=== PATIENT | female | born 1975 | race Caucasian/White ===

== ENCOUNTER 2017-02-16 07:24 | Inpatient (IN) | payer OTHER ==
[2017-02-16] VITALS (21 sets, daily range): BP systolic 93–116; BP diastolic 53–78; PULSE 59–96; RESP 12–21; Ht 157.5 cm; Wt 51.1 kg
[~2017-02-16] VITALS: Ht 157.5 cm; Wt 51.1 kg
[2017-02-16] MEDS ORDERED: SOD CHLORIDE 0.9% 1,000 ML IV SCH (07:30)
[2017-02-16] MEDS ORDERED: AMPICILLIN/SULB 3 GM/NS (PMX) 100 ML IVPB ONE (07:30)
[2017-02-16 08:50] LABS: BASOPHILS % 0.7 % (0.0-2.0); EOSINOPHILS # 0.2 10^3/ul (0.0-0.5); EOSINOPHILS % 4.5 % (0.0-7.0); HEMATOCRIT 35.5 % (37.0-47.0); HEMOGLOBIN 11.9 g/dl (12.0-16.0); LYMPHOCYTES # 0.9 10^3/ul (0.8-2.9); LYMPHOCYTES % 21.1 % (15.0-51.0); MEAN CORPUSCULAR HGB CONC 33.5 g/dl (32.0-37.0); MEAN CORPUSCULAR VOLUME 98.3 fl (82.0-101.0); MEAN PLATELET VOLUME 9.8 fl (7.4-10.4); MONOCYTE # 0.4 10^3/ul (0.3-0.9); MONOCYTES % 8.3 % (0.0-11.0); NEUTROPHIL # 2.9 10^3/ul (1.6-7.5); NEUTROPHILS % 65.2 % (39.0-77.0); PLATELET COUNT 247 10^3/UL (140-415); RED BLOOD COUNT 3.61 10^6/ul (4.20-5.40); RED CELL DISTRIBUTION WIDTH 12.5 % (11.5-14.5); WHITE BLOOD COUNT 4.5 10^3/ul (4.8-10.8)
[2017-02-16 09:08] LABS: INR 0.97; PROTIME 12.9 Sec (12.2-14.2)
[2017-02-16 09:09] LABS: PARTIAL THROMBOPLASTIN TIME 25.5 Sec (25.0-35.0)
[2017-02-16 09:12] LABS: ALBUMIN 4.4 g/dl (3.3-4.9); ALBUMIN/GLOBULIN RATIO 1.57; BILIRUBIN,INDIRECT 0.3 mg/dl (0-1.1); BILIRUBIN,TOTAL 0.3 mg/dl (0.2-1.3); TOTAL PROTEIN 7.2 g/dl (6.1-8.1)
[2017-02-16 09:14] LABS: CALCIUM 9.4 mg/dl (8.4-10.2); CREATININE 0.6 mg/dl (0.44-1.00)
[2017-02-16] MEDS: D5W-0.45 NACL + KCL 20 MEQ 1,000 ML IV SCH ×2 (09:32→16:12)
[2017-02-16] MEDS ORDERED: ROCURONIUM 50 MG INJ ONE (09:39)
[2017-02-16] MEDS ORDERED: PROPOFOL 20 ML ONE (09:39)
[2017-02-16] MEDS ORDERED: MIDAZOLAM 1 MG/ML 2 ML INJ ONE (09:39)
[2017-02-16] MEDS ORDERED: LIDOCAINE 1% (MDV) 20 ML INJ ONE (09:40)
[2017-02-16] MEDS ORDERED: ACETAMINOPHEN 1000MG/100ML IV 100 ML IVPB PRN (10:00)
[2017-02-16] MEDS ORDERED: PHENYLephrine (100 MCG/ML) 5ML SYG ONE (10:22)
[2017-02-16] MEDS ORDERED: FAMOTIDINE 20 MG INJ ONE (11:09)
[2017-02-16] MEDS ORDERED: DEXAMETHASONE 4 MG/ML 1 ML INJ ONE (11:09)
[2017-02-16] MEDS ORDERED: ONDANSETRON 4 MG INJ ONE (11:09)
[2017-02-16] MEDS ORDERED: ROPIVACAINE 0.2% 20 ML VIAL ONE ×2 (11:34→11:55)
[2017-02-16] MEDS ORDERED: SUGAMMADEX SODIUM 200 MG/2 ML VIAL IV ONE (11:45)
--- NOTE | 2017-02-16 12:05 | OPR ---
Date/Time of Note Date/Time of Note DATE: 02/16/17 TIME: 12:00 Operative Report Preoperative Diagnosis Low rectal cancer Postoperative Diagnosis Same Operation/Procedure Performed Low anterior resection with splenic flexure mobilization mobilization of omental patch and rigid sigmoidoscopy Surgeon: DION WOODS MD anesthetic assistant: IDA RUIZ MD Second assist: LETICIA SANTANA MD Anesthesia Type: general Estimated Blood Loss: 50 - 100 ml's Transfusion Required: no Specimens rectosigmoid colon,proximal and distal donuts Complications: no DION WOODS MD Feb 16, 2017 12:05
[2017-02-16] MEDS ORDERED: FENTAnyl 50 MCG/ML VIAL ONE (12:07)
[2017-02-16] MEDS ORDERED: MEPERIDINE 25 MG INJ IV PRN (12:30)
[2017-02-16] MEDS ORDERED: DIPHENHYDRAMINE 50 MG INJ IV PRN (12:30)
[2017-02-16] MEDS ORDERED: ONDANSETRON 4 MG INJ IV PRN (12:30)
[2017-02-16] MEDS ORDERED: HYDROmorphONE (0.2 MG/ML) 10ML SYG IV PRN ×2 (12:30)
[2017-02-16] MEDS ORDERED: PROCHLORPERAZINE 10 MG INJ IV PRN (12:30)
[2017-02-16] MEDS ORDERED: KETOROLAC 30 MG INJ IV PRN (12:30)
[2017-02-16] MEDS: morphine 1 MG/ML 30 ML (PCA) IV SCH ×2 (12:56→20:47)
--- NOTE | 2017-02-16 13:06 | OPR ---
DATE OF OPERATION: 02/16/2017 PREOPERATIVE DIAGNOSIS: Low rectal cancer. POSTOPERATIVE DIAGNOSIS: Low rectal cancer. PROCEDURES: Abdominal exploration, mobilization of left colon with mobilization of splenic flexure and low anterior resection with primary stapled anastomosis. Mobilization of omental and placement of omental flap patch over the anastomosis. ANESTHESIA: General. ANESTHESIOLOGIST: Dr. Pendleton. SURGEONS: Dr. Dhiraj Santos and Dr. Miles. DYE WORKER: Dr. Fischer. INDICATIONS FOR PROCEDURE: Patient is a 41-year-old female presented with rectal bleeding. General colonoscopy was found to have an adenocarcinoma at approximately 5-7 cm, it was relatively large. She was referred for neoadjuvant chemotherapy, which she successfully completed. She was counseled as need for definitive surgical resection. She consented and was scheduled for surgery. OPERATIVE PROCEDURE: Patient was brought to the operating theater, placed under general endotracheal tube anesthesia. She was then placed in the lithotomy position. The abdomen and pubic regions were shaved, prepped and draped in usual sterile fashion. A lower midline incision was made from a point below the umbilicus down to the symphysis pubis. Subcutaneous tissue was dissected with cautery down to the anterior rectus sheath. The linea alba was incised, as was the perineum and the abdomen was entered without difficulty. The patient was then put in Trendelenburg position. The Bookwalter retractor was placed and excellent exposure was obtained. The left colon was then mobilized by incising the left white line of Toldt all the way up to the splenic flexure with the left colon fully mobilized, a suitable points for transection was identified and the rectosigmoid area was then cleared of its mesentery and transected with the ALEX stapler with meticulous dissection, the mesentery of the distal sigmoid and mesocolon rectal mesentery was transected with a combination of cautery or the LigaSure device. Dissection proceeded very deep into the pelvis. The peritoneal reflection was incised and further dissection took place. The adherent posterior vaginal wall was gently dissected off of the anterior rectal wall. At this point, Dr. Santos went above performed rigid sigmoidoscopy. He identified the small scar from the residual tumor and it was noted that the dissection was adequately below the location of the tumor. Therefore Dr. Santos re-scrubbed, gowned and gloved and went back to the abdomen in preparation for resection was made. The distal bowel was transected with a contour TA device. Specimen was removed. The intraoperative analysis performed by attending pathologist, Dr. Fischer took place. He indicated that the distal margin was adequate at least 2 cm. Preparation for reanastomosis was made. The staple line of the sigmoid colon was transected and the sizers were used and indicated the number 29 EEA would be suitable. The anvil from the EEA was removed from the EEA device and using a 2-0 Prolene a pursestring suture was created. The anvil was placed into the distal sigmoid colon, the pursestring suture was tied down. Dr. Santos then went below and using the EEA device with Dr. Miles and Dr. Fischer on the abdominal side the anastomosis was created. Upon withdrawal and opening of the EEA device they were fully intact proximal and distal donuts of tissue both of which were sent for pathologic analysis. Along with the rectosigmoid specimen. The pelvis was then filled with warm saline and rigid sigmoidoscopy was performed again. The bowel was distended by clamping it proximal to the anastomosis. There was no evidence of leak. The sigmoid colon was then removed, the omentum was then mobilized and an omental patch was then placed down over the anastomosis and secured in place with a 4-0 Vicryl suture. Final irrigation and inspection took place. Lap, sponge, and instrument counts were correct. The Bookwalter retractor was removed and the incision was then closed with 0 looped PDS sutures in running fashion. The subcutaneous tissue was irrigated with Betadine and the final skin approximation took place with skin michi. ESTIMATED BLOOD LOSS: Was approximately 100 mL. COMPLICATIONS: There were no complications. DISPOSITION: The patient was transported in stable condition to the recovery room. Dictated By: Dhiraj Santos MD /danny/rosemarie /Document#: [id number]
[2017-02-16] MEDS: ONDANSETRON 4 MG INJ IV PRN (16:11)
[2017-02-16] MEDS: METOCLOPRAMIDE 10 MG INJ IV SCH (18:43)
[2017-02-17] VITALS (8 sets, daily range): BP systolic 94–103; BP diastolic 50–62; PULSE 60–80; RESP 18–20
[2017-02-17] MEDS: METOCLOPRAMIDE 10 MG INJ IV SCH ×5 (00:11→23:36)
[2017-02-17] MEDS: D5W-0.45 NACL + KCL 20 MEQ 1,000 ML IV SCH ×5 (00:23→21:39)
[2017-02-17] MEDS: morphine 1 MG/ML 30 ML (PCA) IV SCH ×2 (08:44→20:09)
[2017-02-17 11:16] LABS: CALCIUM 8.7 mg/dl (8.4-10.2); CREATININE 0.68 mg/dl (0.44-1.00); MAGNESIUM 1.8 mg/dl (1.7-2.5)
--- NOTE | 2017-02-17 12:56 | HP ---
Date/Time of Note Date/Time of Note DATE: 02/17/17 TIME: 12:46 Assessment/Plan VTE Prophylaxis VTE Prophylaxis Intervention: SCD's Lines/Catheters IV Catheter Type (from Nrsg): Peripheral IV Urinary Cath still in place: Yes Reason Cath still needed: urinary retention Assessment/Plan Assessment/Plan Low rectal cancer sp Low anterior resection with splenic flexure mobilization mobilization of omental patch and rigid sigmoidoscopy - admit to [facility] - per surgery - IVF -Morphine for pain - Zofran for nausea - SCD - IS - am labs - monitor for s/s of bleeding/infectio Plan of care dw Dr Gage/staff HPI/ROS Admit Date/Time Admit Date/Time Feb 16, 2017 at 07:24 ROS Late enrty fo 02/16/2017 This is a 41 years old female patient with Rectal cancer ia admitted sp rectal surgery by Dr Santos today. Patient denies any chest pain/shortness of breath, nausea/ vomiting. c/o rectal pain. dw staff. it admitted under Dr Gage. Respiratory: no complaints Cardiovascular: no complaints Gastrointestinal: other Genitourinary: other Musculoskeletal: no complaints PMH/Family/Social Past Surgical History Csections x3 Tubal Ligation Family History Significant Family History: no pertinent family hx Social History Smoking Status: Never smoker Exam/Review of Systems Vital Signs Vitals Vital Signs Date Time Temp Pulse Resp B/P Pulse Ox O2 Delivery O2 Flow Rate FiO2 02/17/17 07:58 98.5 78 20 101/59 96 02/17/17 04:40 Room Air Intake and Output 02/16/17 02/16/17 02/17/17 14:59 22:59 06:59 Intake Total 2000 ml 1700 ml Output Total 600 ml 1200 ml Balance 1400 ml 500 ml Exam Constitutional: alert, well developed Respiratory: diminished breath sounds Cardiovascular: nl pulses, regular rate and rhythm Gastrointestinal: other (sp rectal sx), soft Musculoskeletal: nl extremities to inspection 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: nl speech Labs Result Diagram: 02/16/17 0832 02/17/17 1014 Medications Medications Current Medications Ondansetron HCl (Zofran Inj) 4 mg Q6H PRN IV NAUSEA AND/OR VOMITING Last administered on 02/16/17t 16:11; Admin Dose 4 MG; Start 02/16/17 at 10:00 Morphine Sulfate 2 MG/HR CONTINUOUS RATE 2... Q4PCA IV Last administered on 08:44; Admin Dose 30 MG; Start 02/16/17 at 10:00 Potassium Chloride/Dextrose/ Sod Cl 1,000 ml @ 125 mls/hr Q8H IV Last administered on 02/17/17 12:39; Admin Dose 125 MLS/HR; Start 02/16/17 at 09:32 Acetaminophen (Ofirmev 1000mg/ 100ml Iv) 100 ml @ 400 mls/hr Q6H PRN IVPB PAIN ; Start 02/16/17 at 10:00 Metoclopramide HCl (Reglan) 10 mg Q6 IV Last administered on 02/17/17 12:39; Admin Dose 10 MG; Start 02/16/17 at 18:30 SHERINE MAHMOOD Feb 17, 2017 12:56
--- NOTE | 2017-02-17 15:00 | PN ---
Date/Time of Note Date/Time of Note DATE: 02/17/17 TIME: 14:52 Assessment/Plan VTE Prophylaxis VTE Prophylaxis Intervention: SCD's Lines/Catheters IV Catheter Type (from Nrsg): Peripheral IV Urinary Cath still in place: Yes Reason Cath still needed: other (indicate) (Patient has had a low anterior resection of the sigmoid colon. Due to manipulation of the nervous system over that there is a chance of retention we will keep the Sandoval till patient completely ambulates.) Assessment/Plan Assessment/Plan 41-year-old female is status post low anterior resection of the cancer of the rectum. For the first postop day patient is completely stable. Patient is on LATHE HAND. Today has been out of bed sitting in the chair. We will continue current care. Subjective 24 Hr Interval Summary Free Text/Dictation No specific complaint. Pain is under control. Patient has been out of bed sitting the chair. There has been some nausea which has been controlled by Zofran. No bowel movement or passing gas. Exam/Review of Systems Vital Signs Vitals Vital Signs Date Time Temp Pulse Resp B/P Pulse Ox O2 Delivery O2 Flow Rate FiO2 02/17/17 07:58 98.5 78 20 101/59 96 02/17/17 04:40 Room Air Intake and Output 02/16/17 02/16/17 02/17/17 15:00 23:00 07:00 Intake Total 2000 ml 1700 ml Output Total 600 ml 1200 ml Balance 1400 ml 500 ml Exam Postop day #1. Vital sign is stable no fever. Electrolytes BUN creatinine within normal limits urine adequate. Results Result Diagram: 02/16/17 0832 02/17/17 1014 Results 24 hrs Laboratory Tests Test 02/17/17 05:40 02/17/17 10:14 Lab Scanned Report LAB Sodium Level 141 Potassium Level 4.0 Chloride Level 106 Carbon Dioxide Level 26 Anion Gap 13 Blood Urea Nitrogen 8 Creatinine 0.68 Glucose Level 89 Calcium Level 8.7 Phosphorus Level 3.0 Magnesium Level 1.8 Medications Medications Current Medications Ondansetron HCl (Zofran Inj) 4 mg Q6H PRN IV NAUSEA AND/OR VOMITING Last administered on 02/16/17 16:11; Admin Dose 4 MG; Start 02/16/17 at 10:00 Morphine Sulfate 2 MG/HR CONTINUOUS RATE 2... Q4PCA IV Last administered on 08:44; Admin Dose 30 MG; Start 02/16/17 at 10:00 Potassium Chloride/Dextrose/ Sod Cl 1,000 ml @ 125 mls/hr Q8H IV Last administered on 02/17/17 12:39; Admin Dose 125 MLS/HR; Start 02/16/17 at 09:32 Acetaminophen (Ofirmev 1000mg/ 100ml Iv) 100 ml @ 400 mls/hr Q6H PRN IVPB PAIN ; Start 02/16/17 at 10:00 Metoclopramide HCl (Reglan) 10 mg Q6 IV Last administered on 02/17/17 12:39; Admin Dose 10 MG; Start 02/16/17 at 18:30 LETICIA SANTANA MD Feb 17, 2017 14:59
--- NOTE | 2017-02-17 16:47 | PN ---
Date/Time of Note Date/Time of Note DATE: 02/17/17 TIME: 16:44 Assessment/Plan VTE Prophylaxis VTE Prophylaxis Intervention: SCD's Lines/Catheters IV Catheter Type (from Nrsg): Peripheral IV Urinary Cath still in place: Yes Reason Cath still needed: urinary retention Assessment/Plan Chief Complaint/Hosp Course Present bowel sounds, negative flatus, pain is well controlled, denies nausea. Problems: Assessment/Plan -Low rectal cancer, status post resection by Dr. Santos. Continue IV fluids. Continue morphine for pain and Zofran as needed for nausea. Further recommendations based on clinical course. Plan of care discussed with Dr. Gage. Exam/Review of Systems Vital Signs Vitals Vital Signs Date Time Temp Pulse Resp B/P Pulse Ox O2 Delivery O2 Flow Rate FiO2 02/17/17 07:58 98.5 78 20 101/59 96 02/17/17 04:40 Room Air Intake and Output 02/16/17 02/16/17 02/17/17 15:00 23:00 07:00 Intake Total 2000 ml 1700 ml Output Total 600 ml 1200 ml Balance 1400 ml 500 ml Exam Constitutional: alert Psych: no complaints Eyes: nl conjunctiva Neck: supple Respiratory: normal air movement Cardiovascular: nl pulses Gastrointestinal: non-tender, other (s/p surgery), soft Musculoskeletal: nl extremities to inspection Extremities: normal pulses 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: nl mental status Skin: nl turgor Results Result Diagram: 02/16/17 0832 02/17/17 1014 Results 24 hrs Laboratory Tests Test 02/17/17 05:40 02/17/17 10:14 Lab Scanned Report LAB Sodium Level 141 Potassium Level 4.0 Chloride Level 106 Carbon Dioxide Level 26 Anion Gap 13 Blood Urea Nitrogen 8 Creatinine 0.68 Glucose Level 89 Calcium Level 8.7 Phosphorus Level 3.0 Magnesium Level 1.8 Medications Medications Current Medications Ondansetron HCl (Zofran Inj) 4 mg Q6H PRN IV NAUSEA AND/OR VOMITING Last administered on 02/16/17 16:11; Admin Dose 4 MG; Start 02/16/17 at 10:00 Morphine Sulfate 2 MG/HR CONTINUOUS RATE 2... Q4PCA IV Last administered on 08:44; Admin Dose 30 MG; Start 02/16/17 at 10:00 Potassium Chloride/Dextrose/ Sod Cl 1,000 ml @ 125 mls/hr Q8H IV Last administered on 02/17/17 12:39; Admin Dose 125 MLS/HR; Start 02/16/17 at 09:32 Acetaminophen (Ofirmev 1000mg/ 100ml Iv) 100 ml @ 400 mls/hr Q6H PRN IVPB PAIN ; Start 02/16/17 at 10:00 Metoclopramide HCl (Reglan) 10 mg Q6 IV Last administered on 02/17/17 12:39; Admin Dose 10 MG; Start 02/16/17 at 18:30 MAMADOU CHUA Feb 17, 2017 16:47
[2017-02-18] MEDS: D5W-0.45 NACL + KCL 20 MEQ 1,000 ML IV SCH ×5 (00:35→20:45)
[2017-02-18 02:02] VITALS: BP 107/62; RESP 20
[2017-02-18] MEDS: METOCLOPRAMIDE 10 MG INJ IV SCH ×3 (05:53→18:00)
[2017-02-18 07:42] VITALS: BP 103/55; RESP 18
[2017-02-18] MEDS: morphine 1 MG/ML 30 ML (PCA) IV SCH (08:57)
[2017-02-18 10:00] VITALS: BP 110/62; PULSE 87; RESP 18
[2017-02-18 10:04] LABS: CALCIUM 8.6 mg/dl (8.4-10.2); CREATININE 0.61 mg/dl (0.44-1.00); MAGNESIUM 1.8 mg/dl (1.7-2.5); PHOSPHORUS 2.8 mg/dl (2.5-4.9)
[2017-02-18 10:59] VITALS: BP 103/56; RESP 18
[2017-02-18 11:27] LABS: BASOPHILS % 0.3 % (0.0-2.0); EOSINOPHILS # 0.1 10^3/ul (0.0-0.5); EOSINOPHILS % 1.6 % (0.0-7.0); HEMATOCRIT 29.6 % (37.0-47.0); HEMOGLOBIN 10.1 g/dl (12.0-16.0); LYMPHOCYTES # 0.8 10^3/ul (0.8-2.9); LYMPHOCYTES % 10.9 % (15.0-51.0); MEAN CORPUSCULAR HGB CONC 34.1 g/dl (32.0-37.0); MEAN CORPUSCULAR VOLUME 99.7 fl (82.0-101.0); MEAN PLATELET VOLUME 8.9 fl (7.4-10.4); MONOCYTE # 0.5 10^3/ul (0.3-0.9); MONOCYTES % 7.5 % (0.0-11.0); NEUTROPHIL # 5.6 10^3/ul (1.6-7.5); NEUTROPHILS % 79.4 % (39.0-77.0); PLATELET COUNT 206 10^3/UL (140-415); RED BLOOD COUNT 2.97 10^6/ul (4.20-5.40); RED CELL DISTRIBUTION WIDTH 12.6 % (11.5-14.5); WHITE BLOOD COUNT 7.1 10^3/ul (4.8-10.8)
--- NOTE | 2017-02-18 12:07 | PN ---
Date/Time of Note Date/Time of Note DATE: 02/18/17 TIME: 12:04 Assessment/Plan VTE Prophylaxis VTE Prophylaxis Intervention: SCD's Lines/Catheters IV Catheter Type (from Nrsg): Peripheral IV Urinary Cath still in place: Yes Reason Cath still needed: urinary retention Assessment/Plan Assessment/Plan - Low rectal cancer, - Status Post resection by Dr. Santos. Postop day #2. - per surgery - Continue IV fluids. - Continue morphine for pain and Zofran as needed for nausea. - monitor labs Further recommendations based on clinical course. Plan of care discussed with Dr. Gage. 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 Patient ambulated but felt dizzy.has not passed gas yet, family at bed side,will follow surgery recommendations, no rectal bleeding reported, staff. Constitutional: other (generelized weakness), requiring IVF Respiratory: no complaints Cardiovascular: no complaints Gastrointestinal: pain (surgical pain) Genitourinary: no complaints Exam/Review of Systems Vital Signs Vitals Vital Signs Date Time Temp Pulse Resp B/P Pulse Ox O2 Delivery O2 Flow Rate FiO2 02/18/17 10:59 97.9 83 18 103/56 92 02/17/17 04:40 Room Air Intake and Output 02/17/17 02/17/17 02/18/17 15:00 23:00 07:00 Intake Total 375 ml 1000 ml 1000 ml Output Total 1625 ml Balance 375 ml 1000 ml -625 ml Exam Constitutional: alert, oriented, well developed Respiratory: diminished breath sounds (at bases, uses incentive spirometer as ordered) Cardiovascular: nl pulses, regular rate and rhythm Gastrointestinal: distended, soft Genitourinary - Female: other (moreira cath intact.) Musculoskeletal: nl extremities to inspection Extremities: normal pulses 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: nl mental status, nl speech Results Result Diagram: 02/18/17 1119 02/18/17 0913 Results 24 hrs Laboratory Tests Test 02/18/17 09:13 02/18/17 11:19 Sodium Level 138 Potassium Level 4.0 Chloride Level 98 Carbon Dioxide Level 30 Anion Gap 14 Blood Urea Nitrogen 5 L Creatinine 0.61 Glucose Level 104 Calcium Level 8.6 Phosphorus Level 2.8 Magnesium Level 1.8 White Blood Count 7.1 # Red Blood Count 2.97 L Hemoglobin 10.1 L Hematocrit 29.6 L Mean Corpuscular Volume 99.7 Mean Corpuscular Hemoglobin 34.0 H Mean Corpuscular Hemoglobin Concent 34.1 Red Cell Distribution Width 12.6 Platelet Count 206 Mean Platelet Volume 8.9 Neutrophils % 79.4 H Lymphocytes % 10.9 L Monocytes % 7.5 Eosinophils % 1.6 Basophils % 0.3 Nucleated Red Blood Cells % 0.0 Neutrophils # 5.6 Lymphocytes # 0.8 Monocytes # 0.5 Eosinophils # 0.1 Basophils # 0.0 Nucleated Red Blood Cells # 0.0 Medications Medications Current Medications Ondansetron HCl (Zofran Inj) 4 mg Q6H PRN IV NAUSEA AND/OR VOMITING Last administered on 02/16/17 16:11; Admin Dose 4 MG; Start 02/16/17 at 10:00 Morphine Sulfate 2 MG/HR CONTINUOUS RATE 2... Q4PCA IV Last administered on 08:57; Admin Dose 30 MG; Start 02/16/17 at 10:00 Potassium Chloride/Dextrose/ Sod Cl 1,000 ml @ 125 mls/hr Q8H IV Last administered on 02/18/17 05:53; Admin Dose 125 MLS/HR; Start 02/16/17 at 09:32 Acetaminophen (Ofirmev 1000mg/ 100ml Iv) 100 ml @ 400 mls/hr Q6H PRN IVPB PAIN ; Start 02/16/17 at 10:00 Metoclopramide HCl (Reglan) 10 mg Q6 IV Last administered on 02/18/17 05:53; Admin Dose 10 MG; Start 02/16/17 at 18:30 SHERINE MAHMOOD Feb 18, 2017 12:07
[2017-02-18 14:09] VITALS: BP 99/55; RESP 18
--- NOTE | 2017-02-18 15:08 | PN ---
Date/Time of Note Date/Time of Note DATE: 02/18/17 TIME: 15:01 Assessment/Plan VTE Prophylaxis VTE Prophylaxis Intervention: ambulation Lines/Catheters IV Catheter Type (from Nrs): Peripheral IV Urinary Cath still in place: Yes Reason Cath still needed: other (indicate) (PO2 low anterior resection on the lateral dissection of the pelvic area he prefers to keep the Sandoval catheter in place for a few more days.) Assessment/Plan Assessment/Plan Postop day #2. Status post laparotomy low anterior resection of the cancer of rectum. Status post neoadjuvant chemotherapy and radiation. For the second day postop patient is doing fine patient is a stable slight distention of the abdomen with gases. Plan: Encourage ambulation. Encourage incentive spirometry. Will DC the continuous base TELEHEALTH DIRECTOR 2 mg of morphine and continue on demand. Keep the patient n.p.o. Subjective 24 Hr Interval Summary Free Text/Dictation Postop day #2. Status post low anterior resection of the cancer of the rectum. Has been out of bed walk around. No vomiting. Patient states that has passed a little bit of gas. Sandoval catheter in place. Pain is controlled with TELEHEALTH DIRECTOR. Exam/Review of Systems Vital Signs Vitals Vital Signs Date Time Temp Pulse Resp B/P Pulse Ox O2 Delivery O2 Flow Rate FiO2 02/18/17 14:09 98.9 88 18 99/55 93 02/17/17 04:40 Room Air Intake and Output 02/17/17 02/17/17 02/18/17 15:00 23:00 07:00 Intake Total 375 ml 1000 ml 1000 ml Output Total 1625 ml Balance 375 ml 1000 ml -625 ml Exam Vital signs stable. Afebrile. Pulse oximetry 93%. Alert awake oriented 3 laying down in the bed comfortable. Heart regular. Lungs decreased breathing sound bases. Abdomen appears slightly distended with gas. Bowel sounds 2+/4+. Lower extremity no pitting edema. No calf tenderness. Dressing of the wound changed. Wound appears clean. Results Result Diagram: 02/18/17 1119 02/18/17 0913 Results 24 hrs Laboratory Tests Test 02/18/17 09:13 02/18/17 11:19 Sodium Level 138 Potassium Level 4.0 Chloride Level 98 Carbon Dioxide Level 30 Anion Gap 14 Blood Urea Nitrogen 5 L Creatinine 0.61 Glucose Level 104 Calcium Level 8.6 Phosphorus Level 2.8 Magnesium Level 1.8 White Blood Count 7.1 # Red Blood Count 2.97 L Hemoglobin 10.1 L Hematocrit 29.6 L Mean Corpuscular Volume 99.7 Mean Corpuscular Hemoglobin 34.0 H Mean Corpuscular Hemoglobin Concent 34.1 Red Cell Distribution Width 12.6 Platelet Count 206 Mean Platelet Volume 8.9 Neutrophils % 79.4 H Lymphocytes % 10.9 L Monocytes % 7.5 Eosinophils % 1.6 Basophils % 0.3 Nucleated Red Blood Cells % 0.0 Neutrophils # 5.6 Lymphocytes # 0.8 Monocytes # 0.5 Eosinophils # 0.1 Basophils # 0.0 Nucleated Red Blood Cells # 0.0 Medications Medications Current Medications Ondansetron HCl (Zofran Inj) 4 mg Q6H PRN IV NAUSEA AND/OR VOMITING Last administered on 02/16/17 16:11; Admin Dose 4 MG; Start 02/16/17 at 10:00 Morphine Sulfate 2 MG/HR CONTINUOUS RATE 2... Q4PCA IV Last administered on 08:57; Admin Dose 30 MG; Start 02/16/17 at 10:00 Potassium Chloride/Dextrose/ Sod Cl 1,000 ml @ 125 mls/hr Q8H IV Last administered on 02/18/17 13:04; Admin Dose 125 MLS/HR; Start 02/16/17 at 09:32 Acetaminophen (Ofirmev 1000mg/ 100ml Iv) 100 ml @ 400 mls/hr Q6H PRN IVPB PAIN ; Start 02/16/17 at 10:00 Metoclopramide HCl (Reglan) 10 mg Q6 IV Last administered on 02/18/17 05:53; Admin Dose 10 MG; Start 02/16/17 at 18:30 LETICIA SANTANA MD Feb 18, 2017 15:08
[2017-02-18 21:00] VITALS: BP 101/60; PULSE 83; RESP 18
[2017-02-19 01:00] VITALS: BP 105/58; PULSE 91; RESP 16
[2017-02-19] MEDS: D5W-0.45 NACL + KCL 20 MEQ 1,000 ML IV SCH ×4 (01:32→22:06)
[2017-02-19 05:37] VITALS: BP 102/59; PULSE 89; RESP 16
[2017-02-19 06:00] LABS: BASOPHILS % 0.2 % (0.0-2.0); EOSINOPHILS # 0.3 10^3/ul (0.0-0.5); EOSINOPHILS % 5.4 % (0.0-7.0); HEMATOCRIT 29.5 % (37.0-47.0); HEMOGLOBIN 9.8 g/dl (12.0-16.0); LYMPHOCYTES # 0.7 10^3/ul (0.8-2.9); LYMPHOCYTES % 12.5 % (15.0-51.0); MEAN CORPUSCULAR HGB CONC 33.2 g/dl (32.0-37.0); MEAN CORPUSCULAR VOLUME 99.3 fl (82.0-101.0); MEAN PLATELET VOLUME 9.8 fl (7.4-10.4); MONOCYTE # 0.5 10^3/ul (0.3-0.9); MONOCYTES % 8.7 % (0.0-11.0); NEUTROPHIL # 3.8 10^3/ul (1.6-7.5); PLATELET COUNT 213 10^3/UL (140-415); RED BLOOD COUNT 2.97 10^6/ul (4.20-5.40); RED CELL DISTRIBUTION WIDTH 12.2 % (11.5-14.5); WHITE BLOOD COUNT 5.2 10^3/ul (4.8-10.8)
[2017-02-19] MEDS: METOCLOPRAMIDE 10 MG INJ IV SCH ×4 (06:00→18:00)
[2017-02-19 06:25] LABS: CALCIUM 8.9 mg/dl (8.4-10.2); CREATININE 0.6 mg/dl (0.44-1.00); POTASSIUM 4.3 mmol/L (3.5-5.1)
[2017-02-19 07:37] VITALS: BP 95/55; RESP 18
[2017-02-19] MEDS: morphine 1 MG/ML 30 ML (PCA) IV SCH (08:07)
[2017-02-19 11:57] LABS: CREATININE 0.58 mg/dl (0.44-1.00); PHOSPHORUS 3.8 mg/dl (2.5-4.9)
[2017-02-19 13:28] VITALS: BP 105/56; PULSE 78; RESP 18
[2017-02-19 14:20] VITALS: BP 123/58; RESP 18
--- NOTE | 2017-02-19 14:29 | PN ---
Date/Time of Note Date/Time of Note DATE: 02/19/17 TIME: 14:23 Assessment/Plan VTE Prophylaxis VTE Prophylaxis Intervention: ambulation Lines/Catheters IV Catheter Type (from Nrsg): Peripheral IV Urinary Cath still in place: Yes Reason Cath still needed: other (indicate) (Due to massive manipulation in the pelvic area and manipulation of the nervous system to the bladder prefer to keep a few more) Assessment/Plan Assessment/Plan 41-year-old female status post laparotomy no pelvic resection of the cancer of the rectum. Postop day #3. . So far is very stable. We will try to DC Sandoval catheter in the morning tomorrow. Subjective 24 Hr Interval Summary Free Text/Dictation Postop day #3. No complaint. Has been out of bed walking around. No nausea no vomiting minimal pain medication has been used by the patient. Exam/Review of Systems Vital Signs Vitals Vital Signs Date Time Temp Pulse Resp B/P Pulse Ox O2 Delivery O2 Flow Rate FiO2 02/19/17 14:20 98.2 77 18 123/58 99 02/19/17 13:28 Room Air Intake and Output 02/18/17 02/18/17 02/19/17 15:00 23:00 07:00 Intake Total 1000 ml 1000 ml 1000 ml Output Total 2800 ml 2150 ml Balance 1000 ml -1800 ml -1150 ml Exam Alert awake oriented 3. No fever Abdomen is soft. Mildly distended bowel sounds 2-3+/4+. Has past few flatus. Legs no calf tenderness no pitting edema. Results Result Diagram: 02/19/17 0500 02/19/17 1032 Results 24 hrs Laboratory Tests Test 02/19/17 05:00 02/19/17 05:20 02/19/17 10:32 White Blood Count 5.2 # Red Blood Count 2.97 L Hemoglobin 9.8 L Hematocrit 29.5 L Mean Corpuscular Volume 99.3 Mean Corpuscular Hemoglobin 33.0 Mean Corpuscular Hemoglobin Concent 33.2 Red Cell Distribution Width 12.2 Platelet Count 213 Mean Platelet Volume 9.8 Neutrophils % 73.0 Lymphocytes % 12.5 L Monocytes % 8.7 Eosinophils % 5.4 Basophils % 0.2 Nucleated Red Blood Cells % 0.0 Neutrophils # 3.8 Lymphocytes # 0.7 L Monocytes # 0.5 Eosinophils # 0.3 Basophils # 0.0 Nucleated Red Blood Cells # 0.0 Sodium Level 141 141 Potassium Level 4.3 4.0 Chloride Level 101 99 Carbon Dioxide Level 31 31 Anion Gap 13 15 Blood Urea Nitrogen 4 L 5 L Creatinine 0.60 0.58 Glucose Level 96 107 Calcium Level 8.9 9.0 Phosphorus Level 3.8 Magnesium Level 2.0 Medications Medications Current Medications Ondansetron HCl (Zofran Inj) 4 mg Q6H PRN IV NAUSEA AND/OR VOMITING Last administered on 02/16/17 16:11; Admin Dose 4 MG; Start 02/16/17 at 10:00 Morphine Sulfate 0 MG/HR CONTINUOUS RATE 2... Q4PCA IV Last administered on 08:07; Admin Dose 30 MG; Start 02/16/17 at 10:00 Potassium Chloride/Dextrose/ Sod Cl 1,000 ml @ 125 mls/hr Q8H IV Last administered on 02/19/17 13:34; Admin Dose 125 MLS/HR; Start 02/16/17 at 09:32 Acetaminophen (Ofirmev 1000mg/ 100ml Iv) 100 ml @ 400 mls/hr Q6H PRN IVPB PAIN ; Start 02/16/17 at 10:00 Metoclopramide HCl (Reglan) 10 mg Q6 IV Last administered on 02/18/17 05:53; Admin Dose 10 MG; Start 02/16/17 at 18:30 LETICIA SANTANA MD Feb 19, 2017 14:29
--- NOTE | 2017-02-19 15:59 | PN ---
Date/Time of Note Date/Time of Note DATE: 02/19/17 TIME: 15:55 Assessment/Plan VTE Prophylaxis VTE Prophylaxis Intervention: SCD's VTE Contraindication Reason: peptic ulcer disease Lines/Catheters IV Catheter Type (from Nrsg): Peripheral IV Urinary Cath still in place: Yes Reason Cath still needed: urinary retention Assessment/Plan Assessment/Plan - Low rectal cancer, - Status Post resection by Dr. Santos. Postop day #3. - per surgery - Continue IV fluids. - Continue morphine for pain and Zofran as needed for nausea. - monitor labs Further recommendations based on clinical course. Plan of care discussed with Dr. Gage. Subjective 24 Hr Interval Summary Free Text/Dictation resting, c/o rectal pain, surgery follows, afebrile. dw staff Constitutional: requiring IVF Respiratory: no complaints Cardiovascular: no complaints Gastrointestinal: other (rectal pain) Genitourinary: no complaints Musculoskeletal: no complaints Skin: no complaints Exam/Review of Systems Vital Signs Vitals Vital Signs Date Time Temp Pulse Resp B/P Pulse Ox O2 Delivery O2 Flow Rate FiO2 02/19/17 14:20 98.2 77 18 123/58 99 02/19/17 13:28 Room Air Intake and Output 02/18/17 02/18/17 02/19/17 15:00 23:00 07:00 Intake Total 1000 ml 1000 ml 1000 ml Output Total 2800 ml 2150 ml Balance 1000 ml -1800 ml -1150 ml Exam Constitutional: alert, oriented, well developed Respiratory: clear to auscultation, normal air movement Cardiovascular: nl pulses, regular rate and rhythm Gastrointestinal: non-tender, soft Musculoskeletal: nl extremities to inspection Extremities: normal pulses 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: nl mental status, nl speech Skin: nl turgor Results Result Diagram: 02/19/17 0500 02/19/17 1032 Results 24 hrs Laboratory Tests Test 02/19/17 05:00 02/19/17 05:20 02/19/17 10:32 White Blood Count 5.2 # Red Blood Count 2.97 L Hemoglobin 9.8 L Hematocrit 29.5 L Mean Corpuscular Volume 99.3 Mean Corpuscular Hemoglobin 33.0 Mean Corpuscular Hemoglobin Concent 33.2 Red Cell Distribution Width 12.2 Platelet Count 213 Mean Platelet Volume 9.8 Neutrophils % 73.0 Lymphocytes % 12.5 L Monocytes % 8.7 Eosinophils % 5.4 Basophils % 0.2 Nucleated Red Blood Cells % 0.0 Neutrophils # 3.8 Lymphocytes # 0.7 L Monocytes # 0.5 Eosinophils # 0.3 Basophils # 0.0 Nucleated Red Blood Cells # 0.0 Sodium Level 141 141 Potassium Level 4.3 4.0 Chloride Level 101 99 Carbon Dioxide Level 31 31 Anion Gap 13 15 Blood Urea Nitrogen 4 L 5 L Creatinine 0.60 0.58 Glucose Level 96 107 Calcium Level 8.9 9.0 Phosphorus Level 3.8 Magnesium Level 2.0 Medications Medications Current Medications Ondansetron HCl (Zofran Inj) 4 mg Q6H PRN IV NAUSEA AND/OR VOMITING Last administered on 02/16/17 16:11; Admin Dose 4 MG; Start 02/16/17 at 10:00 Morphine Sulfate 0 MG/HR CONTINUOUS RATE 2... Q4PCA IV Last administered on 08:07; Admin Dose 30 MG; Start 02/16/17 at 10:00 Potassium Chloride/Dextrose/ Sod Cl 1,000 ml @ 125 mls/hr Q8H IV Last administered on 02/19/17 13:34; Admin Dose 125 MLS/HR; Start 02/16/17 at 09:32 Acetaminophen (Ofirmev 1000mg/ 100ml Iv) 100 ml @ 400 mls/hr Q6H PRN IVPB PAIN ; Start 02/16/17 at 10:00 Metoclopramide HCl (Reglan) 10 mg Q6 IV Last administered on 02/18/17 05:53; Admin Dose 10 MG; Start 02/16/17 at 18:30 SHERINE MAHMOOD Feb 19, 2017 15:59
[2017-02-19 20:00] VITALS: BP 118/66; PULSE 81; RESP 16
[2017-02-20] VITALS (7 sets, daily range): BP systolic 97–105; BP diastolic 53–62; PULSE 75–80; RESP 16–18
[2017-02-20] MEDS: D5W-0.45 NACL + KCL 20 MEQ 1,000 ML IV SCH ×4 (01:32→17:32)
[2017-02-20] MEDS: METOCLOPRAMIDE 10 MG INJ IV SCH ×4 (06:00→18:47)
[2017-02-20 06:31] LABS: ABNORMAL IP MESSAGE 1; BASOPHILS % 0.4 % (0.0-2.0); EOSINOPHILS # 0.4 10^3/ul (0.0-0.5); EOSINOPHILS % 8.2 % (0.0-7.0); HEMATOCRIT 31.6 % (37.0-47.0); HEMOGLOBIN 10.6 g/dl (12.0-16.0); LYMPHOCYTES # 0.5 10^3/ul (0.8-2.9); LYMPHOCYTES % 10.8 % (15.0-51.0); MEAN CORPUSCULAR HEMOGLOBIN 32.5 pg (29.0-33.0); MEAN CORPUSCULAR HGB CONC 33.5 g/dl (32.0-37.0); MEAN CORPUSCULAR VOLUME 96.9 fl (82.0-101.0); MEAN PLATELET VOLUME 9.9 fl (7.4-10.4); MONOCYTE # 0.3 10^3/ul (0.3-0.9); MONOCYTES % 6.6 % (0.0-11.0); NEUTROPHIL # 3.7 10^3/ul (1.6-7.5); NEUTROPHILS % 73.8 % (39.0-77.0); PLATELET COUNT 251 10^3/UL (140-415); RED BLOOD COUNT 3.26 10^6/ul (4.20-5.40); RED CELL DISTRIBUTION WIDTH 12.2 % (11.5-14.5)
[2017-02-20 06:39] LABS: POSITIVE DIFF @See below
[2017-02-20 07:06] LABS: CALCIUM 9.1 mg/dl (8.4-10.2); CREATININE 0.61 mg/dl (0.44-1.00)
--- NOTE | 2017-02-20 13:54 | PN ---
Date/Time of Note Date/Time of Note DATE: 02/20/17 TIME: 13:51 Assessment/Plan VTE Prophylaxis VTE Prophylaxis Intervention: SCD's Lines/Catheters IV Catheter Type (from Nrs): Peripheral IV Urinary Cath still in place: Yes Reason Cath still needed: urinary retention Assessment/Plan Chief Complaint/Hosp Course Patient reports positive flatus, bowel sounds present, pain is well controlled. Patient's complains of mild nausea however denies any emesis. Assessment/Plan -Low rectal cancer, status post resection by Dr. Santos. Continue IV fluids. Continue morphine for pain and Zofran as needed for nausea. Advance diet per surgery. Further recommendations based on clinical course. Plan of care discussed with Dr. Gage. Problems: Exam/Review of Systems Vital Signs Vitals Vital Signs Date Time Temp Pulse Resp B/P Pulse Ox O2 Delivery O2 Flow Rate FiO2 02/20/17 08:05 98.5 69 18 98/61 95 02/20/17 01:00 Room Air Intake and Output 02/19/17 02/19/17 02/20/17 15:00 23:00 07:00 Intake Total 1000 ml 1000 ml 300 ml Output Total 1850 ml 1750 ml Balance 1000 ml -850 ml -1450 ml Exam Constitutional: alert Respiratory: normal air movement Cardiovascular: nl pulses Gastrointestinal: non-tender, other (s/p surgery), soft Extremities: normal pulses Skin: nl turgor Results Result Diagram: 02/20/17 0602 02/20/17 0602 Results 24 hrs Laboratory Tests Test 02/20/17 06:02 White Blood Count 5.0 Red Blood Count 3.26 L Hemoglobin 10.6 L Hematocrit 31.6 L Mean Corpuscular Volume 96.9 Mean Corpuscular Hemoglobin 32.5 Mean Corpuscular Hemoglobin Concent 33.5 Red Cell Distribution Width 12.2 Platelet Count 251 Mean Platelet Volume 9.9 Neutrophils % 73.8 Lymphocytes % 10.8 L Monocytes % 6.6 Eosinophils % 8.2 H Basophils % 0.4 Nucleated Red Blood Cells % 0.0 Neutrophils # 3.7 Lymphocytes # 0.5 L Monocytes # 0.3 Eosinophils # 0.4 Basophils # 0.0 Nucleated Red Blood Cells # 0.0 Sodium Level 137 Potassium Level 4.0 Chloride Level 102 Carbon Dioxide Level 28 Anion Gap 11 Blood Urea Nitrogen 5 L Creatinine 0.61 Glucose Level 116 Calcium Level 9.1 Medications Medications Current Medications Ondansetron HCl (Zofran Inj) 4 mg Q6H PRN IV NAUSEA AND/OR VOMITING Last administered on 02/16/17 16:11; Admin Dose 4 MG; Start 02/16/17 at 10:00 Morphine Sulfate 0 MG/HR CONTINUOUS RATE 2... Q4PCA IV Last administered on 08:07; Admin Dose 30 MG; Start 02/16/17 at 10:00 Potassium Chloride/Dextrose/ Sod Cl 1,000 ml @ 125 mls/hr Q8H IV Last administered on 02/20/17 07:39; Admin Dose 125 MLS/HR; Start 02/16/17 at 09:32 Acetaminophen (Ofirmev 1000mg/ 100ml Iv) 100 ml @ 400 mls/hr Q6H PRN IVPB PAIN ; Start 02/16/17 at 10:00 Metoclopramide HCl (Reglan) 10 mg Q6 IV Last administered on 02/18/17 05:53; Admin Dose 10 MG; Start 02/16/17 at 18:30 MAMADOU HCUA Feb 20, 2017 13:54
[2017-02-20] MEDS: morphine 1 MG/ML 30 ML (PCA) IV SCH (16:15)
--- NOTE | 2017-02-20 17:06 | PN ---
Date/Time of Note Date/Time of Note DATE: 02/20/17 TIME: 17:01 Assessment/Plan VTE Prophylaxis VTE Prophylaxis Intervention: ambulation Lines/Catheters IV Catheter Type (from [facility]): Peripheral IV Urinary Cath still in place: No Assessment/Plan Assessment/Plan Postop day #4. Status post laparotomy low anterior resection of the cancer of rectum and primary end-to-end anastomosis. Also is a status post neoadjuvant chemotherapy and radiation. So far patient is doing very fine. No nausea no vomiting no fever. Plan: Continue current care. We will try to keep the patient n.p.o. more than usual because of the chemotherapy and radiation the patient has had. Subjective 24 Hr Interval Summary Free Text/Dictation Postop day #4 No complain. No nausea no vomiting. Today morning Sandoval catheter was DC'd and the patient has urinated without difficulty Slight amount of flatus. No bowel movement. Exam/Review of Systems Vital Signs Vitals Vital Signs Date Time Temp Pulse Resp B/P Pulse Ox O2 Delivery O2 Flow Rate FiO2 02/20/17 14:40 97.4 64 18 97/53 99 02/20/17 01:00 Room Air Intake and Output 02/19/17 02/19/17 02/20/17 15:00 23:00 07:00 Intake Total 1000 ml 1000 ml 300 ml Output Total 1850 ml 1750 ml Balance 1000 ml -850 ml -1450 ml Exam Alert awake oriented 3. Vital signs stable. Abdomen is soft bowel sound is present legs no calf tenderness. Sandoval catheter has been DC'd Results Result Diagram: 02/20/17 0602 02/20/17 0602 Results 24 hrs Laboratory Tests Test 02/20/17 06:02 White Blood Count 5.0 Red Blood Count 3.26 L Hemoglobin 10.6 L Hematocrit 31.6 L Mean Corpuscular Volume 96.9 Mean Corpuscular Hemoglobin 32.5 Mean Corpuscular Hemoglobin Concent 33.5 Red Cell Distribution Width 12.2 Platelet Count 251 Mean Platelet Volume 9.9 Neutrophils % 73.8 Lymphocytes % 10.8 L Monocytes % 6.6 Eosinophils % 8.2 H Basophils % 0.4 Nucleated Red Blood Cells % 0.0 Neutrophils # 3.7 Lymphocytes # 0.5 L Monocytes # 0.3 Eosinophils # 0.4 Basophils # 0.0 Nucleated Red Blood Cells # 0.0 Sodium Level 137 Potassium Level 4.0 Chloride Level 102 Carbon Dioxide Level 28 Anion Gap 11 Blood Urea Nitrogen 5 L Creatinine 0.61 Glucose Level 116 Calcium Level 9.1 Medications Medications Current Medications Ondansetron HCl (Zofran Inj) 4 mg Q6H PRN IV NAUSEA AND/OR VOMITING Last administered on 02/16/17 16:11; Admin Dose 4 MG; Start 02/16/17 at 10:00 Morphine Sulfate 0 MG/HR CONTINUOUS RATE 2... Q4PCA IV Last administered on 16:15; Admin Dose 30 MG; Start 02/16/17 at 10:00 Potassium Chloride/Dextrose/ Sod Cl 1,000 ml @ 125 mls/hr Q8H IV Last administered on 02/20/17 16:26; Admin Dose 125 MLS/HR; Start 02/16/17 at 09:32 Acetaminophen (Ofirmev 1000mg/ 100ml Iv) 100 ml @ 400 mls/hr Q6H PRN IVPB PAIN ; Start 02/16/17 at 10:00 Metoclopramide HCl (Reglan) 10 mg Q6 IV Last administered on 02/20/17 16:25; Admin Dose 10 MG; Start 02/16/17 at 18:30 LETICIA SANTANA MD Feb 20, 2017 17:06
[2017-02-21] MEDS: D5W-0.45 NACL + KCL 20 MEQ 1,000 ML IV SCH ×3 (01:06→15:09)
[2017-02-21 02:41] VITALS: BP 97/55; RESP 18
[2017-02-21] MEDS: METOCLOPRAMIDE 10 MG INJ IV SCH ×4 (06:00→17:52)
[2017-02-21 06:25] LABS: CALCIUM 8.9 mg/dl (8.4-10.2); CREATININE 0.63 mg/dl (0.44-1.00); POTASSIUM 4.2 mmol/L (3.5-5.1)
[2017-02-21 08:10] VITALS: BP 97/54; RESP 18
[2017-02-21 11:53] VITALS: BP 104/57; RESP 16
--- NOTE | 2017-02-21 14:12 | PN ---
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 Santos. Continue IV fluids. Continue morphine for pain and Zofran as needed for nausea. Advance diet per surgery. Further recommendations based on clinical course. Plan of care discussed with Dr. Gage. Problems: Exam/Review of Systems Vital Signs Vitals Vital Signs Date Time Temp Pulse Resp B/P Pulse Ox O2 Delivery O2 Flow Rate FiO2 02/21/17 12:00 16 02/21/17 11:53 98.4 71 104/57 100 02/20/17 17:00 Room Air Intake and Output 02/20/17 02/20/17 02/21/17 15:00 23:00 07:00 Intake Total 1000 ml 1250 ml 750 ml Balance 1000 ml 1250 ml 750 ml Exam Constitutional: alert Respiratory: normal air movement Cardiovascular: nl pulses Gastrointestinal: non-tender, other (s/p surgery), soft Extremities: normal pulses Skin: nl turgor Results Result Diagram: 02/20/17 0602 02/21/17 0542 Results 24 hrs Laboratory Tests Test 02/21/17 05:42 Sodium Level 137 Potassium Level 4.2 Chloride Level 102 Carbon Dioxide Level 28 Anion Gap 11 Blood Urea Nitrogen 6 L Creatinine 0.63 Glucose Level 118 Calcium Level 8.9 Medications Medications Current Medications Ondansetron HCl (Zofran Inj) 4 mg Q6H PRN IV NAUSEA AND/OR VOMITING Last administered on 02/16/17 16:11; Admin Dose 4 MG; Start 02/16/17 at 10:00 Morphine Sulfate 0 MG/HR CONTINUOUS RATE 2... Q4PCA IV Last administered on 16:15; Admin Dose 30 MG; Start 02/16/17 at 10:00 Potassium Chloride/Dextrose/ Sod Cl 1,000 ml @ 125 mls/hr Q8H IV Last administered on 02/21/17 01:06; Admin Dose 125 MLS/HR; Start 02/16/17 at 09:32 Acetaminophen (Ofirmev 1000mg/ 100ml Iv) 100 ml @ 400 mls/hr Q6H PRN IVPB PAIN ; Start 02/16/17 at 10:00 Metoclopramide HCl (Reglan) 10 mg Q6 IV Last administered on 02/20/17t 18:47; Admin Dose 10 MG; Start 02/16/17 at 18:30 MAMADOU CHUA Feb 21, 2017 14:12
--- NOTE | 2017-02-21 14:22 | PN ---
Date/Time of Note Date/Time of Note DATE: 02/21/17 TIME: 14:13 Assessment/Plan VTE Prophylaxis VTE Prophylaxis Intervention: ambulation, SCD's Lines/Catheters IV Catheter Type (from Nrs): Peripheral IV Urinary Cath still in place: No Assessment/Plan Assessment/Plan Postop day #5 laparotomy status post low anterior resection of the cancer of the rectum status post neoadjuvant chemotherapy and radiation therapy. Today patient has developed more pain. And on physical examination abdomen is more distended and the bowel sounds is very hyperactive. Course this sounds like a postop ileus but a little bit late for that. Though she was advancing much better the past few days. I am going to get a stat KUB. If the condition of ileus is very bad we may have to put NG tube. Patient has been on ice chips I am going to stop it and make patient completely n.p.o. Subjective 24 Hr Interval Summary Free Text/Dictation Complains of moderate to severe right flank and right lower quadrant pain mainly started today morning. No nausea no vomiting no fever. Has not passed any flatus today and neither any bowel movements. States it has been up and around walking on the floor today morning she thinks she has walked too much and that is why she has got the pain Exam/Review of Systems Vital Signs Vitals Vital Signs Date Time Temp Pulse Resp B/P Pulse Ox O2 Delivery O2 Flow Rate FiO2 02/21/17 12:00 16 02/21/17 11:53 98.4 71 104/57 100 02/20/17 17:00 Room Air Intake and Output 02/20/17 02/20/17 02/21/17 15:00 23:00 07:00 Intake Total 1000 ml 1250 ml 750 ml Balance 1000 ml 1250 ml 750 ml Exam Awake alert oriented 3 laying down in the bed almost crying of pain. Heart is not tachycardic. Lungs clear decreased breathing sound bases. Abdomen appears moderately to severely distended bowel sounds is very hyperactive and and sounds like ilies. 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 Today potassium is 4.2. Results Result Diagram: 02/20/17 0602 02/21/17 0542 Results 24 hrs Laboratory Tests Test 02/21/17 05:42 Sodium Level 137 Potassium Level 4.2 Chloride Level 102 Carbon Dioxide Level 28 Anion Gap 11 Blood Urea Nitrogen 6 L Creatinine 0.63 Glucose Level 118 Calcium Level 8.9 Medications Medications Current Medications Ondansetron HCl (Zofran Inj) 4 mg Q6H PRN IV NAUSEA AND/OR VOMITING Last administered on 02/16/17 16:11; Admin Dose 4 MG; Start 02/16/17 at 10:00 Morphine Sulfate 0 MG/HR CONTINUOUS RATE 2... Q4PCA IV Last administered on 16:15; Admin Dose 30 MG; Start 02/16/17 at 10:00 Potassium Chloride/Dextrose/ Sod Cl 1,000 ml @ 125 mls/hr Q8H IV Last administered on 02/21/17 01:06; Admin Dose 125 MLS/HR; Start 02/16/17 at 09:32 Acetaminophen (Ofirmev 1000mg/ 100ml Iv) 100 ml @ 400 mls/hr Q6H PRN IVPB PAIN ; Start 02/16/17 at 10:00 Metoclopramide HCl (Reglan) 10 mg Q6 IV Last administered on 02/20/17 18:47; Admin Dose 10 MG; Start 02/16/17 at 18:30 LETICIA SANTANA MD Feb 21, 2017 14:22
[2017-02-21 14:31] VITALS: BP 110/59; RESP 18
[2017-02-21] MEDS: morphine 1 MG/ML 30 ML (PCA) IV SCH (14:47)
[2017-02-21] MEDS ORDERED: ACETAMINOPHEN 1000MG/100ML IV 100 ML IVPB PRN (15:00)
--- NOTE | 2017-02-21 15:52 | RADRPT ---
PROCEDURE: XR Abdomen CLINICAL INDICATION: Postop ileus TECHNIQUE: An AP supine radiograph of the abdomen was submitted. COMPARISON: None FINDINGS: Surgical michi are seen to extend vertically through the midline pelvis. Mildly air distended segments of large and small bowel are seen diffusely compatible with ileus. No organomegaly or discrete mass is identified. No pathological calcification is identified. The osseous elements appear unremarkable. IMPRESSION: 1. Lower abdominal/pelvic surgery. 2. The bowel gas pattern reflects a moderate ileus. Physician Fede Date Time Electronically viewed and signed by Vee Montague Physician on 02/21/2017 15:51 /
--- NOTE | 2017-02-21 15:53 | RADRPT ---
PROCEDURE: XR Chest AP portable CLINICAL INDICATION: Postop ileus, rule out pneumonia TECHNIQUE: An AP portable radiograph of the chest was submitted. COMPARISON: None. FINDINGS: Support Hardware: None Cardiovascular: The cardiovascular silhouette appears unremarkable. Lung Terrazas: The lung terrazas appear clear with no nodule, alveolar infiltrate, or interstitial promi nence evident. Pleural Spaces: No pneumothorax or pleural effusion is identified. Osseous Structures: The osseous structures appear intact. Soft Tissues: Air distended bowel is seen inferior to the diaphragms compatible with ileus. IMPRESSION: 1. The bowel gas pattern reflects an ileus. 2. Otherwise, unremarkable portable chest. Physician Fede Date Time Electronically viewed and signed by Physician Fede on 02/21/2017 15:52 /
[2017-02-21 16:00] VITALS: BP 108/62; PULSE 103; RESP 18
--- NOTE | 2017-02-21 17:49 | PN ---
Date/Time of Note Date/Time of Note DATE: 02/21/17 TIME: 17:43 Assessment/Plan VTE Prophylaxis VTE Prophylaxis Intervention: ambulation Lines/Catheters IV Catheter Type (from Nrs): Peripheral IV Urinary Cath still in place: No Assessment/Plan Assessment/Plan Today is postop day #5. This morning patient has a started developing more pain and abdominal distention. KUB showed severe to moderate ileus formation. 7. 16 NG tube was inserted through the right nostril into the stomach and fixed to the nose area. It was connected to intermittent suction with suction pressure 75 mmHg. Patient expressed that the abdominal pain is better now. We will keep NG tube to the patient patient feels much better. Preferably Till the patient has a bowel movement. Subjective 24 Hr Interval Summary Free Text/Dictation Today afternoon patient started running temperatures 101.7. No passing gas no bowel movement The KUB showed moderate to severe ileus Discussed with the patient and her advantage of an NG tube suck out the air and prevent further accumulation till the bowel function comes back patient expressed understanding and agreed with NG tube. Exam/Review of Systems Vital Signs Vitals Vital Signs Date Time Temp Pulse Resp B/P Pulse Ox O2 Delivery O2 Flow Rate FiO2 02/21/17 16:00 99.7 103 18 108/62 95 Room Air Intake and Output 02/20/17 02/20/17 02/21/17 15:00 23:00 07:00 Intake Total 1000 ml 1250 ml 750 ml Balance 1000 ml 1250 ml 750 ml Results Result Diagram: 02/20/17 0602 02/21/17 0542 Results 24 hrs Laboratory Tests Test 02/21/17 05:42 Sodium Level 137 Potassium Level 4.2 Chloride Level 102 Carbon Dioxide Level 28 Anion Gap 11 Blood Urea Nitrogen 6 L Creatinine 0.63 Glucose Level 118 Calcium Level 8.9 Medications Medications Current Medications Ondansetron HCl (Zofran Inj) 4 mg Q6H PRN IV NAUSEA AND/OR VOMITING Last administered on 02/16/17 16:11; Admin Dose 4 MG; Start 02/16/17 at 10:00 Morphine Sulfate 0 MG/HR CONTINUOUS RATE 2... Q4PCA IV Last administered on 14:47; Admin Dose 30 MG; Start 02/16/17 at 10:00 Potassium Chloride/Dextrose/ Sod Cl 1,000 ml @ 80 mls/hr [id number] IV Last administered on 02/21/17 15:09; Admin Dose 80 MLS/HR; Start 02/16/17 at 09:32 Acetaminophen (Ofirmev 1000mg/ 100ml Iv) 100 ml @ 400 mls/hr Q6H PRN IVPB PAIN Last administered on 02/21/17 15:49; Admin Dose 400 MLS/HR; Start at 10:00 Metoclopramide HCl 10 mg 10 mg Q6 IV Last administered on 02/20/17 18:47; Admin Dose 10 MG; Start 02/16/17 at 18:30 Acetaminophen (Ofirmev 1000mg/ 100ml Iv) 100 ml @ 400 mls/hr Q6H PRN IVPB FEVER; Start 02/21/17 at 15:00 LETICIA SANTANA MD Feb 21, 2017 17:49
[2017-02-21 20:28] LABS: ADD UMIC YES; UR ASCORBIC ACID NEGATIVE (NEGATIVE); UR BILIRUBIN (Dip) NEGATIVE (NEGATIVE); UR BLOOD (Dip) 1+ mg/dL (NEGATIVE); UR CLARITY CLEAR (CLEAR); UR COLOR AMBER (YELLOW); UR GLUCOSE (Dip) NEGATIVE (NEGATIVE); UR KETONES (Dip) NEGATIVE (NEGATIVE); UR LEUKOCYTE ESTERASE (Dip) NEGATIVE Leu/ul (NEGATIVE); UR MUCUS FEW /HPF (NONE SEEN); UR NITRITE (Dip) NEGATIVE (NEGATIVE); UR RBC 4 /HPF (0-5); UR SPECIFIC GRAVITY (Dip) 1.027 (1.003-1.030); UR SQUAMOUS EPITHELIAL CELL FEW /HPF (FEW); UR TOTAL PROTEIN (Dip) NEGATIVE (NEGATIVE); UR UROBILINOGEN (Dip) 2+ mg/dL (NEGATIVE)
[2017-02-21 20:57] VITALS: BP 108/66; RESP 18
[2017-02-22] MEDS: METOCLOPRAMIDE 10 MG INJ IV SCH ×4 (00:03→23:12)
[2017-02-22 00:32] VITALS: BP 110/63; RESP 18
[2017-02-22 04:00] VITALS: BP 109/66; RESP 18
[2017-02-22] MEDS: D5W-0.45 NACL + KCL 20 MEQ 1,000 ML IV SCH ×2 (05:08→21:29)
[2017-02-22 06:28] LABS: ABNORMAL IP MESSAGE 1; BASOPHILS % 0.2 % (0.0-2.0); EOSINOPHILS % 0.3 % (0.0-7.0); HEMATOCRIT 30.6 % (37.0-47.0); HEMOGLOBIN 10.6 g/dl (12.0-16.0); LYMPHOCYTES # 0.6 10^3/ul (0.8-2.9); LYMPHOCYTES % 4.6 % (15.0-51.0); MEAN CORPUSCULAR HEMOGLOBIN 33.3 pg (29.0-33.0); MEAN CORPUSCULAR HGB CONC 34.6 g/dl (32.0-37.0); MEAN CORPUSCULAR VOLUME 96.2 fl (82.0-101.0); MEAN PLATELET VOLUME 9.5 fl (7.4-10.4); MONOCYTE # 0.5 10^3/ul (0.3-0.9); MONOCYTES % 3.7 % (0.0-11.0); NEUTROPHILS % 90.9 % (39.0-77.0); PLATELET COUNT 273 10^3/UL (140-415); RED BLOOD COUNT 3.18 10^6/ul (4.20-5.40); RED CELL DISTRIBUTION WIDTH 11.9 % (11.5-14.5); WHITE BLOOD COUNT 12.1 10^3/ul (4.8-10.8)
[2017-02-22 06:48] LABS: CALCIUM 9.1 mg/dl (8.4-10.2); CREATININE 0.7 mg/dl (0.44-1.00); POTASSIUM 4.1 mmol/L (3.5-5.1)
[2017-02-22 07:02] LABS: POSITIVE DIFF @See below
[2017-02-22 07:53] VITALS: BP 106/61; RESP 16
[2017-02-22] MEDS: morphine 1 MG/ML 30 ML (PCA) IV SCH (09:09)
[2017-02-22 12:58] VITALS: BP 107/69; RESP 16
--- NOTE | 2017-02-22 13:21 | PN ---
Date/Time of Note Date/Time of Note DATE: 02/22/17 TIME: 13:12 Assessment/Plan VTE Prophylaxis VTE Prophylaxis Intervention: ambulation Lines/Catheters IV [facility] (from [facility]): Peripheral IV Urinary Cath still in place: No Assessment/Plan Assessment/Plan Postop day #6. Status post low anterior resection of the cancer of the rectum. Patient developed severe ileus yesterday so much that she was suffering a lot of pain and had to put an NG tube for the patient. Today feels better as the abdomen is less distended softer bowel sound is better. Plan: Continue current care with NG tube. Encourage more ambulation. Subjective 24 Hr Interval Summary Free Text/Dictation Feels better. Has passed minimal gas. No nausea no vomiting no more fever. Exam/Review of Systems Vital Signs Vitals Vital Signs Date Time Temp Pulse Resp B/P Pulse Ox O2 Delivery O2 Flow Rate FiO2 02/22/17 12:58 98.6 96 16 107/69 98 02/21/17 16:00 Room Air Intake and Output 02/21/17 02/21/17 02/22/17 15:00 23:00 07:00 Intake Total 1500 ml 260 ml 840 ml Output Total 200 ml Balance 1500 ml 260 ml 640 ml Exam Alert awake oriented 3 laying down in the bed. Vital signs stable. NG tube has drained 500 cc since I inserted last night. WBC today 12,500 with 90% segmented. Sodium 135 potassium 4.1. Abdomen is still is distended but less than last night. Abdomen is softer. Bowel sounds 2 +/4+. Tenderness much decreased. Results Result Diagram: 02/22/17 0557 02/22/17 0557 Results 24 hrs Laboratory Tests Test 02/21/17 14:30 02/22/17 05:57 Urine Color RUBY Urine Clarity CLEAR Urine pH 5.0 Urine Specific [place] 1.027 Urine Ketones NEGATIVE Urine Nitrite NEGATIVE Urine Bilirubin NEGATIVE Urine Urobilinogen 2+ H Urine Leukocyte Esterase NEGATIVE Urine Microscopic RBC 4 Urine Microscopic WBC 10 H Urine Squamous Epithelial Cells FEW Urine Mucus FEW A Urine Hemoglobin 1+ H Urine Glucose NEGATIVE Urine Total Protein NEGATIVE White Blood Count 12.1 #H Red Blood Count 3.18 L Hemoglobin 10.6 L Hematocrit 30.6 L Mean Corpuscular Volume 96.2 Mean Corpuscular Hemoglobin 33.3 H Mean Corpuscular Hemoglobin Concent 34.6 Red Cell Distribution Width 11.9 Platelet Count 273 Mean Platelet Volume 9.5 Neutrophils % 90.9 H Lymphocytes % 4.6 L Monocytes % 3.7 Eosinophils % 0.3 Basophils % 0.2 Nucleated Red Blood Cells % 0.0 Neutrophils # (Manual) 11.0 H Lymphocytes # 0.6 L Monocytes # 0.5 Eosinophils # 0.0 Basophils # 0.0 Nucleated Red Blood Cells # 0.0 Sodium Level 134 L Potassium Level 4.1 Chloride Level 99 Carbon Dioxide Level 28 Anion Gap 11 Blood Urea Nitrogen 9 Creatinine 0.70 Glucose Level 118 Calcium Level 9.1 Medications Medications Current Medications Ondansetron HCl 4 mg 4 mg Q6H PRN IV NAUSEA AND/OR VOMITING Last administered on 02/16/17 16:11; Admin Dose 4 MG; Start 02/16/17 at 10:00 Potassium Chloride/Dextrose/ Sod Cl 1,000 ml @ 80 mls/hr [id number] IV Last administered on 02/22/17 05:08; Admin Dose 80 MLS/HR; Start 02/16/17 at 09:32 Acetaminophen (Ofirmev 1000mg/ 100ml Iv) 100 ml @ 400 mls/hr Q6H PRN IVPB PAIN Last administered on 02/21/17 15:49; Admin Dose 400 MLS/HR; Start at 10:00 Metoclopramide HCl 10 mg 10 mg Q6 IV Last administered on 02/22/17 05:07; Admin Dose 10 MG; Start 02/16/17 at 18:30 Acetaminophen (Ofirmev 1000mg/ 100ml Iv) 100 ml @ 400 mls/hr Q6H PRN IVPB FEVER; Start 02/21/17 at 15:00 Morphine Sulfate (morphine) 2 mg Q2H PRN IV PAIN; Start 02/22/17 at 10:00 LETICIA SANTANA MD Feb 22, 2017 13:21
--- NOTE | 2017-02-22 13:49 | PN ---
Date/Time of Note Date/Time of Note DATE: 02/22/17 TIME: 13:44 Assessment/Plan VTE Prophylaxis VTE Prophylaxis Intervention: SCD's Lines/Catheters IV C[facility]ter Type (from [facility]): Peripheral IV Urinary Cath still in place: No Assessment/Plan Chief Complaint/Hosp Course Patient developed fever and abdominal distention after starting on ice chips, KUB showed moderate ileus, NG tube placed, patient's complaints of right shoulder gas pain, continue morphine as needed for pain may apply warm compress to the shoulder. Assessment/Plan -Low rectal cancer, status post resection by Dr. Santos. Continue IV fluids. Continue morphine for pain and Zofran as needed for nausea. Surgical recommendations. -Moderate ileus, continue NG tube to low intermittent suctioning. Further recommendations based on clinical course. Plan of care discussed with Dr. Gage. Problems: Exam/Review of Systems Vital Signs Vitals Vital Signs Date Time Temp Pulse Resp B/P Pulse Ox O2 Delivery O2 Flow Rate FiO2 02/22/17 12:58 98.6 96 16 107/69 98 02/21/17 16:00 Room Air Intake and Output 02/21/17 02/21/17 02/22/17 15:00 23:00 07:00 Intake Total 1500 ml 260 ml 840 ml Output Total 200 ml Balance 1500 ml 260 ml 640 ml Exam Constitutional: alert Respiratory: normal air movement Cardiovascular: nl pulses Gastrointestinal: non-tender, other (s/p surgery), soft Extremities: normal pulses Skin: nl turgor Results Result Diagram: 02/22/17 0557 02/22/17 0557 Results 24 hrs Laboratory Tests Test 02/21/17 14:30 02/22/17 05:57 Urine Color RUBY Urine Clarity CLEAR Urine pH 5.0 Urine Specific [place] 1.027 Urine Ketones NEGATIVE Urine Nitrite NEGATIVE Urine Bilirubin NEGATIVE Urine Urobilinogen 2+ H Urine Leukocyte Esterase NEGATIVE Urine Microscopic RBC 4 Urine Microscopic WBC 10 H Urine Squamous Epithelial Cells FEW Urine Mucus FEW A Urine Hemoglobin 1+ H Urine Glucose NEGATIVE Urine Total Protein NEGATIVE White Blood Count 12.1 #H Red Blood Count 3.18 L Hemoglobin 10.6 L Hematocrit 30.6 L Mean Corpuscular Volume 96.2 Mean Corpuscular Hemoglobin 33.3 H Mean Corpuscular Hemoglobin Concent 34.6 Red Cell Distribution Width 11.9 Platelet Count 273 Mean Platelet Volume 9.5 Neutrophils % 90.9 H Lymphocytes % 4.6 L Monocytes % 3.7 Eosinophils % 0.3 Basophils % 0.2 Nucleated Red Blood Cells % 0.0 Neutrophils # (Manual) 11.0 H Lymphocytes # 0.6 L Monocytes # 0.5 Eosinophils # 0.0 Basophils # 0.0 Nucleated Red Blood Cells # 0.0 Sodium Level 134 L Potassium Level 4.1 Chloride Level 99 Carbon Dioxide Level 28 Anion Gap 11 Blood Urea Nitrogen 9 Creatinine 0.70 Glucose Level 118 Calcium Level 9.1 Medications Medications Current Medications Ondansetron HCl 4 mg 4 mg Q6H PRN IV NAUSEA AND/OR VOMITING Last administered on 02/16/17 16:11; Admin Dose 4 MG; Start 02/16/17 at 10:00 Potassium Chloride/Dextrose/ Sod Cl 1,000 ml @ 80 mls/hr [id number] IV Last administered on 02/22/17 05:08; Admin Dose 80 MLS/HR; Start 02/16/17 at 09:32 Acetaminophen (Ofirmev 1000mg/ 100ml Iv) 100 ml @ 400 mls/hr Q6H PRN IVPB PAIN Last administered on 02/21/17 15:49; Admin Dose 400 MLS/HR; Start at 10:00 Metoclopramide HCl 10 mg 10 mg Q6 IV Last administered on 02/22/17 05:07; Admin Dose 10 MG; Start 02/16/17 at 18:30 Acetaminophen (Ofirmev 1000mg/ 100ml Iv) 100 ml @ 400 mls/hr Q6H PRN IVPB FEVER; Start 02/21/17 at 15:00 Morphine Sulfate (morphine) 2 mg Q2H PRN IV PAIN; Start 02/22/17 at 10:00 MAMADOU CHUA Feb 22, 2017 13:49
--- NOTE | 2017-02-22 15:01 | CONS ---
Date/Time of Note Date/Time of Note DATE: 02/22/17 TIME: 14:52 Assessment/Plan Assessment/Plan Chief Complaint/Hosp Course - post op fever due to ileus - ileus, improving subjectively, after NGT placement - rectal CA s/p low anterior resection with splenic flexure mobilization, mobilization of omental patch and rigid sigmoidoscopy on 02/16/2017. Pathology of the resected rectum showed residual moderately-differentiated adenocarcinoma , involving muscularis propria, mucosal ulceration, clear margin and no e/o metastasis recommendations - pending results: urine and blood cultures - continue supportive care without systemic antibiotics management d/w Pt, he and RN Problems: Consultation Date/Type/Reason Admit Date/Time Feb 16, 2017 at 07:24 Date of Consultation: Feb 22, 2017 Type of Consultation: ID Reason for Consultation post-op fever Referring Provider: VINCENZO GAGE MD Hx of Present Illness This is a 41 yo female with rectal CA who underwent low anterior resection with splenic flexure mobilization, mobilization of omental patch and rigid sigmoidoscopy on 02/16/2017. Pathology of the resected rectum showed residual moderately-differentiated adenocarcinoma, involving muscularis propria, mucosal ulceration, clear margin and no e/o metastasis. Post-op, Pt was doing well. However, Pt developed severe pain and distention of abdomen yesterday (02/21/2017 ). The pain was rated 10 on the 1-10 scale. Pt denied chills, N/V, respiratory or symptoms. The abdominal XR showed moderate ileus. An NGT was placed. Today, Pt had another episode of low grade temp 100.1. Pt reports less abdominal pain, rated 3 on the 1-10 scale. She walked in the hallway twice. She did not have other complaints. Dr. Gage requested ID consultation on this Pt. Constitutional: requiring IVF Eyes: no complaints ENT: no complaints Respiratory: no complaints Cardiovascular: no complaints Gastrointestinal: other (distention), pain, No diarrhea, No flatus, No nausea, No passing stool, No vomiting Genitourinary: no complaints Musculoskeletal: no complaints Skin: no complaints Neurologic: no complaints Psychological: no complaints Past Medical History Medical History: other (rectal CA) Social History Alcohol Use: none Smoking Status: Never smoker Drug Use: none Exam/Review of Systems Vital Signs Vitals Vital Signs Date Time Temp Pulse Resp B/P Pulse Ox O2 Delivery O2 Flow Rate FiO2 02/22/17 12:58 98.6 96 16 107/69 98 02/21/17 16:00 Room Air Intake and Output 02/21/17 02/21/17 02/22/17 15:00 23:00 07:00 Intake Total 1500 ml 260 ml 840 ml Output Total 200 ml Balance 1500 ml 260 ml 640 ml Exam Constitutional: alert, oriented, well developed Psych: nl mood/affect, no complaints Head: atraumatic, normocephalic Eyes: nl conjunctiva, nl lids ENMT: nl external ears & nose, nl nasal mucosa & septum Neck: supple Respiratory: clear to auscultation, normal air movement Cardiovascular: nl pulses, regular rate and rhythm Gastrointestinal: bowel sounds, distended (slightly), non-tender, soft, surgical scars (with michi, clean and no erythema), No mass Musculoskeletal: nl extremities to inspection Extremities: No edema 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, nl mental status, nl speech, nl strength Skin: nl turgor, No rash or lesions Results Result Diagram: 02/22/17 0557 02/22/17 0557 Results 24 hrs Laboratory Tests Test 02/22/17 05:57 White Blood Count 12.1 #H Red Blood Count 3.18 L Hemoglobin 10.6 L Hematocrit 30.6 L Mean Corpuscular Volume 96.2 Mean Corpuscular Hemoglobin 33.3 H Mean Corpuscular Hemoglobin Concent 34.6 Red Cell Distribution Width 11.9 Platelet Count 273 Mean Platelet Volume 9.5 Neutrophils % 90.9 H Lymphocytes % 4.6 L Monocytes % 3.7 Eosinophils % 0.3 Basophils % 0.2 Nucleated Red Blood Cells % 0.0 Neutrophils # (Manual) 11.0 H Lymphocytes # 0.6 L Monocytes # 0.5 Eosinophils # 0.0 Basophils # 0.0 Nucleated Red Blood Cells # 0.0 Sodium Level 134 L Potassium Level 4.1 Chloride Level 99 Carbon Dioxide Level 28 Anion Gap 11 Blood Urea Nitrogen 9 Creatinine 0.70 Glucose Level 118 Calcium Level 9.1 Medications Medications Current Medications Ondansetron HCl 4 mg 4 mg Q6H PRN IV NAUSEA AND/OR VOMITING Last administered on 02/16/17t 16:11; Admin Dose 4 MG; Start 02/16/17 at 10:00 Potassium Chloride/Dextrose/ Sod Cl 1,000 ml @ 80 mls/hr [id number] IV Last administered on 02/22/17 05:08; Admin Dose 80 MLS/HR; Start 02/16/17 at 09:32 Acetaminophen (Ofirmev 1000mg/ 100ml Iv) 100 ml @ 400 mls/hr Q6H PRN IVPB PAIN Last administered on 02/21/17 15:49; Admin Dose 400 MLS/HR; Start at 10:00 Metoclopramide HCl 10 mg 10 mg Q6 IV Last administered on 02/22/17 05:07; Admin Dose 10 MG; Start 02/16/17 at 18:30 Acetaminophen (Ofirmev 1000mg/ 100ml Iv) 100 ml @ 400 mls/hr Q6H PRN IVPB FEVER; Start 02/21/17 at 15:00 Morphine Sulfate (morphine) 2 mg Q2H PRN IV PAIN; Start 02/22/17 at 10:00 BLANCO OHARA M.D. Feb 22, 2017 15:01
[2017-02-22] MEDS: ONDANSETRON 4 MG INJ IV PRN (19:51)
[2017-02-22] MEDS: morphine 2 MG INJ IV PRN ×2 (19:52→23:12)
[2017-02-22 20:07] VITALS: BP 108/58; RESP 18
[2017-02-23] VITALS: BP 102/55; RESP 18
[2017-02-23] MEDS: morphine 2 MG INJ IV PRN ×4 (02:34→20:03)
[2017-02-23 04:00] VITALS: BP 105/56; RESP 18
[2017-02-23] MEDS: METOCLOPRAMIDE 10 MG INJ IV SCH ×3 (05:43→22:12)
[2017-02-23 06:27] LABS: BASOPHILS % 0.1 % (0.0-2.0); EOSINOPHILS % 0.2 % (0.0-7.0); HEMOGLOBIN 11.3 g/dl (12.0-16.0); LYMPHOCYTES # 0.9 10^3/ul (0.8-2.9); MEAN CORPUSCULAR HEMOGLOBIN 32.9 pg (29.0-33.0); MEAN CORPUSCULAR HGB CONC 34.2 g/dl (32.0-37.0); MEAN CORPUSCULAR VOLUME 96.2 fl (82.0-101.0); MEAN PLATELET VOLUME 9.6 fl (7.4-10.4); MONOCYTE # 0.8 10^3/ul (0.3-0.9); PLATELET COUNT 323 10^3/UL (140-415); RED BLOOD COUNT 3.43 10^6/ul (4.20-5.40); RED CELL DISTRIBUTION WIDTH 12.1 % (11.5-14.5); WHITE BLOOD COUNT 16.9 10^3/ul (4.8-10.8)
[2017-02-23 07:00] LABS: CALCIUM 9.1 mg/dl (8.4-10.2); CREATININE 0.67 mg/dl (0.44-1.00); POTASSIUM 3.9 mmol/L (3.5-5.1)
[2017-02-23 08:03] VITALS: BP 108/57; RESP 16
[2017-02-23] MEDS: D5W-0.45 NACL + KCL 20 MEQ 1,000 ML IV SCH ×3 (08:52→21:22)
[2017-02-23] MEDS: PIPER-TAZO 3.375 GM IV (PMX) 100 ML IVPB SCH ×2 (10:12→22:11)
[2017-02-23 13:43] VITALS: BP 107/64; RESP 18
--- NOTE | 2017-02-23 16:06 | PN ---
Date/Time of Note Date/Time of Note DATE: 02/23/17 TIME: 15:54 Assessment/Plan VTE Prophylaxis VTE Prophylaxis Intervention: ambulation Lines/Catheters IV Catheter Type (from [facility]): Peripheral IV Urinary Cath still in place: No Assessment/Plan Assessment/Plan Postop day #7 status post laparotomy low anterior resection of the cancer of the colon. As of yesterday patient has developed ileus and abdominal pain and tenderness. Yesterday temperature 100.2. Today he also has had temperature up to 100. Since last night has had 6 or 7 small liquid bowel movement. Case was discussed with Dr. Paredes. Considering the fact of temperature abdominal pain distention diarrhea there is a possibility of infection probably a C.diff infection, therefore we are going to start patient on Zosyn 3.750 g IV every 6 8 hours and we will send a C.diff antigen. Subjective 24 Hr Interval Summary Free Text/Dictation States that has had since last night 5 or 6 small greenish yellow bowel movement. Has passed minimal gas. Has been out of bed walking around. Has had temperature up to 100.2 Exam/Review of Systems Vital Signs Vitals Vital Signs Date Time Temp Pulse Resp B/P Pulse Ox O2 Delivery O2 Flow Rate FiO2 02/23/17 13:43 98.2 118 18 107/64 94 02/21/17 16:00 Room Air Intake and Output 02/22/17 02/22/17 02/23/17 15:00 23:00 07:00 Intake Total 560 ml 440 ml 600 ml Output Total 1400 ml Balance 560 ml -960 ml 600 ml Exam Alert awake oriented 3. States her abdominal pain has decreased to some extent. Heart regular 110. Lungs clear. Abdomen is slightly distended, there is no rigidity or guarding. There is some tenderness on deep pressure over right flank. WBC today is 16,900, with 89% segmented. NG tube has drained 500 cc of gastric juice is slightly brownish. No gross bleeding. Results Result Diagram: 02/23/17 0542 02/23/17 0542 Results 24 hrs Laboratory Tests Test 02/23/17 05:42 White Blood Count 16.9 #H Red Blood Count 3.43 L Hemoglobin 11.3 L Hematocrit 33.0 L Mean Corpuscular Volume 96.2 Mean Corpuscular Hemoglobin 32.9 Mean Corpuscular Hemoglobin Concent 34.2 Red Cell Distribution Width 12.1 Platelet Count 323 Mean Platelet Volume 9.6 Neutrophils % 89.0 H Lymphocytes % 5.0 L Monocytes % 5.0 Eosinophils % 0.2 Basophils % 0.1 Nucleated Red Blood Cells % 0.0 Neutrophils # (Manual) 15.0 H Lymphocytes # 0.9 Monocytes # 0.8 Eosinophils # 0.0 Basophils # 0.0 Nucleated Red Blood Cells # 0.0 Sodium Level 139 Potassium Level 3.9 Chloride Level 95 L Carbon Dioxide Level 29 Anion Gap 19 #H Blood Urea Nitrogen 10 Creatinine 0.67 Glucose Level 127 Calcium Level 9.1 Medications Medications Current Medications Ondansetron HCl 4 mg 4 mg Q6H PRN IV NAUSEA AND/OR VOMITING Last administered on 02/22/17 19:51; Admin Dose 4 MG; Start 02/16/17 at 10:00 Potassium Chloride/Dextrose/ Sod Cl (D5-1/2ns + KCl 20 Meq) 1,000 ml @ 80 mls/ hr [id number] IV Last administered on 02/23/17 10:13; Admin Dose 80 MLS/HR; Start 02/16/17 at 09:32 Metoclopramide HCl 10 mg 10 mg Q6 IV Last administered on 02/23/17 12:30; Admin Dose 10 MG; Start 02/16/17 at 18:30 Acetaminophen (Ofirmev 1000mg/ 100ml Iv) 100 ml @ 400 mls/hr Q6H PRN IVPB FEVER Last administered on 02/23/17 11:53; Admin Dose 400 MLS/HR; Start at 15:00 Morphine Sulfate 2 mg 2 mg Q2H PRN IV PAIN Last administered on 02/23/17 10:14 ; Admin Dose 2 MG; Start 02/22/17 at 10:00 Piperacillin Sod/ Tazobactam Sod (Zosyn 3.375gm/ 100 ml (Pmx)) 100 ml @ 200 mls /hr Q8 IVPB Last administered on 02/23/17 10:12; Admin Dose 200 MLS/HR; Start 02/23/17 at 10:00 LETICIA SANTANA MD Feb 23, 2017 16:05
[2017-02-23] MEDS: ONDANSETRON 4 MG INJ IV PRN (20:04)
--- NOTE | 2017-02-23 20:10 | PN ---
Date/Time of Note Date/Time of Note DATE: 02/23/17 TIME: 20:07 Assessment/Plan VTE Prophylaxis VTE Prophylaxis Intervention: SCD's Lines/Catheters IV Catheter Type (from [facility]): Peripheral IV Urinary Cath still in place: No Assessment/Plan Assessment/Plan -Low rectal cancer, status post resection by Dr. Santos. Continue IV fluids. Continue morphine for pain and Zofran as needed for nausea. Surgical recommendations. -Moderate ileus, continue NG tube to low intermittent suctioning. Further recommendations based on clinical course. Plan of care discussed with Dr. Gage. Subjective 24 Hr Interval Summary Free Text/Dictation resting. c/o rectal pain, controlled with pain med, denies any rectal bleeding, afebrile.dw staff. No new issues reported overnight. Constitutional: requiring IVF Cardiovascular: no complaints Gastrointestinal: no complaints Musculoskeletal: no complaints Neurologic: no complaints Exam/Review of Systems Vital Signs Vitals Vital Signs Date Time Temp Pulse Resp B/P Pulse Ox O2 Delivery O2 Flow Rate FiO2 02/23/17 13:43 98.2 118 18 107/64 94 02/21/17 16:00 Room Air Intake and Output 02/22/17 02/22/17 02/23/17 15:00 23:00 07:00 Intake Total 560 ml 440 ml 600 ml Output Total 1400 ml Balance 560 ml -960 ml 600 ml Exam Constitutional: alert, oriented, well developed Respiratory: clear to auscultation, normal air movement Cardiovascular: nl pulses, regular rate and rhythm Gastrointestinal: non-tender, other (ngt to LOW INTERMITTEENT SUCTION), soft Musculoskeletal: nl extremities to inspection 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: nl mental status, nl speech Results Result Diagram: 02/23/17 0542 02/23/17 0542 Results 24 hrs Laboratory Tests Test 02/23/17 05:42 White Blood Count 16.9 #H Red Blood Count 3.43 L Hemoglobin 11.3 L Hematocrit 33.0 L Mean Corpuscular Volume 96.2 Mean Corpuscular Hemoglobin 32.9 Mean Corpuscular Hemoglobin Concent 34.2 Red Cell Distribution Width 12.1 Platelet Count 323 Mean Platelet Volume 9.6 Neutrophils % 89.0 H Lymphocytes % 5.0 L Monocytes % 5.0 Eosinophils % 0.2 Basophils % 0.1 Nucleated Red Blood Cells % 0.0 Neutrophils # (Manual) 15.0 H Lymphocytes # 0.9 Monocytes # 0.8 Eosinophils # 0.0 Basophils # 0.0 Nucleated Red Blood Cells # 0.0 Sodium Level 139 Potassium Level 3.9 Chloride Level 95 L Carbon Dioxide Level 29 Anion Gap 19 #H Blood Urea Nitrogen 10 Creatinine 0.67 Glucose Level 127 Calcium Level 9.1 Medications Medications Current Medications Ondansetron HCl 4 mg 4 mg Q6H PRN IV NAUSEA AND/OR VOMITING Last administered on 02/22/17 19:51; Admin Dose 4 MG; Start 02/16/17 at 10:00 Potassium Chloride/Dextrose/ Sod Cl 1,000 ml @ 80 mls/hr [id number] IV Last administered on 02/23/17 10:13; Admin Dose 80 MLS/HR; Start 02/16/17 at 09:32 Acetaminophen (Ofirmev 1000mg/ 100ml Iv) 100 ml @ 400 mls/hr Q6H PRN IVPB FEVER Last administered on 02/23/17 11:53; Admin Dose 400 MLS/HR; Start at 15:00 Morphine Sulfate 2 mg 2 mg Q2H PRN IV PAIN Last administered on 02/23/17 10:14 ; Admin Dose 2 MG; Start 02/22/17 at 10:00 Piperacillin Sod/ Tazobactam Sod (Zosyn 3.375gm/ 100 ml (Pmx)) 100 ml @ 200 mls /hr Q8 IVPB Last administered on 02/23/17 10:12; Admin Dose 200 MLS/HR; Start 02/23/17 at 10:00 Metoclopramide HCl (Reglan) 10 mg Q8 IV ; Start 02/23/17 at 22:00 SHERINE MAHMOOD Feb 23, 2017 20:10 SHERINE MAHMOOD Feb 23, 2017 20:10
[2017-02-23 20:20] VITALS: BP 106/60; RESP 18
--- NOTE | 2017-02-23 20:22 | CONS ---
Date/Time of Note Date/Time of Note DATE: 02/23/17 TIME: 20:19 Assessment/Plan Assessment/Plan Chief Complaint/Hosp Course - post op fever due to ileus - ileus - possible UTI vs. contamination of the urethra - rectal CA s/p low anterior resection with splenic flexure mobilization, mobilization of omental patch and rigid sigmoidoscopy on 02/16/2017. 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 Problems: Consultation Date/Type/Reason Admit Date/Time Feb 16, 2017 at 07:24 Initial Consult Date 02/22/17 Type of Consultation: ID Referring Provider: VINCENZO CISNEROS MD Detailed Summary Eyes: no complaints ENT: no complaints Respiratory: no complaints Cardiovascular: no complaints Gastrointestinal: nausea, pain (rated 6), No diarrhea Genitourinary: no complaints Musculoskeletal: no complaints Skin: no complaints Neurologic: no complaints Exam/Review of Systems Vital Signs Vitals Vital Signs Date Time Temp Pulse Resp B/P Pulse Ox O2 Delivery O2 Flow Rate FiO2 02/23/17 13:43 98.2 118 18 107/64 94 02/21/17 16:00 Room Air Intake and Output 02/22/17 02/22/17 02/23/17 15:00 23:00 07:00 Intake Total 560 ml 440 ml 600 ml Output Total 1400 ml Balance 560 ml -960 ml 600 ml Exam Constitutional: frail Psych: no complaints Head: normocephalic Eyes: nl conjunctiva, nl lids ENMT: nl external ears & nose, nl nasal mucosa & septum, other (NGT) Respiratory: diminished breath sounds Cardiovascular: nl pulses, regular rate and rhythm Gastrointestinal: soft, surgical scars, tender (diffuse), No distended Musculoskeletal: nl extremities to inspection Extremities: normal pulses, No edema 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: 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 WORKER II-XII 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8 Eosinophils # 0.0 Basophils # 0.0 Nucleated Red Blood Cells # 0.0 Sodium Level 139 Potassium Level 3.9 Chloride Level 95 L Carbon Dioxide Level 29 Anion Gap 19 #H Blood Urea Nitrogen 10 Creatinine 0.67 Glucose Level 127 Calcium Level 9.1 Medications Medications Current Medications Ondansetron HCl 4 mg 4 mg Q6H PRN IV NAUSEA AND/OR VOMITING Last administered on 02/23/17 20:04; Admin Dose 4 MG; Start 02/16/17 at 10:00 Potassium Chloride/Dextrose/ Sod Cl 1,000 ml @ 80 mls/hr [id number] IV Last administered on 02/23/17 10:13; Admin Dose 80 MLS/HR; Start 02/16/17 at 09:32 Acetaminophen (Ofirmev 1000mg/ 100ml Iv) 100 ml @ 400 mls/hr Q6H PRN IVPB FEVER Last administered on 02/23/17 11:53; Admin Dose 400 MLS/HR; Start at 15:00 Morphine Sulfate 2 mg 2 mg Q2H PRN IV PAIN Last administered on 02/23/17 20:03 ; Admin Dose 2 MG; Start 02/22/17 at 10:00 Piperacillin Sod/ Tazobactam Sod (Zosyn 3.375gm/ 100 ml (Pmx)) 100 ml @ 200 mls /hr Q8 IVPB Last administered on 02/23/17 10:12; Admin Dose 200 MLS/HR; Start 02/23/17 at 10:00 Metoclopramide HCl (Reglan) 10 mg Q8 IV ; Start 02/23/17 at 22:00 BLANCO OHARA M.D. Feb 23, 2017 20:22
[2017-02-24] MEDS: D5W-0.45 NACL + KCL 20 MEQ 1,000 ML IV SCH ×3 (01:24→19:44)
[2017-02-24 02:10] VITALS: BP 104/58; RESP 18
[2017-02-24 05:47] LABS: ABNORMAL IP MESSAGE 1; BASOPHILS % 0.2 % (0.0-2.0); HEMATOCRIT 30.9 % (37.0-47.0); HEMOGLOBIN 10.6 g/dl (12.0-16.0); LYMPHOCYTES # 0.5 10^3/ul (0.8-2.9); LYMPHOCYTES % 2.5 % (15.0-51.0); MEAN CORPUSCULAR HEMOGLOBIN 32.9 pg (29.0-33.0); MEAN CORPUSCULAR HGB CONC 34.3 g/dl (32.0-37.0); MEAN PLATELET VOLUME 9.3 fl (7.4-10.4); MONOCYTE # 0.6 10^3/ul (0.3-0.9); MONOCYTES % 3.3 % (0.0-11.0); PLATELET COUNT 296 10^3/UL (140-415); RED BLOOD COUNT 3.22 10^6/ul (4.20-5.40); WHITE BLOOD COUNT 19.2 10^3/ul (4.8-10.8)
[2017-02-24 06:03] LABS: NEUTROPHILS % 92.6 % (39.0-77.0); POSITIVE DIFF @See below
[2017-02-24 06:05] LABS: ALBUMIN 3.2 g/dl (3.3-4.9); ALBUMIN/GLOBULIN RATIO 0.96; BILIRUBIN,INDIRECT 0.6 mg/dl (0-1.1); BILIRUBIN,TOTAL 0.6 mg/dl (0.2-1.3); CALCIUM 8.9 mg/dl (8.4-10.2); CREATININE 0.69 mg/dl (0.44-1.00); POTASSIUM 3.7 mmol/L (3.5-5.1); TOTAL PROTEIN 6.5 g/dl (6.1-8.1)
[2017-02-24] MEDS: PIPER-TAZO 3.375 GM IV (PMX) 100 ML IVPB SCH ×3 (06:15→20:59)
[2017-02-24] MEDS: METOCLOPRAMIDE 10 MG INJ IV SCH ×3 (06:16→20:58)
[2017-02-24 08:16] VITALS: BP 104/62; RESP 20
--- NOTE | 2017-02-24 10:13 | PN ---
Date/Time of Note Date/Time of Note DATE: 02/24/17 TIME: 10:03 Assessment/Plan VTE Prophylaxis VTE Prophylaxis Intervention: ambulation Lines/Catheters [facility] IV Urinary Cath still in place: No Assessment/Plan Assessment/Plan Postop day #8. Status post laparotomy and resection of the cancer of the rectum. Patient apparently was doing well up to 3 days ago and suddenly started distention of the abdomen and tenderness and pain in the right lower quadrant and left lower quadrant. Meanwhile patient developed fever and leukocytosis. So far blood culture is negative. Urine culture has grown bacterial colonies less than 10,000 and #2 is less than 30,000. We have started patient on Zosyn empirically yesterday. Infectious disease consult also agreed with that. No matter what is the cause of this problem appears that GI function is coming back, ileus is decreasing, the cultures so far are negative. Plan: We will continue antibiotics Zosyn, keep NG tube in place. If by tomorrow patient is much better we may DC the NG tube tomorrow. Subjective 24 Hr Interval Summary Free Text/Dictation Today he states that she feels better. Has had more loose bowel movement yellow in color. No nausea no vomiting. States that has passed a lot of gas. Abdominal pain has decreased comparing to the other days. Overall feels much better today. Exam/Review of Systems Vital Signs Vitals Vital Signs Date Time Temp Pulse Resp B/P Pulse Ox O2 Delivery O2 Flow Rate FiO2 02/24/17 08:16 99.8 99 20 104/62 95 02/21/17 16:00 Room Air Intake and Output 02/23/17 02/23/17 02/24/17 15:00 23:00 07:00 Intake Total 600 ml 600 ml 500 ml Output Total 500 ml 700 ml Balance 100 ml 600 ml -200 ml Exam Vital signs relatively stable. Temperature down to 99.8. Heart rate 99. WBC has increased to 19,200 which shift to the left. C. difficile on stool exam was reported to be negative. NG tube in place. There is evidence of coffee-ground material in the NG tube but irrigation today revealed that the aspirate is clear no bleeding. Abdomen is much less distended , tenderness has decreased. Results Result Diagram: 02/24/17 0525 02/24/17 0525 Results 24 hrs Laboratory Tests Test 02/24/17 05:25 White Blood Count 19.2 H Red Blood Count 3.22 L Hemoglobin 10.6 L Hematocrit 30.9 L Mean Corpuscular Volume 96.0 Mean Corpuscular Hemoglobin 32.9 Mean Corpuscular Hemoglobin Concent 34.3 Red Cell Distribution Width 12.0 Platelet Count 296 Mean Platelet Volume 9.3 Neutrophils % 92.6 H Lymphocytes % 2.5 L Monocytes % 3.3 Eosinophils % 0.0 Basophils % 0.2 Nucleated Red Blood Cells % 0.0 Neutrophils # (Manual) 18 H Lymphocytes # 0.5 L Monocytes # 0.6 Eosinophils # 0.0 Basophils # 0.0 Nucleated Red Blood Cells # 0.0 Sodium Level 139 Potassium Level 3.7 Chloride Level 95 L Carbon Dioxide Level 29 Anion Gap 19 H Blood Urea Nitrogen 11 Creatinine 0.69 Glucose Level 129 Calcium Level 8.9 Total Bilirubin 0.6 Direct Bilirubin 0.00 Indirect Bilirubin 0.6 Aspartate Amino Transf (AST/SGOT) 19 Alanine Aminotransferase (ALT/SGPT) 37 Alkaline Phosphatase 71 Total Protein 6.5 Albumin 3.2 L Globulin 3.30 H Albumin/Globulin Ratio 0.96 Medications Medications Current Medications Ondansetron HCl 4 mg 4 mg Q6H PRN IV NAUSEA AND/OR VOMITING Last administered on 02/23/17 20:04; Admin Dose 4 MG; Start 02/16/17 at 10:00 Potassium Chloride/Dextrose/ Sod Cl 1,000 ml @ 80 mls/hr [id number] IV Last administered on 02/24/17 01:24; Admin Dose 80 MLS/HR; Start 02/16/17 at 09:32 Acetaminophen (Ofirmev 1000mg/ 100ml Iv) 100 ml @ 400 mls/hr Q6H PRN IVPB FEVER Last administered on 02/23/17 11:53; Admin Dose 400 MLS/HR; Start at 15:00 Morphine Sulfate 2 mg 2 mg Q2H PRN IV PAIN Last administered on 02/23/17 20:03 ; Admin Dose 2 MG; Start 02/22/17 at 10:00 Piperacillin Sod/ Tazobactam Sod (Zosyn 3.375gm/ 100 ml (Pmx)) 100 ml @ 200 mls /hr Q8 IVPB Last administered on 02/24/17 06:15; Admin Dose 200 MLS/HR; Start 02/23/17 at 10:00 Metoclopramide HCl (Reglan) 10 mg Q8 IV Last administered on 02/24/17t 06:16; Admin Dose 10 MG; Start 02/23/17 at 22:00 LETICIA SANTANA MD Feb 24, 2017 10:13
--- NOTE | 2017-02-24 10:46 | RADRPT ---
PROCEDURE: XR Abdomen CLINICAL INDICATION: Postop ileus TECHNIQUE: An AP supine radiograph of the abdomen was submitted. COMPARISON: 02/21/2017 FINDINGS: Since the previous study, an enteric tube is been placed with the tip in the stomach. Surgical michi are now seen extend vertically through the midline pelvis. There is moderate air distension of segments of large and small bowel compatible with ileus. No organomegaly or discrete mass is identified. No pathological calcification is identified. The osseous elements appear unremarkable. IMPRESSION: 1. There is again evidence of lower abdominal surgery. 2. Interval placement of an enteric tube with the tip in the stomach. 3. The bowel gas pattern again reflects a moderate ileus. Physician Fede Date Time Electronically viewed and signed by Physician Fede on 02/24/2017 10:46 /
--- NOTE | 2017-02-24 12:35 | RADRPT ---
PROCEDURE: Ultrasound of the bilateral lower extremity venous system. CLINICAL INDICATION: Lower extremity pain. Evaluate for deep venous thrombosis. TECHNIQUE: Shipley scale with and without compression, color doppler, spectral doppler of the venous system of the bilateral lower extremities was performed. Venous augmentation maneuvers were utilized . COMPARISON: No prior studies are available for comparison. FINDINGS: RIGHT: Common femoral vein:Patent and compressible. Femoral vein:Patent and compressible. Popliteal vein:Patent and compressible. Visualized calf veins:Patent and compressible. Soft tissues:Normal LEFT: Common femoral vein:Patent and compressible. Femoral vein:Patent and compressible. Popliteal vein:Patent and compressible. Visualized calf veins:Patent and compressible. Soft tissues:Normal IMPRESSION: 1. No evidence of deep vein thrombosis. RPTAT: [facility] Physician Carlee Date Time Electronically viewed and signed by Physician Carlee on 02/24/2017 12:34 /
--- NOTE | 2017-02-24 16:16 | CONS ---
JOSE GARCES PROTECTIVE OFFICER 02/24/17 1616: Date/Time of Note Date/Time of Note DATE: 02/24/17 TIME: 16:10 Assessment/Plan Assessment/Plan Chief Complaint/Hosp Course - post op fever due to ileus - ileus - possible UTI vs. contamination of the urethra (Urine cx grew <10K klebsiella and 30-40K Morganella morganii, likely colonizers) - rectal CA s/p low anterior resection with splenic flexure mobilization, mobilization of omental patch and rigid sigmoidoscopy on 02/16/2017. Pathology of the resected rectum showed residual moderately-differentiated adenocarcinoma , involving muscularis propria, mucosal ulceration, clear margin and no e/o metastasis recommendations: - will order stat CT abd/pelvis with IV contrast to r/o abscess and intra- abdominal fluid collection - continue empiric pip/tazo (02/23/2017-) - supportive care for ileus Management d/w patient, Pt's spouse, RN Phoebe and Dr. Morris Problems: Consultation Date/Type/Reason Admit Date/Time Feb 16, 2017 at 07:24 Initial Consult Date 02/22/17 Type of Consultation: Infectious Disease Referring Provider: VINCENZO CISNEROS MD 24 HR Interval Summary Free Text/Dictation Tmax 100.2 F, venous doppler negative for DVT and stool for c-diff negative. Abdominal pain has improved. NGT with dark output. Having loose stool. No n/v or dysuria. Exam/Review of Systems Vital Signs Vitals Vital Signs Date Time Temp Pulse Resp B/P Pulse Ox O2 Delivery O2 Flow Rate FiO2 02/24/17 08:16 99.8 99 20 104/62 95 02/21/17 16:00 Room Air Intake and Output 02/23/17 02/23/17 02/24/17 15:00 23:00 07:00 Intake Total 600 ml 600 ml 500 ml Output Total 500 ml 700 ml Balance 100 ml 600 ml -200 ml Exam Constitutional: alert, oriented, well developed Psych: no complaints Head: atraumatic, normocephalic ENMT: nl external ears & nose, other (NGT to sxn with dark output) Neck: supple Respiratory: diminished breath sounds Cardiovascular: nl pulses, regular rate and rhythm Gastrointestinal: soft, surgical scars (ML incision with michi ALLEN, c/d/i with expected TTP), No bowel sounds Musculoskeletal: nl extremities to inspection Extremities: normal pulses, No edema 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: JOB COACH/JOB DEVELOPER II-XII intact, nl mental status, nl speech Skin: nl turgor, rash or lesions (faint rash noted near abdominal incision likely d/t skin irritation from dressing vs tape) Results Microbiology: URINE CULTURE Final Organism 1 K.PNEUMONIAE SSP PNEUMONIAE COLONY COUNT <10,000 CFU/ml Organism 2 MORGANELLA MORGANII SSP MORG. COLONY COUNT 30,000 - 40,000 CFU/ml K PNE SPP MORMOSP M.I.C. RX M.I.C. RX --------- --- --------- --- AMPICILLIN >=32 R CEFAZOLIN S CEFOTAXIME S S CIPROFLOXACIN <=0.25 S <=0.25 S GENTAMICIN <=1 S <=1 S LEVOFLOXACIN <=0.12 S <=0.12 S NITROFURANTOIN 64 I 128 R TOBRAMYCIN <=1 S <=1 S TRIMETHOPRIM/SULFAMETHOXAZOLE >=320 R >=320 R Result Diagram: 02/24/1725 02/24/1725 Results 24 hrs Laboratory Tests Test 02/24/17 05:25 White Blood Count 19.2 H Red Blood Count 3.22 L Hemoglobin 10.6 L Hematocrit 30.9 L Mean Corpuscular Volume 96.0 Mean Corpuscular Hemoglobin 32.9 Mean Corpuscular Hemoglobin Concent 34.3 Red Cell Distribution Width 12.0 Platelet Count 296 Mean Platelet Volume 9.3 Neutrophils % 92.6 H Lymphocytes % 2.5 L Monocytes % 3.3 Eosinophils % 0.0 Basophils % 0.2 Nucleated Red Blood Cells % 0.0 Neutrophils # (Manual) 18 H Lymphocytes # 0.5 L Monocytes # 0.6 Eosinophils # 0.0 Basophils # 0.0 Nucleated Red Blood Cells # 0.0 Sodium Level 139 Potassium Level 3.7 Chloride Level 95 L Carbon Dioxide Level 29 Anion Gap 19 H Blood Urea Nitrogen 11 Creatinine 0.69 Glucose Level 129 Calcium Level 8.9 Total Bilirubin 0.6 Direct Bilirubin 0.00 Indirect Bilirubin 0.6 Aspartate Amino Transf (AST/SGOT) 19 Alanine Aminotransferase (ALT/SGPT) 37 Alkaline Phosphatase 71 Total Protein 6.5 Albumin 3.2 L Globulin 3.30 H Albumin/Globulin Ratio 0.96 Medications Medications Current Medications Ondansetron HCl 4 mg 4 mg Q6H PRN IV NAUSEA AND/OR VOMITING Last administered on 02/23/17 20:04; Admin Dose 4 MG; Start 02/16/17 at 10:00 Potassium Chloride/Dextrose/ Sod Cl 1,000 ml @ 80 mls/hr [id number] IV Last administered on 02/24/17 01:24; Admin Dose 80 MLS/HR; Start 02/16/17 at 09:32 Acetaminophen (Ofirmev 1000mg/ 100ml Iv) 100 ml @ 400 mls/hr Q6H PRN IVPB FEVER Last administered on 02/23/17 11:53; Admin Dose 400 MLS/HR; Start at 15:00 Morphine Sulfate 2 mg 2 mg Q2H PRN IV PAIN Last administered on 02/23/17 20:03 ; Admin Dose 2 MG; Start 02/22/17 at 10:00 Piperacillin Sod/ Tazobactam Sod (Zosyn 3.375gm/ 100 ml (Pmx)) 100 ml @ 200 mls /hr Q8 IVPB Last administered on 02/24/17 14:15; Admin Dose 200 MLS/HR; Start 02/23/17 at 10:00 Metoclopramide HCl (Reglan) 10 mg Q8 IV Last administered on 02/24/17 14:15; Admin Dose 10 MG; Start 02/23/17 at 22:00 Procedures Procedures Abdominal x-ray 02/24/2017: 1. There is again evidence of lower abdominal surgery. 2. Interval placement of an enteric tube with the tip in the stomach. 3. The bowel gas pattern again reflects a moderate ileus Venous doppler 02/24/2017: 1. No evidence of deep vein thrombosis. BLANCO MORRIS M.D. 02/26/179: Assessment/Plan Assessment/Plan Additional Assessment/Plan Arturo attestation: I discussed the management with ITZEL Garces and agree with above. Exam/Review of Systems Results Result Diagram: 02/24/17 0525 02/24/17 0525 JOSE GARCES NP Feb 24, 2017 16:16 BLANCO MORRIS M.D. Feb 26, 2017 20:49
--- NOTE | 2017-02-24 17:11 | PN ---
Date/Time of Note Date/Time of Note DATE: 02/24/17 TIME: 17:08 Assessment/Plan VTE Prophylaxis VTE Prophylaxis Intervention: SCD's Lines/Catheters IV [facility] Peripheral IV Urinary Cath still in place: No Assessment/Plan Chief Complaint/Hosp Course Patient's continues to have increased leukocytosis and low-grade fever, diarrhea , stool is negative for C. difficile, continue antibiotics, follow up on final cultures. Assessment/Plan -Low rectal cancer, status post resection by Dr. Santos. Continue IV fluids. Continue morphine for pain and Zofran as needed for nausea. Surgical recommendations. -Moderate ileus, continue NG tube to low intermittent suctioning. Further recommendations based on clinical course. Plan of care discussed with Dr. Gage. Problems: Exam/Review of Systems Vital Signs Vitals Vital Signs Date Time Temp Pulse Resp B/P Pulse Ox O2 Delivery O2 Flow Rate FiO2 02/24/17 08:16 99.8 99 20 104/62 95 02/21/17 16:00 Room Air Intake and Output 02/23/17 02/23/17 02/24/17 15:00 23:00 07:00 Intake Total 600 ml 600 ml 500 ml Output Total 500 ml 700 ml Balance 100 ml 600 ml -200 ml Exam Constitutional: alert Respiratory: normal air movement Cardiovascular: nl pulses Gastrointestinal: non-tender, other (s/p surgery), soft Extremities: normal pulses Skin: nl turgor Results Result Diagram: 02/24/17 0525 02/24/17 0525 Results 24 hrs Laboratory Tests Test 02/24/17 05:25 White Blood Count 19.2 H Red Blood Count 3.22 L Hemoglobin 10.6 L Hematocrit 30.9 L Mean Corpuscular Volume 96.0 Mean Corpuscular Hemoglobin 32.9 Mean Corpuscular Hemoglobin Concent 34.3 Red Cell Distribution Width 12.0 Platelet Count 296 Mean Platelet Volume 9.3 Neutrophils % 92.6 H Lymphocytes % 2.5 L Monocytes % 3.3 Eosinophils % 0.0 Basophils % 0.2 Nucleated Red Blood Cells % 0.0 Neutrophils # (Manual) 18 H Lymphocytes # 0.5 L Monocytes # 0.6 Eosinophils # 0.0 Basophils # 0.0 Nucleated Red Blood Cells # 0.0 Sodium Level 139 Potassium Level 3.7 Chloride Level 95 L Carbon Dioxide Level 29 Anion Gap 19 H Blood Urea Nitrogen 11 Creatinine 0.69 Glucose Level 129 Calcium Level 8.9 Total Bilirubin 0.6 Direct Bilirubin 0.00 Indirect Bilirubin 0.6 Aspartate Amino Transf (AST/SGOT) 19 Alanine Aminotransferase (ALT/SGPT) 37 Alkaline Phosphatase 71 Total Protein 6.5 Albumin 3.2 L Globulin 3.30 H Albumin/Globulin Ratio 0.96 Medications Medications Current Medications Ondansetron HCl 4 mg 4 mg Q6H PRN IV NAUSEA AND/OR VOMITING Last administered on 02/23/17 20:04; Admin Dose 4 MG; Start 02/16/17 at 10:00 Potassium Chloride/Dextrose/ Sod Cl 1,000 ml @ 80 mls/hr [id number] IV Last administered on 02/24/17 01:24; Admin Dose 80 MLS/HR; Start 02/16/17 at 09:32 Acetaminophen (Ofirmev 1000mg/ 100ml Iv) 100 ml @ 400 mls/hr Q6H PRN IVPB FEVER Last administered on 02/23/17 11:53; Admin Dose 400 MLS/HR; Start at 15:00 Morphine Sulfate 2 mg 2 mg Q2H PRN IV PAIN Last administered on 02/23/17 20:03 ; Admin Dose 2 MG; Start 02/22/17 at 10:00 Piperacillin Sod/ Tazobactam Sod (Zosyn 3.375gm/ 100 ml (Pmx)) 100 ml @ 200 mls /hr Q8 IVPB Last administered on 02/24/17 14:15; Admin Dose 200 MLS/HR; Start 02/23/17 at 10:00 Metoclopramide HCl (Reglan) 10 mg Q8 IV Last administered on 02/24/17 14:15; Admin Dose 10 MG; Start 02/23/17 at 22:00 MAMADOU CHUA Feb 24, 2017 17:11
[2017-02-24] MEDS ORDERED: ONDANSETRON 4 MG INJ IV ONE (19:30)
[2017-02-24 19:48] VITALS: BP 94/54; RESP 18
[2017-02-24] MEDS ORDERED: IOHEXOL 300MG/ML 150 ML BTL ONE (20:31)
[2017-02-24] MEDS ORDERED: SOD CHLORIDE 0.9% 100 ML ONE (20:31)
--- NOTE | 2017-02-25 | RADRPT ---
PROCEDURE: CT abdomen and pelvis with contrast. CLINICAL INDICATION: Abdominal pain, possible abscess. TECHNIQUE: CT scan of the abdomen and pelvis with contrast was performed. Coronal and sagittal im ages were also reformatted. 80 cc Omnipaque-300 intravenous contrast was administered. Reportedly, according to the technologist note, the patient experienced nausea and vomiting. The contrast inje ction despite being premedicated before the study. Total exam CTDIvol = 7.32 mGy and DLP = 391.56 m Gy-cm. COMPARISON: X-ray 02/24/2017 FINDINGS: Visualized lower thorax: Mild posterior right lower lobe subsegmental atelectasis is present. The l eft lung base. There is no evidence for pleural effusion. Liver, gallbladder, pancreas and spleen: Normal hepatic contour, attenuation in size. There is no evidence for liver mass or ductal dilatation. The gallbladder is unremarkable. No common bile duct dilatation is evident. The pancreas is normal. The spleen is normal, not enlarged. Adrenal glands and genitourinary system: The adrenal glands are normal bilaterally. In the upper po le of the right kidney is a small 2 mm calculus, a 3 mm calculus in the lower right lower pole is al so suspected. There is no evidence of solid mass, hydronephrosis or pyelonephritis. The left kidne y has probably intrarenal calculi in the lower pole and renal pelvis the largest stone approximately 4 mm. There is no hydronephrosis or pyelonephritis. Renal size and contour are normal. The urete rs are unremarkable. Diffuse urinary bladder wall thickening of 6 mm is present with stranding of t he surrounding fat unable to exclude cystitis. The uterus is unremarkable. Gastrointestinal system: The stomach is normal in caliber and without evidence of wall thickening There is no evidence of obstruction, ileus or inflammation. The appendix is not visualized. There a re changes consistent with partial colectomy anastomosis within the pelvis, the remaining sigmoid co héctor and portion of the distal descending colon shows wall thickening concerning for colitis. Peritoneum, retroperitoneum, vessels and lymph nodes: The abdominal aorta is normal in caliber. Th ere is no evidence for atherosclerotic calcification. Inferior vena cava is normal in caliber. The re is no evidence for adenopathy. There are multiple areas of peripherally enhancing centrally hypo dense fluid within the pelvis consistent with abscess formation. Interposed between the distal colo n in the posterior uterine corpus is a collection containing both fluid and gas and estimated at 8.1 x 8.1 cm, fluid extending into the presacral space (series 3 image 130). Extensive inflammatory st randing of the pelvic fat is present.. No pneumoperitoneum is seen Osseous structures and musculoskeletal system: The osseous structures are unremarkable. Vertically oriented skin michi along the anterior abdominal wall are present. RPTAT:HJJR IMPRESSION: 1. Abnormal pelvic collection containing both gas and fluid with peripheral enhancement and extensiv e inflammatory stranding of the pelvic fat, findings consistent with pelvic abscess formation adjace nt to a distal colonic anastomosis, the suspected abscess estimated at 8 cm in greatest dimension pr edominately interposed between the uterus and anastomosis but extending into the presacral space. An astomotic leakage is a possibility. Follow-up evaluation is recommended. 2. Thickening of the distal colon wall in the region of the anastomosis concerning for colitis. 3. Abnormal thickening of the urinary bladder with stranding of the surrounding fat unable to exclu de associated cystitis, probably reactive. 4. Bilateral nonobstructing intrarenal calculi on this contrast-enhanced exam. Physician Arvin Date Time Electronically viewed and signed by Physician Arvin on 02/25/2017 00:00 /
[2017-02-25 02:43] VITALS: BP 96/57; RESP 18
[2017-02-25] MEDS: METOCLOPRAMIDE 10 MG INJ IV SCH ×3 (05:24→21:38)
[2017-02-25] MEDS: PIPER-TAZO 3.375 GM IV (PMX) 100 ML IVPB SCH ×3 (05:24→21:38)
[2017-02-25 06:39] LABS: ABNORMAL IP MESSAGE 1; HEMATOCRIT 29.1 % (37.0-47.0); MEAN CORPUSCULAR HEMOGLOBIN 33.1 pg (29.0-33.0); MEAN CORPUSCULAR HGB CONC 34.4 g/dl (32.0-37.0); MEAN CORPUSCULAR VOLUME 96.4 fl (82.0-101.0); MEAN PLATELET VOLUME 9.8 fl (7.4-10.4); PLATELET COUNT 340 10^3/UL (140-415); RED BLOOD COUNT 3.02 10^6/ul (4.20-5.40); RED CELL DISTRIBUTION WIDTH 12.1 % (11.5-14.5); WHITE BLOOD COUNT 18.1 10^3/ul (4.8-10.8)
[2017-02-25 06:52] LABS: POSITIVE DIFF @See below
[2017-02-25 07:11] LABS: CALCIUM 8.9 mg/dl (8.4-10.2); CREATININE 0.69 mg/dl (0.44-1.00); POTASSIUM 3.5 mmol/L (3.5-5.1)
[2017-02-25 08:23] VITALS: BP 96/57; RESP 16
--- NOTE | 2017-02-25 08:56 | PN ---
Date/Time of Note Date/Time of Note DATE: 02/25/17 TIME: 08:54 Assessment/Plan VTE Prophylaxis VTE Prophylaxis Intervention: other Lines/Catheters IV Catheter Type (from [facility]): Peripheral IV Urinary Cath still in place: No Assessment/Plan Chief Complaint/Hosp Course -Low rectal cancer, status post resection by Dr. Santos. Continue IV fluids. Continue morphine for pain and Zofran as needed for nausea. Surgical recommendations. -Moderate ileus, continue NG tube to low intermittent suctioning. Further recommendations based on clinical course. Plan of care discussed with Dr. Gage. Problems: Subjective 24 Hr Interval Summary Free Text/Dictation Patient still have no abdominal activity Exam/Review of Systems Vital Signs Vitals Vital Signs Date Time Temp Pulse Resp B/P Pulse Ox O2 Delivery O2 Flow Rate FiO2 02/25/17 08:23 97.8 78 16 96/57 98 02/21/17 16:00 Room Air Intake and Output 02/24/17 02/24/17 02/25/17 15:00 23:00 07:00 Intake Total 1200 ml Output Total 3 ml 3 ml Balance -3 ml 1197 ml Exam Constitutional: well developed Head: atraumatic, normocephalic Neck: supple Respiratory: diminished breath sounds Cardiovascular: regular rate and rhythm Gastrointestinal: non-tender, soft Extremities: normal pulses Results Result Diagram: 02/25/17 0534 02/25/17 0534 Results 24 hrs Laboratory Tests Test 02/25/17 05:34 White Blood Count 18.1 H Red Blood Count 3.02 L Hemoglobin 10.0 L Hematocrit 29.1 L Mean Corpuscular Volume 96.4 Mean Corpuscular Hemoglobin 33.1 H Mean Corpuscular Hemoglobin Concent 34.4 Red Cell Distribution Width 12.1 Platelet Count 340 Mean Platelet Volume 9.8 Neutrophils % Lymphocytes % Monocytes % Eosinophils % Basophils % Nucleated Red Blood Cells % 0.0 Neutrophils # (Manual) 17 H Lymphocytes # Monocytes # Eosinophils # Basophils # Nucleated Red Blood Cells # Sodium Level 138 Potassium Level 3.5 Chloride Level 95 L Carbon Dioxide Level 29 Anion Gap 18 H Blood Urea Nitrogen 14 Creatinine 0.69 Glucose Level 126 Calcium Level 8.9 Medications Medications Current Medications Ondansetron HCl 4 mg 4 mg Q6H PRN IV NAUSEA AND/OR VOMITING Last administered on 02/23/17t 20:04; Admin Dose 4 MG; Start 02/16/17 at 10:00 Potassium Chloride/Dextrose/ Sod Cl 1,000 ml @ 80 mls/hr [id number] IV Last administered on 02/24/17 19:44; Admin Dose 80 MLS/HR; Start 02/16/17 at 09:32 Acetaminophen (Ofirmev 1000mg/ 100ml Iv) 100 ml @ 400 mls/hr Q6H PRN IVPB FEVER Last administered on 02/23/17 11:53; Admin Dose 400 MLS/HR; Start at 15:00 Morphine Sulfate 2 mg 2 mg Q2H PRN IV PAIN Last administered on 02/23/17 20:03 ; Admin Dose 2 MG; Start 02/22/17 at 10:00 Piperacillin Sod/ Tazobactam Sod (Zosyn 3.375gm/ 100 ml (Pmx)) 100 ml @ 200 mls /hr Q8 IVPB Last administered on 02/25/17 05:24; Admin Dose 200 MLS/HR; Start 02/23/17 at 10:00 Metoclopramide HCl (Reglan) 10 mg Q8 IV Last administered on 02/25/17 05:24; Admin Dose 10 MG; Start 02/23/17 at 22:00 TIFFANIE CHRISTOPHER Feb 25, 2017 08:55
[2017-02-25] MEDS: D5W-0.45 NACL + KCL 20 MEQ 1,000 ML IV SCH ×2 (10:52→12:01)
[2017-02-25 11:23] LABS: ANISOCYTOSIS 1+ (0-0); MICROCYTOSIS 1+ (0-0); MONOCYTES % (M) 4 % (0-11); PLATELET ESTIMATE NORMAL; POLYCHROMASIA 3+ (0-0)
[2017-02-25] MEDS ORDERED: LIDOCAINE 1% (MPF) 5 ML VIAL SC ONE ×2 (13:00→17:00)
--- NOTE | 2017-02-25 13:39 | PN ---
Date/Time of Note Date/Time of Note DATE: 02/25/17 TIME: 13:30 Assessment/Plan VTE Prophylaxis VTE Prophylaxis Intervention: ambulation Lines/Catheters IV Catheter Type (from [facility]): Peripheral IV Urinary Cath still in place: No Assessment/Plan Assessment/Plan Postop day #9. Status post laparotomy low anterior resection of the cancer of the rectum with end to end anastomosis with the stapler. Postop day #6 patient is started to having used and also fever and leukocytosis. Blood culture has been negative urine culture has been negative so far. Data CT scan of the abdomen and pelvis has revealed presence of pelvic abscess. I informed Dr. Paredes and discussed the case with Dr. Paredes the decision was made to proceed with the following. Plan: Insert PICC line Start the patient on peripheral TPN considering central TPN Request invasive radiologist to proceed with drainage of the abscess under CT guidance. Continue antibiotics patient has responded to antibiotic. I discussed the results of the CT scan of the abdomen pelvis with patient and patient and I informed him that we are going to start on kind of TPN and request radiology to proceed with drainage of the abscess and further decision will be based on the response of the patient to these modalities of treatment. Subjective 24 Hr Interval Summary Free Text/Dictation States that feels better today. No nausea no vomiting no fever, abdominal pain is much better, has had several small loose yellowish bowel movement. States that feels hungry and she wants to eat. Exam/Review of Systems Vital Signs Vitals Vital Signs Date Time Temp Pulse Resp B/P Pulse Ox O2 Delivery O2 Flow Rate FiO2 02/25/17 08:23 97.8 78 16 96/57 98 02/21/17 16:00 Room Air Intake and Output 02/24/17 02/24/17 02/25/17 15:00 23:00 07:00 Intake Total 850 ml 1200 ml Output Total 3 ml 3 ml Balance 847 ml 1197 ml Exam Postop day #9. Vital signs are stable afebrile. Heart rate dropped to 78 today. Respiratory rate is about 14-16. WBC dropped to 18,000 with 72% segmented on 12% band. Abdomen is minimally distended soft minimal tenderness. CT scan of the abdomen and pelvis was done today revealed presence of abscess in the pelvis size is about 8.1 x 8.1 cm. Results Result Diagram: 02/25/17 0534 02/25/17 0534 Results 24 hrs Laboratory Tests Test 02/25/17 05:34 White Blood Count 18.1 H Red Blood Count 3.02 L Hemoglobin 10.0 L Hematocrit 29.1 L Mean Corpuscular Volume 96.4 Mean Corpuscular Hemoglobin 33.1 H Mean Corpuscular Hemoglobin Concent 34.4 Red Cell Distribution Width 12.1 Platelet Count 340 Mean Platelet Volume 9.8 Neutrophils % Segmented Neutrophils % (Manual) 79 H Band Neutrophils % (Manual) 12 H Lymphocytes % Lymphocytes % (Manual) 5 L Monocytes % Monocytes % (Manual) 4 Eosinophils % Basophils % Nucleated Red Blood Cells % 0.0 Neutrophils # (Manual) 15 H Band Neutrophils # 2.1 H Absolute Lymphocytes (Manual) 0.9 Lymphocytes # Monocytes # Absolute Monocytes (Manual) 0.7 Eosinophils # Basophils # Nucleated Red Blood Cells # Platelet Estimate NORMAL Polychromasia 3+ Anisocytosis 1+ Microcytosis 1+ Sodium Level 138 Potassium Level 3.5 Chloride Level 95 L Carbon Dioxide Level 29 Anion Gap 18 H Blood Urea Nitrogen 14 Creatinine 0.69 Glucose Level 126 Calcium Level 8.9 Medications Medications Current Medications Ondansetron HCl 4 mg 4 mg Q6H PRN IV NAUSEA AND/OR VOMITING Last administered on 02/23/17 20:04; Admin Dose 4 MG; Start 02/16/17 at 10:00 Potassium Chloride/Dextrose/ Sod Cl 1,000 ml @ 80 mls/hr [id number] IV Last administered on 02/25/17 12:01; Admin Dose 80 MLS/HR; Start 02/16/17 at 09:32 Acetaminophen (Ofirmev 1000mg/ 100ml Iv) 100 ml @ 400 mls/hr Q6H PRN IVPB FEVER Last administered on 02/23/17 11:53; Admin Dose 400 MLS/HR; Start at 15:00 Morphine Sulfate 2 mg 2 mg Q2H PRN IV PAIN Last administered on 02/23/17 20:03 ; Admin Dose 2 MG; Start 02/22/17 at 10:00 Piperacillin Sod/ Tazobactam Sod (Zosyn 3.375gm/ 100 ml (Pmx)) 100 ml @ 200 mls /hr Q8 IVPB Last administered on 02/25/17 05:24; Admin Dose 200 MLS/HR; Start 02/23/17 at 10:00 Metoclopramide HCl (Reglan) 10 mg Q8 IV Last administered on 02/25/17t 05:24; Admin Dose 10 MG; Start 02/23/17 at 22:00 LETICIA SANTANA MD Feb 25, 2017 13:39
[2017-02-25 14:00] VITALS: BP 88/54; RESP 18
[2017-02-25] MEDS: FAT EMULSION 20% 250 ML IV SCH (18:17)
[2017-02-25] MEDS: SOD CHLORIDE 0.45% 1,000 ML IV SCH (18:18)
[2017-02-25] MEDS: TPN 1,000 ML IV SCH (18:18)
[2017-02-25] MEDS: morphine 2 MG INJ IV PRN (18:19)
[2017-02-25 20:00] VITALS: BP 89/50; RESP 18
--- NOTE | 2017-02-25 21:05 | CONS ---
JOSE GARCES NP 02/25/17 2104: Date/Time of Note Date/Time of Note DATE: 02/25/17 TIME: 21:04 Assessment/Plan Assessment/Plan Chief Complaint/Hosp Course - post op fever due to ileus and pelvic abscess - ileus - pelvic abscess per CT - possible UTI vs. contamination of the urethra (Urine cx grew <10K klebsiella and 30-40K Morganella morganii, likely colonizers) - rectal CA s/p low anterior resection with splenic flexure mobilization, mobilization of omental patch and rigid sigmoidoscopy on 02/16/2017. Pathology of the resected rectum showed residual moderately-differentiated adenocarcinoma , involving muscularis propria, mucosal ulceration, clear margin and no e/o metastasis recommendations: - continue empiric pip/tazo (02/23/2017-) - CT guided aspiration of pelvic abscess ordered by Surgery for 02/27/2017; will order fungal culture, anaerobic culture and cytology to be done from CT guided drainage - supportive care for ileus Management d/w patient, Pt's spouse, and Dr. Morris Problems: Consultation Date/Type/Reason Admit Date/Time Feb 16, 2017 at 07:24 Initial Consult Date 02/22/17 Type of Consultation: Infectious Disease Referring Provider: VINCENZO CISNEROS MD 24 HR Interval Summary Free Text/Dictation NGT was removed yesterday. CT abd/pelvis revealed pelvic abscess and pt was started on PPN, PICC line ordered, and IR to do CT guided aspiration on Monday morning. C/o lower abdominal pain rating 5/10 with movement/ambulation. Denies n/v, dysuria. Exam/Review of Systems Vital Signs Vitals Vital Signs Date Time Temp Pulse Resp B/P Pulse Ox O2 Delivery O2 Flow Rate FiO2 02/25/17 14:00 99.0 66 18 88/54 96 02/21/17 16:00 Room Air Intake and Output 02/24/17 02/24/17 02/25/17 15:00 23:00 07:00 Intake Total 850 ml 1200 ml Output Total 3 ml 3 ml Balance 847 ml 1197 ml Exam Constitutional: alert, oriented, well developed Psych: no complaints Head: atraumatic, normocephalic ENMT: nl external ears & nose Neck: supple Respiratory: diminished breath sounds Cardiovascular: nl pulses, regular rate and rhythm Gastrointestinal: soft, surgical scars (ML incision 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, c/d/i with expected TTP), No bowel sounds Musculoskeletal: nl extremities to inspection Extremities: normal pulses, No edema 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: DIGITAL ADVERTISING ANALYST II-XII intact, nl mental status, nl speech Skin: nl turgor, rash or lesions (faint rash noted near abdominal incision likely d/t skin irritation from dressing vs tape - improved compared to yesterday) Results Result Diagram: 02/25/17 0534 02/25/17 0534 Results 24 hrs Laboratory Tests Test 02/25/17 05:34 White Blood Count 18.1 H Red Blood Count 3.02 L Hemoglobin 10.0 L Hematocrit 29.1 L Mean Corpuscular Volume 96.4 Mean Corpuscular Hemoglobin 33.1 H Mean Corpuscular Hemoglobin Concent 34.4 Red Cell Distribution Width 12.1 Platelet Count 340 Mean Platelet Volume 9.8 Neutrophils % Segmented Neutrophils % (Manual) 79 H Band Neutrophils % (Manual) 12 H Lymphocytes % Lymphocytes % (Manual) 5 L Monocytes % Monocytes % (Manual) 4 Eosinophils % Basophils % Nucleated Red Blood Cells % 0.0 Neutrophils # (Manual) 15 H Band Neutrophils # 2.1 H Absolute Lymphocytes (Manual) 0.9 Lymphocytes # Monocytes # Absolute Monocytes (Manual) 0.7 Eosinophils # Basophils # Nucleated Red Blood Cells # Platelet Estimate NORMAL Polychromasia 3+ Anisocytosis 1+ Microcytosis 1+ Sodium Level 138 Potassium Level 3.5 Chloride Level 95 L Carbon Dioxide Level 29 Anion Gap 18 H Blood Urea Nitrogen 14 Creatinine 0.69 Glucose Level 126 Calcium Level 8.9 Medications Medications Current Medications Ondansetron HCl 4 mg 4 mg Q6H PRN IV NAUSEA AND/OR VOMITING Last administered on 02/23/17 20:04; Admin Dose 4 MG; Start 02/16/17 at 10:00 Acetaminophen (Ofirmev 1000mg/ 100ml Iv) 100 ml @ 400 mls/hr Q6H PRN IVPB FEVER Last administered on 02/23/17 11:53; Admin Dose 400 MLS/HR; Start at 15:00 Morphine Sulfate 2 mg 2 mg Q2H PRN IV PAIN Last administered on 02/25/17 18:19 ; Admin Dose 2 MG; Start 02/22/17 at 10:00 Piperacillin Sod/ Tazobactam Sod (Zosyn 3.375gm/ 100 ml (Pmx)) 100 ml @ 200 mls /hr Q8 IVPB Last administered on 02/25/17 17:41; Admin Dose 200 MLS/HR; Start 02/23/17 at 10:00 Metoclopramide HCl 10 mg 10 mg Q8 IV Last administered on 02/25/17 17:41; Admin Dose 10 MG; Start 02/23/17 at 22:00 Sodium Chloride 1,000 ml @ 50 mls/hr Q20H IV Last administered on 02/25/17 18 :18; Admin Dose 50 MLS/HR; Start 02/25/17 at 16:00 Total Parenteral Nutrition 1,000 ml @ 75 mls/hr [id number] IV Last administered on 02/25/17 18:18; Admin Dose 75 MLS/HR; Start 02/25/17 at 16:00 Fat Emulsion Intravenous (Liposyn Ii 20%) 250 ml @ 10.417 mls/ hr Q24H IV Last administered on 02/25/17 18:17; Admin Dose 10.417 MLS/HR; Start 02/25/17 at 16:00 BLANCO MORRIS M.D. 02/26/17 2050: Assessment/Plan Assessment/Plan Additional Assessment/Plan Arturo attestation: I discussed the management with ITZEL Garces and agree with above. Exam/Review of Systems Results Result Diagram: 02/25/17 0534 02/25/17 0534 JOSE GARCES NP Feb 25, 2017 21:04 BLANCO MORRIS M.D. Feb 26, 2017 20:50
[2017-02-26] MEDS: morphine 2 MG INJ IV PRN (01:06)
[2017-02-26 02:17] VITALS: BP 86/51; RESP 16
[2017-02-26] MEDS: TPN 1,000 ML IV SCH ×3 (05:20→22:07)
[2017-02-26] MEDS: METOCLOPRAMIDE 10 MG INJ IV SCH ×3 (05:55→22:03)
[2017-02-26] MEDS: PIPER-TAZO 3.375 GM IV (PMX) 100 ML IVPB SCH ×3 (05:55→22:04)
[2017-02-26 07:39] LABS: CALCIUM 8.3 mg/dl (8.4-10.2); CREATININE 0.62 mg/dl (0.44-1.00); MAGNESIUM 2.2 mg/dl (1.7-2.5); PHOSPHORUS 3.8 mg/dl (2.5-4.9); POTASSIUM 3.3 mmol/L (3.5-5.1)
[2017-02-26 09:14] VITALS: BP 99/51; PULSE 81; RESP 18
--- NOTE | 2017-02-26 10:49 | PN ---
Date/Time of Note Date/Time of Note DATE: 02/26/17 TIME: 10:48 Assessment/Plan VTE Prophylaxis VTE Prophylaxis Intervention: other Lines/Catheters IV Catheter Type (from Nrsg): Peripheral IV Urinary Cath still in place: No Assessment/Plan Chief Complaint/Hosp Course -Low rectal cancer, status post resection by Dr. Santos. Continue IV fluids. Continue morphine for pain and Zofran as needed for nausea. Surgical recommendations. -Moderate ileus, continue NG tube to low intermittent suctioning. Further recommendations based on clinical course. Plan of care discussed with Dr. Gage. Problems: Subjective 24 Hr Interval Summary Free Text/Dictation Patient still has some pain Exam/Review of Systems Vital Signs Vitals Vital Signs Date Time Temp Pulse Resp B/P Pulse Ox O2 Delivery O2 Flow Rate FiO2 02/26/17 09:14 99.2 81 18 99/51 99 Room Air Intake and Output 02/25/17 02/25/17 02/26/17 15:00 23:00 07:00 Intake Total 120 ml 500 ml 100 ml Output Total 3 ml Balance 120 ml 497 ml 100 ml Exam Constitutional: well developed Head: atraumatic, normocephalic Neck: supple Respiratory: clear to auscultation Cardiovascular: regular rate and rhythm Gastrointestinal: non-tender, soft Extremities: normal pulses Results Result Diagram: 02/25/17 0534 02/26/17 0524 Results 24 hrs Laboratory Tests Test 02/26/17 05:24 Sodium Level 134 L Potassium Level 3.3 L Chloride Level 98 Carbon Dioxide Level 26 Anion Gap 13 Blood Urea Nitrogen 14 Creatinine 0.62 Glucose Level 119 Calcium Level 8.3 L Phosphorus Level 3.8 Magnesium Level 2.2 Medications Medications Current Medications Ondansetron HCl 4 mg 4 mg Q6H PRN IV NAUSEA AND/OR VOMITING Last administered on 02/23/17 20:04; Admin Dose 4 MG; Start 02/16/17 at 10:00 Acetaminophen (Ofirmev 1000mg/ 100ml Iv) 100 ml @ 400 mls/hr Q6H PRN IVPB FEVER Last administered on 02/23/17 11:53; Admin Dose 400 MLS/HR; Start at 15:00 Morphine Sulfate 2 mg 2 mg Q2H PRN IV PAIN Last administered on 02/26/17 01:06 ; Admin Dose 2 MG; Start 02/22/17 at 10:00 Piperacillin Sod/ Tazobactam Sod (Zosyn 3.375gm/ 100 ml (Pmx)) 100 ml @ 200 mls /hr Q8 IVPB Last administered on 02/26/17 05:55; Admin Dose 200 MLS/HR; Start 02/23/17 at 10:00 Metoclopramide HCl 10 mg 10 mg Q8 IV Last administered on 02/26/17 05:55; Admin Dose 10 MG; Start 02/23/17 at 22:00 Sodium Chloride 1,000 ml @ 50 mls/hr Q20H IV Last administered on 02/25/17 18 :18; Admin Dose 50 MLS/HR; Start 02/25/17 at 16:00 Total Parenteral Nutrition 1,000 ml @ 75 mls/hr [id number] IV Last administered on 02/26/17 09:04; Admin Dose 75 MLS/HR; Start 02/25/17 at 16:00 Fat Emulsion Intravenous (Liposyn Ii 20%) 250 ml @ 10.417 mls/ hr Q24H IV Last administered on 02/25/17 18:17; Admin Dose 10.417 MLS/HR; Start 02/25/17 at 16:00 TIFFANIE CHRISTOPHER Feb 26, 2017 10:49
[2017-02-26] MEDS: SOD CHLORIDE 0.45% 1,000 ML IV SCH (12:00)
[2017-02-26] MEDS ORDERED: POTASSIUM CHLORIDE (SR) 20 MEQ TAB PO STA (13:28)
--- NOTE | 2017-02-26 13:56 | PN ---
Date/Time of Note Date/Time of Note DATE: 02/26/17 TIME: 13:51 Assessment/Plan VTE Prophylaxis VTE Prophylaxis Intervention: ambulation Lines/Catheters IV [facility]ter Type (from [facility]): Peripheral IV Urinary Cath still in place: No Assessment/Plan Assessment/Plan Postop day #10 status post laparotomy low anterior resection of the cancer of the rectum. Also status post neoadjuvant chemotherapy and radiation. As of postop day #6 patient is started to develop ileus later on the CT scan proved that the patient has abscess formation in the pelvis. We have requested radiology to perform CT-guided percutaneous drainage of the abscess could not do it on the weekend so they are going to do it on the morning on Monday. Considering that the patient may require TPN for longer time. Going to get a PICC line for the patient today. Subjective 24 Hr Interval Summary Free Text/Dictation States that feels better and stronger today. Last night peripheral hyperalimentation was started for the patient 75 cc/h. States that since morning has had 5 bowel movement but is not bothered he is a slightly formed. Has been out of bed walking around. Mild abdominal pain still persists. Exam/Review of Systems Vital Signs Vitals Vital Signs Date Time Temp Pulse Resp B/P Pulse Ox O2 Delivery O2 Flow Rate FiO2 02/26/17 09:14 99.2 81 18 99/51 99 Room Air Intake and Output 02/25/17 02/25/17 02/26/17 15:00 23:00 07:00 Intake Total 120 ml 500 ml 100 ml Output Total 3 ml Balance 120 ml 497 ml 100 ml Exam Alert awake vital signs stable temperature maximum today 99.2 heart rate 81. Potassium was dropped to 3.3 with replaced some potassium for the patient. Abdomen is not distended mild tenderness both lower quadrants on deep pressure. Legs no calf tenderness. Peripheral parenteral nutrition is running. Results Result Diagram: 02/25/17 0534 02/26/17 0524 Results 24 hrs Laboratory Tests Test 02/26/17 05:24 Sodium Level 134 L Potassium Level 3.3 L Chloride Level 98 Carbon Dioxide Level 26 Anion Gap 13 Blood Urea Nitrogen 14 Creatinine 0.62 Glucose Level 119 Calcium Level 8.3 L Phosphorus Level 3.8 Magnesium Level 2.2 Medications Medications Current Medications Ondansetron HCl 4 mg 4 mg Q6H PRN IV NAUSEA AND/OR VOMITING Last administered on 02/23/17t 20:04; Admin Dose 4 MG; Start 02/16/17 at 10:00 Acetaminophen (Ofirmev 1000mg/ 100ml Iv) 100 ml @ 400 mls/hr Q6H PRN IVPB FEVER Last administered on 02/23/17 11:53; Admin Dose 400 MLS/HR; Start at 15:00 Morphine Sulfate 2 mg 2 mg Q2H PRN IV PAIN Last administered on 02/26/17 01:06 ; Admin Dose 2 MG; Start 02/22/17 at 10:00 Piperacillin Sod/ Tazobactam Sod (Zosyn 3.375gm/ 100 ml (Pmx)) 100 ml @ 200 mls /hr Q8 IVPB Last administered on 02/26/17 05:55; Admin Dose 200 MLS/HR; Start 02/23/17 at 10:00 Metoclopramide HCl 10 mg 10 mg Q8 IV Last administered on 02/26/17 05:55; Admin Dose 10 MG; Start 02/23/17 at 22:00 Sodium Chloride 1,000 ml @ 50 mls/hr Q20H IV Last administered on 02/25/17 18 :18; Admin Dose 50 MLS/HR; Start 02/25/17 at 16:00 Total Parenteral Nutrition 1,000 ml @ 75 mls/hr [id number] IV Last administered on 02/26/17 09:04; Admin Dose 75 MLS/HR; Start 02/25/17 at 16:00 Fat Emulsion Intravenous (Liposyn Ii 20%) 250 ml @ 10.417 mls/ hr Q24H IV Last administered on 02/25/17 18:17; Admin Dose 10.417 MLS/HR; Start 02/25/17 at 16:00 Diagnostic Test (Pha) (Accu-Chek) 1 ea Q6H XX ; Start 02/26/17 at 14:00; Stop at 08:01 Diagnostic Test (Pha) (Accu-Chek) 1 ea Q12 XX ; Start 02/27/17 at 09:00 Miscellaneous Information (* Miscellaneous Pharmacy Order) HYPOGLYCEMIA PROTOCOL w... ONCE ONCE XX ; Start 02/26/17 at 13:30; Stop 02/26/17 at 13:31; Status LETICIA DUMAS MD Feb 26, 2017 13:56
[2017-02-26 14:00] VITALS: BP 94/58; PULSE 93; RESP 18
[2017-02-26] MEDS ORDERED: DEXTROSE 50% 50 ML SYRINGE IV PRN ×2 (14:00)
[2017-02-26] MEDS: ACCU-CHEK XX SCH ×2 (14:00→20:00)
[2017-02-26] MEDS ORDERED: GLUCOSE GEL 15 GRAM TUBE PO PRN ×2 (14:00)
[2017-02-26] MEDS ORDERED: GLUCAGON 1 MG INJ IM PRN (14:00)
[2017-02-26] MEDS ORDERED: GLUCOSE GEL 15 GRAM TUBE BUCCAL PRN (14:00)
[2017-02-26 14:38] LABS: HEMATOCRIT 28.6 % (37.0-47.0); HEMOGLOBIN 9.5 g/dl (12.0-16.0); MEAN CORPUSCULAR HEMOGLOBIN 32.3 pg (29.0-33.0); MEAN CORPUSCULAR HGB CONC 33.2 g/dl (32.0-37.0); MEAN CORPUSCULAR VOLUME 97.3 fl (82.0-101.0); MEAN PLATELET VOLUME 9.3 fl (7.4-10.4); PLATELET COUNT 392 10^3/UL (140-415); RED BLOOD COUNT 2.94 10^6/ul (4.20-5.40); RED CELL DISTRIBUTION WIDTH 12.3 % (11.5-14.5); WHITE BLOOD COUNT 17.2 10^3/ul (4.8-10.8)
[2017-02-26 14:58] LABS: POSITIVE DIFF @See below
[2017-02-26 15:00] LABS: INR 1.24; PROTIME 15.7 Sec (12.2-14.2); PT RATIO 1.2
[2017-02-26 15:01] LABS: PARTIAL THROMBOPLASTIN TIME 31.1 Sec (25.0-35.0)
[2017-02-26 15:04] LABS: MAGNESIUM 2.3 mg/dl (1.7-2.5); PHOSPHORUS 3.2 mg/dl (2.5-4.9)
[2017-02-26 15:11] LABS: PREALBUMIN 7.3 mg/dl (17.6-36.0)
[2017-02-26] MEDS: FAT EMULSION 20% 250 ML IV SCH (16:17)
[2017-02-26 16:18] LABS: EOSINOPHILS # 0.3 10^3/ul (0.0-0.5); LYMPHOCYTES # 0.7 10^3/ul (0.8-2.9); MONOCYTE # 0.7 10^3/ul (0.3-0.9); MONOCYTES % (M) 4 % (0-11); NEUTROPHIL # 15.1 10^3/ul (1.6-7.5)
[2017-02-26 19:41] VITALS: BP 103/55; RESP 20
--- NOTE | 2017-02-26 21:00 | CONS ---
Date/Time of Note Date/Time of Note DATE: 02/26/17 TIME: 20:58 Assessment/Plan Assessment/Plan Chief Complaint/Hosp Course - post op fever due to ileus, and pelvic abscess - ileus - pelvic abscess formation adjacent to a distal colonic anastomosis, seen on CT on 02/24/2017 - possible UTI vs. contamination of the urethra by klebsiella and morganella - rectal CA s/p low anterior resection with splenic flexure mobilization, mobilization of omental patch and rigid sigmoidoscopy on 02/16/2017. Pathology of the resected rectum showed residual moderately-differentiated adenocarcinoma , involving muscularis propria, mucosal ulceration, clear margin and no e/o metastasis recommendations - ordered: aerobic and anaerobic culture, fungus culture and cytology of fluid from CT-guided drainage on 02/26/2017 - continue empiric pip/tazo (02/23/2017-) - supportive care for ileus management d/w Pt, charge nurse Problems: Consultation Date/Type/Reason Admit Date/Time Feb 16, 2017 at 07:24 Initial Consult Date 02/22/17 Type of Consultation: Infectious Disease Referring Provider: VINCENZO CISNEROS MD 24 HR Interval Summary Constitutional: improved Detailed Summary Eyes: no complaints ENT: no complaints Respiratory: no complaints Cardiovascular: no complaints Gastrointestinal: pain (only with body movement), No diarrhea, No nausea Genitourinary: no complaints Musculoskeletal: no complaints Skin: no complaints Neurologic: no complaints Exam/Review of Systems Vital Signs Vitals Vital Signs Date Time Temp Pulse Resp B/P Pulse Ox O2 Delivery O2 Flow Rate FiO2 02/26/17 19:41 99.7 94 20 103/55 99 02/26/17 14:00 Room Air Intake and Output 02/25/17 02/25/17 02/26/17 15:00 23:00 07:00 Intake Total 120 ml 500 ml 100 ml Output Total 3 ml Balance 120 ml 497 ml 100 ml Exam Constitutional: alert, frail Psych: nl mood/affect, no complaints Head: atraumatic, normocephalic Eyes: nl conjunctiva, nl lids ENMT: nl external ears & nose, nl nasal mucosa & septum Neck: supple Respiratory: clear to auscultation, normal air movement Cardiovascular: nl pulses, regular rate and rhythm Gastrointestinal: soft, surgical scars, No distended Musculoskeletal: nl extremities to inspection Extremities: No edema 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: SAND WORKER II-XII intact, nl mental status, nl speech Skin: nl turgor Results Result Diagram: 02/26/17 1415 02/26/17 0524 Results 24 hrs Laboratory Tests Test 02/26/17 05:24 02/26/17 14:15 02/26/17 14:29 02/26/17 20:13 Sodium Level 134 L Potassium Level 3.3 L Chloride Level 98 Carbon Dioxide Level 26 Anion Gap 13 Blood Urea Nitrogen 14 Creatinine 0.62 Glucose Level 119 Calcium Level 8.3 L Phosphorus Level 3.8 3.2 Magnesium Level 2.2 2.3 White Blood Count 17.2 H Red Blood Count 2.94 L Hemoglobin 9.5 L Hematocrit 28.6 L Mean Corpuscular Volume 97.3 Mean Corpuscular Hemoglobin 32.3 Mean Corpuscular Hemoglobin Concent 33.2 Red Cell Distribution Width 12.3 Platelet Count 392 Mean Platelet Volume 9.3 Neutrophils % Segmented Neutrophils % (Manual) 88 H Band Neutrophils % (Manual) 2 Lymphocytes % Lymphocytes % (Manual) 4 L Monocytes % Monocytes % (Manual) 4 Eosinophils % Eosinophils % (Manual) 2.0 Basophils % Nucleated Red Blood Cells % 0.0 Neutrophils # 15.1 H Neutrophils # (Manual) 15 H Band Neutrophils # 0.3 Absolute Lymphocytes (Manual) 0.6 L Lymphocytes # 0.7 L Monocytes # 0.7 Absolute Monocytes (Manual) 0.6 Eosinophils # 0.3 Basophils # Nucleated Red Blood Cells # Prothrombin Time 15.7 #H Prothrombin Time Ratio 1.2 INR International Normalized Ratio 1.24 Activated Partial Thromboplast Time 31.1 Prealbumin 7.3 L Triglycerides Level 126 Bedside Glucose 113 118 Medications Medications Current Medications Ondansetron HCl 4 mg 4 mg Q6H PRN IV NAUSEA AND/OR VOMITING Last administered on 02/23/17 20:04; Admin Dose 4 MG; Start 02/16/17 at 10:00 Acetaminophen (Ofirmev 1000mg/ 100ml Iv) 100 ml @ 400 mls/hr Q6H PRN IVPB FEVER Last administered on 02/23/17 11:53; Admin Dose 400 MLS/HR; Start at 15:00 Morphine Sulfate 2 mg 2 mg Q2H PRN IV PAIN Last administered on 02/26/17 01:06 ; Admin Dose 2 MG; Start 02/22/17 at 10:00 Piperacillin Sod/ Tazobactam Sod (Zosyn 3.375gm/ 100 ml (Pmx)) 100 ml @ 200 mls /hr Q8 IVPB Last administered on 02/26/17 14:18; Admin Dose 200 MLS/HR; Start 02/23/17 at 10:00 Metoclopramide HCl 10 mg 10 mg Q8 IV Last administered on 02/26/17 14:18; Admin Dose 10 MG; Start 02/23/17 at 22:00 Sodium Chloride 1,000 ml @ 50 mls/hr Q20H IV Last administered on 02/25/17 18 :18; Admin Dose 50 MLS/HR; Start 02/25/17 at 16:00 Total Parenteral Nutrition 1,000 ml @ 75 mls/hr [id number] IV Last administered on 02/26/17 09:04; Admin Dose 75 MLS/HR; Start 02/25/17 at 16:00 Fat Emulsion Intravenous (Liposyn Ii 20%) 250 ml @ 10.417 mls/ hr Q24H IV Last administered on 02/26/17 16:17; Admin Dose 10.417 MLS/HR; Start 02/25/17 at 16:00 Diagnostic Test (Pha) (Accu-Chek) 1 ea Q6H XX ; Start 02/26/17 at 14:00; Stop at 08:01 Diagnostic Test (Pha) (Accu-Chek) 1 ea Q12 XX ; Start 02/27/17 at 09:00 Miscellaneous Information 1 ea NOTE XX ; Start 02/26/17 at 14:00 Glucose (Glutose) 15 gm Q15M PRN PO DECREASED GLUCOSE; Start 02/26/17 at 14:00 Glucose (Glutose) 22.5 gm Q15M PRN PO DECREASED GLUCOSE; Start 02/26/17 at 14: 00 Dextrose (D50w Syringe) 25 ml Q15M PRN IV DECREASED GLUCOSE; Start 02/26/17 at 14:00 Dextrose (D50w Syringe) 50 ml Q15M PRN IV DECREASED GLUCOSE; Start 02/26/17 at 14:00 Glucagon (Glucagen) 1 mg Q15M PRN IM DECREASED GLUCOSE; Start 02/26/17 at 14:00 Glucose (Glutose) 15 gm Q15M PRN BUCCAL DECREASED GLUCOSE; Start 02/26/17 at 14 :00 BLANCO OHARA M.D. Feb 26, 2017 21:00
[2017-02-27 01:48] VITALS: BP 98/54; RESP 20
[2017-02-27] MEDS: ACCU-CHEK XX SCH ×4 (02:00→21:00)
[2017-02-27] MEDS: SOD CHLORIDE 0.45% 1,000 ML IV SCH ×2 (05:19→08:00)
[2017-02-27] MEDS: PIPER-TAZO 3.375 GM IV (PMX) 100 ML IVPB SCH ×3 (05:22→21:35)
[2017-02-27] MEDS: METOCLOPRAMIDE 10 MG INJ IV SCH ×3 (05:22→21:35)
[2017-02-27 05:30] LABS: ABNORMAL IP MESSAGE 1; HEMATOCRIT 28.1 % (37.0-47.0); HEMOGLOBIN 9.3 g/dl (12.0-16.0); MEAN CORPUSCULAR HEMOGLOBIN 31.8 pg (29.0-33.0); MEAN CORPUSCULAR HGB CONC 33.1 g/dl (32.0-37.0); MEAN CORPUSCULAR VOLUME 96.2 fl (82.0-101.0); MEAN PLATELET VOLUME 9.4 fl (7.4-10.4); PLATELET COUNT 410 10^3/UL (140-415); RED BLOOD COUNT 2.92 10^6/ul (4.20-5.40); RED CELL DISTRIBUTION WIDTH 12.4 % (11.5-14.5); WHITE BLOOD COUNT 17.4 10^3/ul (4.8-10.8)
[2017-02-27 06:01] LABS: POSITIVE DIFF @See below
[2017-02-27 06:15] LABS: ALBUMIN 2.6 g/dl (3.3-4.9); ALBUMIN/GLOBULIN RATIO 1.04; CALCIUM 8.4 mg/dl (8.4-10.2); CREATININE 0.49 mg/dl (0.44-1.00); POTASSIUM 4.3 mmol/L (3.5-5.1); TOTAL PROTEIN 5.1 g/dl (6.1-8.1)
[2017-02-27 06:21] LABS: CALCIUM 8.4 mg/dl (8.4-10.2); CREATININE 0.51 mg/dl (0.44-1.00); MAGNESIUM 2.3 mg/dl (1.7-2.5); PHOSPHORUS 3.7 mg/dl (2.5-4.9); POTASSIUM 3.9 mmol/L (3.5-5.1)
[2017-02-27 07:58] VITALS: BP 96/55; RESP 18
[2017-02-27] MEDS: TPN 1,000 ML IV SCH (10:32)
[2017-02-27] MEDS ORDERED: SOD CHLORIDE 0.9% 100 ML ONE (13:10)
[2017-02-27 13:46] VITALS: BP 104/57; RESP 18
--- NOTE | 2017-02-27 14:45 | RADRPT ---
PROCEDURE: US guidance for PICC line CLINICAL INDICATION: PICC line placement TECHNIQUE: Multiple real-time images were acquired of the patient's arm utilizing a high resolutio n transducer. This was performed by the PICC line nurse for venous access. COMPARISON: None FINDINGS: Ultrasound guidance for PICC line placement. IMPRESSION: Ultrasound guidance for PICC line placement. RPTAT: AA .Nagi Saavedra MD, MD Date Time Electronically viewed and signed by .Nagi Saavedra MD, on 02/27/2017 14:45 .S/
--- NOTE | 2017-02-27 15:49 | RADRPT ---
PROCEDURE: XR Chest. CLINICAL INDICATION: Check PICC line position. TECHNIQUE: Single frontal view. COMPARISON: 02/21/2017. FINDINGS: There is a position arm PICC line with the tip in the cavoatrial junction. The lungs are clear. The heart size is normal. There is no pleural effusion. There is no pneumothorax. IMPRESSION: 1. Left arm PICC line tip in satisfactory position. 2. Otherwise normal chest radiograph. RPTAT: QQ .Fransico Cortez MD, MD Date Time Electronically viewed and signed by .Fransico Cortez MD, MD on 02/27/2017 15:49 .R/
--- NOTE | 2017-02-27 16:05 | PN ---
Date/Time of Note Date/Time of Note DATE: 02/27/17 TIME: 16:00 Assessment/Plan VTE Prophylaxis VTE Prophylaxis Intervention: ambulation Lines/Catheters IV [facility]from [facility] [place] Urinary Cath still in place: No Assessment/Plan Assessment/Plan Postop day #11 status post laparotomy right anterior resection of the cancer of the rectum. The patient has developed abscess formation in the pelvic cavity. Patient has developed leukocytosis and also had some temperature up to 100.2. Today they are supposed to do percutaneous drainage of the pelvic abscess CT- guided but unfortunately the Coumadin machine in the hospital has got some damage and they are trying to fix it as soon as he thinks Dr. Multani is going to do it today. If not probably tomorrow There is going to place PICC line. The total parenteral nutrition. Otherwise continue current care. Subjective 24 Hr Interval Summary Free Text/Dictation No new event overnight. States this feels much better. Has had bowel movement but less liquid and more formed Exam/Review of Systems Vital Signs Vitals Vital Signs Date Time Temp Pulse Resp B/P Pulse Ox O2 Delivery O2 Flow Rate FiO2 02/27/17 13:46 98.6 81 18 104/57 100 02/26/17 14:00 Room Air Intake and Output 02/26/17 02/26/17 02/27/17 15:00 23:00 07:00 Intake Total 2035.421 ml 1654.579 ml 1310 ml Output Total 1000 ml 1500 ml Balance 2035.421 ml 654.579 ml -190 ml Exam Awake alert oriented 3 vital signs stable no fever today. WBC dropped to 17,282% segmented no bands. Heart regular lungs clear abdomen not distended soft mild tenderness deep pressure lower quadrants. Results Result Diagram: 02/27/17 0430 02/27/17 0430 Results 24 hrs Laboratory Tests Test 02/26/17 20:13 02/27/17 02:08 02/27/17 04:30 02/27/17 08:04 Bedside Glucose 118 135 130 White Blood Count 17.4 H Red Blood Count 2.92 L Hemoglobin 9.3 L Hematocrit 28.1 L Mean Corpuscular Volume 96.2 Mean Corpuscular Hemoglobin 31.8 Mean Corpuscular Hemoglobin Concent 33.1 Red Cell Distribution Width 12.4 Platelet Count 410 Mean Platelet Volume 9.4 Neutrophils % Lymphocytes % Monocytes % Eosinophils % Basophils % Nucleated Red Blood Cells % 0.0 Neutrophils # (Manual) 14 H Lymphocytes # Monocytes # Eosinophils # Basophils # Nucleated Red Blood Cells # Sodium Level 137 Potassium Level 3.9 Chloride Level 101 Carbon Dioxide Level 24 Anion Gap 16 Blood Urea Nitrogen 10 Creatinine 0.51 Glucose Level 129 Calcium Level 8.4 Phosphorus Level 3.7 Magnesium Level 2.3 Total Bilirubin 0.0 L Direct Bilirubin 0.00 Indirect Bilirubin 0.0 Aspartate Amino Transf (AST/SGOT) 30 Alanine Aminotransferase (ALT/SGPT) 48 Alkaline Phosphatase 94 Total Protein 5.1 L Albumin 2.6 L Globulin 2.50 Albumin/Globulin Ratio 1.04 Medications Medications Current Medications Ondansetron HCl 4 mg 4 mg Q6H PRN IV NAUSEA AND/OR VOMITING Last administered on 02/23/17 20:04; Admin Dose 4 MG; Start 02/16/17 at 10:00 Acetaminophen (Ofirmev 1000mg/ 100ml Iv) 100 ml @ 400 mls/hr Q6H PRN IVPB FEVER Last administered on 02/23/17 11:53; Admin Dose 400 MLS/HR; Start at 15:00 Morphine Sulfate 2 mg 2 mg Q2H PRN IV PAIN Last administered on 02/26/17 01:06 ; Admin Dose 2 MG; Start 02/22/17 at 10:00 Piperacillin Sod/ Tazobactam Sod (Zosyn 3.375gm/ 100 ml (Pmx)) 100 ml @ 200 mls /hr Q8 IVPB Last administered on 02/27/17 14:32; Admin Dose 200 MLS/HR; Start 02/23/17 at 10:00 Metoclopramide HCl 10 mg 10 mg Q8 IV Last administered on 02/27/17 14:32; Admin Dose 10 MG; Start 02/23/17 at 22:00 Sodium Chloride 1,000 ml @ 50 mls/hr Q20H IV Last administered on 02/27/17 05 :19; Admin Dose 50 MLS/HR; Start 02/25/17 at 16:00 Total Parenteral Nutrition 1,000 ml @ 75 mls/hr [id number] IV Last administered on 02/27/17 10:32; Admin Dose 75 MLS/HR; Start 02/25/17 at 16:00 Fat Emulsion Intravenous (Liposyn Ii 20%) 250 ml @ 10.417 mls/ hr Q24H IV Last administered on 02/26/17t 16:17; Admin Dose 10.417 MLS/HR; Start 02/25/17 at 16:00 Diagnostic Test (Pha) (Accu-Chek) 1 ea Q12 XX ; Start 02/27/17 at 09:00 Miscellaneous Information 1 ea NOTE XX ; Start 02/26/17 at 14:00 Glucose (Glutose) 15 gm Q15M PRN PO DECREASED GLUCOSE; Start 02/26/17 at 14:00 Glucose (Glutose) 22.5 gm Q15M PRN PO DECREASED GLUCOSE; Start 02/26/17 at 14: 00 Dextrose (D50w Syringe) 25 ml Q15M PRN IV DECREASED GLUCOSE; Start 02/26/17 at 14:00 Dextrose (D50w Syringe) 50 ml Q15M PRN IV DECREASED GLUCOSE; Start 02/26/17 at 14:00 Glucagon (Glucagen) 1 mg Q15M PRN IM DECREASED GLUCOSE; Start 02/26/17 at 14:00 Glucose (Glutose) 15 gm Q15M PRN BUCCAL DECREASED GLUCOSE; Start 02/26/17 at 14 :00 IV Flush (NS 10 ml) 10 ml PRN PRN IV IV PROTOCOL; Start 02/27/17 at 13:00 LETICIA SANTANA MD Feb 27, 2017 16:05
[2017-02-27 16:32] LABS: EOSINOPHILS % (M) 1 % (0-7); MONOCYTES % (M) 4 % (0-11); PLATELET ESTIMATE NORMAL; POLYCHROMASIA 3+ (0-0); REACTIVE LYMPHOCYTES% (M) 2 % (0-0)
[2017-02-27] MEDS: FAT EMULSION 20% 250 ML IV SCH (17:19)
--- NOTE | 2017-02-27 18:18 | PN ---
Date/Time of Note Date/Time of Note DATE: 02/27/17 TIME: 18:13 Assessment/Plan VTE Prophylaxis VTE Prophylaxis Intervention: SCD's Lines/Catheters IV C[facility]ter Type (from [facility] Saline Lock Urinary Cath still in place: No Assessment/Plan Chief Complaint/Hosp Course Patient is currently on TPN and lipids, abdominal pain is well controlled, pending percutaneous drainage of pelvic abscess, unable to do today due to equipment malfunction. Assessment/Plan -Low rectal cancer, status post resection by Dr. Santos. Continue IV fluids. Continue morphine for pain and Zofran as needed for nausea. Surgical recommendations. -Moderate ileus, continue NG tube to low intermittent suctioning. -Pelvic abscess formation adjacent to a distal colonic anastomosis, seen on CT on 02/24/2017. Dr. Pimentel is following infection disease consultation. Continue antibiotics per ID. Pending percutaneous drainage drainage of the pelvic abscess. Further recommendations based on clinical course. Plan of care discussed with Dr. Gage. Problems: Exam/Review of Systems Vital Signs Vitals Vital Signs Date Time Temp Pulse Resp B/P Pulse Ox O2 Delivery O2 Flow Rate FiO2 02/27/17 13:46 98.6 81 18 104/57 100 02/26/17 14:00 Room Air Intake and Output 02/26/17 02/26/17 02/27/17 15:00 23:00 07:00 Intake Total 2035.421 ml 1654.579 ml 1310 ml Output Total 1000 ml 1500 ml Balance 2035.421 ml 654.579 ml -190 ml Exam Constitutional: alert Respiratory: normal air movement Cardiovascular: nl pulses Gastrointestinal: non-tender, other (s/p surgery), soft Extremities: normal pulses Skin: nl turgor Results Result Diagram: 02/27/17 0430 02/27/17 0430 Results 24 hrs Laboratory Tests Test 02/26/17 20:13 02/27/17 02:08 02/27/17 04:30 02/27/17 08:04 Bedside Glucose 118 135 130 White Blood Count 17.4 H Red Blood Count 2.92 L Hemoglobin 9.3 L Hematocrit 28.1 L Mean Corpuscular Volume 96.2 Mean Corpuscular Hemoglobin 31.8 Mean Corpuscular Hemoglobin Concent 33.1 Red Cell Distribution Width 12.4 Platelet Count 410 Mean Platelet Volume 9.4 Neutrophils % Segmented Neutrophils % (Manual) 88 H Band Neutrophils % (Manual) 3 Lymphocytes % Lymphocytes % (Manual) 2 L Reactive Lymphocytes % (Manual) 2 H Monocytes % Monocytes % (Manual) 4 Eosinophils % Eosinophils % (Manual) 1 Basophils % Nucleated Red Blood Cells % 0.0 Neutrophils # (Manual) 15 H Band Neutrophils # 0.5 Absolute Lymphocytes (Manual) 0.3 L Lymphocytes # Reactive Lymphocytes # 0.3 H Monocytes # Absolute Monocytes (Manual) 0.6 Eosinophils # Basophils # Nucleated Red Blood Cells # Platelet Estimate NORMAL Polychromasia 3+ Sodium Level 137 Potassium Level 3.9 Chloride Level 101 Carbon Dioxide Level 24 Anion Gap 16 Blood Urea Nitrogen 10 Creatinine 0.51 Glucose Level 129 Calcium Level 8.4 Phosphorus Level 3.7 Magnesium Level 2.3 Total Bilirubin 0.0 L Direct Bilirubin 0.00 Indirect Bilirubin 0.0 Aspartate Amino Transf (AST/SGOT) 30 Alanine Aminotransferase (ALT/SGPT) 48 Alkaline Phosphatase 94 Total Protein 5.1 L Albumin 2.6 L Globulin 2.50 Albumin/Globulin Ratio 1.04 Medications Medications Current Medications Ondansetron HCl 4 mg 4 mg Q6H PRN IV NAUSEA AND/OR VOMITING Last administered on 02/23/17 20:04; Admin Dose 4 MG; Start 02/16/17 at 10:00 Acetaminophen (Ofirmev 1000mg/ 100ml Iv) 100 ml @ 400 mls/hr Q6H PRN IVPB FEVER Last administered on 02/23/17 11:53; Admin Dose 400 MLS/HR; Start at 15:00 Morphine Sulfate 2 mg 2 mg Q2H PRN IV PAIN Last administered on 02/26/17 01:06 ; Admin Dose 2 MG; Start 02/22/17 at 10:00 Piperacillin Sod/ Tazobactam Sod (Zosyn 3.375gm/ 100 ml (Pmx)) 100 ml @ 200 mls /hr Q8 IVPB Last administered on 02/27/17 14:32; Admin Dose 200 MLS/HR; Start 02/23/17 at 10:00 Metoclopramide HCl 10 mg 10 mg Q8 IV Last administered on 02/27/17 14:32; Admin Dose 10 MG; Start 02/23/17 at 22:00 Sodium Chloride 1,000 ml @ 50 mls/hr Q20H IV Last administered on 02/27/17 05 :19; Admin Dose 50 MLS/HR; Start 02/25/17 at 16:00 Total Parenteral Nutrition 1,000 ml @ 75 mls/hr [id number] IV Last administered on 02/27/17 10:32; Admin Dose 75 MLS/HR; Start 02/25/17 at 16:00 Fat Emulsion Intravenous (Liposyn Ii 20%) 250 ml @ 10.417 mls/ hr Q24H IV Last administered on 02/27/17 17:19; Admin Dose 10.417 MLS/HR; Start 02/25/17 at 16:00 Diagnostic Test (Pha) (Accu-Chek) 1 ea Q12 XX ; Start 02/27/17 at 09:00 Miscellaneous Information 1 ea NOTE XX ; Start 02/26/17 at 14:00 Glucose (Glutose) 15 gm Q15M PRN PO DECREASED GLUCOSE; Start 02/26/17 at 14:00 Glucose (Glutose) 22.5 gm Q15M PRN PO DECREASED GLUCOSE; Start 02/26/17 at 14: 00 Dextrose (D50w Syringe) 25 ml Q15M PRN IV DECREASED GLUCOSE; Start 02/26/17 at 14:00 Dextrose (D50w Syringe) 50 ml Q15M PRN IV DECREASED GLUCOSE; Start 02/26/17 at 14:00 Glucagon (Glucagen) 1 mg Q15M PRN IM DECREASED GLUCOSE; Start 02/26/17 at 14:00 Glucose (Glutose) 15 gm Q15M PRN BUCCAL DECREASED GLUCOSE; Start 02/26/17 at 14 :00 IV Flush (NS 10 ml) 10 ml PRN PRN IV IV PROTOCOL; Start 02/27/17 at 13:00 MAMADOU CHUA Feb 27, 2017 18:18
--- NOTE | 2017-02-27 19:14 | CONS ---
JOSE GARCES [employer] 02/27/17 1914: Date/Time of Note Date/Time of Note DATE: 02/27/17 TIME: 19:13 Assessment/Plan Assessment/Plan Chief Complaint/Hosp Course - post op fever due to ileus, and pelvic abscess - ileus - pelvic abscess formation adjacent to a distal colonic anastomosis, seen on CT on 02/24/2017 - possible UTI vs. contamination of the urethra by klebsiella and morganella - rectal CA s/p low anterior resection with splenic flexure mobilization, mobilization of omental patch and rigid sigmoidoscopy on 02/16/2017. Pathology of the resected rectum showed residual moderately-differentiated adenocarcinoma , involving muscularis propria, mucosal ulceration, clear margin and no e/o metastasis - moderate protein calorie malnutrition - NPO on TPN recommendations: - ordered: aerobic and anaerobic culture, fungus culture and cytology of fluid from CT-guided drainage on 02/28/2017 - continue empiric pip/tazo (02/23/2017-) - supportive care for ileus Management d/w patient, Pt's spouse and Dr. Morris Problems: Consultation Date/Type/Reason Admit Date/Time Feb 16, 2017 at 07:24 Initial Consult Date 02/22/17 Type of Consultation: Infectious Disease Referring Provider: VINCENZO CISNEROS MD 24 HR Interval Summary Free Text/Dictation L arm PICC line placed. CT machine not working and therefore CT guided aspiration was postponed. Denies pain, n/v/d, dysuria. NPO with TPN. Exam/Review of Systems Vital Signs Vitals Vital Signs Date Time Temp Pulse Resp B/P Pulse Ox O2 Delivery O2 Flow Rate FiO2 02/27/17 13:46 98.6 81 18 104/57 100 02/26/17 14:00 Room Air Intake and Output 02/26/17 02/26/17 02/27/17 15:00 23:00 07:00 Intake Total 2035.421 ml 1654.579 ml 1310 ml Output Total 1000 ml 1500 ml Balance 2035.421 ml 654.579 ml -190 ml Exam Constitutional: alert, oriented, well developed Psych: no complaints Head: atraumatic, normocephalic ENMT: nl external ears & nose Neck: supple Respiratory: CTA bilaterally Cardiovascular: nl pulses, regular rate and rhythm Gastrointestinal: soft, surgical scars (ML incision with mihci ACID REGENERATOR, c/d/i with no TTP), No bowel sounds Musculoskeletal: nl extremities to inspection Extremities: normal pulses, other (L arm PICC with no e/o infection) No edema 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: 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 ADVISOR II-XII 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, nl mental status, nl speech Skin: nl turgor Results Result Diagram: 02/27/17 0430 02/27/17 0430 Results 24 hrs Laboratory Tests Test 02/26/17 20:13 02/27/17 02:08 02/27/17 04:30 02/27/17 08:04 Bedside Glucose 118 135 130 White Blood Count 17.4 H Red Blood Count 2.92 L Hemoglobin 9.3 L Hematocrit 28.1 L Mean Corpuscular Volume 96.2 Mean Corpuscular Hemoglobin 31.8 Mean Corpuscular Hemoglobin Concent 33.1 Red Cell Distribution Width 12.4 Platelet Count 410 Mean Platelet Volume 9.4 Neutrophils % Segmented Neutrophils % (Manual) 88 H Band Neutrophils % (Manual) 3 Lymphocytes % Lymphocytes % (Manual) 2 L Reactive Lymphocytes % (Manual) 2 H Monocytes % Monocytes % (Manual) 4 Eosinophils % Eosinophils % (Manual) 1 Basophils % Nucleated Red Blood Cells % 0.0 Neutrophils # (Manual) 15 H Band Neutrophils # 0.5 Absolute Lymphocytes (Manual) 0.3 L Lymphocytes # Reactive Lymphocytes # 0.3 H Monocytes # Absolute Monocytes (Manual) 0.6 Eosinophils # Basophils # Nucleated Red Blood Cells # Platelet Estimate NORMAL Polychromasia 3+ Sodium Level 137 Potassium Level 3.9 Chloride Level 101 Carbon Dioxide Level 24 Anion Gap 16 Blood Urea Nitrogen 10 Creatinine 0.51 Glucose Level 129 Calcium Level 8.4 Phosphorus Level 3.7 Magnesium Level 2.3 Total Bilirubin 0.0 L Direct Bilirubin 0.00 Indirect Bilirubin 0.0 Aspartate Amino Transf (AST/SGOT) 30 Alanine Aminotransferase (ALT/SGPT) 48 Alkaline Phosphatase 94 Total Protein 5.1 L Albumin 2.6 L Globulin 2.50 Albumin/Globulin Ratio 1.04 Medications Medications Current Medications Ondansetron HCl 4 mg 4 mg Q6H PRN IV NAUSEA AND/OR VOMITING Last administered on 02/23/17 20:04; Admin Dose 4 MG; Start 02/16/17 at 10:00 Acetaminophen (Ofirmev 1000mg/ 100ml Iv) 100 ml @ 400 mls/hr Q6H PRN IVPB FEVER Last administered on 02/23/17 11:53; Admin Dose 400 MLS/HR; Start at 15:00 Morphine Sulfate 2 mg 2 mg Q2H PRN IV PAIN Last administered on 02/26/17 01:06 ; Admin Dose 2 MG; Start 02/22/17 at 10:00 Piperacillin Sod/ Tazobactam Sod (Zosyn 3.375gm/ 100 ml (Pmx)) 100 ml @ 200 mls /hr Q8 IVPB Last administered on 02/27/17 14:32; Admin Dose 200 MLS/HR; Start 02/23/17 at 10:00 Metoclopramide HCl 10 mg 10 mg Q8 IV Last administered on 02/27/17 14:32; Admin Dose 10 MG; Start 02/23/17 at 22:00 Sodium Chloride 1,000 ml @ 50 mls/hr Q20H IV Last administered on 02/27/17 05 :19; Admin Dose 50 MLS/HR; Start 02/25/17 at 16:00 Total Parenteral Nutrition 1,000 ml @ 75 mls/hr [id number] IV Last administered on 02/27/17 10:32; Admin Dose 75 MLS/HR; Start 02/25/17 at 16:00 Fat Emulsion Intravenous (Liposyn Ii 20%) 250 ml @ 10.417 mls/ hr Q24H IV Last administered on 02/27/17 17:19; Admin Dose 10.417 MLS/HR; Start 02/25/17 at 16:00 Diagnostic Test (Pha) (Accu-Chek) 1 ea Q12 XX ; Start 02/27/17 at 09:00 Miscellaneous Information 1 ea NOTE XX ; Start 02/26/17 at 14:00 Glucose (Glutose) 15 gm Q15M PRN PO DECREASED GLUCOSE; Start 02/26/17 at 14:00 Glucose (Glutose) 22.5 gm Q15M PRN PO DECREASED GLUCOSE; Start 02/26/17 at 14: 00 Dextrose (D50w Syringe) 25 ml Q15M PRN IV DECREASED GLUCOSE; Start 02/26/17 at 14:00 Dextrose (D50w Syringe) 50 ml Q15M PRN IV DECREASED GLUCOSE; Start 02/26/17 at 14:00 Glucagon (Glucagen) 1 mg Q15M PRN IM DECREASED GLUCOSE; Start 02/26/17 at 14:00 Glucose (Glutose) 15 gm Q15M PRN BUCCAL DECREASED GLUCOSE; Start 02/26/17 at 14 :00 IV Flush (NS 10 ml) 10 ml PRN PRN IV IV PROTOCOL; Start 02/27/17 at 13:00 Procedures Procedures CXR 02/27/2017: 1. Left arm PICC line tip in satisfactory position. 2. Otherwise normal chest radiograph. BLANCO MORRIS M.D. 02/28/17 1641: Assessment/Plan Assessment/Plan Additional Assessment/Plan Arturo attestation: I discussed the management with ITZEL Garces and agree with above Exam/Review of Systems Results Result Diagram: 02/27/17 0430 02/27/17 0430 JOSE GARCES NP Feb 27, 2017 19:14 BLANCO MORRIS M.D. Feb 28, 2017 16:41
[2017-02-27 20:00] VITALS: BP 102/55; RESP 18
[2017-02-28 02:00] VITALS: BP 98/54; RESP 18
[2017-02-28] MEDS: TPN 1,000 ML IV SCH ×4 (02:00→21:16)
[2017-02-28] MEDS: SOD CHLORIDE 0.45% 1,000 ML IV SCH ×2 (02:02→23:56)
[2017-02-28 04:00] VITALS: BP 102/53; RESP 20
[2017-02-28] MEDS: PIPER-TAZO 3.375 GM IV (PMX) 100 ML IVPB SCH ×3 (05:35→21:59)
[2017-02-28] MEDS: METOCLOPRAMIDE 10 MG INJ IV SCH ×3 (05:35→21:59)
[2017-02-28 05:39] LABS: ABNORMAL IP MESSAGE 1; HEMATOCRIT 26.3 % (37.0-47.0); HEMOGLOBIN 8.9 g/dl (12.0-16.0); MEAN CORPUSCULAR HEMOGLOBIN 32.4 pg (29.0-33.0); MEAN CORPUSCULAR HGB CONC 33.8 g/dl (32.0-37.0); MEAN CORPUSCULAR VOLUME 95.6 fl (82.0-101.0); MEAN PLATELET VOLUME 9.2 fl (7.4-10.4); PLATELET COUNT 432 10^3/UL (140-415); RED BLOOD COUNT 2.75 10^6/ul (4.20-5.40); RED CELL DISTRIBUTION WIDTH 12.2 % (11.5-14.5); WHITE BLOOD COUNT 15.8 10^3/ul (4.8-10.8)
[2017-02-28 05:47] LABS: POSITIVE DIFF @See below
[2017-02-28 06:05] LABS: CALCIUM 8.4 mg/dl (8.4-10.2); CREATININE 0.51 mg/dl (0.44-1.00); MAGNESIUM 2.2 mg/dl (1.7-2.5); PHOSPHORUS 3.4 mg/dl (2.5-4.9); POTASSIUM 3.6 mmol/L (3.5-5.1)
[2017-02-28 07:54] VITALS: BP 99/56; RESP 18
[2017-02-28 08:45] LABS: ANISOCYTOSIS 1+ (0-0); EOSINOPHILS % (M) 2 % (0-7); HYPOCHROMASIA 1+ (0-0); MICROCYTOSIS 1+ (0-0); MONOCYTES % (M) 2 % (0-11); PLATELET ESTIMATE NORMAL; POLYCHROMASIA 1+ (0-0)
[2017-02-28] MEDS: ACCU-CHEK XX SCH ×2 (09:16→21:16)
[2017-02-28] MEDS ORDERED: FENTAnyl 50 MCG/ML VIAL ONE ×2 (11:23→12:11)
[2017-02-28] MEDS ORDERED: LIDOCAINE 1% (MDV) 20 ML INJ ONE (11:24)
[2017-02-28] MEDS ORDERED: MIDAZOLAM 1 MG/ML 2 ML INJ ONE (11:24)
[2017-02-28] MEDS ORDERED: SOD CHLORIDE 0.9% 100 ML ONE (11:24)
--- NOTE | 2017-02-28 13:31 | RADRPT ---
PROCEDURE: CT guided pelvic abscess drainage. CLINICAL INDICATION: Pelvic pain. Postop. TECHNIQUE: Informed consent was obtained. The procedure, risks, benefits, complications and alternatives were explained to the patient. Risks including bleeding and infection were explained. The patient underst ood and was willing to proceed. A procedural pause was performed. The patient's name, date of , and procedure to be performed were verified. One or more of the following dose reduction techniq ues were used: Automated exposure control, adjustment of the mA and/or kV according to patient size, use of iterative reconstruction technique. Using local anesthetic, sterile technique and CT guidance, a 19-gauge Yueh needle was advanced into the fluid collection in the pelvis posteriorly. CT scan was performed confirming position. Purulen t fluid was also aspirated confirming position. The needle from the Yueh catheter was removed, leav ing the Yueh catheter in place within the fluid collection. A 0.035-inch Amplatz guidewire was adva nced through the Yueh catheter into the fluid collection. The Yueh catheter was removed. The tract was dilated to 8-Jamaican. An 8.5 Jamaican multipurpose drainage catheter was advanced over the guidew julio into the fluid collection. The guidewire was removed. Additional scanning was performed confir soledad position. The catheter was then sutured to the patient's skin with 2-0 silk. Approximately 15 ml of purulent fluid was aspirated. The catheter was connected to a drainage bag. A dressing was applied. The patient tolerated procedure well. COMPARISON: None. FINDINGS: Final images demonstrate the drainage catheter in satisfactory position within the pelvic abscess. IMPRESSION: 1. Successful CT guided pelvic abscess drainage. RPTAT: QQ .Fransico Cortez MD, Date Time Electronically viewed and signed by .Fransico Cortez MD, MD on 02/28/2017 13:31 .R/
[2017-02-28 13:35] VITALS: BP 97/55; RESP 18
[2017-02-28] MEDS: morphine 2 MG INJ IV PRN ×2 (13:44→22:01)
--- NOTE | 2017-02-28 15:26 | PN ---
Date/Time of Note Date/Time of Note DATE: 02/28/17 TIME: 15:23 Assessment/Plan VTE Prophylaxis VTE Prophylaxis Intervention: SCD's Lines/Catheters IV Catheter Type (from Nrsg): PICC Line Central line still needed: Yes Urinary Cath still in place: No Assessment/Plan Assessment/Plan 41 yo F diagnosed with rectal Ca in September of 2016 sp XRT admitted for planned low anterior resection which she underwent 8.11. Post op course notable for development of abscess/fluid collection adjacent to anastomosis site for which pt underwent IR drainage placement earlier today. PLAN bowel rest as per gen surg RD cs for help with TPN cont abx, ID on consult Subjective 24 Hr Interval Summary Free Text/Dictation Pt underwent IR guided pelvic abscess drainage earlier today. Pt and wondering if fluid collection was abscess or leak from anastomosis site Exam/Review of Systems Vital Signs Vitals Vital Signs Date Time Temp Pulse Resp B/P Pulse Ox O2 Delivery O2 Flow Rate FiO2 02/28/17 13:35 98.4 95 18 97/55 99 02/26/17 14:00 Room Air Intake and Output 02/27/17 02/27/17 02/28/17 15:00 23:00 07:00 Intake Total 1110.44 ml 579.56 ml 1835 ml Output Total 550 ml Balance 1110.44 ml 29.56 ml 1835 ml Exam nad, laying in bed no mrg lungs clear abd soft RLQ drain with yellow contents no rashes WBCs noted Results Result Diagram: 02/28/17 0508 02/28/17 0508 Results 24 hrs Laboratory Tests Test 02/27/17 21:34 02/28/17 05:08 02/28/17 08:46 Bedside Glucose 119 129 White Blood Count 15.8 H Red Blood Count 2.75 L Hemoglobin 8.9 L Hematocrit 26.3 L Mean Corpuscular Volume 95.6 Mean Corpuscular Hemoglobin 32.4 Mean Corpuscular Hemoglobin Concent 33.8 Red Cell Distribution Width 12.2 Platelet Count 432 H Mean Platelet Volume 9.2 Neutrophils % Segmented Neutrophils % (Manual) 71 Band Neutrophils % (Manual) 17 H Lymphocytes % Lymphocytes % (Manual) 8 L Monocytes % Monocytes % (Manual) 2 Eosinophils % Eosinophils % (Manual) 2 Basophils % Nucleated Red Blood Cells % 0.0 Neutrophils # (Manual) 12 H Band Neutrophils # 2.6 H Absolute Lymphocytes (Manual) 1.2 Lymphocytes # Monocytes # Absolute Monocytes (Manual) 0.3 Eosinophils # Basophils # Nucleated Red Blood Cells # Platelet Estimate NORMAL Polychromasia 1+ Hypochromasia 1+ Anisocytosis 1+ Microcytosis 1+ Sodium Level 135 Potassium Level 3.6 Chloride Level 103 Carbon Dioxide Level 23 Anion Gap 13 Blood Urea Nitrogen 9 Creatinine 0.51 Glucose Level 132 Calcium Level 8.4 Phosphorus Level 3.4 Magnesium Level 2.2 Medications Medications Current Medications Ondansetron HCl 4 mg 4 mg Q6H PRN IV NAUSEA AND/OR VOMITING Last administered on 02/23/17 20:04; Admin Dose 4 MG; Start 02/16/17 at 10:00 Acetaminophen (Ofirmev 1000mg/ 100ml Iv) 100 ml @ 400 mls/hr Q6H PRN IVPB FEVER Last administered on 02/23/17 11:53; Admin Dose 400 MLS/HR; Start at 15:00 Morphine Sulfate 2 mg 2 mg Q2H PRN IV PAIN Last administered on 02/28/17 13:44 ; Admin Dose 2 MG; Start 02/22/17 at 10:00 Piperacillin Sod/ Tazobactam Sod (Zosyn 3.375gm/ 100 ml (Pmx)) 100 ml @ 200 mls /hr Q8 IVPB Last administered on 02/28/17 13:44; Admin Dose 200 MLS/HR; Start 02/23/17 at 10:00 Metoclopramide HCl 10 mg 10 mg Q8 IV Last administered on 02/28/17 13:44; Admin Dose 10 MG; Start 02/23/17 at 22:00 Sodium Chloride 1,000 ml @ 50 mls/hr Q20H IV Last administered on 02/28/17 02 :02; Admin Dose 50 MLS/HR; Start 02/25/17 at 16:00 Total Parenteral Nutrition 1,000 ml @ 100 mls/hr Q10H IV Last administered on 02/28/17 02:00; Admin Dose 75 MLS/HR; Start 02/25/17 at 16:00 Fat Emulsion Intravenous (Liposyn Ii 20%) 250 ml @ 10.417 mls/ hr Q24H IV Last administered on 02/27/17 17:19; Admin Dose 10.417 MLS/HR; Start 02/25/17 at 16:00 Diagnostic Test (Pha) (Accu-Chek) 1 ea Q12 XX Last administered on 02/28/17t 09 :16; Admin Dose 1 EA; Start 02/27/17 at 09:00 Miscellaneous Information 1 ea NOTE XX ; Start 02/26/17 at 14:00 Glucose (Glutose) 15 gm Q15M PRN PO DECREASED GLUCOSE; Start 02/26/17 at 14:00 Glucose (Glutose) 22.5 gm Q15M PRN PO DECREASED GLUCOSE; Start 02/26/17 at 14: 00 Dextrose (D50w Syringe) 25 ml Q15M PRN IV DECREASED GLUCOSE; Start 02/26/17 at 14:00 Dextrose (D50w Syringe) 50 ml Q15M PRN IV DECREASED GLUCOSE; Start 02/26/17 at 14:00 Glucagon (Glucagen) 1 mg Q15M PRN IM DECREASED GLUCOSE; Start 02/26/17 at 14:00 Glucose (Glutose) 15 gm Q15M PRN BUCCAL DECREASED GLUCOSE; Start 02/26/17 at 14 :00 IV Flush (NS 10 ml) 10 ml PRN PRN IV IV PROTOCOL; Start 02/27/17 at 13:00 NAVEED AREVALO MD Feb 28, 2017 15:25
[2017-02-28] MEDS: FAT EMULSION 20% 250 ML IV SCH (16:00)
--- NOTE | 2017-02-28 17:16 | CONS ---
Date/Time of Note Date/Time of Note DATE: 02/28/17 TIME: 17:13 Assessment/Plan Assessment/Plan Chief Complaint/Hosp Course - post op fever due pelvic abscess and ileus - ileus - pelvic abscess formation adjacent to a distal colonic anastomosis, seen on CT on 02/24/[address]-guided drainage on 02/28/2017 - possible UTI vs. contamination of the urethra by klebsiella and morganella - rectal CA s/p low anterior resection with splenic flexure mobilization, mobilization of omental patch and rigid sigmoidoscopy on 02/16/2017. Pathology of the resected rectum showed residual moderately-differentiated adenocarcinoma , involving muscularis propria, mucosal ulceration, clear margin and no e/o metastasis - NPO, on TPN status recommendations - pending: aerobic and anaerobic culture, fungus culture and cytology of fluid from CT-guided drainage on 02/28/2017 - continue empiric pip/tazo (02/23/2017-), will adjust her antibiotic based on the culture result - supportive care for ileus management d/w Pt, RN Problems: Consultation Date/Type/Reason Admit Date/Time Feb 16, 2017 at 07:24 Initial Consult Date 02/22/17 Type of Consultation: Infectious Disease Referring Provider: VINCENZO CISNEROS MD 24 HR Interval Summary Free Text/Dictation s/p CT-guided drainage Constitutional: no complaints Detailed Summary Eyes: no complaints ENT: no complaints Respiratory: no complaints Cardiovascular: no complaints Gastrointestinal: nausea, pain, No diarrhea Genitourinary: no complaints Musculoskeletal: no complaints Skin: no complaints Exam/Review of Systems Vital Signs Vitals Vital Signs Date Time Temp Pulse Resp B/P Pulse Ox O2 Delivery O2 Flow Rate FiO2 02/28/17 13:35 98.4 95 18 97/55 99 02/26/17 14:00 Room Air Intake and Output 02/27/17 02/27/17 02/28/17 15:00 23:00 07:00 Intake Total 1110.44 ml 579.56 ml 1835 ml Output Total 550 ml Balance 1110.44 ml 29.56 ml 1835 ml Exam Constitutional: alert, oriented, well developed Psych: nl mood/affect, no complaints Head: atraumatic, normocephalic Eyes: nl conjunctiva, nl lids ENMT: nl external ears & nose, nl nasal mucosa & septum Neck: supple Respiratory: diminished breath sounds Cardiovascular: nl pulses, regular rate and rhythm Gastrointestinal: other (exernal draiange catheter in R buttock), soft, surgical scars Musculoskeletal: nl extremities to inspection Extremities: No edema 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: 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-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, nl mental status Skin: nl turgor Results Result Diagram: 02/28/17 0508 02/28/17 0508 Results 24 hrs Laboratory Tests Test 02/27/17 21:34 02/28/17 05:08 02/28/17 08:46 Bedside Glucose 119 129 White Blood Count 15.8 H Red Blood Count 2.75 L Hemoglobin 8.9 L Hematocrit 26.3 L Mean Corpuscular Volume 95.6 Mean Corpuscular Hemoglobin 32.4 Mean Corpuscular Hemoglobin Concent 33.8 Red Cell Distribution Width 12.2 Platelet Count 432 H Mean Platelet Volume 9.2 Neutrophils % Segmented Neutrophils % (Manual) 71 Band Neutrophils % (Manual) 17 H Lymphocytes % Lymphocytes % (Manual) 8 L Monocytes % Monocytes % (Manual) 2 Eosinophils % Eosinophils % (Manual) 2 Basophils % Nucleated Red Blood Cells % 0.0 Neutrophils # (Manual) 12 H Band Neutrophils # 2.6 H Absolute Lymphocytes (Manual) 1.2 Lymphocytes # Monocytes # Absolute Monocytes (Manual) 0.3 Eosinophils # Basophils # Nucleated Red Blood Cells # Platelet Estimate NORMAL Polychromasia 1+ Hypochromasia 1+ Anisocytosis 1+ Microcytosis 1+ Sodium Level 135 Potassium Level 3.6 Chloride Level 103 Carbon Dioxide Level 23 Anion Gap 13 Blood Urea Nitrogen 9 Creatinine 0.51 Glucose Level 132 Calcium Level 8.4 Phosphorus Level 3.4 Magnesium Level 2.2 Medications Medications Current Medications Ondansetron HCl 4 mg 4 mg Q6H PRN IV NAUSEA AND/OR VOMITING Last administered on 02/23/17 20:04; Admin Dose 4 MG; Start 02/16/17 at 10:00 Acetaminophen (Ofirmev 1000mg/ 100ml Iv) 100 ml @ 400 mls/hr Q6H PRN IVPB FEVER Last administered on 02/23/17 11:53; Admin Dose 400 MLS/HR; Start at 15:00 Morphine Sulfate 2 mg 2 mg Q2H PRN IV PAIN Last administered on 02/28/17 13:44 ; Admin Dose 2 MG; Start 02/22/17 at 10:00 Piperacillin Sod/ Tazobactam Sod (Zosyn 3.375gm/ 100 ml (Pmx)) 100 ml @ 200 mls /hr Q8 IVPB Last administered on 02/28/17 13:44; Admin Dose 200 MLS/HR; Start 02/23/17 at 10:00 Metoclopramide HCl 10 mg 10 mg Q8 IV Last administered on 02/28/17 13:44; Admin Dose 10 MG; Start 02/23/17 at 22:00 Sodium Chloride 1,000 ml @ 50 mls/hr Q20H IV Last administered on 02/28/17 02 :02; Admin Dose 50 MLS/HR; Start 02/25/17 at 16:00 Total Parenteral Nutrition 1,000 ml @ 100 mls/hr Q10H IV Last administered on 02/28/17 02:00; Admin Dose 75 MLS/HR; Start 02/25/17 at 16:00 Fat Emulsion Intravenous (Liposyn Ii 20%) 250 ml @ 10.417 mls/ hr Q24H IV Last administered on 02/27/17 17:19; Admin Dose 10.417 MLS/HR; Start 02/25/17 at 16:00 Diagnostic Test (Pha) (Accu-Chek) 1 ea Q12 XX Last administered on 02/28/17 09 :16; Admin Dose 1 EA; Start 02/27/17 at 09:00 Miscellaneous Information 1 ea NOTE XX ; Start 02/26/17 at 14:00 Glucose (Glutose) 15 gm Q15M PRN PO DECREASED GLUCOSE; Start 02/26/17 at 14:00 Glucose (Glutose) 22.5 gm Q15M PRN PO DECREASED GLUCOSE; Start 02/26/17 at 14: 00 Dextrose (D50w Syringe) 25 ml Q15M PRN IV DECREASED GLUCOSE; Start 02/26/17 at 14:00 Dextrose (D50w Syringe) 50 ml Q15M PRN IV DECREASED GLUCOSE; Start 02/26/17 at 14:00 Glucagon (Glucagen) 1 mg Q15M PRN IM DECREASED GLUCOSE; Start 02/26/17 at 14:00 Glucose (Glutose) 15 gm Q15M PRN BUCCAL DECREASED GLUCOSE; Start 02/26/17 at 14 :00 IV Flush (NS 10 ml) 10 ml PRN PRN IV IV PROTOCOL; Start 02/27/17 at 13:00 BLANCO OHARA M.D. Feb 28, 2017 17:16
--- NOTE | 2017-02-28 19:54 | PN ---
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 SUBJECTIVE DATA: The patient just came back from Radiology where they put in percutaneous drainage of the catheter for draining the abscess cavity in the pelvis. Complains of some soreness at the site of insertion of the catheter. Otherwise no complaints. No nausea, no vomiting. Has had 2 bowel movements, kind of loose today. The patient is only on ice chips and receiving a kind of TPN. OBJECTIVE: GENERAL: Awake, alert, oriented x3, appears stable. VITAL SIGNS: Temperature 98.4, heart rate 95, respiration 18, blood pressure 97/55, saturation 99 percent. HEART: Regular. LUNGS: Clear. ABDOMEN: Soft. EXTREMITIES: Legs, no calf tenderness. LABORATORY AND DIAGNOSTIC DATA: Sodium, potassium, BUN, creatinine within normal limits today. WBC dropped to 15,800 with 31 percent neutrophils and 17 percent bands. Platelet count has been gradually increasing from 296 to the number of 432 today. ASSESSMENT: A 41-year-old female, postop day number 12 status post low anterior resection of the cancer of rectum patent anastomosis, also status post chemotherapy, radiation therapy as an neoadjuvant therapy that the patient received prior to the operation. Unfortunately, on postop day number 6 or 7, the patient developed severe ileus and gradually developed fever and leukocytosis and eventually referred to find out that the patient has abscess in the pelvis cavity. Whether this is formation of an abscess due to some other disease and/or due to the leakage at the site of anastomosis is not clear at this time. PLAN: 1. Await the results of the aspiration culture and sensitivity which was done today. 2. Continue TPN. 3. It should be mentioned that right now the hospitalist team will be taking over for medical follow-up. So I discussed with doctor involving the team of the medical hospitalist about the patient and the course of the above disease. Further plan will be done according to the course of the disease process while she is in the hospital. Dictated By: Rian Fischer MD /danny/clay /Document#: [id number] TIARA
[2017-02-28 20:26] VITALS: BP 90/51; RESP 18
[2017-03-01] VITALS (7 sets, daily range): BP systolic 87–105; BP diastolic 51–55; PULSE 82; RESP 16–20
[2017-03-01] MEDS: morphine 2 MG INJ IV PRN ×2 (03:14→22:02)
[2017-03-01] MEDS ORDERED: SOD CHLORIDE 0.9% 1,000 ML IV ONE (03:30)
[2017-03-01] MEDS: SOD CHLORIDE 0.45% 1,000 ML IV SCH (04:18)
[2017-03-01] MEDS: METOCLOPRAMIDE 10 MG INJ IV SCH ×3 (05:47→21:43)
[2017-03-01] MEDS: PIPER-TAZO 3.375 GM IV (PMX) 100 ML IVPB SCH ×3 (05:47→21:43)
[2017-03-01] MEDS: TPN 1,000 ML IV SCH ×2 (05:47→19:23)
[2017-03-01] MEDS: ACCU-CHEK XX SCH ×2 (09:00→21:00)
--- NOTE | 2017-03-01 09:19 | RADRPT ---
PROCEDURE: XR Chest AP portable CLINICAL INDICATION: Reassessment condition TECHNIQUE: An AP portable radiograph of the chest was submitted. COMPARISON: 02/27/2017 FINDINGS: Support Hardware: The left upper extremity PICC catheter is stable in positioning. Cardiovascular: The cardiovascular silhouette appears unremarkable. Lung Terrazas: The lung terrazas appear clear with no nodule, alveolar infiltrate, or interstitial promi nence evident. Pleural Spaces: No pneumothorax or pleural effusion is identified. Osseous Structures: The osseous structures appear intact. Soft Tissues: The soft tissues appear unremarkable. IMPRESSION: 1. The left upper extremity PICC catheter stable in positioning. 2. Otherwise, stable unremarkable portable chest. Physician Fede Date Time Electronically viewed and signed by Physician Fede on 03/01/2017 09:19 /
[2017-03-01 09:40] LABS: ABNORMAL IP MESSAGE 1; HEMATOCRIT 27.3 % (37.0-47.0); HEMOGLOBIN 9.1 g/dl (12.0-16.0); MEAN CORPUSCULAR HEMOGLOBIN 32.3 pg (29.0-33.0); MEAN CORPUSCULAR HGB CONC 33.3 g/dl (32.0-37.0); MEAN CORPUSCULAR VOLUME 96.8 fl (82.0-101.0); MEAN PLATELET VOLUME 9.3 fl (7.4-10.4); NUCLEATED RED BLOOD CELLS% 0.2 /100WBC (0.0-0.0); PLATELET COUNT 548 10^3/UL (140-415); RED BLOOD COUNT 2.82 10^6/ul (4.20-5.40); RED CELL DISTRIBUTION WIDTH 12.2 % (11.5-14.5); WHITE BLOOD COUNT 16.7 10^3/ul (4.8-10.8)
[2017-03-01 09:49] LABS: POSITIVE DIFF @See below
[2017-03-01 10:17] LABS: ALBUMIN 2.7 g/dl (3.3-4.9); ALBUMIN/GLOBULIN RATIO 0.87; BILIRUBIN,INDIRECT 0.2 mg/dl (0-1.1); BILIRUBIN,TOTAL 0.2 mg/dl (0.2-1.3); CALCIUM 8.1 mg/dl (8.4-10.2); CREATININE 0.5 mg/dl (0.44-1.00); MAGNESIUM 2.3 mg/dl (1.7-2.5); PHOSPHORUS 2.3 mg/dl (2.5-4.9); POTASSIUM 3.7 mmol/L (3.5-5.1); TOTAL PROTEIN 5.8 g/dl (6.1-8.1)
[2017-03-01 10:45] LABS: ANISOCYTOSIS 1+ (0-0); EOSINOPHILS % (M) 1 % (0-7); ERYTHROBLAST% (NRBC) (M) 1 % (0-0); METAMYELOCYTES %M 4 % (0-0); MONOCYTES % (M) 2 % (0-11); MYELOCYTES % (M) 5 % (0.0-0.0); PLATELET ESTIMATE INCREASED; POLYCHROMASIA 2+ (0-0)
--- NOTE | 2017-03-01 14:49 | PN ---
Date/Time of Note Date/Time of Note DATE: 03/01/17 TIME: 14:47 Assessment/Plan VTE Prophylaxis VTE Prophylaxis Intervention: SCD's Lines/Catheters IV Catheter Type (from Nrsg): PICC Line Central line still needed: Yes Urinary Cath still in place: No Assessment/Plan Assessment/Plan 41 yo F diagnosed with rectal Ca in September of 2016 sp XRT admitted for planned low anterior resection which she underwent 8.11. Post op course notable for development of abscess/fluid collection adjacent to anastomosis site for which pt underwent IR drainage placement 8., given change in drainage contents, concern for drain malposition v anastomotic leak PLAN gen surg aware of change in drainage output and is working on next steps in evaluation bowel rest as per gen surg RD cs for help with TPN cont abx, ID on consult Subjective 24 Hr Interval Summary Free Text/Dictation Purulent drainage from accordian has now turned bilious in appearance Exam/Review of Systems Vital Signs Vitals Vital Signs Date Time Temp Pulse Resp B/P Pulse Ox O2 Delivery O2 Flow Rate FiO2 03/01/17 13:00 82 18 89/55 03/01/17 08:17 97.9 97 03/01/17 07:15 Room Air Intake and Output 02/28/17 02/28/17 03/01/17 15:00 23:00 07:00 Intake Total 250 ml 2848 ml Output Total 500 ml 35 ml 1300 ml Balance -250 ml -35 ml 1548 ml Exam nad no mrg lungs clear abd soft accordian drain with mod amount of dark brown output Results Result Diagram: 03/01/17 0835 03/01/17 0835 Results 24 hrs Laboratory Tests Test 02/28/17 20:56 03/01/17 08:11 03/01/17 08:25 03/01/17 08:35 Bedside Glucose 137 64 L 70 White Blood Count 16.7 H Red Blood Count 2.82 L Hemoglobin 9.1 L Hematocrit 27.3 L Mean Corpuscular Volume 96.8 Mean Corpuscular Hemoglobin 32.3 Mean Corpuscular Hemoglobin Concent 33.3 Red Cell Distribution Width 12.2 Platelet Count 548 #H Mean Platelet Volume 9.3 Neutrophils % Segmented Neutrophils % (Manual) 70 Band Neutrophils % (Manual) 4 Lymphocytes % Lymphocytes % (Manual) 13 L Monocytes % Monocytes % (Manual) 2 Eosinophils % Eosinophils % (Manual) 1 Basophils % Metamyelocytes % (manual) 4 H Myelocytes % (Manual) 5 H Nucleated Red Blood Cells % 1 H Neutrophils # (Manual) 12 H Band Neutrophils # 0.6 Absolute Lymphocytes (Manual) 2.1 Lymphocytes # Monocytes # Absolute Monocytes (Manual) 0.3 Eosinophils # Basophils # Metamyelocytes # 0.6 H Myelocytes # 0.8 H Nucleated Red Blood Cells # Platelet Estimate INCREASED Polychromasia 2+ Anisocytosis 1+ Macrocytosis 1+ Sodium Level 141 Potassium Level 3.7 Chloride Level 105 Carbon Dioxide Level 24 Anion Gap 16 Blood Urea Nitrogen 15 Creatinine 0.50 Glucose Level 76 # Calcium Level 8.1 L Phosphorus Level 2.3 #L Magnesium Level 2.3 Total Bilirubin 0.2 Direct Bilirubin 0.00 Indirect Bilirubin 0.2 Aspartate Amino Transf (AST/SGOT) 55 H Alanine Aminotransferase (ALT/SGPT) 51 Alkaline Phosphatase 132 H Total Protein 5.8 L Albumin 2.7 L Globulin 3.10 Albumin/Globulin Ratio 0.87 Medications Medications Current Medications Ondansetron HCl 4 mg 4 mg Q6H PRN IV NAUSEA AND/OR VOMITING Last administered on 02/23/17 20:04; Admin Dose 4 MG; Start 02/16/17 at 10:00 Acetaminophen (Ofirmev 1000mg/ 100ml Iv) 100 ml @ 400 mls/hr Q6H PRN IVPB FEVER Last administered on 02/23/17 11:53; Admin Dose 400 MLS/HR; Start at 15:00 Morphine Sulfate 2 mg 2 mg Q2H PRN IV PAIN Last administered on 03/01/17 03:14 ; Admin Dose 2 MG; Start 02/22/17 at 10:00 Piperacillin Sod/ Tazobactam Sod (Zosyn 3.375gm/ 100 ml (Pmx)) 100 ml @ 200 mls /hr Q8 IVPB Last administered on 03/01/17 13:53; Admin Dose 200 MLS/HR; Start 02/23/17 at 10:00 Metoclopramide HCl 10 mg 10 mg Q8 IV Last administered on 03/01/17 13:52; Admin Dose 10 MG; Start 02/23/17 at 22:00 Sodium Chloride 1,000 ml @ 50 mls/hr Q20H IV Last administered on 03/01/17 04 :18; Admin Dose 50 MLS/HR; Start 02/25/17 at 16:00 Total Parenteral Nutrition 1,000 ml @ 100 mls/hr Q10H IV Last administered on 03/01/17 05:47; Admin Dose 100 MLS/HR; Start 02/25/17 at 16:00 Fat Emulsion Intravenous (Liposyn Ii 20%) 250 ml @ 10.417 mls/ hr Q24H IV Last administered on 02/27/17 17:19; Admin Dose 10.417 MLS/HR; Start 02/25/17 at 16:00 Diagnostic Test (Pha) (Accu-Chek) 1 ea Q12 XX Last administered on 02/28/17 21 :16; Admin Dose 1 EA; Start 02/27/17 at 09:00 Miscellaneous Information 1 ea NOTE XX ; Start 02/26/17 at 14:00 Glucose (Glutose) 15 gm Q15M PRN PO DECREASED GLUCOSE; Start 02/26/17 at 14:00 Glucose (Glutose) 22.5 gm Q15M PRN PO DECREASED GLUCOSE; Start 02/26/17 at 14: 00 Dextrose (D50w Syringe) 25 ml Q15M PRN IV DECREASED GLUCOSE; Start 02/26/17 at 14:00 Dextrose (D50w Syringe) 50 ml Q15M PRN IV DECREASED GLUCOSE; Start 02/26/17 at 14:00 Glucagon (Glucagen) 1 mg Q15M PRN IM DECREASED GLUCOSE; Start 02/26/17 at 14:00 Glucose (Glutose) 15 gm Q15M PRN BUCCAL DECREASED GLUCOSE; Start 02/26/17 at 14 :00 IV Flush (NS 10 ml) 10 ml PRN PRN IV IV PROTOCOL; Start 02/27/17 at 13:00 NAVEED AREVALO MD Mar 01, 2017 14:49
[2017-03-01] MEDS ORDERED: POTASSIUM PHOSPHATE 15 MM in SOD CHLORIDE 0.9% 250 ML IVPB ONE (15:00)
[2017-03-01] MEDS ORDERED: NEUTRA-PHOS 250 MG PACKET PO ONE (15:00)
--- NOTE | 2017-03-01 15:55 | CONS ---
[facility] HCIS Consult Follow up SOAP Patient Name: Kaylan Gutierrez Unit Number: [id number] Date of : 1975 Patient Status: Admitted Inpatient Attending Doctor: Dhiraj Santos MD Edit: BLANCO MORRIS M.D. on 03/02/17 @ 17:24 Arturo attestation: I discussed the management with ITZEL Herrera and agree with her note. Date/Time of Note Date/Time of Note DATE: 03/01/17 TIME: 15:35 Consult Date/Type/Reason Admit Date/Time Feb 16, 2017 at 07:24 Initial Consult Date 02/22/17 Type of Consultation: Infectious Disease Ordering Provider: VINCENZO CISNEROS MD Subjective "feeling much better, tired and bored being in the hospital" Objective Vital Signs Date Time Temp Pulse Resp B/P Pulse Ox O2 Delivery O2 Flow Rate FiO2 03/01/17 13:00 82 18 89/55 03/01/17 08:17 97.9 97 03/01/17 07:15 Room Air Intake and Output 02/28/17 02/28/17 03/01/17 15:00 23:00 07:00 Intake Total 250 ml 2848 ml Output Total 500 ml 35 ml 1300 ml Balance -250 ml -35 ml 1548 ml Exam Constitutional: alert, oriented, well developed and ambulating around in the room with family member at the side Psych: normal mood/affect Head: atraumatic, normocephalic ENMT: normal external ears & nose Neck: supple Respiratory: clear to auscultation bilaterally Cardiovascular: regular rate and rhythm, normal pulses, no edema Gastrointestinal: soft, non-distended, surgical tenderness, no audible bowel sounds, 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, c/d/i with no TTP Musculoskeletal: normal to inspection Extremities: warm, dry, no clubbing, no edema, normal pulses, L arm PICC with no e/o infection 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: normal mental status and speech Skin: normal turgor and no lesion, external drainage catheter right buttock, draining brownish liquid, surgical dressing intact Results/Medications Result Diagram: 03/01/17 0835 03/01/17 0835 Results 24 hrs Laboratory Tests Test 02/28/17 20:56 03/01/17 08:11 03/01/17 08:25 03/01/17 08:35 Bedside Glucose 137 64 L 70 White Blood Count 16.7 H Red Blood Count 2.82 L Hemoglobin 9.1 L Hematocrit 27.3 L Mean Corpuscular Volume 96.8 Mean Corpuscular Hemoglobin 32.3 Mean Corpuscular Hemoglobin Concent 33.3 Red Cell Distribution Width 12.2 Platelet Count 548 #H Mean Platelet Volume 9.3 Neutrophils % Segmented Neutrophils % (Manual) 70 Band Neutrophils % (Manual) 4 Lymphocytes % Lymphocytes % (Manual) 13 L Monocytes % Monocytes % (Manual) 2 Eosinophils % Eosinophils % (Manual) 1 Basophils % Metamyelocytes % (manual) 4 H Myelocytes % (Manual) 5 H Nucleated Red Blood Cells % 1 H Neutrophils # (Manual) 12 H Band Neutrophils # 0.6 Absolute Lymphocytes (Manual) 2.1 Lymphocytes # Monocytes # Absolute Monocytes (Manual) 0.3 Eosinophils # Basophils # Metamyelocytes # 0.6 H Myelocytes # 0.8 H Nucleated Red Blood Cells # Platelet Estimate INCREASED Polychromasia 2+ Anisocytosis 1+ Macrocytosis 1+ Sodium Level 141 Potassium Level 3.7 Chloride Level 105 Carbon Dioxide Level 24 Anion Gap 16 Blood Urea Nitrogen 15 Creatinine 0.50 Glucose Level 76 # Calcium Level 8.1 L Phosphorus Level 2.3 #L Magnesium Level 2.3 Total Bilirubin 0.2 Direct Bilirubin 0.00 Indirect Bilirubin 0.2 Aspartate Amino Transf (AST/SGOT) 55 H Alanine Aminotransferase (ALT/SGPT) 51 Alkaline Phosphatase 132 H Total Protein 5.8 L Albumin 2.7 L Globulin 3.10 Albumin/Globulin Ratio 0.87 Medications Current Medications Ondansetron HCl 4 mg 4 mg Q6H PRN IV NAUSEA AND/OR VOMITING Last administered on 02/23/17t 20:04; Admin Dose 4 MG; Start 02/16/17 at 10:00 Acetaminophen (Ofirmev 1000mg/ 100ml Iv) 100 ml @ 400 mls/hr Q6H PRN IVPB FEVER Last administered on 02/23/17 11:53; Admin Dose 400 MLS/HR; Start at 15:00 Morphine Sulfate 2 mg 2 mg Q2H PRN IV PAIN Last administered on 03/01/17 03:14 ; Admin Dose 2 MG; Start 02/22/17 at 10:00 Piperacillin Sod/ Tazobactam Sod (Zosyn 3.375gm/ 100 ml (Pmx)) 100 ml @ 200 mls /hr Q8 IVPB Last administered on 03/01/17 13:53; Admin Dose 200 MLS/HR; Start 02/23/17 at 10:00 Metoclopramide HCl 10 mg 10 mg Q8 IV Last administered on 03/01/17 13:52; Admin Dose 10 MG; Start 02/23/17 at 22:00 Sodium Chloride 1,000 ml @ 50 mls/hr Q20H IV Last administered on 03/01/17 04 :18; Admin Dose 50 MLS/HR; Start 02/25/17 at 16:00 Total Parenteral Nutrition 1,000 ml @ 75 mls/hr [id number] IV Last administered on 03/01/17 05:47; Admin Dose 100 MLS/HR; Start 02/25/17 at 16:00 Fat Emulsion Intravenous (Liposyn Ii 20%) 250 ml @ 10.417 mls/ hr Q24H IV Last administered on 02/27/17 17:19; Admin Dose 10.417 MLS/HR; Start 02/25/17 at 16:00 Diagnostic Test (Pha) (Accu-Chek) 1 ea Q12 XX Last administered on 02/28/17 21 :16; Admin Dose 1 EA; Start 02/27/17 at 09:00 Miscellaneous Information 1 ea NOTE XX ; Start 02/26/17 at 14:00 Glucose (Glutose) 15 gm Q15M PRN PO DECREASED GLUCOSE; Start 02/26/17 at 14:00 Glucose (Glutose) 22.5 gm Q15M PRN PO DECREASED GLUCOSE; Start 02/26/17 at 14: 00 Dextrose (D50w Syringe) 25 ml Q15M PRN IV DECREASED GLUCOSE; Start 02/26/17 at 14:00 Dextrose (D50w Syringe) 50 ml Q15M PRN IV DECREASED GLUCOSE; Start 02/26/17 at 14:00 Glucagon (Glucagen) 1 mg Q15M PRN IM DECREASED GLUCOSE; Start 02/26/17 at 14:00 Glucose (Glutose) 15 gm Q15M PRN BUCCAL DECREASED GLUCOSE; Start 02/26/17 at 14 :00 IV Flush 10 ml 10 ml PRN PRN IV IV PROTOCOL; Start 02/27/17 at 13:00 Potassium Phosphate/Sodium Chloride (K Phos (Mm)/NS) 255 ml @ 63.75 mls/ hr ONCE ONCE IVPB ; Start 03/01/17 at 15:00; Stop 03/01/17 at 18:59 Assessment/Plan Chief Complaint/Hosp Course Assessment - post op fever due pelvic abscess and ileus - ileus - pelvic abscess formation adjacent to a distal colonic anastomosis, seen on CT on 02/24/[address] s[address]-guided drainage on 02/28/2017 - possible UTI vs. contamination of the urethra by klebsiella and morganella - rectal CA s/p low anterior resection with splenic flexure mobilization, mobilization of omental patch and rigid sigmoidoscopy on 02/16/2017. Pathology of the resected rectum showed residual moderately-differentiated adenocarcinoma , involving muscularis propria, mucosal ulceration, clear margin and no e/o metastasis - NPO, on TPN status Recommendations - pending: aerobic and anaerobic culture, fungus culture and cytology of fluid from CT-guided drainage on 02/28/2017 - continue empiric pip/tazo (02/23/2017-), will adjust her antibiotic based on the culture result - supportive care for ileus Care and management d/w patient, nurse Austen and DR. Morris Problems: RICHI HERRERA Mar 01, 2017 15:45
[2017-03-01] MEDS ORDERED: IODIXANOL LOCM 50 ML BTL ONE (16:06)
[2017-03-01] MEDS: FAT EMULSION 20% 250 ML IV SCH (17:10)
--- NOTE | 2017-03-01 22:26 | RADRPT ---
PROCEDURE: Pelvic sinogram with fluoroscopic guidance. CLINICAL INDICATION: Pelvic pain. Pelvic fluid collection. TECHNIQUE: 12 images of the pelvis were obtained during injection of 15 ml of Omnipaque-300 into t he existing drainage catheter in the pelvis posteriorly Fluoroscopy time is 0.1 minutes. COMPARISON: Images from CT guided drainage of the pelvic fluid collection dated 02/28/2017. FINDINGS: Images demonstrate the drainage catheter in position within the pelvis midline posteriorly. Contras t fills a cavity at this site measuring approximately 3.0 x 6.5 x 15.5 cm in AP, transverse, cranial caudal dimensions. There is no communication with small bowel or colon. IMPRESSION: 1. Drainage catheter in satisfactory position within a cavity posteriorly pelvis. The cavity as no communication with small bowel or colon. RPTAT: QQ .Fransico Cortez MD, Date Time Electronically viewed and signed by .Fransico Cortez MD, on 03/01/2017 22:26 .R/
[2017-03-02 02:20] VITALS: BP 90/55; RESP 18
[2017-03-02] MEDS: PIPER-TAZO 3.375 GM IV (PMX) 100 ML IVPB SCH ×3 (05:21→21:13)
[2017-03-02] MEDS: METOCLOPRAMIDE 10 MG INJ IV SCH ×3 (05:22→21:13)
[2017-03-02 06:08] LABS: ABNORMAL IP MESSAGE 1; HEMATOCRIT 25.9 % (37.0-47.0); HEMOGLOBIN 8.3 g/dl (12.0-16.0); MEAN CORPUSCULAR HEMOGLOBIN 31.1 pg (29.0-33.0); MEAN PLATELET VOLUME 9.2 fl (7.4-10.4); PLATELET COUNT 548 10^3/UL (140-415); RED BLOOD COUNT 2.67 10^6/ul (4.20-5.40); RED CELL DISTRIBUTION WIDTH 12.6 % (11.5-14.5); WHITE BLOOD COUNT 11.7 10^3/ul (4.8-10.8)
[2017-03-02 06:20] LABS: POSITIVE DIFF @See below
[2017-03-02 06:37] LABS: ALBUMIN 2.7 g/dl (3.3-4.9); ALBUMIN/GLOBULIN RATIO 0.9; CALCIUM 8.3 mg/dl (8.4-10.2); CREATININE 0.53 mg/dl (0.44-1.00); TOTAL PROTEIN 5.7 g/dl (6.1-8.1)
[2017-03-02 06:50] LABS: MAGNESIUM 2.3 mg/dl (1.7-2.5); PHOSPHORUS 3.9 mg/dl (2.5-4.9)
[2017-03-02] MEDS: TPN 1,000 ML IV SCH ×3 (07:30→20:50)
[2017-03-02 07:46] VITALS: BP 105/51; RESP 18
[2017-03-02] MEDS: ACCU-CHEK XX SCH ×2 (09:35→21:28)
[2017-03-02 09:46] LABS: ANISOCYTOSIS 2+ (0-0); EOSINOPHILS % (M) 1 % (0-7); MICROCYTOSIS 2+ (0-0); MONOCYTES % (M) 3 % (0-11); MYELOCYTES % (M) 1 % (0.0-0.0); PLATELET ESTIMATE NORMAL; POIKILOCYTOSIS 1+ (0-0); PROMYELOCYTES #M 0 # (0-0); PROMYELOCYTES % (M) 1 % (0-0)
--- NOTE | 2017-03-02 13:21 | PN ---
Date/Time of Note Date/Time of Note DATE: 03/02/17 TIME: 13:00 Assessment/Plan VTE Prophylaxis VTE Prophylaxis Intervention: ambulation Lines/Catheters IV Catheter Type (from [facility]): PICC Line Central line still needed: Yes Urinary Cath still in place: No Assessment/Plan Assessment/Plan Postop day 14 status post laparotomy low anterior resection of the cancer of the rectum and end-to-end anastomosis. As of day 6 of 7 postop patient developed sudden ileus and fever and leukocytosis and CT CT scan showed presence of fluid accumulation and accommodation as well compatible with possible abscess. Percutaneous drainage of the abscess cavity by the radiologist was performed and the specimen was sent for culture so far is growing E. coli. As of yesterday the drainage from the PICC team has changed color from yellowish and serous color to greenish color and this has raised questions and concerns about the possible leakage from loop of small bowel. Therefore we are going to request Gastrografin barium enema to determine the site of possibility. Discussed the procedure with the patient and patient accepted. Subjective 24 Hr Interval Summary Free Text/Dictation Postop day #14 No new events since last night. Had a small amount of bowel movement last night she believes the color is yellowish dark. The pigtail drain in the pelvis has drained 300 cc since yesterday been 24 hours. The color is greenish. But the patient denies greenish bowel movements. No nausea no vomiting. Exam/Review of Systems Vital Signs Vitals Vital Signs Date Time Temp Pulse Resp B/P Pulse Ox O2 Delivery O2 Flow Rate FiO2 03/02/17 07:46 99.4 95 18 105/51 97 03/01/17 07:15 Room Air Intake and Output 03/01/17 03/01/17 03/02/17 15:00 23:00 07:00 Intake Total 600 ml 1355 ml 1235 ml Output Total 125 ml 2675 ml 1800 ml Balance 475 ml -1320 ml -565 ml Exam Awake alert oriented 3. Today temperature maximum 99.4. Heart rate 95. Respiration 18. Patient is on ice chips only. WBC has dropped to 11,700 with 76% neutrophils and 10% bands. Should be mentioned that yesterday when I saw the patient was about 200 cc greenish fluid in the drainage bag which sounds like a content of the small bowel therefore we discussed with the patient and radiologist Dr. Cortez and we requested a pelvic sinogram with fluoroscopy guidance. The results showed that the tip of the catheter was in the pelvic cavity and no visualization of the bowel either small bowel or large bowel so this means that at least radiologically there was no connection between bowel and the pelvic cavity to demonstrate the site of the leak. Today since 5 AM 12 noon has been about 50 cc of drainage accumulated in the bag of the pigtail drain. We discussed these findings between me and Dr. Paredes and Dr. Cortez. Dr. Paredes suggested to put a Sandoval catheter in the rectum gently and very gently instill Gastrografin so perform a Gastrografin enema to see possible leak site. The reason being that while her stool is not reported to be greenish by the patient about drainage from the pelvis cavity catheter is greenish which suggests the small bowel content. This raises the question if there is any leakage from the small bowel than from the anastomosis in the rectum therefore we are going to request performance of the Gastrografin enema by the radiologist today and Dr. Paredes has talked with Dr. Cortez and he has accepted to perform the procedure. Results Result Diagram: 03/02/1752103/02/17521 Results 24 hrs Laboratory Tests Test 03/01/17 21:41 03/02/17 05:22 03/02/17 09:29 Bedside Glucose 116 116 White Blood Count 11.7 #H Red Blood Count 2.67 L Hemoglobin 8.3 L Hematocrit 25.9 L Mean Corpuscular Volume 97.0 Mean Corpuscular Hemoglobin 31.1 Mean Corpuscular Hemoglobin Concent 32.0 Red Cell Distribution Width 12.6 Platelet Count 548 H Mean Platelet Volume 9.2 Neutrophils % Segmented Neutrophils % (Manual) 76 Band Neutrophils % (Manual) 10 H Lymphocytes % Lymphocytes % (Manual) 8 L Monocytes % Monocytes % (Manual) 3 Eosinophils % Eosinophils % (Manual) 1 Basophils % Myelocytes % (Manual) 1 H Promyelocytes % (Manual) 1 H Nucleated Red Blood Cells % 0.0 Neutrophils # (Manual) 9 H Band Neutrophils # 1.1 H Absolute Lymphocytes (Manual) 0.9 Lymphocytes # Monocytes # Absolute Monocytes (Manual) 0.3 Eosinophils # Basophils # Myelocytes # 0.1 H Promyelocytes # 0 Nucleated Red Blood Cells # Platelet Estimate NORMAL Poikilocytosis 1+ Anisocytosis 2+ Microcytosis 2+ Sodium Level 136 Potassium Level 4.0 Chloride Level 103 Carbon Dioxide Level 26 Anion Gap 11 Blood Urea Nitrogen 10 Creatinine 0.53 Glucose Level 127 # Calcium Level 8.3 L Phosphorus Level 3.9 Magnesium Level 2.3 Total Bilirubin 0.0 L Direct Bilirubin 0.00 Indirect Bilirubin 0.0 Aspartate Amino Transf (AST/SGOT) 21 Alanine Aminotransferase (ALT/SGPT) 48 Alkaline Phosphatase 85 Total Protein 5.7 L Albumin 2.7 L Globulin 3.00 Albumin/Globulin Ratio 0.90 Medications Medications Current Medications Ondansetron HCl 4 mg 4 mg Q6H PRN IV NAUSEA AND/OR VOMITING Last administered on 02/23/17 20:04; Admin Dose 4 MG; Start 02/16/17 at 10:00 Acetaminophen (Ofirmev 1000mg/ 100ml Iv) 100 ml @ 400 mls/hr Q6H PRN IVPB FEVER Last administered on 02/23/17 11:53; Admin Dose 400 MLS/HR; Start at 15:00 Morphine Sulfate 2 mg 2 mg Q2H PRN IV PAIN Last administered on 03/01/17 22:02 ; Admin Dose 2 MG; Start 02/22/17 at 10:00 Piperacillin Sod/ Tazobactam Sod (Zosyn 3.375gm/ 100 ml (Pmx)) 100 ml @ 200 mls /hr Q8 IVPB Last administered on 03/02/17 05:21; Admin Dose 200 MLS/HR; Start 02/23/17 at 10:00 Metoclopramide HCl 10 mg 10 mg Q8 IV Last administered on 03/02/17 05:22; Admin Dose 10 MG; Start 02/23/17 at 22:00 Sodium Chloride 1,000 ml @ 50 mls/hr Q20H IV Last administered on 03/01/17 04 :18; Admin Dose 50 MLS/HR; Start 02/25/17 at 16:00 Total Parenteral Nutrition 1,000 ml @ 75 mls/hr [id number] IV Last administered on 03/02/17 10:18; Admin Dose 75 MLS/HR; Start 02/25/17 at 16:00 Fat Emulsion Intravenous (Liposyn Ii 20%) 250 ml @ 10.417 mls/ hr Q24H IV Last administered on 03/01/17 17:10; Admin Dose 10.417 MLS/HR; Start 02/25/17 at 16:00 Diagnostic Test (Pha) (Accu-Chek) 1 ea Q12 XX Last administered on 03/02/17 09 :35; Admin Dose 1 EA; Start 02/27/17 at 09:00 Miscellaneous Information 1 ea NOTE XX ; Start 02/26/17 at 14:00 Glucose (Glutose) 15 gm Q15M PRN PO DECREASED GLUCOSE; Start 02/26/17 at 14:00 Glucose (Glutose) 22.5 gm Q15M PRN PO DECREASED GLUCOSE; Start 02/26/17 at 14: 00 Dextrose (D50w Syringe) 25 ml Q15M PRN IV DECREASED GLUCOSE; Start 02/26/17 at 14:00 Dextrose (D50w Syringe) 50 ml Q15M PRN IV DECREASED GLUCOSE; Start 02/26/17 at 14:00 Glucagon (Glucagen) 1 mg Q15M PRN IM DECREASED GLUCOSE; Start 02/26/17 at 14:00 Glucose (Glutose) 15 gm Q15M PRN BUCCAL DECREASED GLUCOSE; Start 02/26/17 at 14 :00 IV Flush (NS 10 ml) 10 ml PRN PRN IV IV PROTOCOL; Start 02/27/17 at 13:00 LETICIA SANTANA MD Mar 02, 2017 13:15
[2017-03-02] MEDS: SOD CHLORIDE 0.45% 1,000 ML IV SCH ×2 (13:47→16:00)
[2017-03-02] MEDS ORDERED: IOHEXOL 300MG/ML 150 ML BTL ONE (13:54)
[2017-03-02 14:26] VITALS: BP 116/57; RESP 18
--- NOTE | 2017-03-02 15:07 | PN ---
Date/Time of Note Date/Time of Note DATE: 03/02/17 TIME: 15:05 Assessment/Plan VTE Prophylaxis VTE Prophylaxis Intervention: SCD's Lines/Catheters IV Catheter Type (from Nrs): PICC Line Central line still needed: Yes Urinary Cath still in place: No Assessment/Plan Assessment/Plan 41 yo F diagnosed with rectal Ca in September of 2016 sp XRT admitted for planned low anterior resection which she underwent 02.17. Post op course notable for development of abscess/fluid collection adjacent to anastomosis site for which pt underwent IR drainage placement 02.28, given change in drainage contents, concern for drain malposition v anastomotic leak. No evidence of drain malposition on 03.02 imaging PLAN gen surg involved with drain care ID helping with abx bowel rest as per gen surg RD on cs for help with TPN Subjective 24 Hr Interval Summary Free Text/Dictation Pt at procedure and thus I was not able to personally see her today Exam/Review of Systems Vital Signs Vitals Vital Signs Date Time Temp Pulse Resp B/P Pulse Ox O2 Delivery O2 Flow Rate FiO2 03/02/17 14:26 98.8 92 18 116/57 99 03/01/17 07:15 Room Air Intake and Output 03/01/17 03/01/17 03/02/17 15:00 23:00 07:00 Intake Total 600 ml 1355 ml 1235 ml Output Total 125 ml 2675 ml 1800 ml Balance 475 ml -1320 ml -565 ml Exam Pt at procedure Imaging reviewed, drain correctly positioned Results Result Diagram: 03/02/17 0522 03/02/17 0522 Results 24 hrs Laboratory Tests Test 03/01/17 21:41 03/02/17 05:22 03/02/17 09:29 Bedside Glucose 116 116 White Blood Count 11.7 #H Red Blood Count 2.67 L Hemoglobin 8.3 L Hematocrit 25.9 L Mean Corpuscular Volume 97.0 Mean Corpuscular Hemoglobin 31.1 Mean Corpuscular Hemoglobin Concent 32.0 Red Cell Distribution Width 12.6 Platelet Count 548 H Mean Platelet Volume 9.2 Neutrophils % Segmented Neutrophils % (Manual) 76 Band Neutrophils % (Manual) 10 H Lymphocytes % Lymphocytes % (Manual) 8 L Monocytes % Monocytes % (Manual) 3 Eosinophils % Eosinophils % (Manual) 1 Basophils % Myelocytes % (Manual) 1 H Promyelocytes % (Manual) 1 H Nucleated Red Blood Cells % 0.0 Neutrophils # (Manual) 9 H Band Neutrophils # 1.1 H Absolute Lymphocytes (Manual) 0.9 Lymphocytes # Monocytes # Absolute Monocytes (Manual) 0.3 Eosinophils # Basophils # Myelocytes # 0.1 H Promyelocytes # 0 Nucleated Red Blood Cells # Platelet Estimate NORMAL Poikilocytosis 1+ Anisocytosis 2+ Microcytosis 2+ Sodium Level 136 Potassium Level 4.0 Chloride Level 103 Carbon Dioxide Level 26 Anion Gap 11 Blood Urea Nitrogen 10 Creatinine 0.53 Glucose Level 127 # Calcium Level 8.3 L Phosphorus Level 3.9 Magnesium Level 2.3 Total Bilirubin 0.0 L Direct Bilirubin 0.00 Indirect Bilirubin 0.0 Aspartate Amino Transf (AST/SGOT) 21 Alanine Aminotransferase (ALT/SGPT) 48 Alkaline Phosphatase 85 Total Protein 5.7 L Albumin 2.7 L Globulin 3.00 Albumin/Globulin Ratio 0.90 Medications Medications Current Medications Ondansetron HCl 4 mg 4 mg Q6H PRN IV NAUSEA AND/OR VOMITING Last administered on 02/23/17 20:04; Admin Dose 4 MG; Start 02/16/17 at 10:00 Acetaminophen (Ofirmev 1000mg/ 100ml Iv) 100 ml @ 400 mls/hr Q6H PRN IVPB FEVER Last administered on 02/23/17 11:53; Admin Dose 400 MLS/HR; Start at 15:00 Morphine Sulfate 2 mg 2 mg Q2H PRN IV PAIN Last administered on 03/01/17 22:02 ; Admin Dose 2 MG; Start 02/22/17 at 10:00 Piperacillin Sod/ Tazobactam Sod (Zosyn 3.375gm/ 100 ml (Pmx)) 100 ml @ 200 mls /hr Q8 IVPB Last administered on 03/02/17 05:21; Admin Dose 200 MLS/HR; Start 02/23/17 at 10:00 Metoclopramide HCl 10 mg 10 mg Q8 IV Last administered on 03/02/17 05:22; Admin Dose 10 MG; Start 02/23/17 at 22:00 Sodium Chloride 1,000 ml @ 50 mls/hr Q20H IV Last administered on 03/02/17 13 :47; Admin Dose 50 MLS/HR; Start 02/25/17 at 16:00 Total Parenteral Nutrition 1,000 ml @ 75 mls/hr [id number] IV Last administered on 03/02/17 10:18; Admin Dose 75 MLS/HR; Start 02/25/17 at 16:00 Fat Emulsion Intravenous (Liposyn Ii 20%) 250 ml @ 10.417 mls/ hr Q24H IV Last administered on 03/01/17 17:10; Admin Dose 10.417 MLS/HR; Start 02/25/17 at 16:00 Diagnostic Test (Pha) (Accu-Chek) 1 ea Q12 XX Last administered on 03/02/17 09 :35; Admin Dose 1 EA; Start 02/27/17 at 09:00 Miscellaneous Information 1 ea NOTE XX ; Start 02/26/17 at 14:00 Glucose (Glutose) 15 gm Q15M PRN PO DECREASED GLUCOSE; Start 02/26/17 at 14:00 Glucose (Glutose) 22.5 gm Q15M PRN PO DECREASED GLUCOSE; Start 02/26/17 at 14: 00 Dextrose (D50w Syringe) 25 ml Q15M PRN IV DECREASED GLUCOSE; Start 02/26/17 at 14:00 Dextrose (D50w Syringe) 50 ml Q15M PRN IV DECREASED GLUCOSE; Start 02/26/17 at 14:00 Glucagon (Glucagen) 1 mg Q15M PRN IM DECREASED GLUCOSE; Start 02/26/17 at 14:00 Glucose (Glutose) 15 gm Q15M PRN BUCCAL DECREASED GLUCOSE; Start 02/26/17 at 14 :00 IV Flush (NS 10 ml) 10 ml PRN PRN IV IV PROTOCOL; Start 02/27/17 at 13:00 NAVEED AREVALO MD Mar 02, 2017 15:06
--- NOTE | 2017-03-02 16:29 | RADRPT ---
PROCEDURE: Water soluble contrast enema. CLINICAL INDICATION: Pelvic abscess. Postop rectal surgery. TECHNIQUE: 7 images of the lumbar spine were obtained with the image intensifier during gentle inj ection of 20 ml of Omnipaque 300 into a 14-Chinese Sandoval catheter inserted into the rectum. Fluorosc opy time is 0.1 minutes. COMPARISON: Sinogram dated 03/01/2017. FINDINGS: The preliminary images demonstrate the drainage catheter entering via the right posterior lateral ap proach with the tip coiled in the gas and fluid collection in the presacral space, posterior to the rectosigmoid. With contrast injected into the rectum, there is rapid extravasation of contrast into the cavity in the presacral space, at the anastomotic site. IMPRESSION: 1. Contrast leak at the anastomotic site in the rectum. Call report: A call report of the findings was made to Dr. Fischer on 03/02/2017 at 1600 hours. RPTAT: QQ .Fransico Cortez MD, MD Date Time Electronically viewed and signed by .Fransico Cortez MD, on 03/02/2017 16:29 .R/
[2017-03-02] MEDS: FAT EMULSION 20% 250 ML IV SCH (17:02)
--- NOTE | 2017-03-02 18:29 | CONS ---
Date/Time of Note Date/Time of Note DATE: 03/02/17 TIME: 18:25 Assessment/Plan Assessment/Plan Chief Complaint/Hosp Course - post op fever due pelvic abscess and ileus, culture growing enterococci, E. coli and another Gram negative bacteria - ileus - pelvic abscess formation adjacent to a distal colonic anastomosis, seen on CT on 02/24/[address]-guided drainage on 02/28/2017 - Barium enema showing leak at the anastomotic site 03/02/2017 - possible UTI vs. contamination of the urethra by klebsiella and morganella - rectal CA s/p low anterior resection with splenic flexure mobilization, mobilization of omental patch and rigid sigmoidoscopy on 02/16/2017. Pathology of the resected rectum showed residual moderately-differentiated adenocarcinoma , involving muscularis propria, mucosal ulceration, clear margin and no e/o metastasis - NPO, on TPN status recommendations - monitor abd pain closely - will review the final result of fluid culture from CT-guided drainage on 2016, growing enterococci, E. coli and another Gram negative bacteria so far - continue empiric pip/tazo (02/23/2017-), will adjust her antibiotic based on the final culture result - will defer management of leak to her surgeons management d/w Pt, RN Problems: Consultation Date/Type/Reason Admit Date/Time Feb 16, 2017 at 07:24 Initial Consult Date 02/22/17 Type of Consultation: Infectious Disease Referring Provider: VINCENZO CISNEROS MD 24 HR Interval Summary Free Text/Dictation Pt had Barium enema Constitutional: other (can walk, NPO) Detailed Summary Eyes: no complaints ENT: no complaints Respiratory: no complaints Cardiovascular: no complaints Gastrointestinal: pain (RLQ), No nausea, No vomiting Genitourinary: no complaints Musculoskeletal: no complaints Skin: no complaints Neurologic: no complaints Exam/Review of Systems Vital Signs Vitals Vital Signs Date Time Temp Pulse Resp B/P Pulse Ox O2 Delivery O2 Flow Rate FiO2 03/02/17 14:26 98.8 92 18 116/57 99 03/01/17 07:15 Room Air Intake and Output 03/01/17 03/01/17 03/02/17 15:00 23:00 07:00 Intake Total 600 ml 1355 ml 1235 ml Output Total 125 ml 2675 ml 1800 ml Balance 475 ml -1320 ml -565 ml Exam Constitutional: alert, frail Psych: nl mood/affect, no complaints Head: atraumatic, normocephalic Eyes: nl conjunctiva, nl lids ENMT: nl external ears & nose, nl nasal mucosa & septum Neck: supple Respiratory: clear to auscultation, normal air movement Cardiovascular: nl pulses, regular rate and rhythm Gastrointestinal: other (external drainage catheter is collecting dark brown- green liquid), surgical scars, tender (RLQ), No distended Musculoskeletal: nl extremities to inspection Extremities: normal pulses, No edema 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: INSPECTOR MACHINE CUT GLASS II-XII intact, nl mental status, nl speech Skin: nl turgor Results Result Diagram: 03/02/17 0522 03/02/17 0522 Results 24 hrs Laboratory Tests Test 03/01/17 21:41 03/02/17 05:22 03/02/17 09:29 Bedside Glucose 116 116 White Blood Count 11.7 #H Red Blood Count 2.67 L Hemoglobin 8.3 L Hematocrit 25.9 L Mean Corpuscular Volume 97.0 Mean Corpuscular Hemoglobin 31.1 Mean Corpuscular Hemoglobin Concent 32.0 Red Cell Distribution Width 12.6 Platelet Count 548 H Mean Platelet Volume 9.2 Neutrophils % Segmented Neutrophils % (Manual) 76 Band Neutrophils % (Manual) 10 H Lymphocytes % Lymphocytes % (Manual) 8 L Monocytes % Monocytes % (Manual) 3 Eosinophils % Eosinophils % (Manual) 1 Basophils % Myelocytes % (Manual) 1 H Promyelocytes % (Manual) 1 H Nucleated Red Blood Cells % 0.0 Neutrophils # (Manual) 9 H Band Neutrophils # 1.1 H Absolute Lymphocytes (Manual) 0.9 Lymphocytes # Monocytes # Absolute Monocytes (Manual) 0.3 Eosinophils # Basophils # Myelocytes # 0.1 H Promyelocytes # 0 Nucleated Red Blood Cells # Platelet Estimate NORMAL Poikilocytosis 1+ Anisocytosis 2+ Microcytosis 2+ Sodium Level 136 Potassium Level 4.0 Chloride Level 103 Carbon Dioxide Level 26 Anion Gap 11 Blood Urea Nitrogen 10 Creatinine 0.53 Glucose Level 127 # Calcium Level 8.3 L Phosphorus Level 3.9 Magnesium Level 2.3 Total Bilirubin 0.0 L Direct Bilirubin 0.00 Indirect Bilirubin 0.0 Aspartate Amino Transf (AST/SGOT) 21 Alanine Aminotransferase (ALT/SGPT) 48 Alkaline Phosphatase 85 Total Protein 5.7 L Albumin 2.7 L Globulin 3.00 Albumin/Globulin Ratio 0.90 Medications Medications Current Medications Ondansetron HCl 4 mg 4 mg Q6H PRN IV NAUSEA AND/OR VOMITING Last administered on 02/23/17 20:04; Admin Dose 4 MG; Start 02/16/17 at 10:00 Acetaminophen (Ofirmev 1000mg/ 100ml Iv) 100 ml @ 400 mls/hr Q6H PRN IVPB FEVER Last administered on 02/23/17 11:53; Admin Dose 400 MLS/HR; Start at 15:00 Morphine Sulfate 2 mg 2 mg Q2H PRN IV PAIN Last administered on 03/01/17 22:02 ; Admin Dose 2 MG; Start 02/22/17 at 10:00 Piperacillin Sod/ Tazobactam Sod (Zosyn 3.375gm/ 100 ml (Pmx)) 100 ml @ 200 mls /hr Q8 IVPB Last administered on 03/02/17 05:21; Admin Dose 200 MLS/HR; Start 02/23/17 at 10:00 Metoclopramide HCl 10 mg 10 mg Q8 IV Last administered on 03/02/17 05:22; Admin Dose 10 MG; Start 02/23/17 at 22:00 Sodium Chloride 1,000 ml @ 50 mls/hr Q20H IV Last administered on 03/02/17 13 :47; Admin Dose 50 MLS/HR; Start 02/25/17 at 16:00 Total Parenteral Nutrition 1,000 ml @ 75 mls/hr [id number] IV Last administered on 03/02/17 10:18; Admin Dose 75 MLS/HR; Start 02/25/17 at 16:00 Fat Emulsion Intravenous (Liposyn Ii 20%) 250 ml @ 10.417 mls/ hr Q24H IV Last administered on 03/02/17 17:02; Admin Dose 10.417 MLS/HR; Start 02/25/17 at 16:00 Diagnostic Test (Pha) (Accu-Chek) 1 ea Q12 XX Last administered on 03/02/17 09 :35; Admin Dose 1 EA; Start 02/27/17 at 09:00 Miscellaneous Information 1 ea NOTE XX ; Start 02/26/17 at 14:00 Glucose (Glutose) 15 gm Q15M PRN PO DECREASED GLUCOSE; Start 02/26/17 at 14:00 Glucose (Glutose) 22.5 gm Q15M PRN PO DECREASED GLUCOSE; Start 02/26/17 at 14: 00 Dextrose (D50w Syringe) 25 ml Q15M PRN IV DECREASED GLUCOSE; Start 02/26/17 at 14:00 Dextrose (D50w Syringe) 50 ml Q15M PRN IV DECREASED GLUCOSE; Start 02/26/17 at 14:00 Glucagon (Glucagen) 1 mg Q15M PRN IM DECREASED GLUCOSE; Start 02/26/17 at 14:00 Glucose (Glutose) 15 gm Q15M PRN BUCCAL DECREASED GLUCOSE; Start 02/26/17 at 14 :00 IV Flush (NS 10 ml) 10 ml PRN PRN IV IV PROTOCOL; Start 02/27/17 at 13:00 BLANCO OHARA M.D. Mar 02, 2017 18:29
[2017-03-02 20:00] VITALS: BP 94/55; RESP 18
[2017-03-02] MEDS: morphine 2 MG INJ IV PRN (22:09)
[2017-03-03] MEDS: TPN 1,000 ML IV SCH ×3 (00:59→23:30)
[2017-03-03 02:00] VITALS: BP 90/55; RESP 18
[2017-03-03] MEDS: METOCLOPRAMIDE 10 MG INJ IV SCH ×3 (05:30→21:17)
[2017-03-03] MEDS: PIPER-TAZO 3.375 GM IV (PMX) 100 ML IVPB SCH ×3 (05:30→21:17)
[2017-03-03 06:42] LABS: CALCIUM 8.8 mg/dl (8.4-10.2); CREATININE 0.52 mg/dl (0.44-1.00); MAGNESIUM 2.4 mg/dl (1.7-2.5); PHOSPHORUS 4.1 mg/dl (2.5-4.9); POTASSIUM 4.2 mmol/L (3.5-5.1)
[2017-03-03 08:16] VITALS: BP 91/50; RESP 18
[2017-03-03] MEDS: ACCU-CHEK XX SCH ×2 (09:00→20:34)
--- NOTE | 2017-03-03 11:02 | CONS ---
JOSE GARCES SECRETARY OFFICE CLERK 03/03/17 1102: Date/Time of Note Date/Time of Note DATE: 03/03/17 TIME: 11:00 Assessment/Plan Assessment/Plan Chief Complaint/Hosp Course - post op fever due pelvic abscess and ileus, culture growing enterococci, E. coli, Morganella Morganii, Enterococcus, and another Gram negative bacteria - ileus - pelvic abscess formation adjacent to a distal colonic anastomosis, seen on CT on 02/24/[address]-guided drainage on 02/28/2017 - Barium enema showing leak at the anastomotic site 03/02/2017 - possible UTI vs. contamination of the urethra by klebsiella and morganella - rectal CA s/p low anterior resection with splenic flexure mobilization, mobilization of omental patch and rigid sigmoidoscopy on 02/16/2017. Pathology of the resected rectum showed residual moderately-differentiated adenocarcinoma , involving muscularis propria, mucosal ulceration, clear margin and no e/o metastasis - NPO, on TPN status recommendations: - monitor abd pain closely - will review the final result of fluid culture from CT-guided drainage on 2016, growing enterococci, E. coli, Morganella Morganii, Enterococcus, and another Gram negative bacteria. Per d/w Verónica from Micro, the second gram negative bacteria will likely be identified tomorrow and morganella is sensitive to pip/ tazo - continue empiric pip/tazo (02/23/2017-), will adjust her antibiotic based on the final culture result - will defer management of leak to her surgeons Management d/w patient, Pt's spouse and Dr. Morris Problems: Consultation Date/Type/Reason Admit Date/Time Feb 16, 2017 at 07:24 Initial Consult Date 02/22/17 Type of Consultation: Infectious Disease Referring Provider: VINCENZO CISNEROS MD 24 HR Interval Summary Free Text/Dictation Afebrile with no complaints. Denies abd pain, n/v/d, dysuria. Pt's asking about plan of care from Surgery's standpoint. Exam/Review of Systems Vital Signs Vitals Vital Signs Date Time Temp Pulse Resp B/P Pulse Ox O2 Delivery O2 Flow Rate FiO2 03/03/17 08:16 98.5 77 18 91/50 99 03/01/17 07:15 Room Air Intake and Output 03/02/17 03/02/17 03/03/17 15:00 23:00 07:00 Intake Total 787 ml 940 ml 1920 ml Output Total 1190 ml 640 ml Balance 787 ml -250 ml 1280 ml Exam Constitutional: alert, well developed Psych: nl mood/affect, no complaints Head: atraumatic, normocephalic Eyes: nl conjunctiva, nl lids ENMT: nl external ears & nose, nl nasal mucosa & septum Neck: supple Respiratory: clear to auscultation, normal air movement Cardiovascular: nl pulses, regular rate and rhythm Gastrointestinal: other (external drainage catheter is collecting dark brown- green liquid), surgical scars No distended Musculoskeletal: nl extremities to inspection Extremities: normal pulses, No edema 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: DRIVABILITY TECHNICIAN II-XII intact, nl mental status, nl speech Skin: nl turgor Results Result Diagram: 03/02/1722 03/03/17 0532 Results 24 hrs Laboratory Tests Test 03/02/17 21:10 03/03/17 05:32 03/03/17 09:18 Bedside Glucose 120 138 Sodium Level 138 Potassium Level 4.2 Chloride Level 100 Carbon Dioxide Level 27 Anion Gap 15 Blood Urea Nitrogen 10 Creatinine 0.52 Glucose Level 137 Calcium Level 8.8 Phosphorus Level 4.1 Magnesium Level 2.4 Medications Medications Current Medications Ondansetron HCl 4 mg 4 mg Q6H PRN IV NAUSEA AND/OR VOMITING Last administered on 02/23/17 20:04; Admin Dose 4 MG; Start 02/16/17 at 10:00 Acetaminophen (Ofirmev 1000mg/ 100ml Iv) 100 ml @ 400 mls/hr Q6H PRN IVPB FEVER Last administered on 02/23/17 11:53; Admin Dose 400 MLS/HR; Start at 15:00 Morphine Sulfate 2 mg 2 mg Q2H PRN IV PAIN Last administered on 03/02/17 22:09 ; Admin Dose 2 MG; Start 02/22/17 at 10:00 Piperacillin Sod/ Tazobactam Sod (Zosyn 3.375gm/ 100 ml (Pmx)) 100 ml @ 200 mls /hr Q8 IVPB Last administered on 03/03/17 05:30; Admin Dose 200 MLS/HR; Start 02/23/17 at 10:00 Metoclopramide HCl 10 mg 10 mg Q8 IV Last administered on 03/03/17 05:30; Admin Dose 10 MG; Start 02/23/17 at 22:00 Sodium Chloride 1,000 ml @ 50 mls/hr Q20H IV Last administered on 03/02/17 13 :47; Admin Dose 50 MLS/HR; Start 02/25/17 at 16:00 Total Parenteral Nutrition 1,000 ml @ 75 mls/hr [id number] IV Last administered on 03/03/17 00:59; Admin Dose 75 MLS/HR; Start 02/25/17 at 16:00 Fat Emulsion Intravenous (Liposyn Ii 20%) 250 ml @ 10.417 mls/ hr Q24H IV Last administered on 03/02/17 17:02; Admin Dose 10.417 MLS/HR; Start 02/25/17 at 16:00 Diagnostic Test (Pha) (Accu-Chek) 1 ea Q12 XX Last administered on 03/02/17 21 :28; Admin Dose 1 EA; Start 02/27/17 at 09:00 Miscellaneous Information 1 ea NOTE XX ; Start 02/26/17 at 14:00 Glucose (Glutose) 15 gm Q15M PRN PO DECREASED GLUCOSE; Start 02/26/17 at 14:00 Glucose (Glutose) 22.5 gm Q15M PRN PO DECREASED GLUCOSE; Start 02/26/17 at 14: 00 Dextrose (D50w Syringe) 25 ml Q15M PRN IV DECREASED GLUCOSE; Start 02/26/17 at 14:00 Dextrose (D50w Syringe) 50 ml Q15M PRN IV DECREASED GLUCOSE; Start 02/26/17 at 14:00 Glucagon (Glucagen) 1 mg Q15M PRN IM DECREASED GLUCOSE; Start 02/26/17 at 14:00 Glucose (Glutose) 15 gm Q15M PRN BUCCAL DECREASED GLUCOSE; Start 02/26/17 at 14 :00 IV Flush (NS 10 ml) 10 ml PRN PRN IV IV PROTOCOL; Start 02/27/17 at 13:00 BLANCO MORRIS M.D. 03/04/172058: Assessment/Plan Assessment/Plan Additional Assessment/Plan Arturo attestation: I discussed the management with ITZEL Garces and agree with above Exam/Review of Systems Results Result Diagram: 03/02/1752103/03/17 05 JOSE GARCES NP Mar 03, 2017 11:02 BLANCO MORRIS M.D. Mar 04, 2017 20:59
[2017-03-03 14:00] VITALS: BP 97/54; RESP 16
[2017-03-03] MEDS: SOD CHLORIDE 0.45% 1,000 ML IV SCH (14:19)
[2017-03-03] MEDS: FAT EMULSION 20% 250 ML IV SCH ×2 (14:21→16:19)
[2017-03-03] MEDS ORDERED: PHYTONADIONE 10 MG/ML INJ SC ONE (15:30)
--- NOTE | 2017-03-03 15:32 | PN ---
Date/Time of Note Date/Time of Note DATE: 03/03/17 TIME: 15:23 Assessment/Plan VTE Prophylaxis VTE Prophylaxis Intervention: ambulation Lines/Catheters IV C[facility]ter Type [facility]from [facility]): PICC Line Central line still needed: Yes Urinary Cath still in place: No Assessment/Plan Assessment/Plan Unfortunately the patient has developed leakage at the site of anastomosis low in the pelvis. Percutaneous drainage of the pelvic abscess and fluid collection has been achieved since few days ago. Last saw Dr. Cortez gently performed a Gastrografin enema and he has showed site of leakage posteriorly. Dr. Paredes and he is planning to perform a diverting ileostomy on coming Monday. I explained to the patient and her situation and the procedure is going to be done by Dr. Paredes and they understood it and all questions answered. I will prepare the patient for an operation on Monday. Since PT is a slightly elevated vitamin K subcu. Subjective 24 Hr Interval Summary Free Text/Dictation No new complaints. Has not had any bowel movements past 24 hours. Urination is okay. She had Gastrografin barium enema last night. It has revealed presence of leak at the posterior site of anastomosis. Exam/Review of Systems Vital Signs Vitals Vital Signs Date Time Temp Pulse Resp B/P Pulse Ox O2 Delivery O2 Flow Rate FiO2 03/03/17 08:16 98.5 77 18 91/50 99 03/01/17 07:15 Room Air Intake and Output 03/02/17 03/02/17 03/03/17 15:00 23:00 07:00 Intake Total 787 ml 940 ml 1920 ml Output Total 1190 ml 640 ml Balance 787 ml -250 ml 1280 ml Exam Awake alert oriented 3. Vital signs stable. Abdomen is soft. Pigtail drainage has been 130 cc past 24 hours greenish in color. Patient is out of bed and ambulatory on the floor. Results Result Diagram: 03/02/17 0522 03/03/17 0532 Results 24 hrs Laboratory Tests Test 03/02/17 21:10 03/03/17 05:32 03/03/17 09:18 Bedside Glucose 120 138 Sodium Level 138 Potassium Level 4.2 Chloride Level 100 Carbon Dioxide Level 27 Anion Gap 15 Blood Urea Nitrogen 10 Creatinine 0.52 Glucose Level 137 Calcium Level 8.8 Phosphorus Level 4.1 Magnesium Level 2.4 Medications Medications Current Medications Ondansetron HCl 4 mg 4 mg Q6H PRN IV NAUSEA AND/OR VOMITING Last administered on 02/23/17 20:04; Admin Dose 4 MG; Start 02/16/17 at 10:00 Acetaminophen (Ofirmev 1000mg/ 100ml Iv) 100 ml @ 400 mls/hr Q6H PRN IVPB FEVER Last administered on 02/23/17 11:53; Admin Dose 400 MLS/HR; Start at 15:00 Morphine Sulfate 2 mg 2 mg Q2H PRN IV PAIN Last administered on 03/02/17 22:09 ; Admin Dose 2 MG; Start 02/22/17 at 10:00 Piperacillin Sod/ Tazobactam Sod (Zosyn 3.375gm/ 100 ml (Pmx)) 100 ml @ 200 mls /hr Q8 IVPB Last administered on 03/03/17 14:12; Admin Dose 200 MLS/HR; Start 02/23/17 at 10:00 Metoclopramide HCl 10 mg 10 mg Q8 IV Last administered on 03/03/17 14:12; Admin Dose 10 MG; Start 02/23/17 at 22:00 Sodium Chloride 1,000 ml @ 50 mls/hr Q20H IV Last administered on 03/03/17 14 :19; Admin Dose 50 MLS/HR; Start 02/25/17 at 16:00 Total Parenteral Nutrition 1,000 ml @ 75 mls/hr [id number] IV Last administered on 03/03/17 14:21; Admin Dose 75 MLS/HR; Start 02/25/17 at 16:00 Fat Emulsion Intravenous (Liposyn Ii 20%) 250 ml @ 10.417 mls/ hr Q24H IV Last administered on 03/02/17 17:02; Admin Dose 10.417 MLS/HR; Start 02/25/17 at 16:00 Diagnostic Test (Pha) (Accu-Chek) 1 ea Q12 XX Last administered on 03/02/17 21 :28; Admin Dose 1 EA; Start 02/27/17 at 09:00 Miscellaneous Information 1 ea NOTE XX ; Start 02/26/17 at 14:00 Glucose (Glutose) 15 gm Q15M PRN PO DECREASED GLUCOSE; Start 02/26/17 at 14:00 Glucose (Glutose) 22.5 gm Q15M PRN PO DECREASED GLUCOSE; Start 02/26/17 at 14: 00 Dextrose (D50w Syringe) 25 ml Q15M PRN IV DECREASED GLUCOSE; Start 02/26/17 at 14:00 Dextrose (D50w Syringe) 50 ml Q15M PRN IV DECREASED GLUCOSE; Start 02/26/17 at 14:00 Glucagon (Glucagen) 1 mg Q15M PRN IM DECREASED GLUCOSE; Start 02/26/17 at 14:00 Glucose (Glutose) 15 gm Q15M PRN BUCCAL DECREASED GLUCOSE; Start 02/26/17 at 14 :00 IV Flush (NS 10 ml) 10 ml PRN PRN IV IV PROTOCOL; Start 02/27/17 at 13:00 LETICIA SANTANA MD Mar 03, 2017 15:32
--- NOTE | 2017-03-03 16:50 | PN ---
Date/Time of Note Date/Time of Note DATE: 03/03/17 TIME: 16:48 Assessment/Plan VTE Prophylaxis VTE Prophylaxis Intervention: SCD's Lines/Catheters IV Catheter Type (from Nrsg): PICC Line Central line still needed: No Urinary Cath still in place: No Assessment/Plan Assessment/Plan 41 yo F diagnosed with rectal Ca in September of 2016 sp XRT admitted for planned low anterior resection which she underwent 8.. Post op course notable for development of abscess/fluid collection adjacent to anastomosis site for which pt underwent IR drainage placement 8.. Pt found to have rectal anastomosis site leak on imaging 8. PLAN gen surg involved with drain care and anastomosis leak ID helping with abx bowel rest as per gen surg RD on cs for help with TPN Subjective 24 Hr Interval Summary Free Text/Dictation wondering plan for care for leak Exam/Review of Systems Vital Signs Vitals Vital Signs Date Time Temp Pulse Resp B/P Pulse Ox O2 Delivery O2 Flow Rate FiO2 03/03/17 14:00 98.6 83 16 97/54 99 03/01/17 07:15 Room Air Intake and Output 03/02/17 03/02/17 03/03/17 14:59 22:59 06:59 Intake Total 787 ml 940 ml 1920 ml Output Total 1190 ml 640 ml Balance 787 ml -250 ml 1280 ml Exam nad no mrg lungs clear abd soft no rashes Results Result Diagram: 03/02/17 0522 03/03/17 0532 Results 24 hrs Laboratory Tests Test 03/02/17 21:10 03/03/17 05:32 03/03/17 09:18 Bedside Glucose 120 138 Sodium Level 138 Potassium Level 4.2 Chloride Level 100 Carbon Dioxide Level 27 Anion Gap 15 Blood Urea Nitrogen 10 Creatinine 0.52 Glucose Level 137 Calcium Level 8.8 Phosphorus Level 4.1 Magnesium Level 2.4 Medications Medications Current Medications Ondansetron HCl 4 mg 4 mg Q6H PRN IV NAUSEA AND/OR VOMITING Last administered on 02/23/17 20:04; Admin Dose 4 MG; Start 02/16/17 at 10:00 Acetaminophen (Ofirmev 1000mg/ 100ml Iv) 100 ml @ 400 mls/hr Q6H PRN IVPB FEVER Last administered on 02/23/17 11:53; Admin Dose 400 MLS/HR; Start at 15:00 Morphine Sulfate 2 mg 2 mg Q2H PRN IV PAIN Last administered on 03/02/17 22:09 ; Admin Dose 2 MG; Start 02/22/17 at 10:00 Piperacillin Sod/ Tazobactam Sod (Zosyn 3.375gm/ 100 ml (Pmx)) 100 ml @ 200 mls /hr Q8 IVPB Last administered on 03/03/17 14:12; Admin Dose 200 MLS/HR; Start 02/23/17 at 10:00 Metoclopramide HCl 10 mg 10 mg Q8 IV Last administered on 03/03/17 14:12; Admin Dose 10 MG; Start 02/23/17 at 22:00 Sodium Chloride 1,000 ml @ 50 mls/hr Q20H IV Last administered on 03/03/17 14 :19; Admin Dose 50 MLS/HR; Start 02/25/17 at 16:00 Total Parenteral Nutrition 1,000 ml @ 75 mls/hr [id number] IV Last administered on 03/03/17 14:21; Admin Dose 75 MLS/HR; Start 02/25/17 at 16:00 Fat Emulsion Intravenous (Liposyn Ii 20%) 250 ml @ 10.417 mls/ hr Q24H IV Last administered on 03/03/17 16:19; Admin Dose 10.417 MLS/HR; Start 02/25/17 at 16:00 Diagnostic Test (Pha) (Accu-Chek) 1 ea Q12 XX Last administered on 03/02/17 21 :28; Admin Dose 1 EA; Start 02/27/17 at 09:00 Miscellaneous Information 1 ea NOTE XX ; Start 02/26/17 at 14:00 Glucose (Glutose) 15 gm Q15M PRN PO DECREASED GLUCOSE; Start 02/26/17 at 14:00 Glucose (Glutose) 22.5 gm Q15M PRN PO DECREASED GLUCOSE; Start 02/26/17 at 14: 00 Dextrose (D50w Syringe) 25 ml Q15M PRN IV DECREASED GLUCOSE; Start 02/26/17 at 14:00 Dextrose (D50w Syringe) 50 ml Q15M PRN IV DECREASED GLUCOSE; Start 02/26/17 at 14:00 Glucagon (Glucagen) 1 mg Q15M PRN IM DECREASED GLUCOSE; Start 02/26/17 at 14:00 Glucose (Glutose) 15 gm Q15M PRN BUCCAL DECREASED GLUCOSE; Start 02/26/17 at 14 :00 IV Flush (NS 10 ml) 10 ml PRN PRN IV IV PROTOCOL; Start 02/27/17 at 13:00 NAVEED AREVALO MD Mar 03, 2017 16:49
--- NOTE | 2017-03-03 17:09 | RADRPT ---
Vent Rate: 104 bpm RR Interval: 0 msec AR Interval: 122 msec QRS Duration: 76 msec QT Interval: 350 msec QTC Interval: 460 msec P-R-T [place]: 76 - 98 - 69 degrees Sinus tachycardia Rightward axis Septal infarct , age undetermined Abnormal ECG Electronically Signed By: Jacob Blackwood [id number]
--- NOTE | 2017-03-03 17:10 | RADRPT ---
Vent Rate: 85 bpm RR Interval: 0 msec RI Interval: 128 msec QRS Duration: 82 msec QT Interval: 374 msec QTC Interval: 445 msec P-R-T [place]: 78 - 94 - 73 degrees Normal sinus rhythm Rightward axis Borderline ECG Electronically Signed By: Jacob Blackwood [id number]
[2017-03-03 20:17] VITALS: BP 106/55; RESP 19
[2017-03-03] MEDS: morphine 2 MG INJ IV PRN (21:27)
[2017-03-04 05:33] LABS: ABNORMAL IP MESSAGE 1; HEMATOCRIT 25.2 % (37.0-47.0); HEMOGLOBIN 8.5 g/dl (12.0-16.0); MEAN CORPUSCULAR HEMOGLOBIN 32.7 pg (29.0-33.0); MEAN CORPUSCULAR HGB CONC 33.7 g/dl (32.0-37.0); MEAN CORPUSCULAR VOLUME 96.9 fl (82.0-101.0); MEAN PLATELET VOLUME 8.9 fl (7.4-10.4); NUCLEATED RED BLOOD CELLS% 0.1 /100WBC (0.0-0.0); PLATELET COUNT 577 10^3/UL (140-415); RED CELL DISTRIBUTION WIDTH 12.4 % (11.5-14.5)
[2017-03-04 05:53] LABS: CALCIUM 8.7 mg/dl (8.4-10.2); CREATININE 0.52 mg/dl (0.44-1.00); POTASSIUM 3.9 mmol/L (3.5-5.1)
[2017-03-04 06:22] VITALS: BP 98/41; RESP 20
[2017-03-04] MEDS: PIPER-TAZO 3.375 GM IV (PMX) 100 ML IVPB SCH ×3 (06:33→21:09)
[2017-03-04] MEDS: METOCLOPRAMIDE 10 MG INJ IV SCH ×3 (06:33→21:10)
[2017-03-04 07:03] LABS: POSITIVE DIFF @See below
[2017-03-04] MEDS: SOD CHLORIDE 0.45% 1,000 ML IV SCH ×2 (08:00→13:34)
[2017-03-04 08:12] VITALS: BP 106/60; RESP 16
[2017-03-04] MEDS: ACCU-CHEK XX SCH ×2 (08:48→21:00)
[2017-03-04 11:01] LABS: LYMPHOCYTES # 1.1 10^3/ul (0.8-2.9); METAMYELOCYTES %M 1 % (0-0); MONOCYTE # 0.8 10^3/ul (0.3-0.9); MONOCYTES % (M) 5 % (0-11); MYELOCYTES % (M) 1 % (0-0)
[2017-03-04 11:04] LABS: BURR CELLS OCCASIONAL; POLYCHROMASIA 1+ (0-0)
[2017-03-04 11:05] LABS: PLATELET ESTIMATE INCREASED
--- NOTE | 2017-03-04 13:26 | PN ---
Date/Time of Note Date/Time of Note DATE: 03/04/17 TIME: 13:19 Assessment/Plan VTE Prophylaxis VTE Prophylaxis Intervention: ambulation Lines/Catheters IV Catheter Type (from [facility] PICC Line Central line still needed: Yes Urinary Cath still in place: No Assessment/Plan Assessment/Plan Postop day #16 status post laparotomy very low anterior resection of the cancer of the rectum. Also patient has been status post chemotherapy and radiation. 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 Plan is to proceed and place diverting ileostomy. Subjective 24 Hr Interval Summary Free Text/Dictation No new complaints. Had a couple of bowel movements states it is liquid to slightly formed. She states the color is yellowish. Nausea no vomiting no fever. TPN is running. Exam/Review of Systems Vital Signs Vitals Vital Signs Date Time Temp Pulse Resp B/P Pulse Ox O2 Delivery O2 Flow Rate FiO2 03/04/17 08:12 98.4 92 16 106/60 97 03/01/17 07:15 Room Air Intake and Output 03/03/17 03/03/17 03/04/17 15:00 23:00 07:00 Intake Total 1230 ml 1210 ml Output Total 60 ml 750 ml Balance 1230 ml 1150 ml -750 ml Exam Alert awake oriented 3 are stable in no acute distress. WBC has increased to 15,000 today with 4% bands. Pigtail drainage has been total to 60 cc past 24 hours and the color is greenish. Abdomen is soft. Hemoglobin has been low like 8.5 Results Result Diagram: 03/04/17 0450 03/04/17 0500 Results 24 hrs Laboratory Tests Test 03/03/17 20:33 03/04/17 04:50 03/04/17 05:00 Bedside Glucose 113 White Blood Count 15.0 #H Red Blood Count 2.60 L Hemoglobin 8.5 L Hematocrit 25.2 L Mean Corpuscular Volume 96.9 Mean Corpuscular Hemoglobin 32.7 Mean Corpuscular Hemoglobin Concent 33.7 Red Cell Distribution Width 12.4 Platelet Count 577 H Mean Platelet Volume 8.9 Neutrophils % Segmented Neutrophils % (Manual) 82 H Band Neutrophils % (Manual) 4 Lymphocytes % Lymphocytes % (Manual) 7 L Monocytes % Monocytes % (Manual) 5 Eosinophils % Basophils % Metamyelocytes % (manual) 1 H Myelocytes % (Manual) 1 H Nucleated Red Blood Cells % 0.1 H Neutrophils # (Manual) 12.4 H Band Neutrophils # 0.6 Absolute Lymphocytes (Manual) 1.0 Lymphocytes # 1.1 Monocytes # 0.8 Absolute Monocytes (Manual) 0.7 Eosinophils # Basophils # Metamyelocytes # 0.1 H Myelocytes # 0.1 H Nucleated Red Blood Cells # Platelet Estimate INCREASED Polychromasia 1+ Sodium Level 136 Potassium Level 3.9 Chloride Level 100 Carbon Dioxide Level 26 Anion Gap 14 Blood Urea Nitrogen 11 Creatinine 0.52 Glucose Level 125 Calcium Level 8.7 Medications Medications Current Medications Ondansetron HCl 4 mg 4 mg Q6H PRN IV NAUSEA AND/OR VOMITING Last administered on 02/23/17 20:04; Admin Dose 4 MG; Start 02/16/17 at 10:00 Acetaminophen (Ofirmev 1000mg/ 100ml Iv) 100 ml @ 400 mls/hr Q6H PRN IVPB FEVER Last administered on 02/23/17 11:53; Admin Dose 400 MLS/HR; Start at 15:00 Morphine Sulfate 2 mg 2 mg Q2H PRN IV PAIN Last administered on 03/03/17 21:27 ; Admin Dose 2 MG; Start 02/22/17 at 10:00 Piperacillin Sod/ Tazobactam Sod (Zosyn 3.375gm/ 100 ml (Pmx)) 100 ml @ 200 mls /hr Q8 IVPB Last administered on 03/04/17 06:33; Admin Dose 200 MLS/HR; Start 02/23/17 at 10:00 Metoclopramide HCl 10 mg 10 mg Q8 IV Last administered on 03/04/17 06:33; Admin Dose 10 MG; Start 02/23/17 at 22:00 Sodium Chloride 1,000 ml @ 50 mls/hr Q20H IV Last administered on 03/03/17 14 :19; Admin Dose 50 MLS/HR; Start 02/25/17 at 16:00 Total Parenteral Nutrition 1,000 ml @ 75 mls/hr [id number] IV Last administered on 03/03/17 23:30; Admin Dose 75 MLS/HR; Start 02/25/17 at 16:00 Fat Emulsion Intravenous (Liposyn Ii 20%) 250 ml @ 10.417 mls/ hr Q24H IV Last administered on 03/03/17 16:19; Admin Dose 10.417 MLS/HR; Start 02/25/17 at 16:00 Diagnostic Test (Pha) (Accu-Chek) 1 ea Q12 XX Last administered on 03/04/17 08 :48; Admin Dose 1 EA; Start 02/27/17 at 09:00 Miscellaneous Information 1 ea NOTE XX ; Start 02/26/17 at 14:00 Glucose (Glutose) 15 gm Q15M PRN PO DECREASED GLUCOSE; Start 02/26/17 at 14:00 Glucose (Glutose) 22.5 gm Q15M PRN PO DECREASED GLUCOSE; Start 02/26/17 at 14: 00 Dextrose (D50w Syringe) 25 ml Q15M PRN IV DECREASED GLUCOSE; Start 02/26/17 at 14:00 Dextrose (D50w Syringe) 50 ml Q15M PRN IV DECREASED GLUCOSE; Start 02/26/17 at 14:00 Glucagon (Glucagen) 1 mg Q15M PRN IM DECREASED GLUCOSE; Start 02/26/17 at 14:00 Glucose (Glutose) 15 gm Q15M PRN BUCCAL DECREASED GLUCOSE; Start 02/26/17 at 14 :00 IV Flush (NS 10 ml) 10 ml PRN PRN IV IV PROTOCOL; Start 02/27/17 at 13:00 LETICIA SANTANA MD Mar 04, 2017 13:26
[2017-03-04] MEDS ORDERED: PHYTONADIONE 10 MG/ML INJ SC ONE (13:30)
--- NOTE | 2017-03-04 13:47 | PN ---
Date/Time of Note Date/Time of Note DATE: 03/04/17 TIME: 13:45 Assessment/Plan VTE Prophylaxis VTE Prophylaxis Intervention: SCD's Lines/Catheters IV Catheter Type (from Nrsg): PICC Line Central line still needed: Yes Urinary Cath still in place: No Assessment/Plan Assessment/Plan 41 yo F diagnosed with rectal Ca in September of 2016 sp XRT admitted for planned low anterior resection which she underwent 8.. Post op course notable for development of abscess/fluid collection adjacent to anastomosis site for which pt underwent IR drainage placement 8.. Pt found to have rectal anastomosis site leak on imaging 8. PLAN gen surg involved with drain care and anastomosis leak-->advised to discuss repair/intervention plan with general surgery ID helping with abx bowel rest as per gen surg RD on cs for help with TPN Subjective 24 Hr Interval Summary Free Text/Dictation wondering why ileostomy being perused over anastomotic leak Exam/Review of Systems Vital Signs Vitals Vital Signs Date Time Temp Pulse Resp B/P Pulse Ox O2 Delivery O2 Flow Rate FiO2 03/04/17 08:12 98.4 92 16 106/60 97 03/01/17 07:15 Room Air Intake and Output 03/03/17 03/03/17 03/04/17 15:00 23:00 07:00 Intake Total 1230 ml 1210 ml Output Total 60 ml 750 ml Balance 1230 ml 1150 ml -750 ml Exam nad, sleeping no mrg lungs clear no rashes no edema Results Result Diagram: 03/04/17 0450 03/04/17 0500 Results 24 hrs Laboratory Tests Test 03/03/17 20:33 03/04/17 04:50 03/04/17 05:00 Bedside Glucose 113 White Blood Count 15.0 #H Red Blood Count 2.60 L Hemoglobin 8.5 L Hematocrit 25.2 L Mean Corpuscular Volume 96.9 Mean Corpuscular Hemoglobin 32.7 Mean Corpuscular Hemoglobin Concent 33.7 Red Cell Distribution Width 12.4 Platelet Count 577 H Mean Platelet Volume 8.9 Neutrophils % Segmented Neutrophils % (Manual) 82 H Band Neutrophils % (Manual) 4 Lymphocytes % Lymphocytes % (Manual) 7 L Monocytes % Monocytes % (Manual) 5 Eosinophils % Basophils % Metamyelocytes % (manual) 1 H Myelocytes % (Manual) 1 H Nucleated Red Blood Cells % 0.1 H Neutrophils # (Manual) 12.4 H Band Neutrophils # 0.6 Absolute Lymphocytes (Manual) 1.0 Lymphocytes # 1.1 Monocytes # 0.8 Absolute Monocytes (Manual) 0.7 Eosinophils # Basophils # Metamyelocytes # 0.1 H Myelocytes # 0.1 H Nucleated Red Blood Cells # Platelet Estimate INCREASED Polychromasia 1+ Sodium Level 136 Potassium Level 3.9 Chloride Level 100 Carbon Dioxide Level 26 Anion Gap 14 Blood Urea Nitrogen 11 Creatinine 0.52 Glucose Level 125 Calcium Level 8.7 Medications Medications Current Medications Ondansetron HCl 4 mg 4 mg Q6H PRN IV NAUSEA AND/OR VOMITING Last administered on 02/23/17 20:04; Admin Dose 4 MG; Start 02/16/17 at 10:00 Acetaminophen (Ofirmev 1000mg/ 100ml Iv) 100 ml @ 400 mls/hr Q6H PRN IVPB FEVER Last administered on 02/23/17 11:53; Admin Dose 400 MLS/HR; Start at 15:00 Morphine Sulfate 2 mg 2 mg Q2H PRN IV PAIN Last administered on 03/03/17 21:27 ; Admin Dose 2 MG; Start 02/22/17 at 10:00 Piperacillin Sod/ Tazobactam Sod (Zosyn 3.375gm/ 100 ml (Pmx)) 100 ml @ 200 mls /hr Q8 IVPB Last administered on 03/04/17 06:33; Admin Dose 200 MLS/HR; Start 02/23/17 at 10:00 Metoclopramide HCl 10 mg 10 mg Q8 IV Last administered on 03/04/17 06:33; Admin Dose 10 MG; Start 02/23/17 at 22:00 Sodium Chloride 1,000 ml @ 50 mls/hr Q20H IV Last administered on 03/04/17 13 :34; Admin Dose 50 MLS/HR; Start 02/25/17 at 16:00 Total Parenteral Nutrition 1,000 ml @ 75 mls/hr [id number] IV Last administered on 03/03/17 23:30; Admin Dose 75 MLS/HR; Start 02/25/17 at 16:00 Fat Emulsion Intravenous (Liposyn Ii 20%) 250 ml @ 10.417 mls/ hr Q24H IV Last administered on 03/03/17 16:19; Admin Dose 10.417 MLS/HR; Start 02/25/17 at 16:00 Diagnostic Test (Pha) (Accu-Chek) 1 ea Q12 XX Last administered on 03/04/17 08 :48; Admin Dose 1 EA; Start 02/27/17 at 09:00 Miscellaneous Information 1 ea NOTE XX ; Start 02/26/17 at 14:00 Glucose (Glutose) 15 gm Q15M PRN PO DECREASED GLUCOSE; Start 02/26/17 at 14:00 Glucose (Glutose) 22.5 gm Q15M PRN PO DECREASED GLUCOSE; Start 02/26/17 at 14: 00 Dextrose (D50w Syringe) 25 ml Q15M PRN IV DECREASED GLUCOSE; Start 02/26/17 at 14:00 Dextrose (D50w Syringe) 50 ml Q15M PRN IV DECREASED GLUCOSE; Start 02/26/17 at 14:00 Glucagon (Glucagen) 1 mg Q15M PRN IM DECREASED GLUCOSE; Start 02/26/17 at 14:00 Glucose (Glutose) 15 gm Q15M PRN BUCCAL DECREASED GLUCOSE; Start 02/26/17 at 14 :00 IV Flush (NS 10 ml) 10 ml PRN PRN IV IV PROTOCOL; Start 02/27/17 at 13:00 NAVEED AREVALO MD Mar 04, 2017 13:47
[2017-03-04 14:00] VITALS: BP 109/61; RESP 16
[2017-03-04] MEDS: FAT EMULSION 20% 250 ML IV SCH (16:59)
[2017-03-04] MEDS: TPN 1,000 ML IV SCH (17:00)
[2017-03-04 19:50] VITALS: BP 90/52; RESP 18
--- NOTE | 2017-03-04 21:41 | CONS ---
Date/Time of Note Date/Time of Note DATE: 03/04/17 TIME: 21:37 Assessment/Plan Assessment/Plan Chief Complaint/Hosp Course - post op fever due to pelvic abscess - pelvic abscess formation adjacent to a distal colonic anastomosis, seen on CT on 02/24/[address] s/[address]-guided drainage on 02/28/2017. Culture grew klebsiella, E. coli, enterococci, morganella, bacteroides - anastomotic leak, identified on barium study on 03/02/2017 - possible UTI vs. contamination of the urethra by klebsiella and morganella - rectal CA s/p low anterior resection with splenic flexure mobilization, mobilization of omental patch and rigid sigmoidoscopy on 02/16/2017. Pathology of the resected rectum showed residual moderately-differentiated adenocarcinoma , involving muscularis propria, mucosal ulceration, clear margin and no e/o metastasis - NPO, on TPN status recommendations - Pt's scheduled to get diverting colostomy; continue pip/tazo (02/23/2017-) management d/w Pt, her sister and RN Problems: Consultation Date/Type/Reason Admit Date/Time Feb 16, 2017 at 07:24 Initial Consult Date 02/22/17 Type of Consultation: Infectious Disease Referring Provider: VINCENZO CISNEROS MD 24 HR Interval Summary Constitutional: no complaints Detailed Summary Eyes: no complaints ENT: no complaints Respiratory: no complaints Cardiovascular: no complaints Gastrointestinal: No diarrhea, No nausea, No pain Genitourinary: no complaints Musculoskeletal: no complaints Skin: no complaints Exam/Review of Systems Vital Signs Vitals Vital Signs Date Time Temp Pulse Resp B/P Pulse Ox O2 Delivery O2 Flow Rate FiO2 03/04/17 19:50 98.3 97 18 90/52 98 03/01/17 07:15 Room Air Intake and Output 03/03/17 03/03/17 03/04/17 15:00 23:00 07:00 Intake Total 1230 ml 1210 ml Output Total 60 ml 750 ml Balance 1230 ml 1150 ml -750 ml Exam Constitutional: alert, oriented, well developed Psych: nl mood/affect, no complaints Head: atraumatic, normocephalic Eyes: nl conjunctiva, nl lids ENMT: nl external ears & nose, nl nasal mucosa & septum Neck: supple Respiratory: clear to auscultation, normal air movement Cardiovascular: nl pulses, regular rate and rhythm Gastrointestinal: non-tender, other (external drainage catheter collecting purulence), soft, surgical scars (well approximated), No distended Musculoskeletal: nl extremities to inspection Extremities: No edema 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: [employer] PROF[employer] II-XII intact, nl mental status, nl speech, nl strength Skin: nl turgor Results Result Diagram: 03/04/17 0450 03/04/17 0500 Results 24 hrs Laboratory Tests Test 03/04/17 04:50 03/04/17 05:00 03/04/17 08:46 03/04/17 21:08 White Blood Count 15.0 #H Red Blood Count 2.60 L Hemoglobin 8.5 L Hematocrit 25.2 L Mean Corpuscular Volume 96.9 Mean Corpuscular Hemoglobin 32.7 Mean Corpuscular Hemoglobin Concent 33.7 Red Cell Distribution Width 12.4 Platelet Count 577 H Mean Platelet Volume 8.9 Neutrophils % Segmented Neutrophils % (Manual) 82 H Band Neutrophils % (Manual) 4 Lymphocytes % Lymphocytes % (Manual) 7 L Monocytes % Monocytes % (Manual) 5 Eosinophils % Basophils % Metamyelocytes % (manual) 1 H Myelocytes % (Manual) 1 H Nucleated Red Blood Cells % 0.1 H Neutrophils # (Manual) 12.4 H Band Neutrophils # 0.6 Absolute Lymphocytes (Manual) 1.0 Lymphocytes # 1.1 Monocytes # 0.8 Absolute Monocytes (Manual) 0.7 Eosinophils # Basophils # Metamyelocytes # 0.1 H Myelocytes # 0.1 H Nucleated Red Blood Cells # Platelet Estimate INCREASED Polychromasia 1+ Sodium Level 136 Potassium Level 3.9 Chloride Level 100 Carbon Dioxide Level 26 Anion Gap 14 Blood Urea Nitrogen 11 Creatinine 0.52 Glucose Level 125 Calcium Level 8.7 Bedside Glucose 125 112 Medications Medications Current Medications Ondansetron HCl 4 mg 4 mg Q6H PRN IV NAUSEA AND/OR VOMITING Last administered on 02/23/17 20:04; Admin Dose 4 MG; Start 02/16/17 at 10:00 Acetaminophen (Ofirmev 1000mg/ 100ml Iv) 100 ml @ 400 mls/hr Q6H PRN IVPB FEVER Last administered on 02/23/17 11:53; Admin Dose 400 MLS/HR; Start at 15:00 Morphine Sulfate 2 mg 2 mg Q2H PRN IV PAIN Last administered on 03/03/17 21:27 ; Admin Dose 2 MG; Start 02/22/17 at 10:00 Piperacillin Sod/ Tazobactam Sod (Zosyn 3.375gm/ 100 ml (Pmx)) 100 ml @ 200 mls /hr Q8 IVPB Last administered on 03/04/17 21:09; Admin Dose 200 MLS/HR; Start 02/23/17 at 10:00 Metoclopramide HCl 10 mg 10 mg Q8 IV Last administered on 03/04/17 21:10; Admin Dose 10 MG; Start 02/23/17 at 22:00 Sodium Chloride 1,000 ml @ 50 mls/hr Q20H IV Last administered on 03/04/17 13 :34; Admin Dose 50 MLS/HR; Start 02/25/17 at 16:00 Total Parenteral Nutrition 1,000 ml @ 75 mls/hr [id number] IV Last administered on 03/04/17 17:00; Admin Dose 75 MLS/HR; Start 02/25/17 at 16:00 Fat Emulsion Intravenous (Liposyn Ii 20%) 250 ml @ 10.417 mls/ hr Q24H IV Last administered on 03/04/17 16:59; Admin Dose 10.417 MLS/HR; Start 02/25/17 at 16:00 Diagnostic Test (Pha) (Accu-Chek) 1 ea Q12 XX Last administered on 03/04/17 08 :48; Admin Dose 1 EA; Start 02/27/17 at 09:00 Miscellaneous Information 1 ea NOTE XX ; Start 02/26/17 at 14:00 Glucose (Glutose) 15 gm Q15M PRN PO DECREASED GLUCOSE; Start 02/26/17 at 14:00 Glucose (Glutose) 22.5 gm Q15M PRN PO DECREASED GLUCOSE; Start 02/26/17 at 14: 00 Dextrose (D50w Syringe) 25 ml Q15M PRN IV DECREASED GLUCOSE; Start 02/26/17 at 14:00 Dextrose (D50w Syringe) 50 ml Q15M PRN IV DECREASED GLUCOSE; Start 02/26/17 at 14:00 Glucagon (Glucagen) 1 mg Q15M PRN IM DECREASED GLUCOSE; Start 02/26/17 at 14:00 Glucose (Glutose) 15 gm Q15M PRN BUCCAL DECREASED GLUCOSE; Start 02/26/17 at 14 :00 IV Flush (NS 10 ml) 10 ml PRN PRN IV IV PROTOCOL; Start 02/27/17 at 13:00 BLANCO OHARA M.D. Mar 04, 2017 21:41
[2017-03-05 02:00] VITALS: BP 97/53; RESP 18
[2017-03-05] MEDS: METOCLOPRAMIDE 10 MG INJ IV SCH ×3 (05:02→21:16)
[2017-03-05] MEDS: PIPER-TAZO 3.375 GM IV (PMX) 100 ML IVPB SCH ×3 (05:02→21:16)
[2017-03-05 05:29] LABS: BASOPHIL # 0.1 10^3/ul (0.0-0.1); BASOPHILS % 0.3 % (0.0-2.0); EOSINOPHILS # 0.2 10^3/ul (0.0-0.5); EOSINOPHILS % 1.2 % (0.0-7.0); HEMATOCRIT 26.2 % (37.0-47.0); HEMOGLOBIN 8.5 g/dl (12.0-16.0); LYMPHOCYTES # 0.9 10^3/ul (0.8-2.9); LYMPHOCYTES % 5.8 % (15.0-51.0); MEAN CORPUSCULAR HEMOGLOBIN 31.7 pg (29.0-33.0); MEAN CORPUSCULAR HGB CONC 32.4 g/dl (32.0-37.0); MEAN CORPUSCULAR VOLUME 97.8 fl (82.0-101.0); MEAN PLATELET VOLUME 8.8 fl (7.4-10.4); MONOCYTE # 0.6 10^3/ul (0.3-0.9); MONOCYTES % 4.1 % (0.0-11.0); NEUTROPHILS % 85.3 % (39.0-77.0); PLATELET COUNT 596 10^3/UL (140-415); RED BLOOD COUNT 2.68 10^6/ul (4.20-5.40); RED CELL DISTRIBUTION WIDTH 12.5 % (11.5-14.5); WHITE BLOOD COUNT 15.3 10^3/ul (4.8-10.8)
[2017-03-05 06:00] LABS: MAGNESIUM 2.3 mg/dl (1.7-2.5)
[2017-03-05 06:03] LABS: CALCIUM 8.9 mg/dl (8.4-10.2); CREATININE 0.54 mg/dl (0.44-1.00); POTASSIUM 4.1 mmol/L (3.5-5.1)
[2017-03-05] MEDS: TPN 1,000 ML IV SCH ×2 (06:25→15:21)
[2017-03-05 07:53] VITALS: BP 98/56; RESP 16
[2017-03-05] MEDS: ACCU-CHEK XX SCH ×2 (08:24→21:00)
[2017-03-05 08:41] LABS: INR 1.1; PROTIME 14.2 Sec (12.2-14.2); PT RATIO 1.1
[2017-03-05 08:42] LABS: PARTIAL THROMBOPLASTIN TIME 24.2 Sec (25.0-35.0)
--- NOTE | 2017-03-05 10:47 | CONS ---
[facility] HCIS Consult Follow up SOAP Patient Name: Kaylan Gutierrez Unit Number: [id number] Date of : 1975 Patient Status: Admitted Inpatient Attending Doctor: Karla Jacinto MD Edit: BLANCO MORRIS M.D. on 03/05/17 @ 15:31 Arturo attestation: I discussed the management with ITZEL Herrera and agree with her note. Date/Time of Note Date/Time of Note DATE: 03/05/17 TIME: 10:38 Consult Date/Type/Reason Admit Date/Time Feb 16, 2017 at 07:24 Initial Consult Date 02/22/17 Type of Consultation: Infectious Disease Ordering Provider: VINCENZO CISNEROS MD Objective Vital Signs Date Time Temp Pulse Resp B/P Pulse Ox O2 Delivery O2 Flow Rate FiO2 03/05/17 07:53 98.2 90 16 98/56 98 03/05/17 02:00 Room Air Intake and Output 03/04/17 03/04/17 03/05/17 15:00 23:00 07:00 Intake Total 700 ml 1565 ml 1885.42 ml Output Total 1250 ml 10 ml Balance 700 ml 315 ml 1875.42 ml Exam Constitutional: alert, oriented, well developed Psych: no complaints, normal mood and affect Head: atraumatic, normocephalic Eyes: normal conjunctiva and lids ENMT: normal external ears & nose, moist mucosa Neck: supple Respiratory: clear to auscultation, normal air movement Cardiovascular: palpable pulses, regular rate and rhythm Gastrointestinal: soft, flat, non-tender, non-distended, midline incision clean, dry, intact and well approximated, purulent drainage from right buttock external drainage catheter Musculoskeletal: normal extremities to inspection Extremities: No edema, warm and dry, Piccline LUE, no e/o infection 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: normal mental status and clear speech Skin: warm, dry, normal turgor Results/Medications Result Diagram: 03/05/17 0500 03/05/17 0500 Results 24 hrs Laboratory Tests Test 03/04/17 21:08 03/05/17 05:00 03/05/17 08:24 Bedside Glucose 112 123 White Blood Count 15.3 H Red Blood Count 2.68 L Hemoglobin 8.5 L Hematocrit 26.2 L Mean Corpuscular Volume 97.8 Mean Corpuscular Hemoglobin 31.7 Mean Corpuscular Hemoglobin Concent 32.4 Red Cell Distribution Width 12.5 Platelet Count 596 H Mean Platelet Volume 8.8 Neutrophils % 85.3 H Lymphocytes % 5.8 L Monocytes % 4.1 Eosinophils % 1.2 Basophils % 0.3 Nucleated Red Blood Cells % 0.0 Neutrophils # (Manual) 13.0 H Lymphocytes # 0.9 Monocytes # 0.6 Eosinophils # 0.2 Basophils # 0.1 Nucleated Red Blood Cells # 0.0 Prothrombin Time 14.2 Prothrombin Time Ratio 1.1 INR International Normalized Ratio 1.10 Activated Partial Thromboplast Time 24.2 L Sodium Level 138 Potassium Level 4.1 Chloride Level 100 Carbon Dioxide Level 27 Anion Gap 15 Blood Urea Nitrogen 11 Creatinine 0.54 Glucose Level 120 Calcium Level 8.9 Phosphorus Level 4.0 Magnesium Level 2.3 Prealbumin 15.2 L Medications Current Medications Ondansetron HCl 4 mg 4 mg Q6H PRN IV NAUSEA AND/OR VOMITING Last administered on 02/23/17 20:04; Admin Dose 4 MG; Start 02/16/17 at 10:00 Acetaminophen (Ofirmev 1000mg/ 100ml Iv) 100 ml @ 400 mls/hr Q6H PRN IVPB FEVER Last administered on 02/23/17 11:53; Admin Dose 400 MLS/HR; Start at 15:00 Morphine Sulfate 2 mg 2 mg Q2H PRN IV PAIN Last administered on 03/03/17 21:27 ; Admin Dose 2 MG; Start 02/22/17 at 10:00 Piperacillin Sod/ Tazobactam Sod (Zosyn 3.375gm/ 100 ml (Pmx)) 100 ml @ 200 mls /hr Q8 IVPB Last administered on 03/05/17 05:02; Admin Dose 200 MLS/HR; Start 02/23/17 at 10:00 Metoclopramide HCl 10 mg 10 mg Q8 IV Last administered on 03/05/17 05:02; Admin Dose 10 MG; Start 02/23/17 at 22:00 Sodium Chloride 1,000 ml @ 50 mls/hr Q20H IV Last administered on 03/04/17 13 :34; Admin Dose 50 MLS/HR; Start 02/25/17 at 16:00 Total Parenteral Nutrition 1,000 ml @ 75 mls/hr [id number] IV Last administered on 03/05/17 06:25; Admin Dose 75 MLS/HR; Start 02/25/17 at 16:00 Fat Emulsion Intravenous (Liposyn Ii 20%) 250 ml @ 10.417 mls/ hr Q24H IV Last administered on 03/04/17 16:59; Admin Dose 10.417 MLS/HR; Start 02/25/17 at 16:00 Diagnostic Test (Pha) (Accu-Chek) 1 ea Q12 XX Last administered on 03/04/17 08 :48; Admin Dose 1 EA; Start 02/27/17 at 09:00 Miscellaneous Information 1 ea NOTE XX ; Start 02/26/17 at 14:00 Glucose (Glutose) 15 gm Q15M PRN PO DECREASED GLUCOSE; Start 02/26/17 at 14:00 Glucose (Glutose) 22.5 gm Q15M PRN PO DECREASED GLUCOSE; Start 02/26/17 at 14: 00 Dextrose (D50w Syringe) 25 ml Q15M PRN IV DECREASED GLUCOSE; Start 02/26/17 at 14:00 Dextrose (D50w Syringe) 50 ml Q15M PRN IV DECREASED GLUCOSE; Start 02/26/17 at 14:00 Glucagon (Glucagen) 1 mg Q15M PRN IM DECREASED GLUCOSE; Start 02/26/17 at 14:00 Glucose (Glutose) 15 gm Q15M PRN BUCCAL DECREASED GLUCOSE; Start 02/26/17 at 14 :00 IV Flush (NS 10 ml) 10 ml PRN PRN IV IV PROTOCOL; Start 02/27/17 at 13:00 Assessment/Plan Chief Complaint/Hosp Course Assessment - post op fever due to pelvic abscess - pelvic abscess formation adjacent to a distal colonic anastomosis, seen on CT on 02/24/[address] s[address]-guided drainage on 02/28/2017. Culture grew klebsiella, E. coli, enterococci, morganella, bacteroides - anastomotic leak, identified on barium study on 03/02/2017 - possible UTI vs. contamination of the urethra by klebsiella and morganella - rectal CA s/p low anterior resection with splenic flexure mobilization, mobilization of omental patch and rigid sigmoidoscopy on 02/16/2017. Pathology of the resected rectum showed residual moderately-differentiated adenocarcinoma , involving muscularis propria, mucosal ulceration, clear margin and no e/o metastasis - NPO, on TPN status Recommendations - Continue pip/tazo (02/23/2017-) Care and management discussed with patient, nurse Ayon, and DR. Morris Problems: Additional Assessment/Plan - NPO, on TPN & lipids - planning diverting ilieostomy tomorrow RICHI HERRERA Mar 05, 2017 10:47
--- NOTE | 2017-03-05 11:58 | PN ---
Date/Time of Note Date/Time of Note DATE: 03/05/17 TIME: 11:57 Assessment/Plan VTE Prophylaxis VTE Prophylaxis Intervention: SCD's Lines/Catheters IV Catheter Type (from Nrsg): PICC Line Central line still needed: Yes Urinary Cath still in place: No Assessment/Plan Assessment/Plan 41 yo F diagnosed with rectal Ca in September of 2016 sp XRT admitted for planned low anterior resection which she underwent 8.. Post op course notable for development of abscess/fluid collection adjacent to anastomosis site for which pt underwent IR drainage placement 8.. Pt found to have rectal anastomosis site leak on imaging 8. PLAN gen surg involved with drain care and anastomosis leak-->advised to discuss repair/intervention plan with general surgery ID helping with abx bowel rest as per gen surg RD on cs for help with TPN Subjective 24 Hr Interval Summary Free Text/Dictation comfortable Exam/Review of Systems Vital Signs Vitals Vital Signs Date Time Temp Pulse Resp B/P Pulse Ox O2 Delivery O2 Flow Rate FiO2 03/05/17 07:53 98.2 90 16 98/56 98 03/05/17 02:00 Room Air Intake and Output 03/04/17 03/04/17 03/05/17 15:00 23:00 07:00 Intake Total 700 ml 1565 ml 1885.42 ml Output Total 1250 ml 10 ml Balance 700 ml 315 ml 1875.42 ml Exam nad PICC in L arm resp nonlabored no rashes no edema Results Result Diagram: 03/05/17 0500 03/05/17 0500 Results 24 hrs Laboratory Tests Test 03/04/17 21:08 03/05/17 05:00 03/05/17 08:24 Bedside Glucose 112 123 White Blood Count 15.3 H Red Blood Count 2.68 L Hemoglobin 8.5 L Hematocrit 26.2 L Mean Corpuscular Volume 97.8 Mean Corpuscular Hemoglobin 31.7 Mean Corpuscular Hemoglobin Concent 32.4 Red Cell Distribution Width 12.5 Platelet Count 596 H Mean Platelet Volume 8.8 Neutrophils % 85.3 H Lymphocytes % 5.8 L Monocytes % 4.1 Eosinophils % 1.2 Basophils % 0.3 Nucleated Red Blood Cells % 0.0 Neutrophils # (Manual) 13.0 H Lymphocytes # 0.9 Monocytes # 0.6 Eosinophils # 0.2 Basophils # 0.1 Nucleated Red Blood Cells # 0.0 Prothrombin Time 14.2 Prothrombin Time Ratio 1.1 INR International Normalized Ratio 1.10 Activated Partial Thromboplast Time 24.2 L Sodium Level 138 Potassium Level 4.1 Chloride Level 100 Carbon Dioxide Level 27 Anion Gap 15 Blood Urea Nitrogen 11 Creatinine 0.54 Glucose Level 120 Calcium Level 8.9 Phosphorus Level 4.0 Magnesium Level 2.3 Prealbumin 15.2 L Medications Medications Current Medications Ondansetron HCl 4 mg 4 mg Q6H PRN IV NAUSEA AND/OR VOMITING Last administered on 02/23/17 20:04; Admin Dose 4 MG; Start 02/16/17 at 10:00 Acetaminophen (Ofirmev 1000mg/ 100ml Iv) 100 ml @ 400 mls/hr Q6H PRN IVPB FEVER Last administered on 02/23/17 11:53; Admin Dose 400 MLS/HR; Start at 15:00 Morphine Sulfate 2 mg 2 mg Q2H PRN IV PAIN Last administered on 03/03/17 21:27 ; Admin Dose 2 MG; Start 02/22/17 at 10:00 Piperacillin Sod/ Tazobactam Sod (Zosyn 3.375gm/ 100 ml (Pmx)) 100 ml @ 200 mls /hr Q8 IVPB Last administered on 03/05/17 05:02; Admin Dose 200 MLS/HR; Start 02/23/17 at 10:00 Metoclopramide HCl 10 mg 10 mg Q8 IV Last administered on 03/05/17 05:02; Admin Dose 10 MG; Start 02/23/17 at 22:00 Sodium Chloride 1,000 ml @ 50 mls/hr Q20H IV Last administered on 03/04/17 13 :34; Admin Dose 50 MLS/HR; Start 02/25/17 at 16:00 Total Parenteral Nutrition 1,000 ml @ 75 mls/hr [id number] IV Last administered on 03/05/17 06:25; Admin Dose 75 MLS/HR; Start 02/25/17 at 16:00 Fat Emulsion Intravenous (Liposyn Ii 20%) 250 ml @ 10.417 mls/ hr Q24H IV Last administered on 03/04/17 16:59; Admin Dose 10.417 MLS/HR; Start 02/25/17 at 16:00 Diagnostic Test (Pha) (Accu-Chek) 1 ea Q12 XX Last administered on 03/04/17t 08 :48; Admin Dose 1 EA; Start 02/27/17 at 09:00 Miscellaneous Information 1 ea NOTE XX ; Start 02/26/17 at 14:00 Glucose (Glutose) 15 gm Q15M PRN PO DECREASED GLUCOSE; Start 02/26/17 at 14:00 Glucose (Glutose) 22.5 gm Q15M PRN PO DECREASED GLUCOSE; Start 02/26/17 at 14: 00 Dextrose (D50w Syringe) 25 ml Q15M PRN IV DECREASED GLUCOSE; Start 02/26/17 at 14:00 Dextrose (D50w Syringe) 50 ml Q15M PRN IV DECREASED GLUCOSE; Start 02/26/17 at 14:00 Glucagon (Glucagen) 1 mg Q15M PRN IM DECREASED GLUCOSE; Start 02/26/17 at 14:00 Glucose (Glutose) 15 gm Q15M PRN BUCCAL DECREASED GLUCOSE; Start 02/26/17 at 14 :00 IV Flush (NS 10 ml) 10 ml PRN PRN IV IV PROTOCOL; Start 02/27/17 at 13:00 NAVEED AREVALO MD Mar 05, 2017 11:58
[2017-03-05 14:00] VITALS: BP 99/55; RESP 16
--- NOTE | 2017-03-05 14:24 | PN ---
Date/Time of Note Date/Time of Note DATE: 03/05/17 TIME: 14:18 Assessment/Plan VTE Prophylaxis VTE Prophylaxis Intervention: ambulation Lines/Catheters IV [facility] Type ([facility] PICC Line Central line still needed: Yes Urinary Cath still in place: No Assessment/Plan Assessment/Plan Considering evidence of anastomosis leak posterior site of the anastomosis, Dr. Paredes is planning to place a diverting ileostomy tomorrow morning for this patient. I already have explained everything to the patient patient's . Also Dr. Paredes will explaine to them before operation tomorrow. Subjective 24 Hr Interval Summary Free Text/Dictation No new events overnight. No complaints. Has had a couple of bowel movement loose semi-liquid yellowish in color. TPN 75 cc/h. Zosyn continued per infectious disease recommendation. Exam/Review of Systems Vital Signs Vitals Vital Signs Date Time Temp Pulse Resp B/P Pulse Ox O2 Delivery O2 Flow Rate FiO2 03/05/17 07:53 98.2 90 16 98/56 98 03/05/17 02:00 Room Air Intake and Output 03/04/17 03/04/17 03/05/17 15:00 23:00 07:00 Intake Total 700 ml 1565 ml 1885.42 ml Output Total 1250 ml 10 ml Balance 700 ml 315 ml 1875.42 ml Exam Vital sign is stable. Pigtail drain from pelvis 15 cc past 24 hours greenish in color. Heart regular lungs clear. Abdomen soft. Results Result Diagram: 03/05/17 0500 03/05/17 0500 Results 24 hrs Laboratory Tests Test 03/04/17 21:08 03/05/17 05:00 03/05/17 08:24 Bedside Glucose 112 123 White Blood Count 15.3 H Red Blood Count 2.68 L Hemoglobin 8.5 L Hematocrit 26.2 L Mean Corpuscular Volume 97.8 Mean Corpuscular Hemoglobin 31.7 Mean Corpuscular Hemoglobin Concent 32.4 Red Cell Distribution Width 12.5 Platelet Count 596 H Mean Platelet Volume 8.8 Neutrophils % 85.3 H Lymphocytes % 5.8 L Monocytes % 4.1 Eosinophils % 1.2 Basophils % 0.3 Nucleated Red Blood Cells % 0.0 Neutrophils # (Manual) 13.0 H Lymphocytes # 0.9 Monocytes # 0.6 Eosinophils # 0.2 Basophils # 0.1 Nucleated Red Blood Cells # 0.0 Prothrombin Time 14.2 Prothrombin Time Ratio 1.1 INR International Normalized Ratio 1.10 Activated Partial Thromboplast Time 24.2 L Sodium Level 138 Potassium Level 4.1 Chloride Level 100 Carbon Dioxide Level 27 Anion Gap 15 Blood Urea Nitrogen 11 Creatinine 0.54 Glucose Level 120 Calcium Level 8.9 Phosphorus Level 4.0 Magnesium Level 2.3 Prealbumin 15.2 L Medications Medications Current Medications Ondansetron HCl 4 mg 4 mg Q6H PRN IV NAUSEA AND/OR VOMITING Last administered on 02/23/17 20:04; Admin Dose 4 MG; Start 02/16/17 at 10:00 Acetaminophen (Ofirmev 1000mg/ 100ml Iv) 100 ml @ 400 mls/hr Q6H PRN IVPB FEVER Last administered on 02/23/17 11:53; Admin Dose 400 MLS/HR; Start at 15:00 Morphine Sulfate 2 mg 2 mg Q2H PRN IV PAIN Last administered on 03/03/17 21:27 ; Admin Dose 2 MG; Start 02/22/17 at 10:00 Piperacillin Sod/ Tazobactam Sod (Zosyn 3.375gm/ 100 ml (Pmx)) 100 ml @ 200 mls /hr Q8 IVPB Last administered on 03/05/17 13:25; Admin Dose 200 MLS/HR; Start 02/23/17 at 10:00 Metoclopramide HCl 10 mg 10 mg Q8 IV Last administered on 03/05/17 13:25; Admin Dose 10 MG; Start 02/23/17 at 22:00 Sodium Chloride 1,000 ml @ 50 mls/hr Q20H IV Last administered on 03/04/17 13 :34; Admin Dose 50 MLS/HR; Start 02/25/17 at 16:00 Total Parenteral Nutrition 1,000 ml @ 75 mls/hr [id number] IV Last administered on 03/05/17 06:25; Admin Dose 75 MLS/HR; Start 02/25/17 at 16:00 Fat Emulsion Intravenous (Liposyn Ii 20%) 250 ml @ 10.417 mls/ hr Q24H IV Last administered on 03/04/17 16:59; Admin Dose 10.417 MLS/HR; Start 02/25/17 at 16:00 Diagnostic Test (Pha) (Accu-Chek) 1 ea Q12 XX Last administered on 03/04/17t 08 :48; Admin Dose 1 EA; Start 02/27/17 at 09:00 Miscellaneous Information 1 ea NOTE XX ; Start 02/26/17 at 14:00 Glucose (Glutose) 15 gm Q15M PRN PO DECREASED GLUCOSE; Start 02/26/17 at 14:00 Glucose (Glutose) 22.5 gm Q15M PRN PO DECREASED GLUCOSE; Start 02/26/17 at 14: 00 Dextrose (D50w Syringe) 25 ml Q15M PRN IV DECREASED GLUCOSE; Start 02/26/17 at 14:00 Dextrose (D50w Syringe) 50 ml Q15M PRN IV DECREASED GLUCOSE; Start 02/26/17 at 14:00 Glucagon (Glucagen) 1 mg Q15M PRN IM DECREASED GLUCOSE; Start 02/26/17 at 14:00 Glucose (Glutose) 15 gm Q15M PRN BUCCAL DECREASED GLUCOSE; Start 02/26/17 at 14 :00 IV Flush (NS 10 ml) 10 ml PRN PRN IV IV PROTOCOL; Start 02/27/17 at 13:00 LETICIA SANTANA MD Mar 05, 2017 14:24
[2017-03-05] MEDS: FAT EMULSION 20% 250 ML IV SCH (15:21)
[2017-03-05 20:00] VITALS: BP 100/59; RESP 18
[2017-03-05] MEDS: SOD CHLORIDE 0.45% 1,000 ML IV SCH (23:26)
[2017-03-06] VITALS (15 sets, daily range): BP systolic 86–116; BP diastolic 50–68; PULSE 78–94; RESP 14–20
[2017-03-06] MEDS: METOCLOPRAMIDE 10 MG INJ IV SCH ×3 (05:28→21:27)
[2017-03-06] MEDS: TPN 1,000 ML IV SCH ×3 (05:28→22:06)
[2017-03-06] MEDS: PIPER-TAZO 3.375 GM IV (PMX) 100 ML IVPB SCH ×3 (05:28→21:27)
[2017-03-06 06:53] LABS: CALCIUM 8.9 mg/dl (8.4-10.2); CREATININE 0.49 mg/dl (0.44-1.00); MAGNESIUM 2.3 mg/dl (1.7-2.5); PHOSPHORUS 4.2 mg/dl (2.5-4.9); POTASSIUM 4.1 mmol/L (3.5-5.1)
[2017-03-06] MEDS: ACCU-CHEK XX SCH ×2 (07:51→20:38)
[2017-03-06] MEDS ORDERED: ROCURONIUM 50 MG INJ ONE (07:59)
[2017-03-06] MEDS ORDERED: SUCCINYLCHOLINE CHLORIDE 100 MG/5 ML SYG IV ONE (07:59)
[2017-03-06] MEDS ORDERED: NEOSTIGMINE 3 MG/3 ML SYRINGE ONE (07:59)
[2017-03-06] MEDS ORDERED: PROPOFOL 20 ML ONE (07:59)
[2017-03-06] MEDS ORDERED: LIDOCAINE 2% (SDV) 5 ML INJ ONE (07:59)
[2017-03-06] MEDS ORDERED: GLYCOPYRROLATE 0.4 MG INJ ONE ×2 (07:59→08:44)
[2017-03-06] MEDS ORDERED: MEPERIDINE 100 MG INJ ONE (08:00)
[2017-03-06] MEDS ORDERED: CEFAZOLIN 1 GM INJ ONE (08:42)
[2017-03-06] MEDS ORDERED: ONDANSETRON 4 MG INJ ONE (08:42)
[2017-03-06] MEDS ORDERED: METOCLOPRAMIDE 10 MG INJ ONE (08:43)
--- NOTE | 2017-03-06 09:24 | SIPON ---
Date/Time of Note Date/Time of Note DATE: 03/06/17 TIME: 09:21 Operative Report Preoperative Diagnosis Need for diverting ileostomy Postoperative Diagnosis Same Operation/Procedure Performed Exploratory laparotomy and diverting ileostomy Surgeon: DION WOODS MD Second assist: LETICIA SANTANA MD Anesthesia Type: general Estimated Blood Loss: 0 - 10 ml's Transfusion Required: no Complications: no DION WOODS MD Mar 06, 2017 09:24
[2017-03-06] MEDS ORDERED: HYDROmorphONE (0.2 MG/ML) 10ML SYG IV PRN ×3 (09:30)
[2017-03-06] MEDS ORDERED: EPHEDrine SULFATE 50 MG/5 ML SYG IV PRN (09:30)
[2017-03-06] MEDS ORDERED: MIDAZOLAM 1 MG/ML 2 ML INJ IV PRN (09:30)
[2017-03-06] MEDS ORDERED: OXYCODONE/ACETAMINOPHEN (5/325) TAB PO PRN ×2 (09:30)
[2017-03-06] MEDS ORDERED: hydrALAzine 20 MG INJ IV PRN (09:30)
[2017-03-06] MEDS ORDERED: ONDANSETRON 4 MG INJ IV PRN (09:30)
[2017-03-06] MEDS ORDERED: LABETALOL HCL 20MG INJ IV PRN (09:30)
[2017-03-06] MEDS ORDERED: MEPERIDINE 25 MG INJ IV PRN (09:30)
[2017-03-06] MEDS ORDERED: METOCLOPRAMIDE 10 MG INJ IV PRN (09:30)
[2017-03-06] MEDS ORDERED: DIPHENHYDRAMINE 50 MG INJ IV PRN (09:30)
[2017-03-06] MEDS ORDERED: FENTAnyl 50 MCG/ML VIAL IV PRN ×3 (09:30)
--- NOTE | 2017-03-06 10:45 | CONS ---
[facility] [employer] 03/06/17 1045: Date/Time of Note Date/Time of Note DATE: 03/06/17 TIME: 10:36 Assessment/Plan Assessment/Plan Chief Complaint/Hosp Course - post op fever due to pelvic abscess - pelvic abscess formation adjacent to a distal colonic anastomosis, seen on CT on 02/24/[address] s[address]-guided drainage on 02/28/2017. Culture grew klebsiella, E. coli, enterococci, morganella, bacteroides - anastomotic leak, identified on barium study on 03/02/2017 - possible UTI vs. contamination of the urethra by klebsiella and morganella - rectal CA s/p low anterior resection with splenic flexure mobilization, mobilization of omental patch and rigid sigmoidoscopy on 02/16/2017. Pathology of the resected rectum showed residual moderately-differentiated adenocarcinoma , involving muscularis propria, mucosal ulceration, clear margin and no e/o metastasis - NPO, on TPN status - s/p diverting ileostomy 03/06/2017 recommendations: - continue empiric pip/tazo (02/23/2017-) Management d/w patient and Dr. Morris Problems: Consultation Date/Type/Reason Admit Date/Time Feb 16, 2017 at 07:24 Initial Consult Date 02/22/17 Type of Consultation: Infectious Disease Referring Provider: VINCENZO CISNEROS MD 24 HR Interval Summary Free Text/Dictation Just back from OR s/p diverting ileostomy. C/o mild ("poquito") pain, discomfort with NGT, and mild nausea. No vomiting or SOB. Exam/Review of Systems Vital Signs Vitals Vital Signs Date Time Temp Pulse Resp B/P Pulse Ox O2 Delivery O2 Flow Rate FiO2 03/06/17 10:27 98.8 75 20 114/61 98 03/06/17 09:41 Room Air Intake and Output 03/05/17 03/05/17 03/06/17 15:00 23:00 07:00 Intake Total 175 ml 1060.414 ml 2149.8 ml Output Total 1710 ml 850 ml Balance 175 ml -649.586 ml 1299.8 ml Exam Constitutional: alert, well developed Psych: nl mood/affect, no complaints Head: atraumatic, normocephalic Eyes: nl conjunctiva, nl lids ENMT: nl external ears & nose, nl nasal mucosa & septum, mucosa pink and moist , other (NGT in place, clamped) Neck: supple Respiratory: clear to auscultation, normal air movement Cardiovascular: nl pulses, regular rate and rhythm Gastrointestinal: other (external drainage catheter is collecting dark brown- green liquid; RLQ ileostomy with no output, stoma pink), surgical scars (ML scar well approximated) No distended Musculoskeletal: nl extremities to inspection Extremities: normal pulses, other (LUE PICC with no e/o infection and TPN infusing) No edema 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: CASTINGS DRAFTER II-XII intact, nl mental status, nl speech Skin: nl turgor Results Result Diagram: 03/05/17 0500 03/06/17 0525 Results 24 hrs Laboratory Tests Test 03/05/17 21:18 03/06/17 05:25 03/06/17 06:15 Bedside Glucose 103 Sodium Level 138 Potassium Level 4.1 Chloride Level 101 Carbon Dioxide Level 26 Anion Gap 15 Blood Urea Nitrogen 11 Creatinine 0.49 Glucose Level 107 Calcium Level 8.9 Phosphorus Level 4.2 Magnesium Level 2.3 Urine Test NEGATIVE Medications Medications Current Medications Ondansetron HCl 4 mg 4 mg Q6H PRN IV NAUSEA AND/OR VOMITING Last administered on 02/23/17 20:04; Admin Dose 4 MG; Start 02/16/17 at 10:00 Acetaminophen (Ofirmev 1000mg/ 100ml Iv) 100 ml @ 400 mls/hr Q6H PRN IVPB FEVER Last administered on 02/23/17 11:53; Admin Dose 400 MLS/HR; Start at 15:00 Morphine Sulfate 2 mg 2 mg Q2H PRN IV PAIN Last administered on 03/03/17 21:27 ; Admin Dose 2 MG; Start 02/22/17 at 10:00 Piperacillin Sod/ Tazobactam Sod (Zosyn 3.375gm/ 100 ml (Pmx)) 100 ml @ 200 mls /hr Q8 IVPB Last administered on 03/06/17 05:28; Admin Dose 200 MLS/HR; Start 02/23/17 at 10:00 Metoclopramide HCl 10 mg 10 mg Q8 IV Last administered on 03/06/17 05:28; Admin Dose 10 MG; Start 02/23/17 at 22:00 Sodium Chloride 1,000 ml @ 50 mls/hr Q20H IV Last administered on 03/06/17 00 :00; Admin Dose 50 MLS/HR; Start 02/25/17 at 16:00 Total Parenteral Nutrition 1,000 ml @ 75 mls/hr [id number] IV Last administered on 03/06/17 05:28; Admin Dose 75 MLS/HR; Start 02/25/17 at 16:00 Fat Emulsion Intravenous (Liposyn Ii 20%) 250 ml @ 10.417 mls/ hr Q24H IV Last administered on 03/05/17 15:21; Admin Dose 10.417 MLS/HR; Start 02/25/17 at 16:00 Diagnostic Test (Pha) (Accu-Chek) 1 ea Q12 XX Last administered on 03/04/17 08 :48; Admin Dose 1 EA; Start 02/27/17 at 09:00 Miscellaneous Information 1 ea NOTE XX ; Start 02/26/17 at 14:00 Glucose (Glutose) 15 gm Q15M PRN PO DECREASED GLUCOSE; Start 02/26/17 at 14:00 Glucose (Glutose) 22.5 gm Q15M PRN PO DECREASED GLUCOSE; Start 02/26/17 at 14: 00 Dextrose (D50w Syringe) 25 ml Q15M PRN IV DECREASED GLUCOSE; Start 02/26/17 at 14:00 Dextrose (D50w Syringe) 50 ml Q15M PRN IV DECREASED GLUCOSE; Start 02/26/17 at 14:00 Glucagon (Glucagen) 1 mg Q15M PRN IM DECREASED GLUCOSE; Start 02/26/17 at 14:00 Glucose (Glutose) 15 gm Q15M PRN BUCCAL DECREASED GLUCOSE; Start 02/26/17 at 14 :00 IV Flush (NS 10 ml) 10 ml PRN PRN IV IV PROTOCOL; Start 02/27/17 at 13:00 BLANCO MORRIS M.D. 03/07/17 1912: Assessment/Plan Assessment/Plan Additional Assessment/Plan Arturo attestation: I discussed the management with ITZEL Garces and agree with above Exam/Review of Systems Results Result Diagram: 03/05/17 0500 03/06/17 0525 JOSE GARCES NP Mar 06, 2017 10:45 BLANCO MORRIS M.D. Mar 07, 2017 19:12
[2017-03-06] MEDS: morphine 2 MG INJ IV PRN ×4 (10:49→21:33)
--- NOTE | 2017-03-06 11:51 | PN ---
Date/Time of Note Date/Time of Note DATE: 03/06/17 TIME: 11:44 Assessment/Plan VTE Prophylaxis VTE Prophylaxis Intervention: SCD's Lines/Catheters IV Catheter Type (from Nrs): PICC Line Central line still needed: Yes Urinary Cath still in place: No Assessment/Plan Chief Complaint/Hosp Course Assessment/Plan: 41 yo F diagnosed with rectal Ca in September of 2016 sp XRT admitted for planned low anterior resection which she underwent 02/17. Post op course notable for development of abscess/fluid collection adjacent to anastomosis site for which pt underwent IR drainage placement 8. Pt found to have rectal anastomosis site leak on imaging 03.02, and underwent subsequent diverting ileostomy earlier today. 1. Rectal cancer status post low anterior resection and subsequent diverting ileostomy. -Follow-up postop recommendations, NG tube -ID helping with abx - bowel rest as per gen surg - RD on cs for help with TPN Problems: Subjective 24 Hr Interval Summary Free Text/Dictation Patient seen by infectious disease team this morning, also had diverting ileostomy performed earlier this morning. Exam/Review of Systems Vital Signs Vitals Vital Signs Date Time Temp Pulse Resp B/P Pulse Ox O2 Delivery O2 Flow Rate FiO2 03/06/17 10:27 98.8 75 20 114/61 98 03/06/17 09:41 Room Air Intake and Output 03/05/17 03/05/17 03/06/17 14:59 22:59 06:59 Intake Total 175 ml 1060.414 ml 2149.8 ml Output Total 1710 ml 850 ml Balance 175 ml -649.586 ml 1299.8 ml Exam Lying in bed, NG tube in place, Nad PICC in L arm resp nonlabored S1, S2 heard no rashes no edema Results Result Diagram: 03/05/17 0500 03/06/17 0525 Results 24 hrs Laboratory Tests Test 03/05/17 21:18 03/06/17 05:25 03/06/17 06:15 03/06/17 10:46 Bedside Glucose 103 112 Sodium Level 138 Potassium Level 4.1 Chloride Level 101 Carbon Dioxide Level 26 Anion Gap 15 Blood Urea Nitrogen 11 Creatinine 0.49 Glucose Level 107 Calcium Level 8.9 Phosphorus Level 4.2 Magnesium Level 2.3 Urine Test NEGATIVE Medications Medications Current Medications Ondansetron HCl 4 mg 4 mg Q6H PRN IV NAUSEA AND/OR VOMITING Last administered on 02/23/17 20:04; Admin Dose 4 MG; Start 02/16/17 at 10:00 Acetaminophen (Ofirmev 1000mg/ 100ml Iv) 100 ml @ 400 mls/hr Q6H PRN IVPB FEVER Last administered on 02/23/17 11:53; Admin Dose 400 MLS/HR; Start at 15:00 Morphine Sulfate 2 mg 2 mg Q2H PRN IV PAIN Last administered on 03/06/17 10:49 ; Admin Dose 2 MG; Start 02/22/17 at 10:00 Piperacillin Sod/ Tazobactam Sod (Zosyn 3.375gm/ 100 ml (Pmx)) 100 ml @ 200 mls /hr Q8 IVPB Last administered on 03/06/17 05:28; Admin Dose 200 MLS/HR; Start 02/23/17 at 10:00 Metoclopramide HCl 10 mg 10 mg Q8 IV Last administered on 03/06/17 05:28; Admin Dose 10 MG; Start 02/23/17 at 22:00 Sodium Chloride 1,000 ml @ 50 mls/hr Q20H IV Last administered on 03/06/17 00 :00; Admin Dose 50 MLS/HR; Start 02/25/17 at 16:00 Total Parenteral Nutrition 1,000 ml @ 75 mls/hr [id number] IV Last administered on 03/06/17 05:28; Admin Dose 75 MLS/HR; Start 02/25/17 at 16:00 Fat Emulsion Intravenous (Liposyn Ii 20%) 250 ml @ 10.417 mls/ hr Q24H IV Last administered on 03/05/17 15:21; Admin Dose 10.417 MLS/HR; Start 02/25/17 at 16:00 Diagnostic Test (Pha) (Accu-Chek) 1 ea Q12 XX Last administered on 03/04/17 08 :48; Admin Dose 1 EA; Start 02/27/17 at 09:00 Miscellaneous Information 1 ea NOTE XX ; Start 02/26/17 at 14:00 Glucose (Glutose) 15 gm Q15M PRN PO DECREASED GLUCOSE; Start 02/26/17 at 14:00 Glucose (Glutose) 22.5 gm Q15M PRN PO DECREASED GLUCOSE; Start 02/26/17 at 14: 00 Dextrose (D50w Syringe) 25 ml Q15M PRN IV DECREASED GLUCOSE; Start 02/26/17 at 14:00 Dextrose (D50w Syringe) 50 ml Q15M PRN IV DECREASED GLUCOSE; Start 02/26/17 at 14:00 Glucagon (Glucagen) 1 mg Q15M PRN IM DECREASED GLUCOSE; Start 02/26/17 at 14:00 Glucose (Glutose) 15 gm Q15M PRN BUCCAL DECREASED GLUCOSE; Start 02/26/17 at 14 :00 IV Flush (NS 10 ml) 10 ml PRN PRN IV IV PROTOCOL; Start 02/27/17 at 13:00 EMPERATRIZ SILVA Mar 06, 2017 11:51
--- NOTE | 2017-03-06 15:51 | OPR ---
DATE OF OPERATION: 03/06/2017 PREOPERATIVE DIAGNOSIS: Need for diverting ileostomy. POSTOPERATIVE DIAGNOSIS: Need for diverting ileostomy. OPERATIVE PROCEDURE: Exploratory laparotomy and diverting ileostomy. ANESTHESIA: General. ANESTHESIOLOGISTS: Herman Brewer MD SURGEON: Dhiraj Santos MD SHEEP FARM MANAGER: Dr. Livingston. INDICATIONS FOR PROCEDURE: The patient is a 41-year-old female, who presented with a diagnosis of rectal cancer. She was referred for neoadjuvant chemotherapy and radiation. Upon completing her chemotherapy and radiation, after a period of approximately 11 weeks, she underwent an exploratory laparotomy and low anterior resection with primary anastomosis. That surgery was conducted by Dr. Dhiraj Santos and by Dr. Chacho Miles. In the immediate postop course, she did fine. However, at approximately day 7, she began to spike a fever and workup including a CT scan revealed no evidence of anastomotic failure. The patient was then counseled as to the need for drain placement. She underwent CT-guided drain placement performed by attending radiologist, Dr. Fransico Cortez, and subsequently she was counseled as to the need for diverting ileostomy. She consented and was scheduled for surgery. DESCRIPTION OF PROCEDURE: The patient was brought to the operating theater, and placed under general endotracheal tube anesthesia. The abdomen was prepped and draped in the usual sterile fashion. An approximately 3 cm incision was made in the right lower quadrant of the abdomen in a transverse fashion. Subcutaneous tissue was dissected down to the aponeurosis of the external oblique. The aponeurosis was incised in direction of the fibers to allow exposure of the underlying fusion line of the internal oblique and rectus sheath. This fusion line was incised vertically, as was the underlying transversus abdominis muscle and peritoneum. This allowed entry into the abdominal cavity. The terminal ileum was identified. A loop of the terminal ileum was brought up through the ostomy site, and the distal end was demarcated by placement of a silk suture. Transection then took place using a ALEX stapler. The distal end was then gently tacked to the abdominal wall fascia with 4-0 Prolene suture as was the proximal end. The staple line of the proximal end was then transected with cautery and the ostomy was matured. At the location approximately 3 or 4 o'clock location, at the distal end was also tacked to the dermis in anticipation of possible need for future venting. Continuation of maturing of the proximal end of the ileostomy site then continued with 4-0 Vicryl sutures in Lizbeth fashion to allow a functional ileostomy. At this point, the ostomy appliance bag was applied and the procedure was concluded. The patient tolerated the procedure well. The total blood loss was less than 10 mL. There were no complications, and the patient was transported in stable condition to the recovery room. Dictated By: Dhiraj Santos MD /danny/ec /Document#: [id number]
[2017-03-06] MEDS: FAT EMULSION 20% 250 ML IV SCH ×2 (16:00→22:12)
[2017-03-06] MEDS: SOD CHLORIDE 0.45% 1,000 ML IV SCH ×2 (19:54)
[2017-03-06] MEDS ORDERED: HEPARIN 5,000 UNIT/0.5 ML VIAL SC SCH (21:00)
[2017-03-07 01:49] VITALS: BP 106/61; RESP 20
[2017-03-07] MEDS: morphine 2 MG INJ IV PRN ×3 (04:52→21:19)
[2017-03-07] MEDS: METOCLOPRAMIDE 10 MG INJ IV SCH ×3 (05:20→21:11)
[2017-03-07] MEDS: PIPER-TAZO 3.375 GM IV (PMX) 100 ML IVPB SCH ×3 (05:20→21:11)
[2017-03-07 06:19] LABS: ABNORMAL IP MESSAGE 1; BASOPHILS % 0.3 % (0.0-2.0); EOSINOPHILS # 0.1 10^3/ul (0.0-0.5); EOSINOPHILS % 1.2 % (0.0-7.0); HEMOGLOBIN 8.7 g/dl (12.0-16.0); LYMPHOCYTES # 0.6 10^3/ul (0.8-2.9); MEAN CORPUSCULAR HGB CONC 32.2 g/dl (32.0-37.0); MEAN CORPUSCULAR VOLUME 96.1 fl (82.0-101.0); MEAN PLATELET VOLUME 8.9 fl (7.4-10.4); MONOCYTE # 0.6 10^3/ul (0.3-0.9); NEUTROPHILS % 87.2 % (39.0-77.0); PLATELET COUNT 549 10^3/UL (140-415); RED BLOOD COUNT 2.81 10^6/ul (4.20-5.40); RED CELL DISTRIBUTION WIDTH 12.6 % (11.5-14.5); WHITE BLOOD COUNT 11.2 10^3/ul (4.8-10.8)
[2017-03-07 06:30] LABS: POSITIVE DIFF @See below
[2017-03-07 06:52] LABS: CALCIUM 8.5 mg/dl (8.4-10.2); CREATININE 0.58 mg/dl (0.44-1.00); POTASSIUM 4.2 mmol/L (3.5-5.1)
[2017-03-07 07:33] VITALS: BP 107/55; RESP 20
[2017-03-07] MEDS: ACCU-CHEK XX SCH ×2 (08:54→20:23)
--- NOTE | 2017-03-07 11:15 | PN ---
Date/Time of Note Date/Time of Note DATE: 03/07/17 TIME: 11:13 Assessment/Plan VTE Prophylaxis VTE Prophylaxis Intervention: SCD's Lines/Catheters IV Catheter Type (from Nrs): PICC Line Central line still needed: Yes Urinary Cath still in place: Yes Reason Cath still needed: urinary retention Assessment/Plan Chief Complaint/Hosp Course Assessment/Plan: 41 yo F diagnosed with rectal Ca in September of 2016 sp XRT admitted for planned low anterior resection which she underwent 02/17. Post op course notable for development of abscess/fluid collection adjacent to anastomosis site for which pt underwent IR drainage placement 8.. Pt found to have rectal anastomosis site leak on imaging 8., and underwent subsequent diverting ileostomy03/06 (POD # 1) 1. Rectal cancer status post low anterior resection and subsequent diverting ileostomy . -Follow-up postop recommendations, NG tube per surgery recommendation -Continue IV Zosyn for now per infectious disease recommended - bowel rest as per gen surg - RD on cs for help with TPN Problems: Subjective 24 Hr Interval Summary Free Text/Dictation No acute events overnight. Family asking when NG tube could be removed. Exam/Review of Systems Vital Signs Vitals Vital Signs Date Time Temp Pulse Resp B/P Pulse Ox O2 Delivery O2 Flow Rate FiO2 03/07/17 07:33 98.8 91 20 107/55 96 03/06/17 12:30 Room Air Intake and Output 03/06/17 03/06/17 03/07/17 15:00 23:00 07:00 Intake Total 0 ml 1679.366 ml 690 ml Output Total 890 ml 1800 ml Balance 0 ml 789.366 ml -1110 ml Exam Lying in bed, NG tube in place, Nad PICC in L arm resp nonlabored S1, S2 heard no rashes no edema Results Result Diagram: 03/07/17 0525 03/07/17 0525 Results 24 hrs Laboratory Tests Test 03/06/17 20:38 03/07/17 05:25 03/07/17 08:48 Bedside Glucose 121 144 White Blood Count 11.2 #H Red Blood Count 2.81 L Hemoglobin 8.7 L Hematocrit 27.0 L Mean Corpuscular Volume 96.1 Mean Corpuscular Hemoglobin 31.0 Mean Corpuscular Hemoglobin Concent 32.2 Red Cell Distribution Width 12.6 Platelet Count 549 H Mean Platelet Volume 8.9 Neutrophils % 87.2 H Lymphocytes % 5.0 L Monocytes % 5.0 Eosinophils % 1.2 Basophils % 0.3 Nucleated Red Blood Cells % 0.0 Neutrophils # (Manual) 9.7 H Lymphocytes # 0.6 L Monocytes # 0.6 Eosinophils # 0.1 Basophils # 0.0 Nucleated Red Blood Cells # 0.0 Sodium Level 141 Potassium Level 4.2 Chloride Level 102 Carbon Dioxide Level 27 Anion Gap 16 Blood Urea Nitrogen 10 Creatinine 0.58 Glucose Level 117 Calcium Level 8.5 Medications Medications Current Medications Ondansetron HCl 4 mg 4 mg Q6H PRN IV NAUSEA AND/OR VOMITING Last administered on 02/23/17 20:04; Admin Dose 4 MG; Start 02/16/17 at 10:00 Acetaminophen (Ofirmev 1000mg/ 100ml Iv) 100 ml @ 400 mls/hr Q6H PRN IVPB FEVER Last administered on 02/23/17 11:53; Admin Dose 400 MLS/HR; Start at 15:00 Morphine Sulfate 2 mg 2 mg Q2H PRN IV PAIN Last administered on 03/07/17 04:52 ; Admin Dose 2 MG; Start 02/22/17 at 10:00 Piperacillin Sod/ Tazobactam Sod (Zosyn 3.375gm/ 100 ml (Pmx)) 100 ml @ 200 mls /hr Q8 IVPB Last administered on 03/07/17 05:20; Admin Dose 200 MLS/HR; Start 02/23/17 at 10:00 Metoclopramide HCl 10 mg 10 mg Q8 IV Last administered on 03/07/17 05:20; Admin Dose 10 MG; Start 02/23/17 at 22:00 Sodium Chloride 1,000 ml @ 50 mls/hr Q20H IV Last administered on 03/06/17 19 :54; Admin Dose 50 MLS/HR; Start 02/25/17 at 16:00 Total Parenteral Nutrition 1,000 ml @ 75 mls/hr [id number] IV Last administered on 03/06/17 22:06; Admin Dose 75 MLS/HR; Start 02/25/17 at 16:00 Fat Emulsion Intravenous (Liposyn Ii 20%) 250 ml @ 10.417 mls/ hr Q24H IV Last administered on 03/06/17 22:12; Admin Dose 10.417 MLS/HR; Start 02/25/17 at 16:00 Diagnostic Test (Pha) (Accu-Chek) 1 ea Q12 XX Last administered on 03/07/17 08 :54; Admin Dose 1 EA; Start 02/27/17 at 09:00 Miscellaneous Information 1 ea NOTE XX ; Start 02/26/17 at 14:00 Glucose (Glutose) 15 gm Q15M PRN PO DECREASED GLUCOSE; Start 02/26/17 at 14:00 Glucose (Glutose) 22.5 gm Q15M PRN PO DECREASED GLUCOSE; Start 02/26/17 at 14: 00 Dextrose (D50w Syringe) 25 ml Q15M PRN IV DECREASED GLUCOSE; Start 02/26/17 at 14:00 Dextrose (D50w Syringe) 50 ml Q15M PRN IV DECREASED GLUCOSE; Start 02/26/17 at 14:00 Glucagon (Glucagen) 1 mg Q15M PRN IM DECREASED GLUCOSE; Start 02/26/17 at 14:00 Glucose (Glutose) 15 gm Q15M PRN BUCCAL DECREASED GLUCOSE; Start 02/26/17 at 14 :00 IV Flush (NS 10 ml) 10 ml PRN PRN IV IV PROTOCOL; Start 02/27/17 at 13:00 EMPERATRIZ SILVA Mar 07, 2017 11:15
[2017-03-07] MEDS: TPN 1,000 ML IV SCH ×2 (12:50→20:50)
--- NOTE | 2017-03-07 13:31 | PN ---
Date/Time of Note Date/Time of Note DATE: 03/07/17 TIME: 13:23 Assessment/Plan VTE Prophylaxis VTE Prophylaxis Intervention: SCD's Lines/Catheters IV [facility] Type (from [facility] PICC Line Urinary Cath still in place: Yes Reason Cath still needed: other (indicate) (Patient states that she cannot urinate in the bed.) Subjective 24 Hr Interval Summary Free Text/Dictation Postop day #1 status post placement of a diverting loop ileostomy. Patient does not have any complaints. Exam/Review of Systems Vital Signs Vitals Vital Signs Date Time Temp Pulse Resp B/P Pulse Ox O2 Delivery O2 Flow Rate FiO2 03/07/17 07:33 98.8 91 20 107/55 96 03/06/17 12:30 Room Air Intake and Output 03/06/17 03/06/17 03/07/17 15:00 23:00 07:00 Intake Total 0 ml 1679.366 ml 690 ml Output Total 890 ml 1800 ml Balance 0 ml 789.366 ml -1110 ml Exam Temperature maximum 98.8. Otherwise vital signs stable. Patient has not been out of bed yet. Had placement of diverting ileostomy in the right lower quadrant yesterday. Reason being leakage of the anastomosis of the low anterior resection of the colon. Which was done about 17 days ago. Patient feels okay. NG tube in place has drained about 100 cc of what appears to be gastric juice. Sandoval catheter is in place patient does not want it removed because she believes that she cannot urinate in the boot. Pigtail drain has drained about 100 cc fluid which is not greenish anymore. The ostomy has drained about 200 cc of greenish fluid. Abdomen is soft. Plan: Continue current care she may have ice chips 1 cup every 8 hours. Change the NG tube status to intermittent suction. SCD on patient's legs. PT to assist patient get out of bed walk around. Results Result Diagram: 03/07/17 0525 03/07/17 0525 Results 24 hrs Laboratory Tests Test 03/06/17 20:38 03/07/17 05:25 03/07/17 08:48 Bedside Glucose 121 144 White Blood Count 11.2 #H Red Blood Count 2.81 L Hemoglobin 8.7 L Hematocrit 27.0 L Mean Corpuscular Volume 96.1 Mean Corpuscular Hemoglobin 31.0 Mean Corpuscular Hemoglobin Concent 32.2 Red Cell Distribution Width 12.6 Platelet Count 549 H Mean Platelet Volume 8.9 Neutrophils % 87.2 H Lymphocytes % 5.0 L Monocytes % 5.0 Eosinophils % 1.2 Basophils % 0.3 Nucleated Red Blood Cells % 0.0 Neutrophils # (Manual) 9.7 H Lymphocytes # 0.6 L Monocytes # 0.6 Eosinophils # 0.1 Basophils # 0.0 Nucleated Red Blood Cells # 0.0 Sodium Level 141 Potassium Level 4.2 Chloride Level 102 Carbon Dioxide Level 27 Anion Gap 16 Blood Urea Nitrogen 10 Creatinine 0.58 Glucose Level 117 Calcium Level 8.5 Medications Medications Current Medications Ondansetron HCl 4 mg 4 mg Q6H PRN IV NAUSEA AND/OR VOMITING Last administered on 02/23/17 20:04; Admin Dose 4 MG; Start 02/16/17 at 10:00 Acetaminophen (Ofirmev 1000mg/ 100ml Iv) 100 ml @ 400 mls/hr Q6H PRN IVPB FEVER Last administered on 02/23/17 11:53; Admin Dose 400 MLS/HR; Start at 15:00 Morphine Sulfate 2 mg 2 mg Q2H PRN IV PAIN Last administered on 03/07/17 04:52 ; Admin Dose 2 MG; Start 02/22/17 at 10:00 Piperacillin Sod/ Tazobactam Sod (Zosyn 3.375gm/ 100 ml (Pmx)) 100 ml @ 200 mls /hr Q8 IVPB Last administered on 03/07/17 05:20; Admin Dose 200 MLS/HR; Start 02/23/17 at 10:00 Metoclopramide HCl 10 mg 10 mg Q8 IV Last administered on 03/07/17 05:20; Admin Dose 10 MG; Start 02/23/17 at 22:00 Sodium Chloride 1,000 ml @ 50 mls/hr Q20H IV Last administered on 03/06/17 19 :54; Admin Dose 50 MLS/HR; Start 02/25/17 at 16:00 Total Parenteral Nutrition 1,000 ml @ 75 mls/hr [id number] IV Last administered on 03/07/17 12:50; Admin Dose 75 MLS/HR; Start 02/25/17 at 16:00 Fat Emulsion Intravenous (Liposyn Ii 20%) 250 ml @ 10.417 mls/ hr Q24H IV Last administered on 03/06/17 22:12; Admin Dose 10.417 MLS/HR; Start 02/25/17 at 16:00 Diagnostic Test (Pha) (Accu-Chek) 1 ea Q12 XX Last administered on 03/07/17 08 :54; Admin Dose 1 EA; Start 02/27/17 at 09:00 Miscellaneous Information 1 ea NOTE XX ; Start 02/26/17 at 14:00 Glucose (Glutose) 15 gm Q15M PRN PO DECREASED GLUCOSE; Start 02/26/17 at 14:00 Glucose (Glutose) 22.5 gm Q15M PRN PO DECREASED GLUCOSE; Start 02/26/17 at 14: 00 Dextrose (D50w Syringe) 25 ml Q15M PRN IV DECREASED GLUCOSE; Start 02/26/17 at 14:00 Dextrose (D50w Syringe) 50 ml Q15M PRN IV DECREASED GLUCOSE; Start 02/26/17 at 14:00 Glucagon (Glucagen) 1 mg Q15M PRN IM DECREASED GLUCOSE; Start 02/26/17 at 14:00 Glucose (Glutose) 15 gm Q15M PRN BUCCAL DECREASED GLUCOSE; Start 02/26/17 at 14 :00 IV Flush (NS 10 ml) 10 ml PRN PRN IV IV PROTOCOL; Start 02/27/17 at 13:00 LETICIA SANTANA MD Mar 07, 2017 13:31
[2017-03-07 14:01] VITALS: BP 102/59; RESP 20
[2017-03-07] MEDS: SOD CHLORIDE 0.45% 1,000 ML IV SCH ×2 (16:00→19:43)
--- NOTE | 2017-03-07 19:28 | CONS ---
Date/Time of Note Date/Time of Note DATE: 03/07/17 TIME: 19:12 Assessment/Plan Assessment/Plan Chief Complaint/Hosp Course - post op fever due to pelvic abscess - pelvic abscess formation adjacent to a distal colonic anastomosis, seen on CT on 02/24/[address]-guided drainage on 02/28/2017. Culture grew klebsiella, E. coli, enterococci, morganella, bacteroides - anastomotic leak, identified on barium study on 03/02/2017, s/p ex lap and diverting ileostomy placement on 02/14/2017 - possible UTI vs. contamination of the urethra by klebsiella and morganella - rectal CA s/p low anterior resection with splenic flexure mobilization, mobilization of omental patch and rigid sigmoidoscopy on 02/16/2017. Pathology of the resected rectum showed residual moderately-differentiated adenocarcinoma , involving muscularis propria, mucosal ulceration, clear margin and no e/o metastasis - NPO, on TPN status recommendations - continue pip/tazo (02/23/2017-) until the external drainage catheter is removed. Once it gets removed, I recommend ordering repeat abd/pel CT to confirm no more residual intra-pelvic fluid collection. If no more pelvic fluid collection is seen at that point, her antibiotic can be discontinued management d/w Pt and her Problems: Consultation Date/Type/Reason Admit Date/Time Feb 16, 2017 at 07:24 Initial Consult Date 02/22/17 Type of Consultation: Infectious Disease Referring Provider: VINCENZO CISNEROS MD 24 HR Interval Summary Constitutional: no complaints Detailed Summary Eyes: no complaints ENT: no complaints Respiratory: no complaints Cardiovascular: no complaints Gastrointestinal: pain (minor post-surgical pain), passing stool, No nausea, No vomiting Genitourinary: no complaints Musculoskeletal: no complaints Skin: no complaints Neurologic: no complaints Exam/Review of Systems Vital Signs Vitals Vital Signs Date Time Temp Pulse Resp B/P Pulse Ox O2 Delivery O2 Flow Rate FiO2 03/07/17 14:01 98.8 109 20 102/59 97 03/06/17 12:30 Room Air Intake and Output 03/06/17 03/06/17 03/07/17 15:00 23:00 07:00 Intake Total 0 ml 1679.366 ml 690 ml Output Total 890 ml 1800 ml Balance 0 ml 789.366 ml -1110 ml Exam Constitutional: alert, oriented, well developed Psych: nl mood/affect, no complaints Head: atraumatic, normocephalic Eyes: nl conjunctiva, nl lids ENMT: nl external ears & nose, nl nasal mucosa & septum, other (NGT) Neck: supple Respiratory: clear to auscultation, normal air movement Cardiovascular: nl pulses, regular rate and rhythm Gastrointestinal: non-tender, other (+colostomy bag on R side, +external draianage catheter), soft, surgical scars, No distended Musculoskeletal: nl extremities to inspection Extremities: No edema Results Result Diagram: 03/07/1752403/07/17524 Results 24 hrs Laboratory Tests Test 03/06/17 20:38 03/07/17 05:25 03/07/17 08:48 Bedside Glucose 121 144 White Blood Count 11.2 #H Red Blood Count 2.81 L Hemoglobin 8.7 L Hematocrit 27.0 L Mean Corpuscular Volume 96.1 Mean Corpuscular Hemoglobin 31.0 Mean Corpuscular Hemoglobin Concent 32.2 Red Cell Distribution Width 12.6 Platelet Count 549 H Mean Platelet Volume 8.9 Neutrophils % 87.2 H Lymphocytes % 5.0 L Monocytes % 5.0 Eosinophils % 1.2 Basophils % 0.3 Nucleated Red Blood Cells % 0.0 Neutrophils # (Manual) 9.7 H Lymphocytes # 0.6 L Monocytes # 0.6 Eosinophils # 0.1 Basophils # 0.0 Nucleated Red Blood Cells # 0.0 Sodium Level 141 Potassium Level 4.2 Chloride Level 102 Carbon Dioxide Level 27 Anion Gap 16 Blood Urea Nitrogen 10 Creatinine 0.58 Glucose Level 117 Calcium Level 8.5 Medications Medications Current Medications Ondansetron HCl 4 mg 4 mg Q6H PRN IV NAUSEA AND/OR VOMITING Last administered on 02/23/17 20:04; Admin Dose 4 MG; Start 02/16/17 at 10:00 Acetaminophen (Ofirmev 1000mg/ 100ml Iv) 100 ml @ 400 mls/hr Q6H PRN IVPB FEVER Last administered on 02/23/17 11:53; Admin Dose 400 MLS/HR; Start at 15:00 Morphine Sulfate 2 mg 2 mg Q2H PRN IV PAIN Last administered on 03/07/17 13:43 ; Admin Dose 2 MG; Start 02/22/17 at 10:00 Piperacillin Sod/ Tazobactam Sod (Zosyn 3.375gm/ 100 ml (Pmx)) 100 ml @ 200 mls /hr Q8 IVPB Last administered on 03/07/17 14:10; Admin Dose 200 MLS/HR; Start 02/23/17 at 10:00 Metoclopramide HCl 10 mg 10 mg Q8 IV Last administered on 03/07/17 14:10; Admin Dose 10 MG; Start 02/23/17 at 22:00 Sodium Chloride 1,000 ml @ 50 mls/hr Q20H IV Last administered on 03/06/17 19 :54; Admin Dose 50 MLS/HR; Start 02/25/17 at 16:00 Total Parenteral Nutrition 1,000 ml @ 75 mls/hr [id number] IV Last administered on 03/07/17 12:50; Admin Dose 75 MLS/HR; Start 02/25/17 at 16:00 Fat Emulsion Intravenous (Liposyn Ii 20%) 250 ml @ 10.417 mls/ hr Q24H IV Last administered on 03/06/17 22:12; Admin Dose 10.417 MLS/HR; Start 02/25/17 at 16:00 Diagnostic Test (Pha) (Accu-Chek) 1 ea Q12 XX Last administered on 03/07/17 08 :54; Admin Dose 1 EA; Start 02/27/17 at 09:00 Miscellaneous Information 1 ea NOTE XX ; Start 02/26/17 at 14:00 Glucose (Glutose) 15 gm Q15M PRN PO DECREASED GLUCOSE; Start 02/26/17 at 14:00 Glucose (Glutose) 22.5 gm Q15M PRN PO DECREASED GLUCOSE; Start 02/26/17 at 14: 00 Dextrose (D50w Syringe) 25 ml Q15M PRN IV DECREASED GLUCOSE; Start 02/26/17 at 14:00 Dextrose (D50w Syringe) 50 ml Q15M PRN IV DECREASED GLUCOSE; Start 02/26/17 at 14:00 Glucagon (Glucagen) 1 mg Q15M PRN IM DECREASED GLUCOSE; Start 02/26/17 at 14:00 Glucose (Glutose) 15 gm Q15M PRN BUCCAL DECREASED GLUCOSE; Start 02/26/17 at 14 :00 IV Flush (NS 10 ml) 10 ml PRN PRN IV IV PROTOCOL; Start 02/27/17 at 13:00 BLANCO OHARA M.D. Mar 07, 2017 19:22
[2017-03-07 19:54] VITALS: BP 95/51; RESP 20
[2017-03-07] MEDS: FAT EMULSION 20% 250 ML IV SCH (20:22)
[2017-03-08 01:35] VITALS: BP 95/51; RESP 20
[2017-03-08] MEDS: TPN 1,000 ML IV SCH (02:00)
[2017-03-08] MEDS: METOCLOPRAMIDE 10 MG INJ IV SCH ×3 (05:53→21:20)
[2017-03-08] MEDS: PIPER-TAZO 3.375 GM IV (PMX) 100 ML IVPB SCH ×3 (05:53→21:20)
[2017-03-08 06:30] LABS: ABNORMAL IP MESSAGE 1; BASOPHILS % 0.4 % (0.0-2.0); EOSINOPHILS # 0.3 10^3/ul (0.0-0.5); HEMATOCRIT 26.9 % (37.0-47.0); HEMOGLOBIN 8.9 g/dl (12.0-16.0); LYMPHOCYTES # 0.6 10^3/ul (0.8-2.9); LYMPHOCYTES % 5.6 % (15.0-51.0); MEAN CORPUSCULAR HEMOGLOBIN 31.7 pg (29.0-33.0); MEAN CORPUSCULAR HGB CONC 33.1 g/dl (32.0-37.0); MEAN CORPUSCULAR VOLUME 95.7 fl (82.0-101.0); MEAN PLATELET VOLUME 8.8 fl (7.4-10.4); MONOCYTE # 0.5 10^3/ul (0.3-0.9); MONOCYTES % 5.1 % (0.0-11.0); NEUTROPHILS % 84.8 % (39.0-77.0); PLATELET COUNT 560 10^3/UL (140-415); RED BLOOD COUNT 2.81 10^6/ul (4.20-5.40); RED CELL DISTRIBUTION WIDTH 12.4 % (11.5-14.5); WHITE BLOOD COUNT 10.6 10^3/ul (4.8-10.8)
[2017-03-08 06:33] LABS: POSITIVE DIFF @See below
[2017-03-08 07:05] LABS: CREATININE 0.51 mg/dl (0.44-1.00)
[2017-03-08 07:12] LABS: PREALBUMIN 15.6 mg/dl (17.6-36.0)
[2017-03-08 08:04] VITALS: BP 98/54; RESP 16
[2017-03-08] MEDS: ACCU-CHEK XX SCH ×2 (09:00→21:20)
--- NOTE | 2017-03-08 12:46 | PN ---
Date/Time of Note Date/Time of Note DATE: 03/08/17 TIME: 12:42 Assessment/Plan VTE Prophylaxis VTE Prophylaxis Intervention: SCD's Lines/Catheters IV Catheter Type (from Nrs): PICC Line Central line still needed: Yes Urinary Cath still in place: Yes Reason Cath still needed: urinary retention Assessment/Plan Chief Complaint/Hosp Course Assessment/Plan: 41 yo F diagnosed with rectal Ca in September of 2016 sp XRT admitted for planned low anterior resection which she underwent 02/17. Post op course notable for development of abscess/fluid collection adjacent to anastomosis site for which pt underwent IR drainage placement 8.. Pt found to have rectal anastomosis site leak on imaging 8., and underwent subsequent diverting ileostomy03/06 (POD # 2) 1. Rectal cancer status post low anterior resection and subsequent diverting ileostomy . -Follow-up postop recommendations, NG tube per surgery recommendation, per discussion with them today, may remove NG tube later today in the evening -And that culture grew klebsiella, E. coli, enterococci, morganella, bacteroides - Continue IV Zosyn for now per infectious disease recommendations -Given fever today, will also repeat urine test - bowel rest as per gen surg -Continue TPN for now Problems: Subjective 24 Hr Interval Summary Free Text/Dictation Patient working with physical therapy and ambulating in the hallway. Awaiting to be seen by surgery team today. Still has NG tube in place. Had fever 100.6 this morning. Exam/Review of Systems Vital Signs Vitals Vital Signs Date Time Temp Pulse Resp B/P Pulse Ox O2 Delivery O2 Flow Rate FiO2 03/08/17 08:04 100.6 92 16 98/54 100 03/06/17 12:30 Room Air Intake and Output 03/07/17 03/07/17 03/08/17 15:00 23:00 07:00 Intake Total 575 ml 1705 ml 1570 ml Output Total 3430 ml 845 ml Balance 575 ml -1725 ml 725 ml Exam Ambulating in hallway with physical therapy, NG tube in place, Nad PICC in L arm resp nonlabored S1, S2 heard no rashes no edema Results Result Diagram: 03/08/17 0555 03/08/17 0555 Results 24 hrs Laboratory Tests Test 03/07/17 20:22 03/08/17 05:25 03/08/17 05:55 03/08/17 09:20 Bedside Glucose 114 126 Prealbumin 15.6 L Triglycerides Level 109 White Blood Count 10.6 Red Blood Count 2.81 L Hemoglobin 8.9 L Hematocrit 26.9 L Mean Corpuscular Volume 95.7 Mean Corpuscular Hemoglobin 31.7 Mean Corpuscular Hemoglobin Concent 33.1 Red Cell Distribution Width 12.4 Platelet Count 560 H Mean Platelet Volume 8.8 Neutrophils % 84.8 H Lymphocytes % 5.6 L Monocytes % 5.1 Eosinophils % 3.0 Basophils % 0.4 Nucleated Red Blood Cells % 0.0 Neutrophils # (Manual) 9.0 H Lymphocytes # 0.6 L Monocytes # 0.5 Eosinophils # 0.3 Basophils # 0.0 Nucleated Red Blood Cells # 0.0 Sodium Level 141 Potassium Level 4.0 Chloride Level 99 Carbon Dioxide Level 30 Anion Gap 16 Blood Urea Nitrogen 11 Creatinine 0.51 Glucose Level 129 Calcium Level 9.0 Medications Medications Current Medications Ondansetron HCl 4 mg 4 mg Q6H PRN IV NAUSEA AND/OR VOMITING Last administered on 02/23/17 20:04; Admin Dose 4 MG; Start 02/16/17 at 10:00 Acetaminophen (Ofirmev 1000mg/ 100ml Iv) 100 ml @ 400 mls/hr Q6H PRN IVPB FEVER Last administered on 02/23/17 11:53; Admin Dose 400 MLS/HR; Start at 15:00 Morphine Sulfate 2 mg 2 mg Q2H PRN IV PAIN Last administered on 03/07/17 21:19 ; Admin Dose 2 MG; Start 02/22/17 at 10:00 Piperacillin Sod/ Tazobactam Sod (Zosyn 3.375gm/ 100 ml (Pmx)) 100 ml @ 200 mls /hr Q8 IVPB Last administered on 03/08/17 05:53; Admin Dose 200 MLS/HR; Start 02/23/17 at 10:00 Metoclopramide HCl 10 mg 10 mg Q8 IV Last administered on 03/08/17 05:53; Admin Dose 10 MG; Start 02/23/17 at 22:00 Sodium Chloride 1,000 ml @ 50 mls/hr Q20H IV Last administered on 03/07/17 19 :43; Admin Dose 50 MLS/HR; Start 02/25/17 at 16:00 Total Parenteral Nutrition 1,000 ml @ 75 mls/hr [id number] IV Last administered on 03/08/17 02:00; Admin Dose 75 MLS/HR; Start 02/25/17 at 16:00 Fat Emulsion Intravenous (Liposyn Ii 20%) 250 ml @ 10.417 mls/ hr Q24H IV Last administered on 03/07/17 20:22; Admin Dose 10.417 MLS/HR; Start 02/25/17 at 16:00 Diagnostic Test (Pha) (Accu-Chek) 1 ea Q12 XX Last administered on 03/08/17 09 :00; Admin Dose 1 EA; Start 02/27/17 at 09:00 Miscellaneous Information 1 ea NOTE XX ; Start 02/26/17 at 14:00 Glucose (Glutose) 15 gm Q15M PRN PO DECREASED GLUCOSE; Start 02/26/17 at 14:00 Glucose (Glutose) 22.5 gm Q15M PRN PO DECREASED GLUCOSE; Start 02/26/17 at 14: 00 Dextrose (D50w Syringe) 25 ml Q15M PRN IV DECREASED GLUCOSE; Start 02/26/17 at 14:00 Dextrose (D50w Syringe) 50 ml Q15M PRN IV DECREASED GLUCOSE; Start 02/26/17 at 14:00 Glucagon (Glucagen) 1 mg Q15M PRN IM DECREASED GLUCOSE; Start 02/26/17 at 14:00 Glucose (Glutose) 15 gm Q15M PRN BUCCAL DECREASED GLUCOSE; Start 02/26/17 at 14 :00 IV Flush (NS 10 ml) 10 ml PRN PRN IV IV PROTOCOL; Start 02/27/17 at 13:00 EMPERATRIZ SILVA Mar 08, 2017 12:45
--- NOTE | 2017-03-08 12:55 | PN ---
Date/Time of Note Date/Time of Note DATE: 03/08/17 TIME: 12:46 Assessment/Plan VTE Prophylaxis VTE Prophylaxis Intervention: ambulation Lines/Catheters IV [facility] Type (from [facility]): PICC Line Central line still needed: Yes (Patient on TPN.) Urinary Cath still in place: Yes Reason Cath still needed: other (indicate) (We will DC today.) Assessment/Plan Assessment/Plan 41 years old female originally is status post a laparotomy low anterior resection of the cancer of the rectum which was done about 17 days ago, today is postop day 2 after placement of diverting ileostomy. We will send a urine culture and will DC Sandoval catheter today, the NG tube if the patient does not have nausea and vomiting the nurses will remove the NG tube at 8 PM. Subjective 24 Hr Interval Summary Free Text/Dictation No complaint. Has been out of bed walking around. Exam/Review of Systems Vital Signs Vitals Vital Signs Date Time Temp Pulse Resp B/P Pulse Ox O2 Delivery O2 Flow Rate FiO2 03/08/17 08:04 100.6 92 16 98/54 100 03/06/17 12:30 Room Air Intake and Output 03/07/17 03/07/17 03/08/17 15:00 23:00 07:00 Intake Total 575 ml 1705 ml 1570 ml Output Total 3430 ml 845 ml Balance 575 ml -1725 ml 725 ml Exam Postop day #2, status post placement of diverting ileostomy because of leaking anastomosis at colo-rectal junction., NG tube drainage is only gastric juice no bile no blood. Vital signs stable. There has been one recording of temperature 100.6 today but at this time which is 97.5. Abdomen is soft, no guarding no tenderness, ileostomy is pink. Since 7 AM there has been 200 cc of bilious drainage into the ileostomy bag. Results Result Diagram: 03/08/17 0555 03/08/17 0555 Results 24 hrs Laboratory Tests Test 03/07/17 20:22 03/08/17 05:25 03/08/17 05:55 03/08/17 09:20 Bedside Glucose 114 126 Prealbumin 15.6 L Triglycerides Level 109 White Blood Count 10.6 Red Blood Count 2.81 L Hemoglobin 8.9 L Hematocrit 26.9 L Mean Corpuscular Volume 95.7 Mean Corpuscular Hemoglobin 31.7 Mean Corpuscular Hemoglobin Concent 33.1 Red Cell Distribution Width 12.4 Platelet Count 560 H Mean Platelet Volume 8.8 Neutrophils % 84.8 H Lymphocytes % 5.6 L Monocytes % 5.1 Eosinophils % 3.0 Basophils % 0.4 Nucleated Red Blood Cells % 0.0 Neutrophils # (Manual) 9.0 H Lymphocytes # 0.6 L Monocytes # 0.5 Eosinophils # 0.3 Basophils # 0.0 Nucleated Red Blood Cells # 0.0 Sodium Level 141 Potassium Level 4.0 Chloride Level 99 Carbon Dioxide Level 30 Anion Gap 16 Blood Urea Nitrogen 11 Creatinine 0.51 Glucose Level 129 Calcium Level 9.0 Medications Medications Current Medications Ondansetron HCl 4 mg 4 mg Q6H PRN IV NAUSEA AND/OR VOMITING Last administered on 02/23/17 20:04; Admin Dose 4 MG; Start 02/16/17 at 10:00 Acetaminophen (Ofirmev 1000mg/ 100ml Iv) 100 ml @ 400 mls/hr Q6H PRN IVPB FEVER Last administered on 02/23/17 11:53; Admin Dose 400 MLS/HR; Start at 15:00 Morphine Sulfate 2 mg 2 mg Q2H PRN IV PAIN Last administered on 03/07/17 21:19 ; Admin Dose 2 MG; Start 02/22/17 at 10:00 Piperacillin Sod/ Tazobactam Sod (Zosyn 3.375gm/ 100 ml (Pmx)) 100 ml @ 200 mls /hr Q8 IVPB Last administered on 03/08/17 05:53; Admin Dose 200 MLS/HR; Start 02/23/17 at 10:00 Metoclopramide HCl 10 mg 10 mg Q8 IV Last administered on 03/08/17 05:53; Admin Dose 10 MG; Start 02/23/17 at 22:00 Sodium Chloride 1,000 ml @ 50 mls/hr Q20H IV Last administered on 03/07/17 19 :43; Admin Dose 50 MLS/HR; Start 02/25/17 at 16:00 Total Parenteral Nutrition 1,000 ml @ 75 mls/hr [id number] IV Last administered on 03/08/17 02:00; Admin Dose 75 MLS/HR; Start 02/25/17 at 16:00 Fat Emulsion Intravenous (Liposyn Ii 20%) 250 ml @ 10.417 mls/ hr Q24H IV Last administered on 03/07/17 20:22; Admin Dose 10.417 MLS/HR; Start 02/25/17 at 16:00 Diagnostic Test (Pha) (Accu-Chek) 1 ea Q12 XX Last administered on 03/08/17 09 :00; Admin Dose 1 EA; Start 02/27/17 at 09:00 Miscellaneous Information 1 ea NOTE XX ; Start 02/26/17 at 14:00 Glucose (Glutose) 15 gm Q15M PRN PO DECREASED GLUCOSE; Start 02/26/17 at 14:00 Glucose (Glutose) 22.5 gm Q15M PRN PO DECREASED GLUCOSE; Start 02/26/17 at 14: 00 Dextrose (D50w Syringe) 25 ml Q15M PRN IV DECREASED GLUCOSE; Start 02/26/17 at 14:00 Dextrose (D50w Syringe) 50 ml Q15M PRN IV DECREASED GLUCOSE; Start 02/26/17 at 14:00 Glucagon (Glucagen) 1 mg Q15M PRN IM DECREASED GLUCOSE; Start 02/26/17 at 14:00 Glucose (Glutose) 15 gm Q15M PRN BUCCAL DECREASED GLUCOSE; Start 02/26/17 at 14 :00 IV Flush (NS 10 ml) 10 ml PRN PRN IV IV PROTOCOL; Start 02/27/17 at 13:00 LETICIA SANTANA MD Mar 08, 2017 12:55
[2017-03-08 13:19] VITALS: BP 97/58; RESP 16
[2017-03-08 19:40] VITALS: BP 106/64; RESP 20
[2017-03-08] MEDS: FAT EMULSION 20% 250 ML IV SCH (20:50)
--- NOTE | 2017-03-08 21:03 | CONS ---
[facility] HCIS Consult Follow up SOAP Patient Name: Kaylan Gutierrez Unit Number: [id number] Date of : 1975 Patient Status: Admitted Inpatient Attending Doctor: Karla Jacinto MD Edit: BLANCO MORRIS M.D. on 03/09/17 @ 09:59 Arturo attestation: I discussed the management with ITZEL Herrera and agree with her note. Date/Time of Note Date/Time of Note DATE: 03/08/17 TIME: 20:43 Consult Date/Type/Reason Admit Date/Time Feb 16, 2017 at 07:24 Initial Consult Date 02/22/17 Type of Consultation: Infectious Disease Ordering Provider: VINCENZO CISNEROS MD Subjective no pain, up to the bathroom PRN Objective Vital Signs Date Time Temp Pulse Resp B/P Pulse Ox O2 Delivery O2 Flow Rate FiO2 03/08/17 19:40 98.5 98 20 106/64 97 03/06/17 12:30 Room Air Intake and Output 03/07/17 03/07/17 03/08/17 15:00 23:00 07:00 Intake Total 575 ml 1705 ml 1570 ml Output Total 3430 ml 845 ml Balance 575 ml -1725 ml 725 ml Exam Constitutional: alert, oriented, well developed Psych: no complaints, normal mood and affect Head: atraumatic, normocephalic Eyes: normal conjunctiva and lids ENMT: normal external ears & nose, moist mucosa, NGT right nares - clamped Neck: supple Respiratory: clear to auscultation, normal air movement Cardiovascular: palpable pulses, regular rate and rhythm Gastrointestinal: soft, flat, non-tender, non-distended, ileostostomy RLQ, draining green colored liquid, external drainage catheter right buttock Musculoskeletal: normal extremities to inspection Extremities: No edema, warm and dry, Piccline LUE, no e/o infection 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: normal mental status and clear speech Skin: warm, dry, normal turgor Results/Medications Result Diagram: 03/08/17 0555 03/08/17 0555 Results 24 hrs Laboratory Tests Test 03/08/17 05:25 03/08/17 05:55 03/08/17 09:20 Prealbumin 15.6 L Triglycerides Level 109 White Blood Count 10.6 Red Blood Count 2.81 L Hemoglobin 8.9 L Hematocrit 26.9 L Mean Corpuscular Volume 95.7 Mean Corpuscular Hemoglobin 31.7 Mean Corpuscular Hemoglobin Concent 33.1 Red Cell Distribution Width 12.4 Platelet Count 560 H Mean Platelet Volume 8.8 Neutrophils % 84.8 H Lymphocytes % 5.6 L Monocytes % 5.1 Eosinophils % 3.0 Basophils % 0.4 Nucleated Red Blood Cells % 0.0 Neutrophils # (Manual) 9.0 H Lymphocytes # 0.6 L Monocytes # 0.5 Eosinophils # 0.3 Basophils # 0.0 Nucleated Red Blood Cells # 0.0 Sodium Level 141 Potassium Level 4.0 Chloride Level 99 Carbon Dioxide Level 30 Anion Gap 16 Blood Urea Nitrogen 11 Creatinine 0.51 Glucose Level 129 Calcium Level 9.0 Bedside Glucose 126 Medications Current Medications Ondansetron HCl 4 mg 4 mg Q6H PRN IV NAUSEA AND/OR VOMITING Last administered on 02/23/17 20:04; Admin Dose 4 MG; Start 02/16/17 at 10:00 Acetaminophen (Ofirmev 1000mg/ 100ml Iv) 100 ml @ 400 mls/hr Q6H PRN IVPB FEVER Last administered on 02/23/17 11:53; Admin Dose 400 MLS/HR; Start at 15:00 Morphine Sulfate 2 mg 2 mg Q2H PRN IV PAIN Last administered on 03/07/17 21:19 ; Admin Dose 2 MG; Start 02/22/17 at 10:00 Piperacillin Sod/ Tazobactam Sod (Zosyn 3.375gm/ 100 ml (Pmx)) 100 ml @ 200 mls /hr Q8 IVPB Last administered on 03/08/17 14:34; Admin Dose 200 MLS/HR; Start 02/23/17 at 10:00 Metoclopramide HCl 10 mg 10 mg Q8 IV Last administered on 03/08/17 14:34; Admin Dose 10 MG; Start 02/23/17 at 22:00 Sodium Chloride 1,000 ml @ 50 mls/hr Q20H IV Last administered on 03/07/17 19 :43; Admin Dose 50 MLS/HR; Start 02/25/17 at 16:00 Total Parenteral Nutrition 1,000 ml @ 75 mls/hr [id number] IV Last administered on 03/08/17 02:00; Admin Dose 75 MLS/HR; Start 02/25/17 at 16:00 Fat Emulsion Intravenous (Liposyn Ii 20%) 250 ml @ 10.417 mls/ hr Q24H IV Last administered on 03/07/17 20:22; Admin Dose 10.417 MLS/HR; Start 02/25/17 at 16:00 Diagnostic Test (Pha) (Accu-Chek) 1 ea Q12 XX Last administered on 03/08/17 09 :00; Admin Dose 1 EA; Start 02/27/17 at 09:00 Miscellaneous Information 1 ea NOTE XX ; Start 02/26/17 at 14:00 Glucose (Glutose) 15 gm Q15M PRN PO DECREASED GLUCOSE; Start 02/26/17 at 14:00 Glucose (Glutose) 22.5 gm Q15M PRN PO DECREASED GLUCOSE; Start 02/26/17 at 14: 00 Dextrose (D50w Syringe) 25 ml Q15M PRN IV DECREASED GLUCOSE; Start 02/26/17 at 14:00 Dextrose (D50w Syringe) 50 ml Q15M PRN IV DECREASED GLUCOSE; Start 02/26/17 at 14:00 Glucagon (Glucagen) 1 mg Q15M PRN IM DECREASED GLUCOSE; Start 02/26/17 at 14:00 Glucose (Glutose) 15 gm Q15M PRN BUCCAL DECREASED GLUCOSE; Start 02/26/17 at 14 :00 IV Flush (NS 10 ml) 10 ml PRN PRN IV IV PROTOCOL; Start 02/27/17 at 13:00 Assessment/Plan Chief Complaint/Hosp Course - post op fever due to pelvic abscess - pelvic abscess formation adjacent to a distal colonic anastomosis, seen on CT on 02/24/[address]-guided drainage on 02/28/2017. Culture grew klebsiella, E. coli, enterococci, morganella, bacteroides - anastomotic leak, identified on barium study on 03/02/2017, s/p ex lap and diverting ileostomy placement on 03/06/2017 - possible UTI vs. contamination of the urethra by klebsiella and morganella - rectal CA s/p low anterior resection with splenic flexure mobilization, mobilization of omental patch and rigid sigmoidoscopy on 02/16/2017. Pathology of the resected rectum showed residual moderately-differentiated adenocarcinoma , involving muscularis propria, mucosal ulceration, clear margin and no e/o metastasis - Recommendations - continue pip/tazo (02/23/2017-) until the external drainage catheter is removed. Once it gets removed, recommending ordering repeat abd/pel CT to confirm no more residual intra-pelvic fluid collection. If no more pelvic fluid collection is seen at that point, her antibiotic can be discontinued - CXR & Bldcx X2 today - CBC & BMP in am Care and management d/w patient and spouse, nurse Tomasa and DR. Morris Problems: Additional Assessment/Plan f/c removed, febrile today MAX Temp 100.6, ucx sent NPG clamped, planning to DC NGT if no nausea/vomiting RICHI HERRERA Mar 08, 2017 20:54
[2017-03-08] MEDS: morphine 2 MG INJ IV PRN (22:37)
[2017-03-09 02:00] VITALS: BP 97/55; RESP 20
[2017-03-09] MEDS: METOCLOPRAMIDE 10 MG INJ IV SCH ×3 (05:37→22:20)
[2017-03-09] MEDS: PIPER-TAZO 3.375 GM IV (PMX) 100 ML IVPB SCH ×3 (05:37→22:20)
[2017-03-09 05:50] LABS: BASOPHILS % 0.3 % (0.0-2.0); EOSINOPHILS # 0.3 10^3/ul (0.0-0.5); EOSINOPHILS % 3.4 % (0.0-7.0); HEMATOCRIT 26.2 % (37.0-47.0); HEMOGLOBIN 8.4 g/dl (12.0-16.0); LYMPHOCYTES # 0.6 10^3/ul (0.8-2.9); LYMPHOCYTES % 6.2 % (15.0-51.0); MEAN CORPUSCULAR HEMOGLOBIN 30.7 pg (29.0-33.0); MEAN CORPUSCULAR HGB CONC 32.1 g/dl (32.0-37.0); MEAN CORPUSCULAR VOLUME 95.6 fl (82.0-101.0); MEAN PLATELET VOLUME 9.1 fl (7.4-10.4); MONOCYTE # 0.7 10^3/ul (0.3-0.9); MONOCYTES % 6.6 % (0.0-11.0); NEUTROPHILS % 82.5 % (39.0-77.0); PLATELET COUNT 501 10^3/UL (140-415); RED BLOOD COUNT 2.74 10^6/ul (4.20-5.40); RED CELL DISTRIBUTION WIDTH 12.6 % (11.5-14.5)
[2017-03-09] MEDS: TPN 1,000 ML IV SCH ×3 (05:53→20:46)
[2017-03-09] MEDS: SOD CHLORIDE 0.45% 1,000 ML IV SCH (05:54)
[2017-03-09 06:12] LABS: CREATININE 0.6 mg/dl (0.44-1.00)
[2017-03-09 08:00] VITALS: BP 99/57; RESP 20
[2017-03-09] MEDS: ACCU-CHEK XX SCH ×2 (08:09→20:57)
--- NOTE | 2017-03-09 11:39 | PN ---
Date/Time of Note Date/Time of Note DATE: 03/09/17 TIME: Assessment/Plan VTE Prophylaxis VTE Prophylaxis Intervention: SCD's Lines/Catheters IV [facility]): PICC Line Central line still needed: Yes Urinary Cath still in place: Yes Reason Cath still needed: urinary retention Assessment/Plan Chief Complaint/Hosp Course Assessment/Plan: 41 yo F diagnosed with rectal Ca in September of 2016 sp XRT admitted for planned low anterior resection which she underwent 02/17. Post op course notable for development of abscess/fluid collection adjacent to anastomosis site for which pt underwent IR drainage placement 8.. Pt found to have rectal anastomosis site leak on imaging ., and underwent subsequent diverting ileostomy 03/06 (POD # 3). 1. Rectal cancer - status post low anterior resection, pelvic abscess and fluid collection, and subsequent diverting ileostomy for rectal anastomosis site leak. Slowly improving now, NG tube is out, although patient did have fever last night. Still on broad-spectrum antibiotics. Wound culture grew klebsiella, E. coli, enterococci, morganella, bacteroides. -Follow-up postop recommendations, since NG tube is out now, will check with surgery team about starting diet today. - Continue IV Zosyn ( started 02/23) for now per infectious disease recommendations, until the external drainage catheter is removed. Once it gets removed, they are recommending ordering repeat abd/pel CT to confirm no more residual intra-pelvic fluid collection. If no more pelvic fluid collection is seen at that point, her antibiotic can be discontinued at that time. -Follow-up labs from fever workup -For now continue TPN till we get further answer from surgery team regarding starting p.o. diet or not 2. DVT ppx - SCD Problems: Subjective 24 Hr Interval Summary Free Text/Dictation Patient worked with physical therapy and occupational therapy yesterday. Did have a temperature of 100.6 last night. Had NG tube removed yesterday. Still n.p.o. however. Exam/Review of Systems Vital Signs Vitals Vital Signs Date Time Temp Pulse Resp B/P Pulse Ox O2 Delivery O2 Flow Rate FiO2 03/09/17 08:00 98.6 95 20 99/57 98 03/06/17 12:30 Room Air Intake and Output 03/08/17 03/08/17 03/09/17 14:59 22:59 06:59 Intake Total 260 ml 1540 ml Output Total 1420 ml 505 ml Balance -1160 ml 1035 ml Exam Lying in bed, no acute distress PICC in L arm resp nonlabored S1, S2 heard no rashes no edema Results Result Diagram: 03/09/1715 03/09/1715 Results 24 hrs Laboratory Tests Test 03/08/17 21:19 03/09/17 05:15 03/09/17 08:04 Bedside Glucose 111 124 White Blood Count 10.0 Red Blood Count 2.74 L Hemoglobin 8.4 L Hematocrit 26.2 L Mean Corpuscular Volume 95.6 Mean Corpuscular Hemoglobin 30.7 Mean Corpuscular Hemoglobin Concent 32.1 Red Cell Distribution Width 12.6 Platelet Count 501 H Mean Platelet Volume 9.1 Neutrophils % 82.5 H Lymphocytes % 6.2 L Monocytes % 6.6 Eosinophils % 3.4 Basophils % 0.3 Nucleated Red Blood Cells % 0.0 Neutrophils # (Manual) 8.2 H Lymphocytes # 0.6 L Monocytes # 0.7 Eosinophils # 0.3 Basophils # 0.0 Nucleated Red Blood Cells # 0.0 Sodium Level 142 Potassium Level 4.0 Chloride Level 101 Carbon Dioxide Level 28 Anion Gap 17 H Blood Urea Nitrogen 14 Creatinine 0.60 Glucose Level 124 Calcium Level 9.0 Medications Medications Current Medications Ondansetron HCl 4 mg 4 mg Q6H PRN IV NAUSEA AND/OR VOMITING Last administered on 02/23/17 20:04; Admin Dose 4 MG; Start 02/16/17 at 10:00 Acetaminophen (Ofirmev 1000mg/ 100ml Iv) 100 ml @ 400 mls/hr Q6H PRN IVPB FEVER Last administered on 02/23/17 11:53; Admin Dose 400 MLS/HR; Start at 15:00 Morphine Sulfate 2 mg 2 mg Q2H PRN IV PAIN Last administered on 03/08/17 22:37 ; Admin Dose 2 MG; Start 02/22/17 at 10:00 Piperacillin Sod/ Tazobactam Sod (Zosyn 3.375gm/ 100 ml (Pmx)) 100 ml @ 200 mls /hr Q8 IVPB Last administered on 03/09/17 05:37; Admin Dose 200 MLS/HR; Start 02/23/17 at 10:00 Metoclopramide HCl 10 mg 10 mg Q8 IV Last administered on 03/09/17 05:37; Admin Dose 10 MG; Start 02/23/17 at 22:00 Sodium Chloride 1,000 ml @ 50 mls/hr Q20H IV Last administered on 03/09/17 05 :54; Admin Dose 50 MLS/HR; Start 02/25/17 at 16:00 Total Parenteral Nutrition 1,000 ml @ 75 mls/hr [id number] IV Last administered on 03/09/17 05:53; Admin Dose 75 MLS/HR; Start 02/25/17 at 16:00 Fat Emulsion Intravenous (Liposyn Ii 20%) 250 ml @ 10.417 mls/ hr Q24H IV Last administered on 03/08/17 20:50; Admin Dose 10.417 MLS/HR; Start 02/25/17 at 16:00 Diagnostic Test (Pha) (Accu-Chek) 1 ea Q12 XX Last administered on 03/09/17 08 :09; Admin Dose 1 EA; Start 02/27/17 at 09:00 Miscellaneous Information 1 ea NOTE XX ; Start 02/26/17 at 14:00 Glucose (Glutose) 15 gm Q15M PRN PO DECREASED GLUCOSE; Start 02/26/17 at 14:00 Glucose (Glutose) 22.5 gm Q15M PRN PO DECREASED GLUCOSE; Start 02/26/17 at 14: 00 Dextrose (D50w Syringe) 25 ml Q15M PRN IV DECREASED GLUCOSE; Start 02/26/17 at 14:00 Dextrose (D50w Syringe) 50 ml Q15M PRN IV DECREASED GLUCOSE; Start 02/26/17 at 14:00 Glucagon (Glucagen) 1 mg Q15M PRN IM DECREASED GLUCOSE; Start 02/26/17 at 14:00 Glucose (Glutose) 15 gm Q15M PRN BUCCAL DECREASED GLUCOSE; Start 02/26/17 at 14 :00 IV Flush (NS 10 ml) 10 ml PRN PRN IV IV PROTOCOL; Start 02/27/17 at 13:00 EMPERATRIZ SILVA Mar 09, 2017 11:39
--- NOTE | 2017-03-09 12:47 | RADRPT ---
PROCEDURE: XR Chest. CLINICAL INDICATION: Fever TECHNIQUE: PA and lateral views of the chest were obtained COMPARISON: 03/01/2017 FINDINGS: No pleural effusion or pneumothorax. No consolidation. Stable cardiomediastinal silhouette. Left PICC with tip projecting over the distal superior vena cav a. No acute osseous abnormality. IMPRESSION: No acute cardiopulmonary disease. Overall, no convincing interval change compared to chest radiograp h dated 03/01/2017. RPTAT: QQ Dina Maldonado Physician Date Time Electronically viewed and signed by Dina Maldonado Physician on 03/09/2017 12:47 GC/
--- NOTE | 2017-03-09 13:01 | PN ---
Date/Time of Note Date/Time of Note DATE: 03/09/17 TIME: 12:54 Assessment/Plan VTE Prophylaxis VTE Prophylaxis Intervention: ambulation Lines/Catheters IV Catheter Type (from Nrsg): PICC Line Central line still needed: Yes (When patient starts to tolerate regular diet and will DC TPN and will DC central line) Urinary Cath still in place: No Assessment/Plan Assessment/Plan Postop day 3 status post placement of right lower quadrant ileostomy. NG tube was DC'd last night patient has tolerated no nausea no vomiting, We will start on clear liquids if tolerated advance to full liquids tonight and tomorrow to regular diet. Subjective 24 Hr Interval Summary Free Text/Dictation No complain of nausea or vomiting. Has been out of bed walking around. Urination is okay. Exam/Review of Systems Vital Signs Vitals Vital Signs Date Time Temp Pulse Resp B/P Pulse Ox O2 Delivery O2 Flow Rate FiO2 03/09/17 08:00 98.6 95 20 99/57 98 03/06/17 12:30 Room Air Intake and Output 03/08/17 03/08/17 03/09/17 15:00 23:00 07:00 Intake Total 260 ml 1540 ml Output Total 1420 ml 505 ml Balance -1160 ml 1035 ml Exam Postop day #3 second operation status post diverging ileostomy. Vital signs stable no fever no nausea no vomiting. The ostomy has drained 600 cc of greenish fluid in the past 24 hours. Pigtail drain from the pelvis has drained 25 cc in past 24 hours. WBC 10,000 with 82% segmented, sodium-potassium BUN creatinine within normal limits. Abdomen soft. Results Result Diagram: 03/09/17 0515 03/09/17 0515 Results 24 hrs Laboratory Tests Test 03/08/17 21:19 03/09/17 05:15 03/09/17 08:04 Bedside Glucose 111 124 White Blood Count 10.0 Red Blood Count 2.74 L Hemoglobin 8.4 L Hematocrit 26.2 L Mean Corpuscular Volume 95.6 Mean Corpuscular Hemoglobin 30.7 Mean Corpuscular Hemoglobin Concent 32.1 Red Cell Distribution Width 12.6 Platelet Count 501 H Mean Platelet Volume 9.1 Neutrophils % 82.5 H Lymphocytes % 6.2 L Monocytes % 6.6 Eosinophils % 3.4 Basophils % 0.3 Nucleated Red Blood Cells % 0.0 Neutrophils # (Manual) 8.2 H Lymphocytes # 0.6 L Monocytes # 0.7 Eosinophils # 0.3 Basophils # 0.0 Nucleated Red Blood Cells # 0.0 Sodium Level 142 Potassium Level 4.0 Chloride Level 101 Carbon Dioxide Level 28 Anion Gap 17 H Blood Urea Nitrogen 14 Creatinine 0.60 Glucose Level 124 Calcium Level 9.0 Medications Medications Current Medications Ondansetron HCl 4 mg 4 mg Q6H PRN IV NAUSEA AND/OR VOMITING Last administered on 02/23/17 20:04; Admin Dose 4 MG; Start 02/16/17 at 10:00 Acetaminophen (Ofirmev 1000mg/ 100ml Iv) 100 ml @ 400 mls/hr Q6H PRN IVPB FEVER Last administered on 02/23/17 11:53; Admin Dose 400 MLS/HR; Start at 15:00 Morphine Sulfate 2 mg 2 mg Q2H PRN IV PAIN Last administered on 03/08/17 22:37 ; Admin Dose 2 MG; Start 02/22/17 at 10:00 Piperacillin Sod/ Tazobactam Sod (Zosyn 3.375gm/ 100 ml (Pmx)) 100 ml @ 200 mls /hr Q8 IVPB Last administered on 03/09/17 05:37; Admin Dose 200 MLS/HR; Start 02/23/17 at 10:00 Metoclopramide HCl 10 mg 10 mg Q8 IV Last administered on 03/09/17 05:37; Admin Dose 10 MG; Start 02/23/17 at 22:00 Sodium Chloride 1,000 ml @ 50 mls/hr Q20H IV Last administered on 03/09/17 05 :54; Admin Dose 50 MLS/HR; Start 02/25/17 at 16:00 Total Parenteral Nutrition 1,000 ml @ 75 mls/hr [id number] IV Last administered on 03/09/17 05:53; Admin Dose 75 MLS/HR; Start 02/25/17 at 16:00 Fat Emulsion Intravenous (Liposyn Ii 20%) 250 ml @ 10.417 mls/ hr Q24H IV Last administered on 03/08/17 20:50; Admin Dose 10.417 MLS/HR; Start 02/25/17 at 16:00 Diagnostic Test (Pha) (Accu-Chek) 1 ea Q12 XX Last administered on 03/09/17t 08 :09; Admin Dose 1 EA; Start 02/27/17 at 09:00 Miscellaneous Information 1 ea NOTE XX ; Start 02/26/17 at 14:00 Glucose (Glutose) 15 gm Q15M PRN PO DECREASED GLUCOSE; Start 02/26/17 at 14:00 Glucose (Glutose) 22.5 gm Q15M PRN PO DECREASED GLUCOSE; Start 02/26/17 at 14: 00 Dextrose (D50w Syringe) 25 ml Q15M PRN IV DECREASED GLUCOSE; Start 02/26/17 at 14:00 Dextrose (D50w Syringe) 50 ml Q15M PRN IV DECREASED GLUCOSE; Start 02/26/17 at 14:00 Glucagon (Glucagen) 1 mg Q15M PRN IM DECREASED GLUCOSE; Start 02/26/17 at 14:00 Glucose (Glutose) 15 gm Q15M PRN BUCCAL DECREASED GLUCOSE; Start 02/26/17 at 14 :00 IV Flush (NS 10 ml) 10 ml PRN PRN IV IV PROTOCOL; Start 02/27/17 at 13:00 LETICIA SANTANA MD Mar 09, 2017 13:01
--- NOTE | 2017-03-09 16:35 | CONS ---
JOSE GARCES UNDERCOLLAR BASTER 03/09/17 1635: Date/Time of Note Date/Time of Note DATE: 03/09/17 TIME: 16:32 Assessment/Plan Assessment/Plan Chief Complaint/Hosp Course - post op fever due to pelvic abscess - pelvic abscess formation adjacent to a distal colonic anastomosis, seen on CT on 02/24/[address]-guided drainage on 02/28/2017. Culture grew klebsiella, E. coli, enterococci, morganella, bacteroides - anastomotic leak, identified on barium study on 03/02/2017, s/p ex lap and diverting ileostomy placement on 02/14/2017 - possible UTI vs. contamination of the urethra by klebsiella and morganella - rectal CA s/p low anterior resection with splenic flexure mobilization, mobilization of omental patch and rigid sigmoidoscopy on 02/16/2017. 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 Once it gets removed, we recommend ordering repeat abd/pel CT to confirm no more residual intra-pelvic fluid collection. If no more pelvic fluid collection is seen at that point, her antibiotic can be discontinued Management d/w patient and Dr. Morris Problems: Consultation Date/Type/Reason Admit Date/Time Feb 16, 2017 at 07:24 Initial Consult Date 02/22/17 Type of Consultation: Infectious Disease Referring Provider: VINCENZO CISNEROS MD 24 HR Interval Summary Free Text/Dictation Afebrile. Denies pain, SOB, n/v/d, dysuria. States external drain output appears to be decreasing. NGT removed; started on clear liquid diet and tolerating it well. Exam/Review of Systems Vital Signs Vitals Vital Signs Date Time Temp Pulse Resp B/P Pulse Ox O2 Delivery O2 Flow Rate FiO2 03/09/17 08:00 98.6 95 20 99/57 98 03/06/17 12:30 Room Air Intake and Output 03/08/17 03/08/17 03/09/17 15:00 23:00 07:00 Intake Total 260 ml 1540 ml Output Total 1420 ml 505 ml Balance -1160 ml 1035 ml Exam Constitutional: alert, well developed Psych: nl mood/affect, no complaints Head: atraumatic, normocephalic Eyes: nl conjunctiva, nl lids ENMT: nl external ears & nose, nl nasal mucosa & septum, mucosa pink and moist , other (NGT in place, clamped) Neck: supple Respiratory: clear to auscultation, normal air movement Cardiovascular: nl pulses, regular rate and rhythm Gastrointestinal: other (external drainage catheter in place with small amount of purulent output; RLQ ileostomy with liquid dark stool), surgical scars (ML scar well approximated) No distended Musculoskeletal: nl extremities to inspection Extremities: normal pulses, other (LUE PICC with no e/o infection and TPN infusing) No edema 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, nl mental status, nl speech Skin: nl turgor Results Result Diagram: 03/09/1715 03/09/17 0515 Results 24 hrs Laboratory Tests Test 03/08/17 21:19 03/09/17 05:15 03/09/17 08:04 Bedside Glucose 111 124 White Blood Count 10.0 Red Blood Count 2.74 L Hemoglobin 8.4 L Hematocrit 26.2 L Mean Corpuscular Volume 95.6 Mean Corpuscular Hemoglobin 30.7 Mean Corpuscular Hemoglobin Concent 32.1 Red Cell Distribution Width 12.6 Platelet Count 501 H Mean Platelet Volume 9.1 Neutrophils % 82.5 H Lymphocytes % 6.2 L Monocytes % 6.6 Eosinophils % 3.4 Basophils % 0.3 Nucleated Red Blood Cells % 0.0 Neutrophils # (Manual) 8.2 H Lymphocytes # 0.6 L Monocytes # 0.7 Eosinophils # 0.3 Basophils # 0.0 Nucleated Red Blood Cells # 0.0 Sodium Level 142 Potassium Level 4.0 Chloride Level 101 Carbon Dioxide Level 28 Anion Gap 17 H Blood Urea Nitrogen 14 Creatinine 0.60 Glucose Level 124 Calcium Level 9.0 Medications Medications Current Medications Ondansetron HCl 4 mg 4 mg Q6H PRN IV NAUSEA AND/OR VOMITING Last administered on 02/23/17t 20:04; Admin Dose 4 MG; Start 02/16/17 at 10:00 Acetaminophen (Ofirmev 1000mg/ 100ml Iv) 100 ml @ 400 mls/hr Q6H PRN IVPB FEVER Last administered on 02/23/17 11:53; Admin Dose 400 MLS/HR; Start at 15:00 Morphine Sulfate 2 mg 2 mg Q2H PRN IV PAIN Last administered on 03/08/17 22:37 ; Admin Dose 2 MG; Start 02/22/17 at 10:00 Piperacillin Sod/ Tazobactam Sod (Zosyn 3.375gm/ 100 ml (Pmx)) 100 ml @ 200 mls /hr Q8 IVPB Last administered on 03/09/17 14:59; Admin Dose 200 MLS/HR; Start 02/23/17 at 10:00 Metoclopramide HCl 10 mg 10 mg Q8 IV Last administered on 03/09/17 15:04; Admin Dose 10 MG; Start 02/23/17 at 22:00 Sodium Chloride 1,000 ml @ 50 mls/hr Q20H IV Last administered on 03/09/17 05 :54; Admin Dose 50 MLS/HR; Start 02/25/17 at 16:00 Total Parenteral Nutrition 1,000 ml @ 75 mls/hr [id number] IV Last administered on 03/09/17 05:53; Admin Dose 75 MLS/HR; Start 02/25/17 at 16:00 Fat Emulsion Intravenous (Liposyn Ii 20%) 250 ml @ 10.417 mls/ hr Q24H IV Last administered on 03/08/17 20:50; Admin Dose 10.417 MLS/HR; Start 02/25/17 at 16:00 Diagnostic Test (Pha) (Accu-Chek) 1 ea Q12 XX Last administered on 03/09/17 08 :09; Admin Dose 1 EA; Start 02/27/17 at 09:00 Miscellaneous Information 1 ea NOTE XX ; Start 02/26/17 at 14:00 Glucose (Glutose) 15 gm Q15M PRN PO DECREASED GLUCOSE; Start 02/26/17 at 14:00 Glucose (Glutose) 22.5 gm Q15M PRN PO DECREASED GLUCOSE; Start 02/26/17 at 14: 00 Dextrose (D50w Syringe) 25 ml Q15M PRN IV DECREASED GLUCOSE; Start 02/26/17 at 14:00 Dextrose (D50w Syringe) 50 ml Q15M PRN IV DECREASED GLUCOSE; Start 02/26/17 at 14:00 Glucagon (Glucagen) 1 mg Q15M PRN IM DECREASED GLUCOSE; Start 02/26/17 at 14:00 Glucose (Glutose) 15 gm Q15M PRN BUCCAL DECREASED GLUCOSE; Start 02/26/17 at 14 :00 IV Flush (NS 10 ml) 10 ml PRN PRN IV IV PROTOCOL; Start 02/27/17 at 13:00 Procedures Procedures CXR 03/09/2017: No acute cardiopulmonary disease. Overall, no convincing interval change compared to chest radiograph dated 03/01/2017. BLANCO MORRIS M.D. 03/10/17 1121: Assessment/Plan Assessment/Plan Additional Assessment/Plan I discussed the management with ITZEL Garces and agree with her note Exam/Review of Systems Results Result Diagram: 03/09/17 0515 03/09/17 0515 JOSE GARCES NP Mar 09, 2017 16:35 BLANCO MORRIS M.D. Mar 10, 2017 11:21
[2017-03-09 20:07] VITALS: BP 88/50; RESP 18
[2017-03-09] MEDS: FAT EMULSION 20% 250 ML IV SCH (20:45)
[2017-03-10 01:41] VITALS: BP 98/56; RESP 18
[2017-03-10] MEDS: METOCLOPRAMIDE 10 MG INJ IV SCH ×3 (05:52→21:38)
[2017-03-10] MEDS: PIPER-TAZO 3.375 GM IV (PMX) 100 ML IVPB SCH ×3 (05:52→21:39)
[2017-03-10] MEDS: SOD CHLORIDE 0.45% 1,000 ML IV SCH (05:57)
[2017-03-10 06:19] LABS: ABNORMAL IP MESSAGE 1; BASOPHIL # 0.1 10^3/ul (0.0-0.1); BASOPHILS % 0.6 % (0.0-2.0); EOSINOPHILS # 0.4 10^3/ul (0.0-0.5); EOSINOPHILS % 4.3 % (0.0-7.0); HEMATOCRIT 26.8 % (37.0-47.0); HEMOGLOBIN 8.8 g/dl (12.0-16.0); LYMPHOCYTES # 0.6 10^3/ul (0.8-2.9); LYMPHOCYTES % 7.2 % (15.0-51.0); MEAN CORPUSCULAR HEMOGLOBIN 31.4 pg (29.0-33.0); MEAN CORPUSCULAR HGB CONC 32.8 g/dl (32.0-37.0); MEAN CORPUSCULAR VOLUME 95.7 fl (82.0-101.0); MEAN PLATELET VOLUME 8.8 fl (7.4-10.4); MONOCYTE # 0.5 10^3/ul (0.3-0.9); MONOCYTES % 6.4 % (0.0-11.0); NEUTROPHILS % 80.6 % (39.0-77.0); PLATELET COUNT 484 10^3/UL (140-415); RED CELL DISTRIBUTION WIDTH 12.5 % (11.5-14.5); WHITE BLOOD COUNT 8.2 10^3/ul (4.8-10.8)
[2017-03-10 06:42] LABS: POSITIVE DIFF @See below
[2017-03-10 07:09] LABS: CALCIUM 9.1 mg/dl (8.4-10.2); CREATININE 0.58 mg/dl (0.44-1.00); POTASSIUM 4.2 mmol/L (3.5-5.1)
[2017-03-10 07:10] LABS: PHOSPHORUS 4.2 mg/dl (2.5-4.9)
[2017-03-10 08:26] VITALS: BP 106/59; RESP 18
[2017-03-10] MEDS: ACCU-CHEK XX SCH ×2 (08:47→21:00)
--- NOTE | 2017-03-10 11:39 | CONS ---
Date/Time of Note Date/Time of Note DATE: 03/10/17 TIME: 11:31 Assessment/Plan Assessment/Plan Chief Complaint/Hosp Course - s/p post op fever due to pelvic abscess, improved - pelvic abscess formation adjacent to a distal colonic anastomosis, seen on CT on 02/24/[address]-guided drainage on 02/28/2017. Culture grew klebsiella, E. coli, enterococci, morganella, bacteroides - anastomotic leak, identified on barium study on 03/02/2017, s/p ex lap and diverting ileostomy placement on 03/06/2017 - possible UTI vs. contamination of the urethra by klebsiella and morganella - rectal CA s/p low anterior resection with splenic flexure mobilization, mobilization of omental patch and rigid sigmoidoscopy on 02/16/2017. Pathology of the resected rectum showed residual moderately-differentiated adenocarcinoma , involving muscularis propria, mucosal ulceration, clear margin and no e/o metastasis - on TPN status, started on clear liquid diet today - s/p diverting ileostomy 03/06/2017 recommendations: - I recommend f/u CT scan prior to discharge. If Pt cannot tolerate IV contrast due to emesis, OK to do non-contrast CT - Pt's on pip/tazo (02/23/2017-). If her repeat abd/pel CT shows no more residual intra-pelvic fluid collection, ok to d/c pip/tazo. management d/w Pt and her RN Problems: Consultation Date/Type/Reason Admit Date/Time Feb 16, 2017 at 07:24 Initial Consult Date 02/22/17 Type of Consultation: Infectious Disease Referring Provider: VINCENZO CISNEROS MD 24 HR Interval Summary Constitutional: no complaints Detailed Summary Eyes: no complaints ENT: no complaints Respiratory: no complaints Cardiovascular: no complaints Gastrointestinal: no complaints, other (ate clera liquid diet), passing stool, No nausea, No vomiting Genitourinary: no complaints Musculoskeletal: no complaints Skin: no complaints Neurologic: no complaints Exam/Review of Systems Vital Signs Vitals Vital Signs Date Time Temp Pulse Resp B/P Pulse Ox O2 Delivery O2 Flow Rate FiO2 03/10/17 08:26 98.8 61 18 106/59 100 03/06/17 12:30 Room Air Intake and Output 03/09/17 03/09/17 03/10/17 15:00 23:00 07:00 Intake Total 2475 ml 1625 ml Output Total 205 ml 1100 ml 250 ml Balance -205 ml 1375 ml 1375 ml Exam Constitutional: alert, oriented, well developed Psych: nl mood/affect, no complaints Head: atraumatic, normocephalic Eyes: nl conjunctiva, nl lids ENMT: nl external ears & nose, nl nasal mucosa & septum Neck: supple Gastrointestinal: non-tender, other (external drainage catheter is collecting pale brown, serosanguinous fluid), soft, surgical scars, No distended, No tender Musculoskeletal: nl extremities to inspection Extremities: normal pulses 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-XII 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, nl mental status, nl speech Skin: nl turgor Results Result Diagram: 03/10/17 0554 03/10/17 0554 Results 24 hrs Laboratory Tests Test 03/09/17 20:56 03/10/17 05:54 03/10/17 08:46 Bedside Glucose 94 150 White Blood Count 8.2 Red Blood Count 2.80 L Hemoglobin 8.8 L Hematocrit 26.8 L Mean Corpuscular Volume 95.7 Mean Corpuscular Hemoglobin 31.4 Mean Corpuscular Hemoglobin Concent 32.8 Red Cell Distribution Width 12.5 Platelet Count 484 H Mean Platelet Volume 8.8 Neutrophils % 80.6 H Lymphocytes % 7.2 L Monocytes % 6.4 Eosinophils % 4.3 Basophils % 0.6 Nucleated Red Blood Cells % 0.0 Neutrophils # (Manual) 6.6 Lymphocytes # 0.6 L Monocytes # 0.5 Eosinophils # 0.4 Basophils # 0.1 Nucleated Red Blood Cells # 0.0 Sodium Level 140 Potassium Level 4.2 Chloride Level 104 Carbon Dioxide Level 26 Anion Gap 14 Blood Urea Nitrogen 12 Creatinine 0.58 Glucose Level 122 Calcium Level 9.1 Phosphorus Level 4.2 Magnesium Level 2.0 Medications Medications Current Medications Ondansetron HCl 4 mg 4 mg Q6H PRN IV NAUSEA AND/OR VOMITING Last administered on 02/23/17 20:04; Admin Dose 4 MG; Start 02/16/17 at 10:00 Acetaminophen (Ofirmev 1000mg/ 100ml Iv) 100 ml @ 400 mls/hr Q6H PRN IVPB FEVER Last administered on 02/23/17 11:53; Admin Dose 400 MLS/HR; Start at 15:00 Morphine Sulfate 2 mg 2 mg Q2H PRN IV PAIN Last administered on 03/08/17 22:37 ; Admin Dose 2 MG; Start 02/22/17 at 10:00 Piperacillin Sod/ Tazobactam Sod (Zosyn 3.375gm/ 100 ml (Pmx)) 100 ml @ 200 mls /hr Q8 IVPB Last administered on 03/10/17 05:52; Admin Dose 200 MLS/HR; Start 02/23/17 at 10:00 Metoclopramide HCl 10 mg 10 mg Q8 IV Last administered on 03/10/17 05:52; Admin Dose 10 MG; Start 02/23/17 at 22:00 Sodium Chloride 1,000 ml @ 50 mls/hr Q20H IV Last administered on 03/10/17 05: 57; Admin Dose 50 MLS/HR; Start 02/25/17 at 16:00 Total Parenteral Nutrition 1,000 ml @ 75 mls/hr [id number] IV Last administered on 03/09/17 20:46; Admin Dose 75 MLS/HR; Start 02/25/17 at 16:00 Fat Emulsion Intravenous (Liposyn Ii 20%) 250 ml @ 10.417 mls/ hr Q24H IV Last administered on 03/09/17 20:45; Admin Dose 10.417 MLS/HR; Start 02/25/17 at 16:00 Diagnostic Test (Pha) (Accu-Chek) 1 ea Q12 XX Last administered on 03/10/17 08: 47; Admin Dose 1 EA; Start 02/27/17 at 09:00 Miscellaneous Information 1 ea NOTE XX ; Start 02/26/17 at 14:00 Glucose (Glutose) 15 gm Q15M PRN PO DECREASED GLUCOSE; Start 02/26/17 at 14:00 Glucose (Glutose) 22.5 gm Q15M PRN PO DECREASED GLUCOSE; Start 02/26/17 at 14: 00 Dextrose (D50w Syringe) 25 ml Q15M PRN IV DECREASED GLUCOSE; Start 02/26/17 at 14:00 Dextrose (D50w Syringe) 50 ml Q15M PRN IV DECREASED GLUCOSE; Start 02/26/17 at 14:00 Glucagon (Glucagen) 1 mg Q15M PRN IM DECREASED GLUCOSE; Start 02/26/17 at 14:00 Glucose (Glutose) 15 gm Q15M PRN BUCCAL DECREASED GLUCOSE; Start 02/26/17 at 14 :00 IV Flush (NS 10 ml) 10 ml PRN PRN IV IV PROTOCOL; Start 02/27/17 at 13:00 BLANCO OHARA M.D. Mar 10, 2017 11:39
--- NOTE | 2017-03-10 12:18 | PN ---
Date/Time of Note Date/Time of Note DATE: 03/10/17 TIME: 12:15 Assessment/Plan VTE Prophylaxis VTE Prophylaxis Intervention: SCD's Lines/Catheters IV [facility]atheter Type (from [facility]): PICC Line Central line still needed: Yes Urinary Cath still in place: Yes Reason Cath still needed: urinary retention Assessment/Plan Chief Complaint/Hosp Course Assessment/Plan: 41 yo F diagnosed with rectal Ca in September of 2016 sp XRT admitted for planned low anterior resection which she underwent 02/17. Post op course notable for development of abscess/fluid collection adjacent to anastomosis site for which pt underwent IR drainage placement 8.. Pt found to have rectal anastomosis site leak on imaging ., and underwent subsequent diverting ileostomy 03/06 (POD # 4). 1. Rectal cancer - status post low anterior resection, pelvic abscess and fluid collection, and subsequent diverting ileostomy for rectal anastomosis site leak. Slowly improving now, NG tube is out. Still on broad-spectrum antibiotics. Wound culture grew klebsiella, E. coli, enterococci, morganella, bacteroides. -Follow-up postop recommendations, diet per surgery recommendation, per nursing staff will be advanced to regular diet today per - Continue IV Zosyn (started 02/23) for now per infectious disease recommendations, although will order for repeat CT scan abdomen. Further recommendations if there is no sign of any further infection, may be okay to stop antibiotics today. -Follow-up labs from fever workup-prelim lab reports are negative for growth 1 day 2. DVT ppx - SCD Problems: Subjective 24 Hr Interval Summary Free Text/Dictation Patient tolerating clear liquid diet. No fevers in the last 24 hours now. She still gets nausea when IV contrast given however. Seen by infectious disease and surgery teams yesterday. Exam/Review of Systems Vital Signs Vitals Vital Signs Date Time Temp Pulse Resp B/P Pulse Ox O2 Delivery O2 Flow Rate FiO2 03/10/17 08:26 98.8 61 18 106/59 100 03/06/17 12:30 Room Air Intake and Output 03/09/17 03/09/17 03/10/17 15:00 23:00 07:00 Intake Total 2475 ml 1625 ml Output Total 205 ml 1100 ml 250 ml Balance -205 ml 1375 ml 1375 ml Exam Lying in bed, no acute distress PICC in L arm resp nonlabored S1, S2 heard no rashes no edema Results Result Diagram: 03/10/17 0554 03/10/17 0554 Results 24 hrs Laboratory Tests Test 03/09/17 20:56 03/10/17 05:54 03/10/17 08:46 Bedside Glucose 94 150 White Blood Count 8.2 Red Blood Count 2.80 L Hemoglobin 8.8 L Hematocrit 26.8 L Mean Corpuscular Volume 95.7 Mean Corpuscular Hemoglobin 31.4 Mean Corpuscular Hemoglobin Concent 32.8 Red Cell Distribution Width 12.5 Platelet Count 484 H Mean Platelet Volume 8.8 Neutrophils % 80.6 H Lymphocytes % 7.2 L Monocytes % 6.4 Eosinophils % 4.3 Basophils % 0.6 Nucleated Red Blood Cells % 0.0 Neutrophils # (Manual) 6.6 Lymphocytes # 0.6 L Monocytes # 0.5 Eosinophils # 0.4 Basophils # 0.1 Nucleated Red Blood Cells # 0.0 Sodium Level 140 Potassium Level 4.2 Chloride Level 104 Carbon Dioxide Level 26 Anion Gap 14 Blood Urea Nitrogen 12 Creatinine 0.58 Glucose Level 122 Calcium Level 9.1 Phosphorus Level 4.2 Magnesium Level 2.0 Medications Medications Current Medications Ondansetron HCl 4 mg 4 mg Q6H PRN IV NAUSEA AND/OR VOMITING Last administered on 02/23/17 20:04; Admin Dose 4 MG; Start 02/16/17 at 10:00 Acetaminophen (Ofirmev 1000mg/ 100ml Iv) 100 ml @ 400 mls/hr Q6H PRN IVPB FEVER Last administered on 02/23/17 11:53; Admin Dose 400 MLS/HR; Start at 15:00 Morphine Sulfate 2 mg 2 mg Q2H PRN IV PAIN Last administered on 03/08/17 22:37 ; Admin Dose 2 MG; Start 02/22/17 at 10:00 Piperacillin Sod/ Tazobactam Sod (Zosyn 3.375gm/ 100 ml (Pmx)) 100 ml @ 200 mls /hr Q8 IVPB Last administered on 03/10/17 05:52; Admin Dose 200 MLS/HR; Start 02/23/17 at 10:00 Metoclopramide HCl 10 mg 10 mg Q8 IV Last administered on 03/10/17 05:52; Admin Dose 10 MG; Start 8/17/17 at 22:00 Sodium Chloride 1,000 ml @ 50 mls/hr Q20H IV Last administered on 03/10/17 05: 57; Admin Dose 50 MLS/HR; Start 02/25/17 at 16:00 Total Parenteral Nutrition 1,000 ml @ 75 mls/hr [id number] IV Last administered on 03/09/17 20:46; Admin Dose 75 MLS/HR; Start 02/25/17 at 16:00 Fat Emulsion Intravenous (Liposyn Ii 20%) 250 ml @ 10.417 mls/ hr Q24H IV Last administered on 03/09/17 20:45; Admin Dose 10.417 MLS/HR; Start 02/25/17 at 16:00 Diagnostic Test (Pha) (Accu-Chek) 1 ea Q12 XX Last administered on 03/10/17 08: 47; Admin Dose 1 EA; Start 02/27/17 at 09:00 Miscellaneous Information 1 ea NOTE XX ; Start 02/26/17 at 14:00 Glucose (Glutose) 15 gm Q15M PRN PO DECREASED GLUCOSE; Start 02/26/17 at 14:00 Glucose (Glutose) 22.5 gm Q15M PRN PO DECREASED GLUCOSE; Start 02/26/17 at 14: 00 Dextrose (D50w Syringe) 25 ml Q15M PRN IV DECREASED GLUCOSE; Start 02/26/17 at 14:00 Dextrose (D50w Syringe) 50 ml Q15M PRN IV DECREASED GLUCOSE; Start 02/26/17 at 14:00 Glucagon (Glucagen) 1 mg Q15M PRN IM DECREASED GLUCOSE; Start 02/26/17 at 14:00 Glucose (Glutose) 15 gm Q15M PRN BUCCAL DECREASED GLUCOSE; Start 02/26/17 at 14 :00 IV Flush (NS 10 ml) 10 ml PRN PRN IV IV PROTOCOL; Start 02/27/17 at 13:00 EMPERATRIZ SILVA Mar 10, 2017 12:18
[2017-03-10] MEDS ORDERED: BARIUM SULF 2% 450 ML BTL (BERRY SMOOTHIE) PO ONE (12:30)
[2017-03-10] MEDS: TPN 1,000 ML IV SCH ×2 (13:55→15:30)
--- NOTE | 2017-03-10 13:57 | RADRPT ---
PROCEDURE: CT Abdomen and Pelvis without contrast. CLINICAL INDICATION: Abscess, follow-up TECHNIQUE: CT of the abdomen and pelvis was performed on a multi-detector scanner without IV contr ast. Coronal and sagittal images were reformatted from the axial data set. One or more of the foll owing dose reduction techniques were used: automated exposure control, adjustment of the mA and/or k V according to patient size, use of iterative reconstruction technique. CTDI = 5.69 mGy. DLP = 321. 25 mGy-cm. COMPARISON: None. FINDINGS: The lung bases are clear. The heart size is normal, without pericardial effusion. Liver, gallbladd er, biliary tree, pancreas, spleen and adrenal glands are unremarkable. Multiple bilateral nonobstr uctive renal calculi are identified, without ureterolithiasis or obstructive uropathy. The stomach is grossly unremarkable. The aorta is of normal caliber. There is no retroperitoneal lymphadenopathy. The sukhwinder hepatis reg ion is clear. There has been interval placement of a percutaneous drainage catheter into the presacral space. Gas and fluid collection in this area has decreased in size, measuring 5.8 x 3.6 cm (3-133), previously 8.1 x 8.1 cm. The patient is again noted to be status post rectosigmoid colon resection and right lower quadrant loop ileostomy placement. No bowel obstruction or free intraperitoneal air is identi fied. There is no diverticulosis, diverticulitis or appendicitis. Urinary bladder, uterus and adnex a are grossly unremarkable. No pelvic mass or lymphadenopathy is seen. The surrounding osseous structures are unremarkable. No osteolytic or osteoblastic lesion is detect ed. IMPRESSION: 1. Presacral and pelvic abscess is significantly decreased in size status post placement of a percu taneous drainage catheter, as discussed above. 2. Multiple bilateral nonobstructive renal calculi are again seen, without ureterolithiasis or obst ructive uropathy. 3. The patient is again noted to be status post rectosigmoid colon resection and right lower quadra nt loop ileostomy placement. 4. No mass or lymphadenopathy is identified. RPTAT: HDWR .Tim Herzog MD, MD Date Time Electronically viewed and signed by .Tim Herzog MD, on 03/10/2017 13:56 .R/
[2017-03-10 14:00] VITALS: BP 105/57; RESP 18
--- NOTE | 2017-03-10 15:47 | PN ---
Date/Time of Note Date/Time of Note DATE: 03/10/17 TIME: 15:35 Assessment/Plan VTE Prophylaxis VTE Prophylaxis Intervention: ambulation Lines/Catheters [facility] (from [facility] PICC Line Central line still needed: Yes Urinary Cath still in place: No Assessment/Plan Assessment/Plan As was mentioned to continue antibiotics per recommendation of infectious disease information systems consultant Get a sinogram of the location of the catheter through injection from pigtail in the radiology department to find out why the catheter is not draining the accumulation of the fluid in the pelvis complete Subjective 24 Hr Interval Summary Free Text/Dictation No complain Has been up and around walking. Has tolerated regular diet. Ileostomy functioning. she is anxious to go home. Exam/Review of Systems Vital Signs Vitals Vital Signs Date Time Temp Pulse Resp B/P Pulse Ox O2 Delivery O2 Flow Rate FiO2 03/10/17 08:26 98.8 61 18 106/59 100 03/06/17 12:30 Room Air Intake and Output 03/09/17 03/09/17 03/10/17 15:00 23:00 07:00 Intake Total 2475 ml 1625 ml Output Total 205 ml 1100 ml 250 ml Balance -205 ml 1375 ml 1375 ml Exam Awake alert in no acute distress. She 8200 with 80% segmented. Maximum temperature today 99.3. Pigtail drain draining minimal amounts has been recorded at 25 cc per past 24 hours part of lt of course is fluid which was used for flushing. CT scan of the abdomen and pelvis was done today for follow-up of the abscess in the pelvis which was reported by the radiologist that still there is accumulation about 5.1 cm x 5.1 cm while few days ago it was 8.1 x 8.1 cm. The question is why the pigtail drain is not draining the pelvis completely. I checked today's CT scan with Dr. Cortez he suggested to repeat sinogram to find out what is the location of the catheter. I discussed the matter with patient's and the patient and he agreed. Therefore we are going to request sinogram through the pigtail catheter. But the radiology department said that they are too busy today and they cannot do it today hopefully they will do it on Monday Continue antibiotics per suggestion of infectious disease. 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 Results Result Diagram: 03/10/17 0554 03/10/17 0554 Results 24 hrs Laboratory Tests Test 03/09/17 20:56 03/10/17 05:54 03/10/17 08:46 Bedside Glucose 94 150 White Blood Count 8.2 Red Blood Count 2.80 L Hemoglobin 8.8 L Hematocrit 26.8 L Mean Corpuscular Volume 95.7 Mean Corpuscular Hemoglobin 31.4 Mean Corpuscular Hemoglobin Concent 32.8 Red Cell Distribution Width 12.5 Platelet Count 484 H Mean Platelet Volume 8.8 Neutrophils % 80.6 H Lymphocytes % 7.2 L Monocytes % 6.4 Eosinophils % 4.3 Basophils % 0.6 Nucleated Red Blood Cells % 0.0 Neutrophils # (Manual) 6.6 Lymphocytes # 0.6 L Monocytes # 0.5 Eosinophils # 0.4 Basophils # 0.1 Nucleated Red Blood Cells # 0.0 Sodium Level 140 Potassium Level 4.2 Chloride Level 104 Carbon Dioxide Level 26 Anion Gap 14 Blood Urea Nitrogen 12 Creatinine 0.58 Glucose Level 122 Calcium Level 9.1 Phosphorus Level 4.2 Magnesium Level 2.0 Medications Medications Current Medications Ondansetron HCl 4 mg 4 mg Q6H PRN IV NAUSEA AND/OR VOMITING Last administered on 02/23/17 20:04; Admin Dose 4 MG; Start 02/16/17 at 10:00 Acetaminophen (Ofirmev 1000mg/ 100ml Iv) 100 ml @ 400 mls/hr Q6H PRN IVPB FEVER Last administered on 02/23/17 11:53; Admin Dose 400 MLS/HR; Start at 15:00 Morphine Sulfate 2 mg 2 mg Q2H PRN IV PAIN Last administered on 03/08/17 22:37 ; Admin Dose 2 MG; Start 02/22/17 at 10:00 Piperacillin Sod/ Tazobactam Sod (Zosyn 3.375gm/ 100 ml (Pmx)) 100 ml @ 200 mls /hr Q8 IVPB Last administered on 03/10/17 15:01; Admin Dose 200 MLS/HR; Start 02/23/17 at 10:00 Metoclopramide HCl 10 mg 10 mg Q8 IV Last administered on 03/10/17 15:01; Admin Dose 10 MG; Start 02/23/17 at 22:00 Sodium Chloride 1,000 ml @ 50 mls/hr Q20H IV Last administered on 03/10/17 05: 57; Admin Dose 50 MLS/HR; Start 02/25/17 at 16:00 Total Parenteral Nutrition 1,000 ml @ 75 mls/hr [id number] IV Last administered on 03/10/17 13:55; Admin Dose 75 MLS/HR; Start 02/25/17 at 16:00 Fat Emulsion Intravenous (Liposyn Ii 20%) 250 ml @ 10.417 mls/ hr Q24H IV Last administered on 03/09/17 20:45; Admin Dose 10.417 MLS/HR; Start 02/25/17 at 16:00 Diagnostic Test (Pha) (Accu-Chek) 1 ea Q12 XX Last administered on 03/10/17 08: 47; Admin Dose 1 EA; Start 02/27/17 at 09:00 Miscellaneous Information 1 ea NOTE XX ; Start 02/26/17 at 14:00 Glucose (Glutose) 15 gm Q15M PRN PO DECREASED GLUCOSE; Start 02/26/17 at 14:00 Glucose (Glutose) 22.5 gm Q15M PRN PO DECREASED GLUCOSE; Start 02/26/17 at 14: 00 Dextrose (D50w Syringe) 25 ml Q15M PRN IV DECREASED GLUCOSE; Start 02/26/17 at 14:00 Dextrose (D50w Syringe) 50 ml Q15M PRN IV DECREASED GLUCOSE; Start 02/26/17 at 14:00 Glucagon (Glucagen) 1 mg Q15M PRN IM DECREASED GLUCOSE; Start 02/26/17 at 14:00 Glucose (Glutose) 15 gm Q15M PRN BUCCAL DECREASED GLUCOSE; Start 02/26/17 at 14 :00 IV Flush (NS 10 ml) 10 ml PRN PRN IV IV PROTOCOL; Start 02/27/17 at 13:00 LETICIA SANTANA MD Mar 10, 2017 15:46
[2017-03-10 20:00] VITALS: BP 101/59; RESP 18
[2017-03-11 02:00] VITALS: BP 94/53; RESP 16
[2017-03-11] MEDS: SOD CHLORIDE 0.45% 1,000 ML IV SCH (04:39)
[2017-03-11] MEDS: PIPER-TAZO 3.375 GM IV (PMX) 100 ML IVPB SCH ×3 (05:31→21:07)
[2017-03-11] MEDS: METOCLOPRAMIDE 10 MG INJ IV SCH ×3 (05:31→21:07)
[2017-03-11 06:01] LABS: BASOPHILS % 0.5 % (0.0-2.0); EOSINOPHILS # 0.3 10^3/ul (0.0-0.5); EOSINOPHILS % 3.6 % (0.0-7.0); HEMATOCRIT 28.2 % (37.0-47.0); HEMOGLOBIN 9.2 g/dl (12.0-16.0); LYMPHOCYTES # 0.7 10^3/ul (0.8-2.9); LYMPHOCYTES % 8.3 % (15.0-51.0); MEAN CORPUSCULAR HGB CONC 32.6 g/dl (32.0-37.0); MEAN CORPUSCULAR VOLUME 94.9 fl (82.0-101.0); MONOCYTE # 0.6 10^3/ul (0.3-0.9); MONOCYTES % 7.1 % (0.0-11.0); NEUTROPHILS % 79.4 % (39.0-77.0); PLATELET COUNT 473 10^3/UL (140-415); RED BLOOD COUNT 2.97 10^6/ul (4.20-5.40); RED CELL DISTRIBUTION WIDTH 12.5 % (11.5-14.5); WHITE BLOOD COUNT 7.9 10^3/ul (4.8-10.8)
[2017-03-11 06:24] LABS: PHOSPHORUS 4.3 mg/dl (2.5-4.9)
[2017-03-11 06:32] LABS: CALCIUM 9.4 mg/dl (8.4-10.2); CREATININE 0.6 mg/dl (0.44-1.00); POTASSIUM 4.4 mmol/L (3.5-5.1)
[2017-03-11 07:57] VITALS: BP 102/52; RESP 16
[2017-03-11] MEDS: ACCU-CHEK XX SCH ×2 (09:05→21:00)
[2017-03-11] MEDS ORDERED: IOHEXOL 300MG/ML 30 ML BTL ONE (10:32)
--- NOTE | 2017-03-11 12:16 | PN ---
Date/Time of Note Date/Time of Note DATE: 03/11/17 TIME: 12:14 Assessment/Plan VTE Prophylaxis VTE Prophylaxis Intervention: SCD's Lines/Catheters IV [facility] Type ([facility]): PICC Line Central line still needed: Yes Urinary Cath still in place: No Assessment/Plan Chief Complaint/Hosp Course Assessment/Plan: 41 yo F diagnosed with rectal Ca in September of 2016 sp XRT admitted for planned low anterior resection which she underwent 02/17. Post op course notable for development of abscess/fluid collection adjacent to anastomosis site for which pt underwent IR drainage placement 8.. Pt found to have rectal anastomosis site leak on imaging 8., and underwent subsequent diverting ileostomy 03/06 (POD # 5). 1. Rectal cancer - status post low anterior resection, pelvic abscess and fluid collection, and subsequent diverting ileostomy for rectal anastomosis site leak. Slowly improving now, NG tube is out. Still on broad-spectrum antibiotics. Wound culture grew klebsiella, E. coli, enterococci, morganella, bacteroides. The CT scan abdomen pelvis yesterday showed: Presacral and pelvic abscess is significantly decreased in size status post placement of a percutaneous drainage catheter. -Follow-up postop recommendations, diet per surgery recommendation-presently tolerating regular diet, but still on TPN as well-we will ask surgery if we can stop this TPN today - Continue IV Zosyn (started 02/23) for now per infectious disease recommendations. Per discussion with ID team, patient may need to go home with 2 more weeks of IV antibiotics and have repeat CT scan at that time. -Follow-up labs from fever workup-prelim lab reports are negative for growth 1 day 2. DVT ppx - SCD Problems: Subjective 24 Hr Interval Summary Free Text/Dictation Tolerating p.o. diet, but still on low rate of TPN. Had abdominal x-ray with injection performed earlier today, awaiting results. No fevers overnight Exam/Review of Systems Vital Signs Vitals Vital Signs Date Time Temp Pulse Resp B/P Pulse Ox O2 Delivery O2 Flow Rate FiO2 03/11/17 07:57 98.7 88 16 102/52 97 Intake and Output 03/10/17 03/10/17 03/11/17 15:00 23:00 07:00 Intake Total 350 ml 1575 ml 1320 ml Output Total 700 ml 525 ml Balance 350 ml 875 ml 795 ml Exam Lying in bed, no acute distress PICC in L arm resp nonlabored S1, S2 heard no rashes no edema Results Result Diagram: 03/11/1753003/11/17530 Results 24 hrs Laboratory Tests Test 03/10/17 21:38 03/11/17 05:31 03/11/17 09:04 Bedside Glucose 107 131 White Blood Count 7.9 Red Blood Count 2.97 L Hemoglobin 9.2 L Hematocrit 28.2 L Mean Corpuscular Volume 94.9 Mean Corpuscular Hemoglobin 31.0 Mean Corpuscular Hemoglobin Concent 32.6 Red Cell Distribution Width 12.5 Platelet Count 473 H Mean Platelet Volume 9.0 Neutrophils % 79.4 H Lymphocytes % 8.3 L Monocytes % 7.1 Eosinophils % 3.6 Basophils % 0.5 Nucleated Red Blood Cells % 0.0 Neutrophils # (Manual) 6.2 Lymphocytes # 0.7 L Monocytes # 0.6 Eosinophils # 0.3 Basophils # 0.0 Nucleated Red Blood Cells # 0.0 Sodium Level 140 Potassium Level 4.4 Chloride Level 105 Carbon Dioxide Level 25 Anion Gap 14 Blood Urea Nitrogen 13 Creatinine 0.60 Glucose Level 104 Calcium Level 9.4 Phosphorus Level 4.3 Magnesium Level 2.0 Medications Medications Current Medications Ondansetron HCl 4 mg 4 mg Q6H PRN IV NAUSEA AND/OR VOMITING Last administered on 02/23/17 20:04; Admin Dose 4 MG; Start 02/16/17 at 10:00 Acetaminophen (Ofirmev 1000mg/ 100ml Iv) 100 ml @ 400 mls/hr Q6H PRN IVPB FEVER Last administered on 02/23/17 11:53; Admin Dose 400 MLS/HR; Start at 15:00 Morphine Sulfate 2 mg 2 mg Q2H PRN IV PAIN Last administered on 03/08/17 22:37 ; Admin Dose 2 MG; Start 02/22/17 at 10:00 Piperacillin Sod/ Tazobactam Sod (Zosyn 3.375gm/ 100 ml (Pmx)) 100 ml @ 200 mls /hr Q8 IVPB Last administered on 03/11/17 05:31; Admin Dose 200 MLS/HR; Start 02/23/17 at 10:00 Metoclopramide HCl 10 mg 10 mg Q8 IV Last administered on 03/11/17 05:31; Admin Dose 10 MG; Start 02/23/17 at 22:00 Sodium Chloride 1,000 ml @ 50 mls/hr Q20H IV Last administered on 03/11/17 04: 39; Admin Dose 50 MLS/HR; Start 02/25/17 at 16:00 Total Parenteral Nutrition (Tpn) 1,000 ml @ 40 mls/hr Q24H IV Last administered on 03/10/17 13:55; Admin Dose 75 MLS/HR; Start 02/25/17 at 16:00 Diagnostic Test (Pha) (Accu-Chek) 1 ea Q12 XX Last administered on 03/11/17 09: 05; Admin Dose 1 EA; Start 02/27/17 at 09:00 Miscellaneous Information 1 ea NOTE XX ; Start 02/26/17 at 14:00 Glucose (Glutose) 15 gm Q15M PRN PO DECREASED GLUCOSE; Start 02/26/17 at 14:00 Glucose (Glutose) 22.5 gm Q15M PRN PO DECREASED GLUCOSE; Start 02/26/17 at 14: 00 Dextrose (D50w Syringe) 25 ml Q15M PRN IV DECREASED GLUCOSE; Start 02/26/17 at 14:00 Dextrose (D50w Syringe) 50 ml Q15M PRN IV DECREASED GLUCOSE; Start 02/26/17 at 14:00 Glucagon (Glucagen) 1 mg Q15M PRN IM DECREASED GLUCOSE; Start 02/26/17 at 14:00 Glucose (Glutose) 15 gm Q15M PRN BUCCAL DECREASED GLUCOSE; Start 02/26/17 at 14 :00 IV Flush (NS 10 ml) 10 ml PRN PRN IV IV PROTOCOL; Start 02/27/17 at 13:00 EMPERATRIZ SILVA Mar 11, 2017 12:16
--- NOTE | 2017-03-11 12:33 | RADRPT ---
PROCEDURE: Pelvic Fistulogram CLINICAL INDICATION: Pelvic abscess. TECHNIQUE: Dilute water soluble contrast was injected through the pelvic pigtail catheter with overh ead radiographs obtained during the procedure. Fluoroscopic guidance was utilized during the examina tion. Total fluoroscopy time was 1.4 minutes. Fluoroscopic cine images were obtained. 4 portable rad iographs were also obtained after the procedure. COMPARISON: Correlation made with CT from 03/10/2017 and prior study from 03/01/2017 FINDINGS: The cutter banana room radiograph demonstrates a pigtail catheter projecting over the pelvis. Under fluoroscopic guidance there is contrast filling of the cavity seen at the posterior aspect of the pelvis measuring approximately 2.4 x 6.2 x 4.6 cm (AP by CC by TR). The contrast is noted to ext end into the descending colon and also into the rectum. IMPRESSION: 1. Drainage catheter seen within a 2.4 x 6.2 x 4.6 cm cavity which fills with contrast. 2. Contrast is seen extending into the descending colon and rectum, suggesting communication of the cavity with this region. RPTAT: QQ .Cristobal Amaral MD, MD Date Time Electronically viewed and signed by .Cristobal Amaral MD, MD on 03/11/2017 12:35 .d/
[2017-03-11] MEDS: TPN 1,000 ML IV SCH ×3 (13:56→23:30)
--- NOTE | 2017-03-11 16:14 | PN ---
Date/Time of Note Date/Time of Note DATE: 03/11/17 TIME: 16:06 Assessment/Plan VTE Prophylaxis VTE Prophylaxis Intervention: ambulation Lines/Catheters IV C[facility]ter Type ([facility] PICC Line Urinary Cath still in place: No Subjective 24 Hr Interval Summary Free Text/Dictation Postop day #5 status post placement of diverting loop ileostomy in the right lower quadrant. Skin does not have any specific complaint as diet tolerated regular diet. Exam/Review of Systems Vital Signs Vitals Vital Signs Date Time Temp Pulse Resp B/P Pulse Ox O2 Delivery O2 Flow Rate FiO2 03/11/17 07:57 98.7 88 16 102/52 97 Intake and Output 03/10/17 03/10/17 03/11/17 15:00 23:00 07:00 Intake Total 350 ml 1575 ml 1320 ml Output Total 700 ml 525 ml Balance 350 ml 875 ml 795 ml Exam Vital sign is stable. Assessment of the completeness of the drainage of the pelvic and presacral abscess today a CT scan of the pelvis was done which shows a contrast entering the descending colon and rectum. We know still there is some fluid over there but there is a problem that the catheter (pigtail catheter is not draining completely. An eye exam in the pigtail catheter on the back there is a lot of air in the back so we are not sure where is this coming from after thorough investigation it was detected that the pigtail catheter apparatus is defective and outside air is entering through a stopcock 3 way into the chamber of the accordion drainage bag. We checked with the radiology department to see if they can change the system but they said they cannot do it today and tomorrow Dr. Cortez is working in the department and maybe he will be able to do that. Apparently the medical service is planning to discharge the patient home with home health give antibiotics for 2 more weeks. But before patient being discharged we should make sure that the pigtail on the accordion system is working properly. I explained this to the nurse RN and she will let the radiology department note tomorrow and also she will talk to the hospitalist in charge of the above the patient. Results Result Diagram: 03/11/17 0531 03/11/17 0531 Results 24 hrs Laboratory Tests Test 03/10/17 21:38 03/11/17 05:31 03/11/17 09:04 Bedside Glucose 107 131 White Blood Count 7.9 Red Blood Count 2.97 L Hemoglobin 9.2 L Hematocrit 28.2 L Mean Corpuscular Volume 94.9 Mean Corpuscular Hemoglobin 31.0 Mean Corpuscular Hemoglobin Concent 32.6 Red Cell Distribution Width 12.5 Platelet Count 473 H Mean Platelet Volume 9.0 Neutrophils % 79.4 H Lymphocytes % 8.3 L Monocytes % 7.1 Eosinophils % 3.6 Basophils % 0.5 Nucleated Red Blood Cells % 0.0 Neutrophils # (Manual) 6.2 Lymphocytes # 0.7 L Monocytes # 0.6 Eosinophils # 0.3 Basophils # 0.0 Nucleated Red Blood Cells # 0.0 Sodium Level 140 Potassium Level 4.4 Chloride Level 105 Carbon Dioxide Level 25 Anion Gap 14 Blood Urea Nitrogen 13 Creatinine 0.60 Glucose Level 104 Calcium Level 9.4 Phosphorus Level 4.3 Magnesium Level 2.0 Medications Medications Current Medications Ondansetron HCl 4 mg 4 mg Q6H PRN IV NAUSEA AND/OR VOMITING Last administered on 02/23/17 20:04; Admin Dose 4 MG; Start 02/16/17 at 10:00 Acetaminophen (Ofirmev 1000mg/ 100ml Iv) 100 ml @ 400 mls/hr Q6H PRN IVPB FEVER Last administered on 02/23/17 11:53; Admin Dose 400 MLS/HR; Start at 15:00 Morphine Sulfate 2 mg 2 mg Q2H PRN IV PAIN Last administered on 03/08/17 22:37 ; Admin Dose 2 MG; Start 02/22/17 at 10:00 Piperacillin Sod/ Tazobactam Sod (Zosyn 3.375gm/ 100 ml (Pmx)) 100 ml @ 200 mls /hr Q8 IVPB Last administered on 03/11/17 13:56; Admin Dose 200 MLS/HR; Start 02/23/17 at 10:00 Metoclopramide HCl 10 mg 10 mg Q8 IV Last administered on 03/11/17 13:56; Admin Dose 10 MG; Start 02/23/17 at 22:00 Sodium Chloride 1,000 ml @ 50 mls/hr Q20H IV Last administered on 03/11/17 04: 39; Admin Dose 50 MLS/HR; Start 02/25/17 at 16:00 Total Parenteral Nutrition (Tpn) 1,000 ml @ 30 mls/hr Q24H IV Last administered on 03/11/17 13:56; Admin Dose 30 MLS/HR; Start 02/25/17 at 16:00 Diagnostic Test (Pha) (Accu-Chek) 1 ea Q12 XX Last administered on 03/11/17 09: 05; Admin Dose 1 EA; Start 02/27/17 at 09:00 Miscellaneous Information 1 ea NOTE XX ; Start 02/26/17 at 14:00 Glucose (Glutose) 15 gm Q15M PRN PO DECREASED GLUCOSE; Start 02/26/17 at 14:00 Glucose (Glutose) 22.5 gm Q15M PRN PO DECREASED GLUCOSE; Start 02/26/17 at 14: 00 Dextrose (D50w Syringe) 25 ml Q15M PRN IV DECREASED GLUCOSE; Start 02/26/17 at 14:00 Dextrose (D50w Syringe) 50 ml Q15M PRN IV DECREASED GLUCOSE; Start 02/26/17 at 14:00 Glucagon (Glucagen) 1 mg Q15M PRN IM DECREASED GLUCOSE; Start 02/26/17 at 14:00 Glucose (Glutose) 15 gm Q15M PRN BUCCAL DECREASED GLUCOSE; Start 02/26/17 at 14 :00 IV Flush (NS 10 ml) 10 ml PRN PRN IV IV PROTOCOL; Start 02/27/17 at 13:00 LETICIA SANTANA MD Mar 11, 2017 16:14
--- NOTE | 2017-03-11 18:09 | CONS ---
JOSE GARCES NP 03/11/17 1809: Date/Time of Note Date/Time of Note DATE: 03/11/17 TIME: 18:02 Assessment/Plan Assessment/Plan Chief Complaint/Hosp Course - s/p post op fever due to pelvic abscess, improved - pelvic abscess formation adjacent to a distal colonic anastomosis, seen on CT on 02/24/[address]-guided drainage on 02/28/2017. Culture grew klebsiella, E. coli, enterococci, morganella, bacteroides - anastomotic leak, identified on barium study on 03/02/2017, s/p ex lap and diverting ileostomy placement on 03/06/2017 - possible UTI vs. contamination of the urethra by klebsiella and morganella - rectal CA s/p low anterior resection with splenic flexure mobilization, mobilization of omental patch and rigid sigmoidoscopy on 02/16/2017. 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 Fischer today - external drainage catheter needs replacement due to air leak - continue pip/tazo (02/23/2017-) until the external drainage catheter is removed. Once it gets removed, we recommend ordering repeat abd/pel CT to confirm no more residual intra-pelvic fluid collection. If no more pelvic fluid collection is seen at that point, her antibiotic can be discontinued Management d/w patient, her spouse, NEWTON Adkins, and Dr. Morris Problems: Consultation Date/Type/Reason Admit Date/Time Feb 16, 2017 at 07:24 Initial Consult Date 02/22/17 Type of Consultation: Infectious Disease Referring Provider: VINCENZO CISNEROS MD 24 HR Interval Summary Free Text/Dictation CT shows residual fluid collection. Pigtail catheter has air leak at 3 way stopcock; awaiting replacement; culture sent from drainage catheter per d/w Dr. Fischer. Tolerating regular diet with plans to DC TPN in AM per d/w nursing staff. Denies pain, n/v, SOB. Exam/Review of Systems Vital Signs Vitals Vital Signs Date Time Temp Pulse Resp B/P Pulse Ox O2 Delivery O2 Flow Rate FiO2 03/11/17 07:57 98.7 88 16 102/52 97 Intake and Output 03/10/17 03/10/17 03/11/17 15:00 23:00 07:00 Intake Total 350 ml 1575 ml 1420 ml Output Total 700 ml 525 ml Balance 350 ml 875 ml 895 ml Exam Constitutional: alert, well developed Psych: nl mood/affect, no complaints Head: atraumatic, normocephalic Neck: supple Respiratory: clear to auscultation, normal air movement Cardiovascular: nl pulses, regular rate and rhythm Gastrointestinal: other (external drainage catheter in place with small amount of purulent output; RLQ ileostomy with liquid dark stool), surgical scars (ML scar well approximated) No distended Musculoskeletal: nl extremities to inspection Extremities: normal pulses, other (LUE PICC with no e/o infection and TPN infusing) No edema 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, nl mental status, nl speech Skin: nl turgor Results Result Diagram: 03/11/17 0531 03/11/17 0531 Results 24 hrs Laboratory Tests Test 03/10/17 21:38 03/11/17 05:31 03/11/17 09:04 Bedside Glucose 107 131 White Blood Count 7.9 Red Blood Count 2.97 L Hemoglobin 9.2 L Hematocrit 28.2 L Mean Corpuscular Volume 94.9 Mean Corpuscular Hemoglobin 31.0 Mean Corpuscular Hemoglobin Concent 32.6 Red Cell Distribution Width 12.5 Platelet Count 473 H Mean Platelet Volume 9.0 Neutrophils % 79.4 H Lymphocytes % 8.3 L Monocytes % 7.1 Eosinophils % 3.6 Basophils % 0.5 Nucleated Red Blood Cells % 0.0 Neutrophils # (Manual) 6.2 Lymphocytes # 0.7 L Monocytes # 0.6 Eosinophils # 0.3 Basophils # 0.0 Nucleated Red Blood Cells # 0.0 Sodium Level 140 Potassium Level 4.4 Chloride Level 105 Carbon Dioxide Level 25 Anion Gap 14 Blood Urea Nitrogen 13 Creatinine 0.60 Glucose Level 104 Calcium Level 9.4 Phosphorus Level 4.3 Magnesium Level 2.0 Medications Medications Current Medications Ondansetron HCl 4 mg 4 mg Q6H PRN IV NAUSEA AND/OR VOMITING Last administered on 02/23/17t 20:04; Admin Dose 4 MG; Start 02/16/17 at 10:00 Acetaminophen (Ofirmev 1000mg/ 100ml Iv) 100 ml @ 400 mls/hr Q6H PRN IVPB FEVER Last administered on 02/23/17 11:53; Admin Dose 400 MLS/HR; Start at 15:00 Morphine Sulfate 2 mg 2 mg Q2H PRN IV PAIN Last administered on 03/08/17 22:37 ; Admin Dose 2 MG; Start 02/22/17 at 10:00 Piperacillin Sod/ Tazobactam Sod (Zosyn 3.375gm/ 100 ml (Pmx)) 100 ml @ 200 mls /hr Q8 IVPB Last administered on 03/11/17 13:56; Admin Dose 200 MLS/HR; Start 02/23/17 at 10:00 Metoclopramide HCl 10 mg 10 mg Q8 IV Last administered on 03/11/17 13:56; Admin Dose 10 MG; Start 02/23/17 at 22:00 Sodium Chloride 1,000 ml @ 50 mls/hr Q20H IV Last administered on 03/11/17 04: 39; Admin Dose 50 MLS/HR; Start 02/25/17 at 16:00 Total Parenteral Nutrition (Tpn) 1,000 ml @ 30 mls/hr Q24H IV Last administered on 03/11/17 13:56; Admin Dose 30 MLS/HR; Start 02/25/17 at 16:00 Diagnostic Test (Pha) (Accu-Chek) 1 ea Q12 XX Last administered on 03/11/17 09: 05; Admin Dose 1 EA; Start 02/27/17 at 09:00 Miscellaneous Information 1 ea NOTE XX ; Start 02/26/17 at 14:00 Glucose (Glutose) 15 gm Q15M PRN PO DECREASED GLUCOSE; Start 02/26/17 at 14:00 Glucose (Glutose) 22.5 gm Q15M PRN PO DECREASED GLUCOSE; Start 02/26/17 at 14: 00 Dextrose (D50w Syringe) 25 ml Q15M PRN IV DECREASED GLUCOSE; Start 02/26/17 at 14:00 Dextrose (D50w Syringe) 50 ml Q15M PRN IV DECREASED GLUCOSE; Start 02/26/17 at 14:00 Glucagon (Glucagen) 1 mg Q15M PRN IM DECREASED GLUCOSE; Start 02/26/17 at 14:00 Glucose (Glutose) 15 gm Q15M PRN BUCCAL DECREASED GLUCOSE; Start 02/26/17 at 14 :00 IV Flush (NS 10 ml) 10 ml PRN PRN IV IV PROTOCOL; Start 02/27/17 at 13:00 Procedures Procedures Pelvic fistulogram 03/11/2017: 1. Drainage catheter seen within a 2.4 x 6.2 x 4.6 cm cavity which fills with contrast. 2. Contrast is seen extending into the descending colon and rectum, suggesting communication of the cavity with this region. BLANCO MORRIS M.D. 03/12/17 1756: Assessment/Plan Assessment/Plan Additional Assessment/Plan Arturo attestation: I discussed the management with ITZEL Garces and agree with above. Exam/Review of Systems Results Result Diagram: 03/11/17 0531 03/11/17 0531 JOSE GARCES NP Mar 11, 2017 18:09 BLANCO MORRIS M.D. Mar 12, 2017 17:56
[2017-03-11 20:00] VITALS: BP 99/57; RESP 16
[2017-03-12] MEDS: TPN 1,000 ML IV SCH (02:10)
[2017-03-12 02:54] VITALS: BP 91/55; RESP 16
[2017-03-12] MEDS: SOD CHLORIDE 0.45% 1,000 ML IV SCH ×2 (03:12→15:42)
[2017-03-12] MEDS: METOCLOPRAMIDE 10 MG INJ IV SCH ×3 (05:24→21:20)
[2017-03-12] MEDS: PIPER-TAZO 3.375 GM IV (PMX) 100 ML IVPB SCH ×3 (05:24→20:29)
[2017-03-12 08:07] VITALS: BP 96/50; RESP 16
[2017-03-12] MEDS: ACCU-CHEK XX SCH (08:22)
--- NOTE | 2017-03-12 11:02 | PN ---
Date/Time of Note Date/Time of Note DATE: 03/12/17 TIME: 10:57 Assessment/Plan VTE Prophylaxis VTE Prophylaxis Intervention: SCD's Lines/Catheters IV Catheter Type (from [facility]): PICC Line Central line still needed: Yes Urinary Cath still in place: No Assessment/Plan Chief Complaint/Hosp Course Assessment/Plan: 41 yo F diagnosed with rectal Ca in September of 2016 sp XRT admitted for planned low anterior resection which she underwent 02/17. Post op course notable for development of abscess/fluid collection adjacent to anastomosis site for which pt underwent IR drainage placement 8.. Pt found to have rectal anastomosis site leak on imaging ., and underwent subsequent diverting ileostomy 03/06 (POD # 6). 1. Rectal cancer - status post low anterior resection, pelvic abscess and fluid collection, and subsequent diverting ileostomy for rectal anastomosis site leak. Slowly improving now, NG tube is out, but remaining drain appears to have air leak around it, this was attempted to be fixed by surgery team at the bedside, now awaiting possible interventional radiology intervention for repair or replacement of this today. Still on broad-spectrum antibiotics. Wound culture grew klebsiella, E. coli, enterococci, morganella, bacteroides. The CT scan abdomen pelvis 2 days ago showed: Presacral and pelvic abscess is significantly decreased in size status post placement of a percutaneous drainage catheter. -Follow-up postop recommendations, regular diet, off TPN this morning now -Per infectious disease team, continue IV Zosyn (started 02/23) until the external drainage catheter is removed. Once it gets removed, they recommend repeat abd/pel CT to confirm no more residual intra-pelvic fluid collection. If no more pelvic fluid collection is seen at that point, her antibiotic can be discontinued. -Follow-up final labs from fever workup-prelim lab reports are negative for growth thus far 2. DVT ppx - SCD Problems: Subjective 24 Hr Interval Summary Free Text/Dictation Patient had TPN stopped today. Tolerating diet. Apparently still having some air leaking around the drainage site, which was attempted to be fixed by surgery team at the bedside yesterday, but awaiting possible radiological procedure by interventional radiology to help with her placement of this tube or repositioning. No fevers overnight, or other acute events overnight. Exam/Review of Systems Vital Signs Vitals Vital Signs Date Time Temp Pulse Resp B/P Pulse Ox O2 Delivery O2 Flow Rate FiO2 03/12/17 08:07 98.4 80 16 96/50 98 Intake and Output 03/11/17 03/11/17 03/12/17 15:00 23:00 07:00 Intake Total 625 ml 890 ml 1550 ml Output Total 40 ml 650 ml Balance 585 ml 890 ml 900 ml Exam Lying in bed, no acute distress PICC in L arm resp nonlabored S1, S2 heard no rashes no edema Results Result Diagram: 03/11/1753003/11/17530 Results 24 hrs Laboratory Tests Test 03/11/17 21:06 03/12/17 08:15 Bedside Glucose 101 106 Medications Medications Current Medications Ondansetron HCl 4 mg 4 mg Q6H PRN IV NAUSEA AND/OR VOMITING Last administered on 02/23/17 20:04; Admin Dose 4 MG; Start 02/16/17 at 10:00 Acetaminophen (Ofirmev 1000mg/ 100ml Iv) 100 ml @ 400 mls/hr Q6H PRN IVPB FEVER Last administered on 02/23/17 11:53; Admin Dose 400 MLS/HR; Start at 15:00 Morphine Sulfate 2 mg 2 mg Q2H PRN IV PAIN Last administered on 03/08/17 22:37 ; Admin Dose 2 MG; Start 02/22/17 at 10:00 Piperacillin Sod/ Tazobactam Sod (Zosyn 3.375gm/ 100 ml (Pmx)) 100 ml @ 200 mls /hr Q8 IVPB Last administered on 03/12/17 05:24; Admin Dose 200 MLS/HR; Start 02/23/17 at 10:00 Metoclopramide HCl 10 mg 10 mg Q8 IV Last administered on 03/12/17 05:24; Admin Dose 10 MG; Start 02/23/17 at 22:00 Sodium Chloride (1/2 NS) 1,000 ml @ 50 mls/hr Q20H IV Last administered on 03/12 03:12; Admin Dose 50 MLS/HR; Start 02/25/17 at 16:00 Miscellaneous Information 1 ea NOTE XX ; Start 02/26/17 at 14:00 Glucose (Glutose) 15 gm Q15M PRN PO DECREASED GLUCOSE; Start 02/26/17 at 14:00 Glucose (Glutose) 22.5 gm Q15M PRN PO DECREASED GLUCOSE; Start 02/26/17 at 14: 00 Dextrose (D50w Syringe) 25 ml Q15M PRN IV DECREASED GLUCOSE; Start 02/26/17 at 14:00 Dextrose (D50w Syringe) 50 ml Q15M PRN IV DECREASED GLUCOSE; Start 02/26/17 at 14:00 Glucagon (Glucagen) 1 mg Q15M PRN IM DECREASED GLUCOSE; Start 02/26/17 at 14:00 Glucose (Glutose) 15 gm Q15M PRN BUCCAL DECREASED GLUCOSE; Start 02/26/17 at 14 :00 IV Flush (NS 10 ml) 10 ml PRN PRN IV IV PROTOCOL; Start 02/27/17 at 13:00 EMPERATRIZ SILVA Mar 12, 2017 11:02
--- NOTE | 2017-03-12 12:13 | PN ---
Date/Time of Note Date/Time of Note DATE: 03/12/17 TIME: 12:01 Assessment/Plan VTE Prophylaxis VTE Prophylaxis Intervention: ambulation Lines/Catheters IV [facility] PICC Line Central line still needed: Yes (Patient is supposed to receive 2 more weeks of antibiotic IV for the PICC line is needed for IV antibiotic treatment at home) Urinary Cath still in place: No Assessment/Plan Assessment/Plan Postop day #6 status post placement of dilating ileostomy right lower quadrant. Pigtail drain was malfunctioning and was not draining the pelvic collection properly. Today we changed the external drainage apparatus namely the Accordion bag and the connections now it is functioning properly. From surgical point of view patient can be discharged of course should be discharged with arrangements for 2 weeks of antibiotic IV per infectious disease and also with home health to take care of the drainage system from the pelvic cavity through the pigtail drainage. Patient should be followed by Dr. Paredes in his office next week. Patient to call the office and make an appointment. Subjective 24 Hr Interval Summary Free Text/Dictation No new complaint. Has been tolerating a regular diet. The fluid from pigtail to be sent yesterday for culture has grown gram-negative rods but no specific organism has been shown yet. Exam/Review of Systems Vital Signs Vitals Vital Signs Date Time Temp Pulse Resp B/P Pulse Ox O2 Delivery O2 Flow Rate FiO2 03/12/17 08:07 98.4 80 16 96/50 98 Intake and Output 03/11/17 03/11/17 03/12/17 15:00 23:00 07:00 Intake Total 625 ml 890 ml 1550 ml Output Total 40 ml 650 ml Balance 585 ml 890 ml 900 ml Exam Vital signs stable. Afebrile. We got a new set of drainage bag from the radiology and replaced it for the malfunctioning bag, now which is draining properly. Ileostomy functioning properly. Results Result Diagram: 03/11/17 0531 03/11/17 0531 Results 24 hrs Laboratory Tests Test 03/11/17 21:06 03/12/17 08:15 Bedside Glucose 101 106 Medications Medications Current Medications Ondansetron HCl 4 mg 4 mg Q6H PRN IV NAUSEA AND/OR VOMITING Last administered on 02/23/17t 20:04; Admin Dose 4 MG; Start 02/16/17 at 10:00 Acetaminophen (Ofirmev 1000mg/ 100ml Iv) 100 ml @ 400 mls/hr Q6H PRN IVPB FEVER Last administered on 02/23/17 11:53; Admin Dose 400 MLS/HR; Start at 15:00 Morphine Sulfate 2 mg 2 mg Q2H PRN IV PAIN Last administered on 03/08/17 22:37 ; Admin Dose 2 MG; Start 02/22/17 at 10:00 Piperacillin Sod/ Tazobactam Sod (Zosyn 3.375gm/ 100 ml (Pmx)) 100 ml @ 200 mls /hr Q8 IVPB Last administered on 03/12/17 05:24; Admin Dose 200 MLS/HR; Start 02/23/17 at 10:00 Metoclopramide HCl 10 mg 10 mg Q8 IV Last administered on 03/12/17 05:24; Admin Dose 10 MG; Start 02/23/17 at 22:00 Sodium Chloride (1/2 NS) 1,000 ml @ 50 mls/hr Q20H IV Last administered on 03/12 03:12; Admin Dose 50 MLS/HR; Start 02/25/17 at 16:00 Miscellaneous Information 1 ea NOTE XX ; Start 02/26/17 at 14:00 Glucose (Glutose) 15 gm Q15M PRN PO DECREASED GLUCOSE; Start 02/26/17 at 14:00 Glucose (Glutose) 22.5 gm Q15M PRN PO DECREASED GLUCOSE; Start 02/26/17 at 14: 00 Dextrose (D50w Syringe) 25 ml Q15M PRN IV DECREASED GLUCOSE; Start 02/26/17 at 14:00 Dextrose (D50w Syringe) 50 ml Q15M PRN IV DECREASED GLUCOSE; Start 02/26/17 at 14:00 Glucagon (Glucagen) 1 mg Q15M PRN IM DECREASED GLUCOSE; Start 02/26/17 at 14:00 Glucose (Glutose) 15 gm Q15M PRN BUCCAL DECREASED GLUCOSE; Start 02/26/17 at 14 :00 IV Flush (NS 10 ml) 10 ml PRN PRN IV IV PROTOCOL; Start 02/27/17 at 13:00 LETICIA SANTANA MD Mar 12, 2017 12:13
[2017-03-12 12:30] LABS: BASOPHIL # 0.1 10^3/ul (0.0-0.1); BASOPHILS % 0.7 % (0.0-2.0); EOSINOPHILS # 0.1 10^3/ul (0.0-0.5); EOSINOPHILS % 1.9 % (0.0-7.0); HEMATOCRIT 27.7 % (37.0-47.0); HEMOGLOBIN 9.4 g/dl (12.0-16.0); LYMPHOCYTES # 0.7 10^3/ul (0.8-2.9); LYMPHOCYTES % 9.7 % (15.0-51.0); MEAN CORPUSCULAR HEMOGLOBIN 31.4 pg (29.0-33.0); MEAN CORPUSCULAR HGB CONC 33.9 g/dl (32.0-37.0); MEAN CORPUSCULAR VOLUME 92.6 fl (82.0-101.0); MEAN PLATELET VOLUME 9.3 fl (7.4-10.4); MONOCYTE # 0.7 10^3/ul (0.3-0.9); MONOCYTES % 10.1 % (0.0-11.0); NEUTROPHILS % 76.9 % (39.0-77.0); PLATELET COUNT 429 10^3/UL (140-415); RED BLOOD COUNT 2.99 10^6/ul (4.20-5.40); RED CELL DISTRIBUTION WIDTH 12.6 % (11.5-14.5)
[2017-03-12 12:43] LABS: CALCIUM 9.3 mg/dl (8.4-10.2); CREATININE 0.6 mg/dl (0.44-1.00)
--- NOTE | 2017-03-12 12:47 | PDOCDIS ---
Discharge Instructions CONDITION Patient Condition: Stable HOME CARE INSTRUCTIONS: Special Diet: REGULAR FOLLOW UP/APPOINTMENTS Follow-up Plan Please follow up with your surgeon and primary doctor in the clinic in 3-5 days. Please take your medications as prescribed, including your antibiotics through the IV. EMPERATRIZ SILVA Mar 12, 2017 12:46
[2017-03-12] MEDS ORDERED: HYDR-906 PO (12:48)
[2017-03-12] MEDS ORDERED: ONDA-43 PO (12:48)
[2017-03-12 14:00] VITALS: BP 103/59; RESP 16
--- NOTE | 2017-03-12 15:30 | DS ---
DATE OF ADMISSION: 02/16/2017 DATE OF DISCHARGE:03/12/2017 HOSPITAL COURSE: Patient came in after being diagnosed with rectal cancer briefly before this admission and sent in by the surgeon. She was admitted for surgical evaluation, and she was seen by general surgery team during this hospital stay as well as infectious disease team. Patient underwent a low anterior resection of her rectal cancer; however, there was some pelvic abscess and fluid collection subsequently, and she did require a subsequent diverting ileostomy for rectal anastomosis site leak as well. The patient tolerated both procedures well. She had drainage placed as well, which helped remove the abscess from the abdominal collection site. Repeat CT scan did show decrease of this fluid collection. However, there were still some residual components left, and her remaining drain earlier today had to be repaired by general surgery team at the bedside because of an air leak. Over the course of her hospital stay, again her wound cultures grew E coli, Morganella species and Enterococcus species and Klebsiella pneumonia as well as Bacteroides species. She also had a UTI positive for Klebsiella and Morganella species, and she was placed on appropriate antibiotics for that. Her leukocytosis resolved. She had no fevers by the time of discharge. She was able to ambulate after working with physical therapy and tolerate a p.o. diet. Initially she was on TPN, but she was started on p.o. diet 2 days before discharge and was able to tolerate that well, and the TPN was stopped on the day of discharge. After getting clearance from the medical record consultant team, she will be discharged home today in improved condition. DISCHARGE PLAN: She will go home with home health nursing to help with maintenance and care of the drainage system from the pelvic cavity through the pigtail drainage. She will also need 2 more weeks of IV antibiotics, which will be given through a PICC line that was placed on this admission, and she will follow up with the surgeon in the clinic in the next few days. Once the external drainage catheter is removed, likely as an outpatient, it is recommended by the infectious disease team to order a repeat CT scan, abdomen and pelvis, at that time. If there is more no more pelvic fluid collection at that time, her antibiotics can be discontinued. So for now, will send her home with antibiotics until this is performed. DISCHARGE MEDICATIONS: She will go home with the following medications: 1. Zosyn 3.375 g IV q.8h. For the next 2 weeks. 2. Zofran 4 mg p.o. q.6h. p.r.n. 3. Welch 5/325 mg 1 tablet p.o. q.6h. p.r.n. Again, she will follow up with the doctors as mentioned above. FINAL DIAGNOSES: 1. Rectal cancer, status post low anterior resection with subsequent diverting ileostomy for rectal anastomosis leak site. 2. Positive wound cultures for multi-organism. See above. Now on broad-spectrum antibiotics with pelvic fluid abscess collection drainage decreasing in size. 3. Klebsiella and Morganella urinary tract infection (UTI) status post antibiotic treatment. Time spent discharging the patient, 50 minutes. Dictated By: Gennaro Benedict MD /[email or web address]/vasquez /Document#: [id number] TIARA
--- NOTE | 2017-03-12 18:02 | CONS ---
Date/Time of Note Date/Time of Note DATE: 03/12/17 TIME: 17:56 Assessment/Plan Assessment/Plan Chief Complaint/Hosp Course - s/p post op fever due to pelvic abscess, improved - pelvic abscess formation adjacent to a distal colonic anastomosis s/p CT- guided drainage on 02/28/2017. Culture grew klebsiella, E. coli, enterococci, morganella, bacteroides. s/p catheter exchange on 03/11/2017 - anastomotic leak, identified on barium study on 03/02/2017, s/p ex lap and diverting ileostomy placement on 03/06/2017 - possible UTI vs. contamination of the urethra by klebsiella and morganella, resolved - rectal CA s/p low anterior resection with splenic flexure mobilization, mobilization of omental patch and rigid sigmoidoscopy on 02/16/2017. Pathology of the resected rectum showed residual moderately-differentiated adenocarcinoma , involving muscularis propria, mucosal ulceration, clear margin and no e/o metastasis recommendations: - await the result of Gram negative bacteria in her ostomy output from 03/11/2017 - continue pip/tazo (02/23/2017-). upon discharge I recommend two more weeks of pip/tazo. - I instructed Pt's RN to tell the family independence case manager that follow up CT abd/pel must be arranged on 03/20, or . If CT shows no more fluid collection, pip/ tazo may be discontinued after two weeks. management d/w Pt, her RN Problems: Consultation Date/Type/Reason Admit Date/Time Feb 16, 2017 at 07:24 Initial Consult Date 02/22/17 Type of Consultation: Infectious Disease Referring Provider: VINCENZO CISNEROS MD 24 HR Interval Summary Constitutional: no complaints Detailed Summary Eyes: no complaints ENT: no complaints Respiratory: no complaints Cardiovascular: no complaints Gastrointestinal: passing stool (ostomy bag), No decreased appetite, No nausea, No pain, No vomiting Genitourinary: no complaints Musculoskeletal: no complaints Skin: no complaints Neurologic: no complaints Exam/Review of Systems Vital Signs Vitals Vital Signs Date Time Temp Pulse Resp B/P Pulse Ox O2 Delivery O2 Flow Rate FiO2 03/12/17 14:00 98.0 96 16 103/59 99 Intake and Output 03/11/17 03/11/17 03/12/17 15:00 23:00 07:00 Intake Total 625 ml 890 ml 1550 ml Output Total 40 ml 650 ml Balance 585 ml 890 ml 900 ml Exam Constitutional: alert, frail, oriented Psych: no complaints Head: atraumatic, normocephalic Eyes: nl conjunctiva, nl lids ENMT: nl external ears & nose, nl nasal mucosa & septum Neck: supple Respiratory: diminished breath sounds Cardiovascular: nl pulses, regular rate and rhythm Gastrointestinal: non-tender, other (+ileostomy bag), soft, surgical scars, No distended Musculoskeletal: nl extremities to inspection Extremities: normal pulses 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: FLASH RANGING CREWMEMBER II-XII intact, nl mental status Skin: nl turgor, No rash or lesions Results Result Diagram: 03/12/17 1150 03/12/17 1150 Results 24 hrs Laboratory Tests Test 03/11/17 21:06 03/12/17 08:15 03/12/17 11:50 Bedside Glucose 101 106 White Blood Count 7.0 Red Blood Count 2.99 L Hemoglobin 9.4 L Hematocrit 27.7 L Mean Corpuscular Volume 92.6 Mean Corpuscular Hemoglobin 31.4 Mean Corpuscular Hemoglobin Concent 33.9 Red Cell Distribution Width 12.6 Platelet Count 429 H Mean Platelet Volume 9.3 Neutrophils % 76.9 Lymphocytes % 9.7 L Monocytes % 10.1 Eosinophils % 1.9 Basophils % 0.7 Nucleated Red Blood Cells % 0.0 Neutrophils # (Manual) 5.4 Lymphocytes # 0.7 L Monocytes # 0.7 Eosinophils # 0.1 Basophils # 0.1 Nucleated Red Blood Cells # 0.0 Sodium Level 138 Potassium Level 4.0 Chloride Level 102 Carbon Dioxide Level 25 Anion Gap 15 Blood Urea Nitrogen 13 Creatinine 0.60 Glucose Level 97 Calcium Level 9.3 Medications Medications Current Medications Ondansetron HCl 4 mg 4 mg Q6H PRN IV NAUSEA AND/OR VOMITING Last administered on 02/23/17 20:04; Admin Dose 4 MG; Start 02/16/17 at 10:00 Acetaminophen (Ofirmev 1000mg/ 100ml Iv) 100 ml @ 400 mls/hr Q6H PRN IVPB FEVER Last administered on 02/23/17 11:53; Admin Dose 400 MLS/HR; Start at 15:00 Morphine Sulfate 2 mg 2 mg Q2H PRN IV PAIN Last administered on 03/08/17 22:37 ; Admin Dose 2 MG; Start 02/22/17 at 10:00 Piperacillin Sod/ Tazobactam Sod (Zosyn 3.375gm/ 100 ml (Pmx)) 100 ml @ 200 mls /hr Q8 IVPB Last administered on 03/12/17 14:19; Admin Dose 200 MLS/HR; Start 02/23/17 at 10:00 Metoclopramide HCl 10 mg 10 mg Q8 IV Last administered on 03/12/17 14:19; Admin Dose 10 MG; Start 02/23/17 at 22:00 Sodium Chloride (1/2 NS) 1,000 ml @ 50 mls/hr Q20H IV Last administered on 03/12 03:12; Admin Dose 50 MLS/HR; Start 02/25/17 at 16:00 Miscellaneous Information 1 ea NOTE XX ; Start 02/26/17 at 14:00 Glucose (Glutose) 15 gm Q15M PRN PO DECREASED GLUCOSE; Start 02/26/17 at 14:00 Glucose (Glutose) 22.5 gm Q15M PRN PO DECREASED GLUCOSE; Start 02/26/17 at 14: 00 Dextrose (D50w Syringe) 25 ml Q15M PRN IV DECREASED GLUCOSE; Start 02/26/17 at 14:00 Dextrose (D50w Syringe) 50 ml Q15M PRN IV DECREASED GLUCOSE; Start 02/26/17 at 14:00 Glucagon (Glucagen) 1 mg Q15M PRN IM DECREASED GLUCOSE; Start 02/26/17 at 14:00 Glucose (Glutose) 15 gm Q15M PRN BUCCAL DECREASED GLUCOSE; Start 02/26/17 at 14 :00 IV Flush (NS 10 ml) 10 ml PRN PRN IV IV PROTOCOL; Start 02/27/17 at 13:00 BLANCO OHARA M.D. Mar 12, 2017 18:02
[2017-03-12 19:46] VITALS: BP 90/55; RESP 20
== END 2017-03-12 21:30 | disposition home IV services (08) | DRG 329 ==
LOC: REC 07:24 → MS2 14:30
PROVIDERS: ADMIT Surgery Surgical Oncology; ATTEND Internal Medicine
PROC: 0DBN0ZZ Excision of Sigmoid Colon, Open Approach (ICD-10-PCS; 2017-02-16)
PROC: 0DJD8ZZ Inspection of Lower Intestinal Tract, Via Natural or Artificial Opening Endoscopic (ICD-10-PCS; 2017-02-16)
PROC: 0DBP0ZZ Excision of Rectum, Open Approach (ICD-10-PCS; principal; 2017-02-16 09:00)
PROC: 02HV33Z Insertion of Infusion Device into Superior Vena Cava, Percutaneous Approach (ICD-10-PCS; 2017-02-27)
PROC: 0W9J30Z Drainage of Pelvic Cavity with Drainage Device, Percutaneous Approach (ICD-10-PCS; 2017-02-28)
PROC: 0D1B0Z4 Bypass Ileum to Cutaneous, Open Approach (ICD-10-PCS; 2017-03-06)
PROC: 0W2FX0Z Change Drainage Device in Abdominal Wall, External Approach (ICD-10-PCS; 2017-03-12)
DX: C20 Malignant neoplasm of rectum (principal); K65.1 Peritoneal abscess; N39.0 Urinary tract infection, site not specified; E44.0 Moderate protein-calorie malnutrition; K56.7 Ileus, unspecified; T81.4XXA Infection following a procedure, initial encounter; K91.89 Other postprocedural complications and disorders of digestive system; T85.618A Breakdown (mechanical) of other specified internal prosthetic devices, implants and grafts, initial encounter; B96.1 Klebsiella pneumoniae [K. pneumoniae] as the cause of diseases classified elsewhere; B96.89 Other specified bacterial agents as the cause of diseases classified elsewhere; Y83.2 Surgical operation with anastomosis, bypass or graft as the cause of abnormal reaction of the patient, or of later complication, without mention of misadventure at the time of the procedure; Y83.8 Other surgical procedures as the cause of abnormal reaction of the patient, or of later complication, without mention of misadventure at the time of the procedure; Y92.238 Other place in hospital as the place of occurrence of the external cause
CPT/HCPCS: 36569; 58340; 71010; 71020; 74000; 74176; 74177; 74280; 75989; 76937; 77012; 80048; 80053; 81001; 82962; 83735; 84100; 84134; 84478; 84703; 85025; 85610; 85730; 86850; 86900; 86901; 86920; 87040; 87070; 87075; 87086; 87102; 88104; 88305; 88309; 93005; 93970; 97110; 97116; 97162; 97166; J0131; J0295; J0690; J1100; J1170; J2175; J2250; J2270; J2370; J2405; J2543; J2710; J2765; J2795; J3010; J3480; J7030; J7050; J7999; Q9967

== ENCOUNTER 2017-03-24 20:45 | Inpatient (IN) | payer OTHER ==
[~2017-03-24] VITALS: Ht 157.5 cm; Wt 49.0 kg
[~2017-03-24 20:45] MED LIST: HYDR-906 PO; ONDA-43 PO
[2017-03-24 20:50] VITALS: Ht 157.5 cm; Wt 49.0 kg
--- NOTE | 2017-03-24 22:07 | ERA ---
ER Documentation Chief Complaint Date/Time DATE: 03/24/17 TIME: 22:06 Chief Complaint Pt reports colostomy bag is leaking and skin araound stoma is irritated HPI The patient is a 41-year-old female, presenting with redness and subjective fever surrounding the left lower quadrant stoma for 1 week. She recently had diverting ileostomy on February 2017 due to rectal carcinoma. She denies cough, neck pain, chest pain, dyspnea, vomiting, dysuria, diarrhea. She does not smoke nor drink Past medical history: History of rectal cancer Past surgical history: Diverting ileostomy, rectal cancer resection ROS All systems reviewed and are negative except as per history of present illness. Medications Home Meds Reported Medications Piperacillin/Tazobactam Sod (Zosyn) 2.25 Gm Soln, 2.25 GM IV Q8H 03/24/17 Discontinued Scripts Hydrocodone/Acetaminophen (Broadalbin 5-325 Tablet) 1 Each Tablet, 1 EACH PO Q6, #15 TAB Prov:RAKAYLA LONDONP S. 03/12/17 Ondansetron Hcl* (Zofran*) 4 Mg Tab, 4 MG PO Q6H Y for NAUSEA AND OR VOMITING, # 20 TAB Prov:RAFILEMON LONDONEEP S. 03/12/17 Allergies Allergies: Coded Allergies: No Known Drug Allergies (Unverified Allergy, Unknown, 03/24/17) iodine (Verified Allergy, Unknown, nause and vomiting, 03/24/17) PMhx/Soc History of Surgery: Yes (CS 1998,2000,2009, 02/16 REMOVAL OF RECTAL CA, ILEOSTOMY 03/06) Anesthesia Reaction: No Hx 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 Disorder: No Hx Respiratory Disorders: No Hx Cardiac Disorders: No Hx Psychiatric Problems: No Hx Miscellaneous Medical Probl: Yes (rectal ca) Hx Alcohol Use: Yes (OCCASSIONAL) Hx Substance Use: No Hx Tobacco Use: No Physical Exam Vitals Vital Signs Date Time Temp Pulse Resp B/P Pulse Ox O2 Delivery O2 Flow Rate FiO2 03/24/17 21:56 74 18 109/66 98 Room Air 03/24/17 20:50 97.5 94 18 110/58 98 Physical Exam Const: No acute distress. Head: Atraumatic. Eyes: Normal Conjunctiva. ENT: Normal External Ears, Nose and Mouth. Neck: Full range of motion. No meningismus. Resp: Clear to auscultation bilaterally. Cardio: Regular rate and rhythm. Abd: Soft, non distended, normal bowel sounds, non tender.Left lower quadrant stoma with surrounding erythema, no abdominal tenderness Skin: No petechiae or rashes. Back: No midline or flank tenderness. Ext: No cyanosis, or edema. Neur: Awake and alert. No focal deficit Psych: Normal Mood and Affect. Result Diagram: 03/24/172 03/24/17 2252 Results 24 hrs Laboratory Tests Test 03/24/17 22:52 03/24/17 23:12 White Blood Count 4.610^3/ul Red Blood Count 3.1510^6/ul Hemoglobin 9.7g/dl Hematocrit 29.5% Mean Corpuscular Volume 93.7fl Mean Corpuscular Hemoglobin 30.8pg Mean Corpuscular Hemoglobin Concent 32.9g/dl Red Cell Distribution Width 13.8% Platelet Count 58859^3/UL Mean Platelet Volume 9.2fl Neutrophils % 67.7% Lymphocytes % 14.0% Monocytes % 9.9% Eosinophils % 6.9% Basophils % 1.1% Nucleated Red Blood Cells % 0.0/100WBC Neutrophils # 3.110^3/ul Lymphocytes # 0.710^3/ul Monocytes # 0.510^3/ul Eosinophils # 0.310^3/ul Basophils # 0.110^3/ul Nucleated Red Blood Cells # 0.010^3/ul Prothrombin Time 13.5Sec Prothrombin Time Ratio 1.1 INR International Normalized Ratio 1.03 Activated Partial Thromboplast Time 24.7Sec Sodium Level 142mmol/L Potassium Level 3.5mmol/L Chloride Level 107mmol/L Carbon Dioxide Level 27mmol/L Anion Gap 12 Blood Urea Nitrogen 10mg/dl Creatinine 0.66mg/dl Glucose Level 106mg/dl Lactic Acid Level 0.9mmol/L Calcium Level 9.7mg/dl Total Bilirubin 0.0mg/dl Direct Bilirubin 0.00mg/dl Indirect Bilirubin 0.0mg/dl Aspartate Amino Transf (AST/SGOT) 47IU/L Alanine Aminotransferase (ALT/SGPT) 56IU/L Alkaline Phosphatase 99IU/L Total Protein 6.7g/dl Albumin 3.6g/dl Globulin 3.10g/dl Albumin/Globulin Ratio 1.16 Bedside Urine pH (LAB) 5.5 Bedside Urine Protein (LAB) Negative Bedside Urine Glucose (UA) Negative Bedside Urine Ketones (LAB) Negative Bedside Urine Blood 1+ Bedside Urine Nitrite (LAB) Negative Bedside Urine Leukocyte Esterase (L Trace Current Medications Medications (Trade) Dose Ordered Sig/Samantha Route PRN Reason Start Time Stop Time Status Last Admin Dose Admin Vancomycin HCl 1.25 gm/Sodium Chloride 250 ml @ 83.333 mls/ hr ONCE ONCE IVPB 03/25/17 00:00 03/25/17 02:59 Levofloxacin/ Dextrose 150 ml @ 100 mls/hr ONCE ONCE IVPB 03/25/17 00:00 03/25/17 01:29 Sodium Chloride (NS) 1,000 ml @ 1,000 mls/hr Q1H ONCE IV 03/25/17 00:30 03/25/17 01:29 Morphine Sulfate (morphine) 4 mg ONCE ONCE IV 03/25/17 00:17 03/25/17 00:18 DC Ondansetron HCl 4 mg 4 mg ONCE ONCE IV 03/25/17 00:17 03/25/17 00:18 DC Sodium Chloride (NS) 1,000 ml @ 1,000 mls/hr Q1H ONCE IV 03/25/17 00:30 03/25/17 01:29 Procedures/[place] [id number] Radiology Main Line: [phone] DIAGNOSTIC IMAGING REPORT Patient: MASOUD FARFAN : 1975 Age: 41 Sex: F MR #: [id number] DOS: 03/24/17 2220 Ordering MD: RICHA ALEXANDRA MD Location: E/R Room/Bed: PROCEDURE: XR Chest. CLINICAL INDICATION: Possible sepsis. TECHNIQUE: Single frontal view of the chest. COMPARISON: Chest dated 03/09/2017. FINDINGS: Left central venous line again seen with tip in superior vena cava right atrial junction. The cardiomediastinal silhouette is within normal limits. The lungs are clear. No signs of pleural fluid or pneumothorax are seen. The osseous structures and soft tissues are unremarkable. IMPRESSION: No evidence for active cardiopulmonary disease. RPTAT: [facility] Physician Fuentes Date Time Electronically viewed and signed by Physician Fuentes on 03/24/2017 22:52 RS/ CC: RICHA ALEXANDRA MD EKG: Read by emergency physician Rate/Rhythm: Normal Sinus Rhythm 73 beats/min QRS, ST, T-waves: No ST elevation, no T inversion, Right alberto axis Impression: Abnormal EKG MEDICAL MAKING DECISION: The patient is a 41-year-old female, presenting with acute abdominal wall cellulitis around the stoma. She was treated with Levaquin IV and vancomycin IV and 1 L normal saline for clinical dehydration, morphine 2 mg IV for pain and Zofran 4 IV for now good response The differential diagnoses considered include but are not limited to intra- abdominal abscess, cholelithiasis, cholecystitis, cystitis, pancreatitis, hepatitis, gastritis, peptic ulcer disease, gastric ulcer, appendicitis, diverticulitis, cholangitis, choledocholithiasis, partial small bowel obstruction. Departure Diagnosis: Primary Impression: Abdominal wall cellulitis Additional Impression: Anemia Condition: Stable Comments I discussed the findings with the patient. I discussed the patient with the oncall hospitalist Dr. Dasilva at 11:50 PM who was made aware of the lab, the treatment, the patient condition. The patient is admitted to [facility] RICHA ALEXANDRA MD Mar 24, 2017 22:07
[2017-03-24] MEDS ORDERED: [UNRECOGNIZED DRUG - CODE] IV (22:23)
--- NOTE | 2017-03-24 22:53 | RADRPT ---
PROCEDURE: XR Chest. CLINICAL INDICATION: Possible sepsis. TECHNIQUE: Single frontal view of the chest. COMPARISON: Chest dated 03/09/2017. FINDINGS: Left central venous line again seen with tip in superior vena cava right atrial junction. The cardiomediastinal silhouette is within normal limits. The lungs are clear. No signs of pleural f luid or pneumothorax are seen. The osseous structures and soft tissues are unremarkable. IMPRESSION: No evidence for active cardiopulmonary disease. RPTAT: [facility] Physician Fuentes Date Time Electronically viewed and signed by Vee Velasco Physician on 03/24/2017 22:52 RS/
[2017-03-24 23:04] LABS: BASOPHIL # 0.1 10^3/ul (0.0-0.1); BASOPHILS % 1.1 % (0.0-2.0); EOSINOPHILS # 0.3 10^3/ul (0.0-0.5); EOSINOPHILS % 6.9 % (0.0-7.0); HEMATOCRIT 29.5 % (37.0-47.0); HEMOGLOBIN 9.7 g/dl (12.0-16.0); LYMPHOCYTES # 0.7 10^3/ul (0.8-2.9); MEAN CORPUSCULAR HEMOGLOBIN 30.8 pg (29.0-33.0); MEAN CORPUSCULAR HGB CONC 32.9 g/dl (32.0-37.0); MEAN CORPUSCULAR VOLUME 93.7 fl (82.0-101.0); MEAN PLATELET VOLUME 9.2 fl (7.4-10.4); MONOCYTE # 0.5 10^3/ul (0.3-0.9); MONOCYTES % 9.9 % (0.0-11.0); NEUTROPHIL # 3.1 10^3/ul (1.6-7.5); NEUTROPHILS % 67.7 % (39.0-77.0); PLATELET COUNT 381 10^3/UL (140-415); RED BLOOD COUNT 3.15 10^6/ul (4.20-5.40); RED CELL DISTRIBUTION WIDTH 13.8 % (11.5-14.5); WHITE BLOOD COUNT 4.6 10^3/ul (4.8-10.8)
[2017-03-24 23:05] LABS: URINE BLOOD (Dip) POC 1+ (NEGATIVE)
[2017-03-24 23:17] LABS: INR 1.03; PROTIME 13.5 Sec (12.2-14.2); PT RATIO 1.1
[2017-03-24 23:18] LABS: PARTIAL THROMBOPLASTIN TIME 24.7 Sec (25.0-35.0)
[2017-03-24 23:22] LABS: ALBUMIN 3.6 g/dl (3.3-4.9); ALBUMIN/GLOBULIN RATIO 1.16; CALCIUM 9.7 mg/dl (8.4-10.2); CREATININE 0.66 mg/dl (0.44-1.00); POTASSIUM 3.5 mmol/L (3.5-5.1); TOTAL PROTEIN 6.7 g/dl (6.1-8.1)
[2017-03-25] MEDS ORDERED: LEVOFLOXACIN 750MG/D5W (PMX) 150 ML IVPB ONE
[2017-03-25] MEDS ORDERED: VANCOMYCIN 1.25 GM in SOD CHLORIDE 0.9% 250 ML IVPB ONE ×2
[2017-03-25] MEDS ORDERED: ONDANSETRON 4 MG INJ IV ONE (00:17)
[2017-03-25] MEDS ORDERED: morphine 4 MG/ML VIAL IV ONE ×2 (00:17→00:48)
[2017-03-25] MEDS ORDERED: SOD CHLORIDE 0.9% 1,000 ML IV ONE ×2 (00:30)
[2017-03-25 02:10] VITALS: BP 102/62; PULSE 80; RESP 20
[2017-03-25] MEDS ORDERED: VANCOMYCIN IV PER PHARMACY XX SCH (03:00)
[2017-03-25] MEDS ORDERED: ACETAMINOPHEN 325 MG TAB PO PRN (03:00)
[2017-03-25] MEDS ORDERED: ONDANSETRON 4 MG INJ IV PRN (03:00)
[2017-03-25] MEDS ORDERED: morphine 4 MG/ML VIAL IV PRN (03:00)
[2017-03-25 05:24] LABS: BASOPHILS % 0.6 % (0.0-2.0); EOSINOPHILS # 0.2 10^3/ul (0.0-0.5); EOSINOPHILS % 4.5 % (0.0-7.0); HEMATOCRIT 27.9 % (37.0-47.0); LYMPHOCYTES # 0.8 10^3/ul (0.8-2.9); LYMPHOCYTES % 16.3 % (15.0-51.0); MEAN CORPUSCULAR HEMOGLOBIN 30.7 pg (29.0-33.0); MEAN CORPUSCULAR HGB CONC 32.3 g/dl (32.0-37.0); MEAN CORPUSCULAR VOLUME 95.2 fl (82.0-101.0); MEAN PLATELET VOLUME 9.4 fl (7.4-10.4); MONOCYTE # 0.4 10^3/ul (0.3-0.9); MONOCYTES % 7.7 % (0.0-11.0); NEUTROPHIL # 3.3 10^3/ul (1.6-7.5); NEUTROPHILS % 70.7 % (39.0-77.0); PLATELET COUNT 348 10^3/UL (140-415); RED BLOOD COUNT 2.93 10^6/ul (4.20-5.40); RED CELL DISTRIBUTION WIDTH 13.7 % (11.5-14.5); WHITE BLOOD COUNT 4.7 10^3/ul (4.8-10.8)
[2017-03-25 06:21] LABS: ALBUMIN 3.1 g/dl (3.3-4.9); ALBUMIN/GLOBULIN RATIO 1.03; CALCIUM 8.9 mg/dl (8.4-10.2); CREATININE 0.6 mg/dl (0.44-1.00); MAGNESIUM 1.7 mg/dl (1.7-2.5); PHOSPHORUS 3.6 mg/dl (2.5-4.9); POTASSIUM 3.8 mmol/L (3.5-5.1); TOTAL PROTEIN 6.1 g/dl (6.1-8.1)
[2017-03-25 07:00] VITALS: BP 99/60; RESP 20
--- NOTE | 2017-03-25 07:05 | HP ---
Date/Time of Note Date/Time of Note DATE: 03/25/17 TIME: 06:50 Assessment/Plan VTE Prophylaxis VTE Prophylaxis Intervention: SCD's Lines/Catheters IV Catheter Type (from [facility], [place]): PICC Line Assessment/Plan Assessment/Plan 1. Abdominal wall cellulitis, around the stoma -This seems to have resolved already since presentation to the ER -will continue current antibiotic -Patient also c/o leakage around stoma. Will change ileostomy bag and monitor for resolution 2. Rectal cancer: s/p exploratory laparotomy and low anterior resection with primary anastomosis as well as CT-guided drain placement and a diverting ileostomy almost 3 weeks ago -Follow-up with PCP, Oncology and Dr. Santos HPI/ROS Admit Date/Time Admit Date/Time Mar 24, 2017 at 23:53 Hx of Present Illness This is a 41-year-old female who was recently diagnosed rectal cancer and underwent exploratory laparotomy and low anterior resection with primary anastomosis as well as CT-guided drain placement and a diverting ileostomy almost 3 weeks ago here at [facility]. She presented to the ER complaining of "inflammation" as well as leakage around the stoma for the past 2 days. She denied abdominal pain, fever/chills, nausea/vomiting, constipation or diarrhea. After patient was discharged from here, she did see Dr. Santos, the surgeon for follow-up. She has another appointment in 5 days. On my examination, there is very minimal leakage otherwise no erythema, no abdominal tenderness. She said she had already seen improvement with the erythema since she presented to the ER. Patient looks very comfortable PMH/Family/Social Social History Smoking Status: Never smoker Exam/Review of Systems Vital Signs Vitals Vital Signs Date Time Temp Pulse Resp B/P Pulse Ox O2 Delivery O2 Flow Rate FiO2 03/25/17 02:10 98.7 80 20 102/62 99 Room Air Intake and Output 03/24/17 03/24/17 03/25/17 15:00 23:00 07:00 Intake Total 1600 ml Output Total 400 ml Balance 1200 ml Exam Constitutional: alert, oriented, well developed Head: atraumatic, normocephalic Eyes: EOMI, PERRL Respiratory: clear to auscultation, normal air movement Cardiovascular: nl pulses, regular rate and rhythm Gastrointestinal: other (Right-sided ileostomy, was brownish/yellowish stool in the bag), soft Labs Result Diagram: 03/25/17 0434 03/25/17 0434 Medications Medications Current Medications Ondansetron HCl (Zofran Inj) 4 mg Q6H PRN IV NAUSEA AND/OR VOMITING; Start at 03:00 Acetaminophen 650 mg 650 mg Q6H PRN PO PAIN AND OR ELEVATED TEMP; Start at 03:00 Cefepime HCl (Maxipime 1gm/50 ml (Pmx)) 50 ml @ 100 mls/hr Q12 IVPB ; Start at 09:00 Morphine Sulfate 3 mg 3 mg Q4H PRN IV PAIN LEVEL 7-10; Start 03/25/17 at 03:00 Vancomycin HCl/ Sodium Chloride (Vancocin/NS) 150 ml @ 75 mls/hr Q8H IVPB ; Start 03/25/17 at 11:00 JEAN PAUL BEAUCHAMP MD Mar 25, 2017 07:01
[2017-03-25] MEDS ORDERED: CEFEPIME 1GM/50 ML (PMX) 50 ML IVPB SCH (09:00)
[2017-03-25] MEDS ORDERED: VANCOMYCIN 750 MG in SOD CHLORIDE 0.9% 150 ML IVPB SCH ×2 (11:00→14:00)
--- NOTE | 2017-03-25 13:51 | PDOCDIS ---
Discharge Instructions CONDITION Patient Condition: Stable HOME CARE INSTRUCTIONS: Diet Instructions: Regular ACTIVITY: Activity Restrictions: Slowly Increase Activity FOLLOW UP/APPOINTMENTS Follow-up Plan Please take your medications as prescribed, please follow-up with your regular doctor in the clinic in the next few days, including your surgery doctor as well in the clinic. EMPERATRIZ SILVA Mar 25, 2017 13:51
[2017-03-25] MEDS ORDERED: LEVO750T25 PO (13:52)
--- NOTE | 2017-03-25 13:57 | DS ---
Date/Time of Note Date/Time of Note DATE: 03/25/17 TIME: 13:54 Discharge Summary Admission/Discharge Info Admit Date/Time Mar 24, 2017 at 23:53 Discharge Date/Time Discharge Diagnosis 1. Mild cellulitis and "inflammation" as well as leakage around the stoma-now improved 2. rectal cancer, status post low anterior resection with subsequent diverting ileostomy for rectal anastomosis leak site. 3. Positive wound cultures from abdomen for multi-organisms. Status post treatment with broad-spectrum antibiotics as outpatient recently 4. History of prior klebsiella and Morganella urinary tract infection (UTI) status post antibiotic treatment. Patient Condition: Stable Hospital Course 41-year-old female who was recently diagnosed rectal cancer and underwent exploratory laparotomy and low anterior resection with primary anastomosis as well as CT-guided drain placement and a diverting ileostomy almost 3 weeks ago here at [facility]. She presented to the ER complaining of "inflammation" as well as leakage around the stoma for the past 2 days. She denied abdominal pain, fever/ chills, nausea/vomiting, constipation or diarrhea. After patient was discharged from here, she did see Dr. Santos, the surgeon for follow-up. She has another appointment in 4 days. On initial examination, there is very minimal leakage otherwise no erythema, no abdominal tenderness. She said she had already seen improvement with the erythema since she presented to the ER. Patient looks very comfortable. Patient was admitted, monitored overnight, lab results are stable, vitals are stable, she received a dose of broad-spectrum antibiotics, and because she is clinically improved today she will be discharged home today improved condition. She will follow with surgery team in the clinic in the next 4 days. She has been given strict return precautions as well. She will get Levaquin 700 mg p.o. daily for 5 days as well to complete treatment. Home Meds Active Scripts Levofloxacin* (Levaquin*) 750 Mg Tablet, 750 MG PO DAILY, #5 TAB Prov:EMPERATRIZ SILVA S. 03/25/17 Discontinued Reported Medications Piperacillin/Tazobactam Sod (Zosyn) 2.25 Gm Soln, 2.25 GM IV Q8H 03/24/17 Discontinued Scripts Hydrocodone/Acetaminophen ([place] 5-325 Tablet) 1 Each Tablet, 1 EACH PO Q6, #15 TAB Prov:EMPERATRIZ SILVA S. 03/12/17 Ondansetron Hcl* (Zofran*) 4 Mg Tab, 4 MG PO Q6H Y for NAUSEA AND OR VOMITING, # 20 TAB Prov:EMPERATRIZ SILVA S. 03/12/17 Follow-up Plan Please take your medications as prescribed, please follow-up with your regular doctor in the clinic in the next few days, including your surgery doctor as well in the clinic. Primary Care Provider Abelardo Bradford MD Time spent on discharge: > 30 minutes Pending Labs Laboratory Tests Test 03/24/17 22:52 03/24/17 23:12 03/25/17 03:02 03/25/17 04:34 White Blood Count 4.610^3/ul (4.8-10.8) 4.710^3/ul (4.8-10.8) Red Blood Count 3.1510^6/ul (4.20-5.40) 2.9310^6/ul (4.20-5.40) Hemoglobin 9.7g/dl (12.0-16.0) 9.0g/dl (12.0-16.0) Hematocrit 29.5% (37.0-47.0) 27.9% (37.0-47.0) Mean Corpuscular Volume 93.7fl (82.0-101.0) 95.2fl (82.0-101.0) Mean Corpuscular Hemoglobin 30.8pg (29.0-33.0) 30.7pg (29.0-33.0) Mean Corpuscular Hemoglobin Concent 32.9g/dl (32.0-37.0) 32.3g/dl (32.0-37.0) Red Cell Distribution Width 13.8% (11.5-14.5) 13.7% (11.5-14.5) Platelet Count 57956^3/UL (140-415) 25666^3/UL (140-415) Mean Platelet Volume 9.2fl (7.4-10.4) 9.4fl (7.4-10.4) Neutrophils % 67.7% (39.0-77.0) 70.7% (39.0-77.0) Lymphocytes % 14.0% (15.0-51.0) 16.3% (15.0-51.0) Monocytes % 9.9% (0.0-11.0) 7.7% (0.0-11.0) Eosinophils % 6.9% (0.0-7.0) 4.5% (0.0-7.0) Basophils % 1.1% (0.0-2.0) 0.6% (0.0-2.0) Nucleated Red Blood Cells % 0.0/100WBC (0.0-0.0) 0.0/100WBC (0.0-0.0) Neutrophils # 3.110^3/ul (1.6-7.5) 3.310^3/ul (1.6-7.5) Lymphocytes # 0.710^3/ul (0.8-2.9) 0.810^3/ul (0.8-2.9) Monocytes # 0.510^3/ul (0.3-0.9) 0.410^3/ul (0.3-0.9) Eosinophils # 0.310^3/ul (0.0-0.5) 0.210^3/ul (0.0-0.5) Basophils # 0.110^3/ul (0.0-0.1) 0.010^3/ul (0.0-0.1) Nucleated Red Blood Cells # 0.010^3/ul (0.0-0.0) 0.010^3/ul (0.0-0.0) Prothrombin Time 13.5Sec (12.2-14.2) Prothrombin Time Ratio 1.1 INR International Normalized Ratio 1.03 Activated Partial Thromboplast Time 24.7Sec (25.0-35.0) Sodium Level 142mmol/L (135-144) 142mmol/L (135-144) Potassium Level 3.5mmol/L (3.5-5.1) 3.8mmol/L (3.5-5.1) Chloride Level 107mmol/L (97-110) 112mmol/L (97-110) Carbon Dioxide Level 27mmol/L (21-31) 23mmol/L (21-31) Anion Gap 12 (8-16) 11 (8-16) Blood Urea Nitrogen 10mg/dl (7-20) 9mg/dl (7-20) Creatinine 0.66mg/dl (0.44-1.00) 0.60mg/dl (0.44-1.00) Glucose Level 106mg/dl (70-220) 91mg/dl (70-220) Lactic Acid Level 0.9mmol/L (0.5-2.0) 0.8mmol/L (0.5-2.0) 0.8mmol/L (0.5-2.0) Calcium Level 9.7mg/dl (8.4-10.2) 8.9mg/dl (8.4-10.2) Total Bilirubin 0.0mg/dl (0.2-1.3) 0.0mg/dl (0.2-1.3) Direct Bilirubin 0.00mg/dl (0.00-0.20) 0.00mg/dl (0.00-0.20) Indirect Bilirubin 0.0mg/dl (0-1.1) 0.0mg/dl (0-1.1) Aspartate Amino Transf (AST/SGOT) 47IU/L (15-46) 38IU/L (15-46) Alanine Aminotransferase (ALT/SGPT) 56IU/L (13-69) 56IU/L (13-69) Alkaline Phosphatase 99IU/L (42-121) 87IU/L (42-121) Total Protein 6.7g/dl (6.1-8.1) 6.1g/dl (6.1-8.1) Albumin 3.6g/dl (3.3-4.9) 3.1g/dl (3.3-4.9) Globulin 3.10g/dl (1.3-3.2) 3.00g/dl (1.3-3.2) Albumin/Globulin Ratio 1.16 1.03 Bedside Urine pH (LAB) 5.5 (5.0-8.5) Bedside Urine Protein (LAB) Negative (NEGATIVE) Bedside Urine Glucose (UA) Negative (NEGATIVE) Bedside Urine Ketones (LAB) Negative (NEGATIVE) Bedside Urine Blood 1+ (NEGATIVE) Bedside Urine Nitrite (LAB) Negative (NEGATIVE) Bedside Urine Leukocyte Esterase (L Trace (NEGATIVE) Phosphorus Level 3.6mg/dl (2.5-4.9) Magnesium Level 1.7mg/dl (1.7-2.5) EMPERATRIZ SILVA Mar 25, 2017 13:57
== END 2017-03-25 16:00 | disposition home or self-care (01) | DRG 603 ==
LOC: FTE 20:45 → MS1 23:53
PROVIDERS: ADMIT Internal Medicine; ATTEND Internal Medicine
DX: L03.311 Cellulitis of abdominal wall (principal); B96.89 Other specified bacterial agents as the cause of diseases classified elsewhere; Z98.0 Intestinal bypass and anastomosis status
CPT/HCPCS: 36415; 71010; 80053; 81003; 83605; 83735; 84100; 85025; 85610; 85730; 87040; 87086; 93005; 96365; 96375; J0692; J1956; J2270; J2405; J3370; J7030; J7050

== ENCOUNTER 2017-05-03 09:31 | Emergency (ER) | payer OTHER ==
[~2017-05-03] VITALS: Ht 157.5 cm; Wt 46.0 kg
[~2017-05-03 09:31] MED LIST changes: -HYDR-906 PO; +LEVO750T25 PO; -ONDA-43 PO
[2017-05-03 09:40] VITALS: Ht 157.5 cm; Wt 46.0 kg
== END 2017-05-03 15:49 | disposition left against medical advice (07) ==
LOC: E/R 09:31
DX: Z53.21 Procedure and treatment not carried out due to patient leaving prior to being seen by health care provider (principal)

== ENCOUNTER 2017-10-03 06:28 | Day surgery (SDC) | END 2017-10-03 10:28 | disposition home or self-care (01) ==